=== PATIENT | female | born 1950 | race Caucasian/White ===

== ENCOUNTER 2021-02-14 13:29 | Outpatient (CLI) | payer MEDICARE, SELFPAY | END 2021-02-14 13:30 | disposition home or self-care (01) | LOC: ANHCOVIDVC 13:29 | PROVIDERS: PCP Family Medicine | DX: Z23 Encounter for immunization (principal) | CPT/HCPCS: 0001A; 91300 ==

== ENCOUNTER 2021-03-07 13:19 | Outpatient (CLI) | payer MEDICARE, SELFPAY | END 2021-03-07 13:20 | disposition home or self-care (01) | LOC: ANHCOVIDVC 13:19 | PROVIDERS: PCP Family Medicine | DX: Z23 Encounter for immunization (principal) | CPT/HCPCS: 0002A; 91300 ==

== ENCOUNTER 2021-11-25 21:25 | Inpatient (IN) | payer MEDICARE, SELFPAY ==
[2021-11-25] VITALS (12 sets, daily range): BP systolic 85–136; BP diastolic 46–106; PULSE 95–109; RESP 20–36; TEMP 36.6; O2SAT 89–99
--- NOTE | ~2021-11-25 | XR_ITS ---
EXAMINATION: XR chest 1V portable DATE: 12/12/2021 05:39 INDICATION: Respiratory failure TECHNIQUE: frontal view of the chest was obtained. COMPARISON: Chest radiograph dated 12/11/2021 FINDINGS: Endotracheal tube tip 4.2 cm above the shemar. Nasogastric tube extends below the left hemidiaphragm with distal tip collimated off the study. Left internal jugular central venous catheter with distal tip at the superior vena cava. Bilateral diffuse increased interstitial pattern superimposed over a gradient of lower lung predomina nt hazy airspace opacities, the latter consistent with small left and moderate right posteriorly laye ring pleural effusions. No pneumothorax. Cardiomegaly. Atherosclerotic aorta. Mitral annular calcific ation. IMPRESSION: 1. Diffuse bilateral lung disease consistent with pulmonary edema superimposed over moderate right an d small left pleural effusions. Superimposed pneumonia not excludable. Reviewed, dictated and finalized at location A. TYPE OPERATOR IMPRESSION: 1. Diffuse bilateral lung disease consistent with pulmonary edema superimposed over moderate right and small left pleural effusions. Superimposed pneumonia no t excludable.
--- NOTE | ~2021-11-25 | US_ITS ---
EXAMINATION: US renal BI DATE: 12/12/2021 18:03 INDICATION: Acute kidney injury TECHNIQUE: Multiple grayscale and Doppler ultrasound images of the kidneys were obtained. COMPARISON: CT, 12/02/2021 FINDINGS: The right kidney measures 11.2 x 6.2 x 4.2 cm. The left kidney measures 9.7 x 6 x 5.1 cm. T he kidneys demonstrate normal parenchymal echogenicity. There is no hydronephrosis. The bladder is de compressed by Alvarez catheter. IMPRESSION: 1. Normal kidneys without hydronephrosis. Reviewed, dictated and finalized at location F. RINTENDENT DRIVERS
--- NOTE | ~2021-11-25 | XR_ITS ---
EXAMINATION: [id number] EXAM DATE: 12/06/2021 18:26 INDICATION: Postthoracentesis. TECHNIQUE: Portable AP frontal chest x-ray was obtained. Comparison is made to prior examination from earlier same day. FINDINGS: Improvement in the diffuse hazy opacification over the right lung following thoracentesis. No postprocedure pneumothorax. Small to moderate left, small right pleural effusions. Cardiomegaly. D iffuse bilateral pneumonia and/or edema. Endotracheal tube, feeding tube and left IJ line in position . IMPRESSION: No postprocedure pneumothorax. Reviewed, dictated and finalized at location A. GRADER
--- NOTE | ~2021-11-25 | US_ITS ---
EXAMINATION: US thoracentesis DATE: 12/14/2021 16:47 INDICATION: Right pleural effusion TECHNIQUE: The procedure and its risks and benefits were discussed with the patient. Potential risks discussed included bleeding, infection, and pneumothorax. The patient understood the risks and agreed to proceed. The skin was prepped and draped in sterile fashion. 1% lidocaine was used for local anes thesia. Under ultrasound guidance, a 5 Fr catheter with trochar was advanced into the right pleural e ffusion. Fluid was aspirated. The catheter was removed, and a dressing was applied. There were no imm ediate complications. FINDINGS: Ultrasound images demonstrate a moderate-sized right pleural effusion and the catheter within the flu id. IMPRESSION: 1. Successful ultrasound-guided thoracentesis yielding 1000 mL of clear petey-colored fluid. Reviewed, dictated and finalized at location A. RAFT ENGINE ASSEMBLER IMPRESSION: 1. Successful ultrasound-guided thoracentesis yielding 1000 mL of clear petey- colored fluid.
--- NOTE | ~2021-11-25 | XR_ITS ---
XR chest 1V portable DATE: 12/05/2021 06:12 INDICATION: Acute hypoxic respiratory failure TECHNIQUE: Portable AP chest on 12/05/2021 at 0514 hours COMPARISON: 12/2021 portable AP chest at 0517 hours FINDINGS: ET tube tip 4.4 cm above shemar. NG tube in stomach. Left internal jugular central venous catheter tip overlies the superior vena cava. There are persistent pulmonary vascular congestion and diffuse bilateral pulmonary interstitial infil trates with atelectasis/consolidation in the right mid and both lower lung zones. Bilateral pleural e ffusions, right greater than left. Aortic calcification. Diffuse osteopenia. IMPRESSION: Congestive changes, bilateral pulmonary infiltrates and pleural effusions, relatively sta ble since 12/04/2021 Reviewed, dictated and finalized at location A. NT SERVICES ADMINISTRATOR IMPRESSION: Congestive changes, bilateral pulmonary infiltrates and pleural eff usions, relatively stable since 12/04/2021
--- NOTE | ~2021-11-25 | XR_ITS ---
XR chest 1V portable DATE: 12/06/2021 06:00 INDICATION: Acute hypoxic respiratory failure TECHNIQUE: Portable AP chest on 12/06/2021 at 0544 hours COMPARISON: 12/05/2021 portable AP chest at 1330 hours FINDINGS: ET tube in satisfactory position 4.5 cm above shemar. NG tube in stomach. Left internal jug ular central venous catheter tip overlies the proximal superior vena cava. No pneumothorax. There is persistent pulmonary vascular congestion and redistribution, pulmonary interstitial prominen ce including Tamanna B-lines, consistent bilateral infiltrates, right greater than left, prominence of the minor fissure suggesting subpleural edema, bilateral pleural effusions, right greater than left IMPRESSION: No significant change of congestive changes and bilateral infiltrates, right greater than left, and bilateral pleural effusions, right greater than left, since 12/05/2021 Reviewed, dictated and finalized at location A. S TIE CUTTER IMPRESSION: No significant change of congestive changes and bilateral infiltrat es, right greater than left, and bilateral pleural effusions, right greater jez n left, since 12/05/2021
--- NOTE | ~2021-11-25 | XR_ITS ---
EXAMINATION: XR chest port-a-cath/central DATE: 12/13/2021 12:35 INDICATION: Central line placement. TECHNIQUE: A single frontal view of the chest was obtained. COMPARISON: Chest single view 12/12/2021 FINDINGS: There are interstitial airspace opacities throughout the lungs bilaterally. There are moder ate-sized pleural effusions. No pneumothorax. Cardiomegaly is noted. The endotracheal tube tip is 5.7 cm above the shemar. The nasogastric tube tip is beyond the inferior margin of the radiograph, but a t least to the stomach. A left internal jugular central venous catheter is seen with tip in the super ior vena cava. A right internal jugular central venous catheter is seen with tip at the superior cavo atrial junction. IMPRESSION: 1. New central line tip at superior cavoatrial junction. 2. Stable diffuse lung disease, consistent with pulmonary edema versus pneumonia. 3. Stable moderate-sized pleural effusions. 4. Cardiomegaly. Reviewed, dictated and finalized at location B. H OPERATOR IMPRESSION: 1. New central line tip at superior cavoatrial junction. 2. Stable diffuse lung disease, consistent with pulmonary edema versus pneumoni a. 3. Stable moderate-sized pleural effusions. 4. Cardiomegaly.
--- NOTE | ~2021-11-25 | XR_ITS ---
XR chest 1V portable DATE: 12/03/2021 06:21 INDICATION: Acute hypoxic respiratory failure TECHNIQUE: Portable AP chest on 12/03/2021 0510 hours COMPARISON: 12/02/2020 CTA chest abdomen pelvis 12/02/2021 portable AP chest FINDINGS: ET tube in satisfactory position 4.6 cm above shemar. NG tube in stomach. Left internal jug ular central venous catheter tip overlies the superior vena cava. Cardiomegaly. Aortic calcification. There are bilateral mid and lower lung infiltrate/atelectasis and bilateral pleural effusions, right greater than left. No pneumothorax is noted. Diffuse osteopenia. IMPRESSION: Persistent congestive changes, bilateral central and lower lung zone infiltrates and bila teral pleural effusions, right greater than left. Congestive heart failure and pulmonary edema is robert pected. Pneumonia is not excluded Reviewed, dictated and finalized at location A. AD TRIMMER IMPRESSION: Persistent congestive changes, bilateral central and lower lung zon e infiltrates and bilateral pleural effusions, right greater than left. Congest khadar heart failure and pulmonary edema is suspected. Pneumonia is not excluded
--- NOTE | ~2021-11-25 | XR_ITS ---
EXAMINATION: XR chest 1V portable EXAM DATE: 11/30/2021 20:55 INDICATION: Worsening hypoxia . TECHNIQUE: Portable AP frontal chest x-ray was obtained. Comparison is made to prior examination from 11/25/2021. FINDINGS: Worsening severe right-sided, moderate left-sided airspace disease, probably pneumonia and/ or edema. Mild cardiomegaly. No pneumothorax. Probable small pleural effusions. There are no osseous abnormalities identified. There is aortic arteriosclerosis. IMPRESSION: 1. Worsening pneumonia and/or edema. 2. Small pleural effusions. 3. Cardiomegaly. Reviewed, dictated and finalized at location A. GUARD
--- NOTE | ~2021-11-25 | XR_ITS ---
EXAMINATION: XR chest 1V portable DATE: 12/11/2021 05:41 INDICATION: Respiratory failure TECHNIQUE: frontal view of the chest was obtained. COMPARISON: Chest radiograph dated 12/10/2021 FINDINGS: Endotracheal tube tip 4.3 cm above the shemar. Nasogastric tube extends below the left hemidiaphragm with distal tip collimated off the study. Left internal jugular central venous catheter with distal tip at the cephalad superior vena cava. Increasing opacities in the bilateral mid and lower lung zones consistent with increasing bilateral s mall to moderate right and small left pleural effusions with associated atelectasis and/or pneumonia. There is also increased perihilar interstitial pattern with peribronchial cuffing suggesting mild pu lmonary edema. Cardiomegaly. IMPRESSION: 1. Increasing small left and [id number] right pleural effusions with associated atelectasis, p neumonia, pulmonary edema or some combination thereof in the mid and lower lung zones. Reviewed, dictated and finalized at location A. HOUSE HELPER IMPRESSION: 1. Increasing small left and [id number] right pleural effusions with ass ociated atelectasis, pneumonia, pulmonary edema or some combination thereof in the mid and lower lung zones.
--- NOTE | ~2021-11-25 | XR_ITS ---
EXAMINATION: XR chest 1V portable DATE: 12/08/2021 05:40 INDICATION: Respiratory failure. TECHNIQUE: A single frontal view of the chest was obtained. COMPARISON: Chest single view 12/07/2021 FINDINGS: There are moderate-sized pleural effusions. There are airspace opacities in all lung zones bilaterally with least involvement in left upper lobe. No pneumothorax. Cardiomegaly is noted. The en dotracheal tube tip is 4.9 cm above the shemar. The nasogastric tube tip is beyond the inferior ciera n of the radiograph, but at least to the stomach. A left internal jugular central venous catheter is seen with tip in the superior vena cava. IMPRESSION: 1. Diffuse lung disease with worsening on the left, consistent with pulmonary edema versus pneumonia. 2. Worsened moderate-sized pleural effusions. 3. Cardiomegaly. Reviewed, dictated and finalized at location A. OR SHIPPING CLERK IMPRESSION: 1. Diffuse lung disease with worsening on the left, consistent with pulmonary e latasha versus pneumonia. 2. Worsened moderate-sized pleural effusions. 3. Cardiomegaly.
--- NOTE | ~2021-11-25 | XR_ITS ---
EXAMINATION: XR fl guide central line place DATE: 12/13/2021 10:31 INDICATION: Central line placement. TECHNIQUE: 2 intraoperative fluoroscopic views of the chest were obtained. I was not present. Fluoros copy exposure time was 3 seconds. COMPARISON: Chest single view 12/12/2021 FINDINGS: A right internal jugular central venous catheter is seen with tip at the superior cavoatria l junction. A left internal jugular central venous catheter is seen with tip in the superior vena cav a. The endotracheal tube tip is in expected position. IMPRESSION: 1. New central line tip at the superior cavoatrial junction. Reviewed, dictated and finalized at location B. IGERATING ENGINEER
--- NOTE | ~2021-11-25 | XR_ITS ---
XR chest 1V portable DATE: 12/21/2021 06:08 INDICATION: Respiratory failure TECHNIQUE: Portable AP chest on 12/21/2021 at 0512 hours hours COMPARISON: 12/20/2021 portable AP chest FINDINGS: ET tube tip 5.8 cm above shemar. NG tube in stomach. Dual lumen right internal jugular cent ral venous catheter tip overlies the lower aspect of superior vena cava. Left internal jugular centra l venous catheter overlies the proximal superior vena cava. No pneumothorax. There is persistent relatively stable pulmonary vascular congestion and redistribution and bilateral primarily central and lower lung zone infiltrates and pleural effusions, suggesting congestive change s and pulmonary edema. Pneumonia is not excluded. No pneumothorax. IMPRESSION: Persistent congestive changes and bilateral pulmonary infiltrates, pleural effusions, not significantly changed since 12/20/2021 Reviewed, dictated and finalized at location A. O STATION MANAGER
--- NOTE | ~2021-11-25 | US_ITS ---
EXAMINATION: US arterial duplex LE EXAM DATE: 12/17/2021 10:36 INDICATION: Left leg cyanosis. Cyanosis of all toes. TECHNIQUE: Multiple grayscale and Doppler, arterial duplex images of the left lower extremity were ob tained (by a technologist who performed the scan) and subsequently reviewed. There is no prior study for comparison. FINDINGS: Velocities of left lower extremity arteries reported in cm/second. Common femoral 213, superficial femoral 143, mid femoral 117, distal femoral 108, popliteal 138. Posterior tibial proximally 37, mid aspect 37, distally 58. Peroneal proximally 79, mid 118, distally 83. There are diffuse monophasic arterial waveforms with spectral broadening indicating turbulent flow. T hese are high resistance proximally, having lower resistance at the calf. Diffuse scattered arterial sclerotic disease noted without any focal region of doubled velocity to suggest focal specific high-g rade region of narrowing. IMPRESSION: Scattered left lower extremity arterial sclerosis, but with patent arteries through the c meagan. No single focal region of velocity doubling identified. Reviewed, dictated and finalized at location G. UNITY SERVICE ORGANIZATION DIRECTOR IMPRESSION: Scattered left lower extremity arterial sclerosis, but with patent arteries through the calf. No single focal region of velocity doubling identifi ed.
--- NOTE | ~2021-11-25 | XR_ITS ---
XR chest 1V portable 12/16/2021 06:16 Indication: Respiratory failure Procedure: AP portable chest Comparison: Comparison to multiple prior studies sequentially, with oldest reviewed study dated 12/13. Findings: Endotracheal tube tip 4.6 cm above the shemar. NG tube in the stomach. Cardiomegaly. Persis tent diffuse bilateral airspace disease which may represent pneumonia or edema. Small layering pleura l effusions. No pneumothorax. Central venous catheter tips in the SVC. Impression: 1: Persistent diffuse bilateral airspace disease which may represent pneumonia or edema. Reviewed, dictated and finalized at location A. TH CLUB ATTENDANT Impression: 1: Persistent diffuse bilateral airspace disease which may represent pneumonia or edema.
--- NOTE | ~2021-11-25 | XR_ITS ---
XR chest 1V portable 12/15/2021 05:48 Indication: Respiratory failure Procedure: AP portable chest Comparison: Comparison to multiple prior studies sequentially, with oldest reviewed study dated 12/13. Findings: Endotracheal tube tip 5 cm above the shemar. NG tube in the stomach. There is persistent ex tensive bilateral airspace disease which has progressed. Small pleural effusions. No pneumothorax. Ce ntral venous catheter tips in the SVC. Impression: 1: Progression of bilateral airspace disease, which may represent edema or pneumonia. 2: Small pleural effusions. Reviewed, dictated and finalized at location A. STANT PROFESSOR OF MARINE BIOLOGY Impression: 1: Progression of bilateral airspace disease, which may represent edema or pneu monia. 2: Small pleural effusions.
--- NOTE | ~2021-11-25 | XR_ITS ---
EXAMINATION: XR chest 1V portable EXAM DATE: 12/01/2021 14:45 INDICATION: decreased O2 Sats . TECHNIQUE: Portable AP frontal chest x-ray was obtained. Comparison is made to prior examination from 11/30/2021. FINDINGS: Severe right-sided, moderate left-sided airspace disease, probably pneumonia and/or edema. Mild cardiomegaly. No pneumothorax. Probable small to moderate right, small left pleural effusions. T here are no osseous abnormalities identified. There is aortic arteriosclerosis. Accounting for differences in technique, there is no significant interval change. IMPRESSION: 1. Right greater than left pneumonia and/or edema. 2. Small to moderate right, small left pleural effusions. 3. Cardiomegaly. Reviewed, dictated and finalized at location A. . UNIX SYSTEM ADMINISTRATOR
--- NOTE | ~2021-11-25 | XR_ITS ---
EXAMINATION: [id number] DATE: 12/14/2021 16:43 INDICATION: Status post right thoracentesis TECHNIQUE: frontal view of the chest was obtained. COMPARISON: Chest radiograph dated 12/14/2021 FINDINGS: Endotracheal tube tip 4.9 cm above the shemar. Nasogastric tube extends below the left hemidiaphragm with distal tip collimated off the study. Large-bore dual-lumen right internal jugular central venou s catheter with distal tip near at the caudal superior vena cava. Left internal jugular central venou s catheter with distal tip at the cephalad superior vena cava. Gradient of basilar predominant hazy airspace opacities in both lungs with blunting at the bilateral costophrenic angles consistent with small bilateral posteriorly layering pleural effusions. This is s ignificantly decreased on the right post thoracentesis. Bibasilar opacities consistent with associate d atelectasis and/or pneumonia. Superimposed increased interstitial pattern consistent with mild pulm onary edema. No pneumothorax. Mild cardiomegaly. IMPRESSION: 1. Small bilateral pleural effusions with associated basilar atelectasis and/or pneumonia with interv al decrease on the right postthoracentesis. 2. Mild cardiomegaly and mild pulmonary edema. Reviewed, dictated and finalized at location A. NCT ART HISTORY INSTRUCTOR IMPRESSION: 1. Small bilateral pleural effusions with associated basilar atelectasis and/or pneumonia with interval decrease on the right postthoracentesis. 2. Mild cardiomegaly and mild pulmonary edema.
--- NOTE | ~2021-11-25 | XR_ITS ---
XR chest 1V portable DATE: 12/18/2021 06:32 INDICATION: Respiratory failure TECHNIQUE: Portable AP chest 12/18/2021 at 0520 hours COMPARISON: 12/17/2021 portable AP chest at 0523 hours FINDINGS: ET tube tip 5.5 cm above shemar. NG tube in stomach. Dual lumen right internal jugular central venous catheter tip overlies the caudal aspect of the super ior vena cava. Left internal jugular central venous catheter tip overlies the proximal superior vena cava. No pneumothorax. There is pulmonary vascular congestion and redistribution. There are extensive bilateral pulmonary in filtrates which are more prominent centrally and minimal lower lung zones. Costophrenic angles are bl unted suggesting bilateral pleural effusions. Heart size is borderline enlarged. There is aortic calc ification. Diffuse osteopenia. IMPRESSION: Persistent congestive changes, extensive bilateral pulmonary infiltrates, suggesting pulm onary edema. Pneumonia is not excluded. Reviewed, dictated and finalized at location A. L PREP COOK IMPRESSION: Persistent congestive changes, extensive bilateral pulmonary infilt rates, suggesting pulmonary edema. Pneumonia is not excluded.
--- NOTE | ~2021-11-25 | XR_ITS ---
EXAMINATION: XR chest 1V portable EXAM DATE: 12/07/2021 06:21 INDICATION: Pneumonia. TECHNIQUE: Portable AP frontal chest x-ray was obtained. Comparison is made to prior examination from 12/06/2021. FINDINGS: Endotracheal tube tip is 4-5 centimeters above the shemar. There is a nasogastric tube see n with tip collimated off the study, but below the left hemidiaphragm. There is a left IJ venous li ne in position. Moderate amount of bibasilar edema or pneumonia. Small to moderate left, small right pleural effusion s. There is no pneumothorax suspected. The cardiomediastinal silhouette is prominent but magnified on this AP technique. The bones and soft tissues are unremarkable. IMPRESSION: 1. Line and tube(s) in position. 2. Basilar pneumonia or edema and pleural effusions with mild improvement. Reviewed, dictated and finalized at location G. WRITER
--- NOTE | ~2021-11-25 | US_ITS ---
EXAMINATION: US thoracentesis DATE: 12/06/2021 14:37 INDICATION: pleural effusion TECHNIQUE: The procedure and its risks, benefits, and alternatives were discussed with Mercedes Sauer. Grant otential risks discussed included bleeding, infection, and pneumothorax. She understood the risks and agreed to proceed. The skin was prepped and draped in sterile fashion. 1% lidocaine was used for loc al anesthesia. Under ultrasound guidance, a 5 Fr catheter with trochar was advanced into the right pl eural effusion. Fluid was aspirated. The catheter was removed, and a dressing was applied. There were no immediate complications. FINDINGS: Ultrasound images demonstrate a right pleural effusion and the catheter within the fluid. IMPRESSION: 1. Successful ultrasound-guided thoracentesis yielding 1000 mL of clear, yellow fluid. Reviewed, dictated and finalized at location A. OR QUALITY TECHNICIAN IMPRESSION: 1. Successful ultrasound-guided thoracentesis yielding 1000 mL of clear, yello w fluid.
--- NOTE | ~2021-11-25 | XR_ITS ---
XR chest 1V portable DATE: 12/22/2021 05:57 INDICATION: Respiratory failure TECHNIQUE: Portable AP chest on 12/22/2021 at 0525 hours COMPARISON: 12/21/2021 portable AP chest at 0512 hours FINDINGS: ET tube tip is 5.7 cm above shemar. NG tube in stomach. Left internal jugular central venous line overlies proximal superior vena cava. Right internal jugula r dual-lumen catheter tip is situated in the lower inferior vena cava. There is no pneumothorax. Cardiac megaly. Aortic calcification. Diffuse bilateral pulmonary infiltrates, more prominent centrally and to a greater extent in the lowe r lung zones and suggestion bilateral pleural effusions. Findings suggest congestive changes, pulmona ry edema. Pneumonia is not excluded. IMPRESSION: No significant change since 12/21/2021 Reviewed, dictated and finalized at location A. KILN OPERATOR
--- NOTE | ~2021-11-25 | CT_ITS ---
EXAMINATION: CT diagnostic chest wo con DATE: 12/08/2021 17:39 INDICATION: Respiratory failure TECHNIQUE: Computed tomography (CT) of the chest was performed without intravenous contrast. The dose -length product (DLP) was 262.62 mGy-cm. Automated exposure control and iterative reconstruction tech [employer] were employed. COMPARISON: 12/02/2021 FINDINGS: The endotracheal tube ends approximately 6 cm above the shemar. The nasogastric tube is fol lowed at least to the stomach. There are moderate-sized pleural effusions. Cardiomegaly is noted. The re is mild bilateral hilar and mediastinal lymphadenopathy, likely reactive. There are dependent airs pace opacities of the lungs. No pneumothorax is identified. There is calcified coronary artery athero sclerosis. There is severe lower cervical spondylosis. IMPRESSION: 1. Bilateral dependent airspace opacities, consistent with atelectasis versus pneumonia. 2. Moderate-sized pleural effusions. 3. Cardiomegaly. Reviewed, dictated and finalized at location F. AULIC PRESS SERVICER IMPRESSION: 1. Bilateral dependent airspace opacities, consistent with atelectasis versus p neumonia. 2. Moderate-sized pleural effusions. 3. Cardiomegaly.
--- NOTE | ~2021-11-25 | XR_ITS ---
EXAMINATION: XR chest ET placement EXAM DATE: 12/01/2021 15:42 INDICATION: intubation . Respiratory failure. TECHNIQUE: Portable AP frontal chest x-ray was obtained. Comparison is made to prior examination from earlier same date. FINDINGS: Endotracheal tube tip is 5-6 centimeters above the shemar. There is a left-sided IJ centra l venous line. Severe right-sided, moderate left-sided airspace disease, probably pneumonia and/or edema. Mild cardi omegaly. No pneumothorax. Probable small to moderate right, small left pleural effusions. There are n o osseous abnormalities identified. There is aortic arteriosclerosis. Accounting for differences in technique, there is no significant interval change. IMPRESSION: 1. No evidence postprocedure pneumothorax. 2. Right greater than left pneumonia and/or edema. 3. Small to moderate right, small left pleural effusions. 4. Cardiomegaly. Reviewed, dictated and finalized at location A. ANALYST
--- NOTE | ~2021-11-25 | XR_ITS ---
EXAMINATION: XR chest 1V portable DATE: 12/14/2021 06:31 INDICATION: Respiratory failure TECHNIQUE: frontal view of the chest was obtained. COMPARISON: Chest radiograph dated 12/13/2021 FINDINGS: Endotracheal tube tip 2.7 cm above the shemar. Nasogastric tube extends below the left hemidiaphragm with distal tip collimated off the study. Large-bore dual-lumen likely 12 right internal jugular kerrie tral venous catheter with distal tip near the superior cavoatrial junction. Left internal jugular kerrie tral venous catheter with distal tip at the cephalad superior vena cava. Persistent airspace opacities throughout both lungs most prominent at the right lung and left lower l denny zone likely due to small left and moderate-sized right posterior layering pleural effusions with associated basilar atelectasis and/or pneumonia. Superimposed mild pulmonary edema . Cardiomegaly. Mi tral annular calcification. IMPRESSION: 1. Likely congestive heart failure with cardiomegaly, mild pulmonary edema, small left and moderate-s ized right pleural effusions with associated atelectasis. Pneumonia not excludable. Reviewed, dictated and finalized at location A. GER ROUTE IMPRESSION: 1. Likely congestive heart failure with cardiomegaly, mild pulmonary edema, sma ll left and moderate-sized right pleural effusions with associated atelectasis. Pneumonia not excludable.
--- NOTE | ~2021-11-25 | XR_ITS ---
EXAMINATION: XR chest 1V portable EXAM DATE: 11/25/2021 21:50 INDICATION: Shortness of breath one to 2 days. Smoker, hypertension. TECHNIQUE: Portable AP frontal chest x-ray was obtained. Comparison is made to prior examination from 01/07/2017. FINDINGS: Moderate amount of bilateral mid and lower lung zone ill-defined airspace disease, edema an d/or pneumonia. Mild cardiomegaly unchanged. Small left pleural effusion, trace right pleural effusio n. No pneumothorax. There is aortic arteriosclerosis. There are bony degenerative changes. IMPRESSION: Moderate amount of bilateral edema and/or pneumonia. Reviewed, dictated and finalized at location A. S CLOSER
--- NOTE | ~2021-11-25 | XR_ITS ---
EXAMINATION: XR chest 1V portable EXAM DATE: 12/02/2021 06:10 INDICATION: Acute hypoxic respiratory failure, mechanical ventilation. TECHNIQUE: Portable AP frontal chest x-ray was obtained. Comparison is made to prior examination from 12/01/2021. FINDINGS: Endotracheal tube tip is 5 centimeters above the shemar. There is a left IJ venous line. T here is a nasogastric tube seen with tip collimated off the study, but below the left hemidiaphragm. Extensive right-sided, moderate left basilar pneumonia or edema unchanged. Probable small to moderat e right, small left pleural effusions.Skin fold and tubing overlying the left hemithorax. There is no pneumothorax suspected. The cardiomediastinal silhouette is prominent but magnified on this AP micha hnique. The bones and soft tissues are unremarkable. There is aortic arteriosclerosis. IMPRESSION: 1. Line and tube(s) in position. 2. Pleural effusions and pneumonia or edema right greater than left unchanged. Reviewed, dictated and finalized at location A. CH MUSICIAN
--- NOTE | ~2021-11-25 | XR_ITS ---
XR chest 1V portable 12/09/2021 05:41 Indication: Respiratory failure Procedure: AP portable chest Comparison: 12/06/2021 Findings: Endotracheal tube tip 6.4 cm above the shemar. NG tube in the stomach. Borderline heart siz e. Diffuse bilateral airspace disease. Small pleural effusions. No pneumothorax. Central line tip in the SVC. No pneumothorax identified. Impression: 1: Diffuse bilateral airspace disease unchanged which may represent edema or pneumonia. 2: Small pleural effusions. Reviewed, dictated and finalized at location A. UNITY OUTREACH WORKER Impression: 1: Diffuse bilateral airspace disease unchanged which may represent edema or pn eumonia. 2: Small pleural effusions.
--- NOTE | ~2021-11-25 | XR_ITS ---
XR chest 1V portable DATE: 12/13/2021 21:17 INDICATION: Oxygen desaturation while on ventilator TECHNIQUE: COMPARISON: None FINDINGS: The endotracheal 2 views 4.2 cm above shemar in satisfactory position. NG tube in stomach. Left internal jugular central venous catheter tip overlies the superior cavoatrial area. Probable bilateral pleural effusions, right greater than left. Findings suggest congestive heart lisa lure and pulmonary edema; pneumonia additionally is not excluded. No pneumothorax. IMPRESSION: Persistent extensive bilateral pulmonary infiltrates throughout the lungs, right greater than left, not significantLY change since 1229 hours earlier today Reviewed, dictated and finalized at location J. ER/WAITRESS CAFETERIA IMPRESSION: Persistent extensive bilateral pulmonary infiltrates throughout the lungs, right greater than left, not significantLY change since 1229 hours hilario ier today
--- NOTE | ~2021-11-25 | XR_ITS ---
EXAMINATION: XR chest 1V portable DATE: 12/10/2021 06:15 INDICATION: Respiratory failure TECHNIQUE: frontal view of the chest was obtained. COMPARISON: Chest radiograph dated 12/09/2021 FINDINGS: Endotracheal tube tip 4.5 cm above the shemar. Nasogastric tube extends below the left hemidiaphragm with distal tip collimated off the study. Left internal jugular central venous catheter with distal tip at the superior vena cava. Emphysema better appreciated on prior CT. Gradient of basilar predominant hazy opacities throughout t he right lung and in the left lower lung zone consistent with small left and ppyer-[id number] right pleural effusions. Patchy airspace opacities in the right mid to lower lung zone more streaky opaciti es at the bilateral lung bases. No pneumothorax. Cardiomegaly. IMPRESSION: 1. Small left and [id number]-[id number] right pleural effusions with associated atelectasis and/or pneumo carolee in the right mid to lower and left lower lung zones. 2. Emphysema better appreciated on prior CT. 3. Cardiomegaly. Reviewed, dictated and finalized at location A. STOP/CONTAINMENT WORKER IMPRESSION: 1. Small left and zyynn-di-[id number] right pleural effusions with associated ate lectasis and/or pneumonia in the right mid to lower and left lower lung zones. 2. Emphysema better appreciated on prior CT. 3. Cardiomegaly.
--- NOTE | ~2021-11-25 | CT_ITS ---
EXAMINATION: CTA chest PE abdomen pel DATE: 12/02/2021 14:40 INDICATION: Acute hypoxic respiratory failure. TECHNIQUE: Computed tomography angiography (CTA) of the chest was performed with 100 mL Omnipaque-350 intravenous contrast timed to evaluate the pulmonary arteries. Coronal maximum intensity projection 3D-reconstructions were created by the technologist. Computed tomography (CT) of the abdomen and pelv is was performed with intravenous contrast. Automated exposure control and iterative reconstruction t echnique were employed. The dose-length product was 748.72 mGy-cm. COMPARISON: CT abdomen and pelvis 07/23/2014 FINDINGS: CTA chest: There is moderate emphysema. There are moderate-sized bilateral pleural effusions. There i s bilateral atelectasis with a dependent predominance. There are scattered groundglass opacities in t he nondependent lungs bilaterally. A calcified right lung nodule and calcified right hilar lymph node s are consistent with old granulomatous disease. There is mild scarring at the lung apices. The endot srini tube tip is in expected position. Cardiomegaly is noted. There are coronary artery calcificat ions. No pericardial effusion. There is no pulmonary embolus. There are chronic compression fractures of T3 and T5. CT abdomen and pelvis: There is periportal edema in the liver. The gallbladder is distended. Gallblad negrito wall thickening is noted. There is a 13 mm cystic lesion in the tail the pancreas. The spleen and adrenal glands are normal. There is cortical thinning of the kidneys. There is an end colostomy in l eft abdomen. There is diverticulosis of the colon without evidence of diverticulitis. The appendix is not visualized. There is a small volume of ascites. There is mild aortocaval lymphadenopathy. The bl adder is decompressed by Alvarez catheter. There is a chronic burst fracture of L4. There is mild lumba r spondylosis. IMPRESSION: 1. No pulmonary embolus. 2. Moderate-sized bilateral pleural effusions. 3. Mild scattered groundglass opacities in the lungs, consistent with mild pulmonary edema versus pne umonia. 4. Moderate emphysema. 5. Gallbladder distention and gallbladder wall thickening. These findings may be secondary to a combi nation of fasting and interstitial edema or acute cholecystitis. 6. Small volume of ascites. 7. Mild aortocaval lymphadenopathy, likely reactive. Reviewed, dictated and finalized at location A. TICAL ADVISOR IMPRESSION: 1. No pulmonary embolus. 2. Moderate-sized bilateral pleural effusions. 3. Mild scattered groundglass opacities in the lungs, consistent with mild pulm onary edema versus pneumonia. 4. Moderate emphysema. 5. Gallbladder distention and gallbladder wall thickening. These findings may b e secondary to a combination of fasting and interstitial edema or acute cholecy stitis. 6. Small volume of ascites. 7. Mild aortocaval lymphadenopathy, likely reactive.
--- NOTE | ~2021-11-25 | XR_ITS ---
XR chest 1V portable DATE: 12/19/2021 06:03 INDICATION: Respiratory failure TECHNIQUE: Portable AP chest on 12/19/2021 0507 hours COMPARISON: 12/18/2019 portable AP chest at 0520 hours FINDINGS: Persistent diffuse bilateral pulmonary infiltrates are again noted without improvement sinc e 12/18/2021. Left internal jugular central venous catheter tip overlies superior vena cava proximally. Right inter nal jugular dual-lumen catheter tip is situated at the lower aspect of the superior vena cava. No pne umothorax. NG tube in stomach. IMPRESSION: Persistent prominent diffuse bilateral pulmonary infiltrates without improvement since Reviewed, dictated and finalized at location A. RVISOR SLITTING AND SHIPPING IMPRESSION: Persistent prominent diffuse bilateral pulmonary infiltrates withou t improvement since 12/18/2021
--- NOTE | ~2021-11-25 | XR_ITS ---
XR chest 1V portable DATE: 12/20/2021 06:26 INDICATION: Respiratory failure TECHNIQUE: Portable AP chest on 12/20/2021 at 0553 hours COMPARISON: 12/19/2021 portable AP chest at 0507 hours FINDINGS: ET tube tip 5.4 cm above shemar. NG tube in stomach. Left internal jugular central venous c atheter tip overlies proximal superior vena cava. Right internal jugular dual-lumen catheter tip is s ituated at the superior cavoatrial junction. There is pulmonary vascular congestion and diffuse bilateral pulmonary infiltrate involving particula rly the mid and to a greater extent lower lung zones, mild prominence of minor fissure suggesting sub pleural edema and probable bilateral mild pleural effusions. IMPRESSION: Persistent congestive changes and bilateral pulmonary infiltrates suggesting pulmonary ed morenita, mildly improved since 12/19/2021 Reviewed, dictated and finalized at location A. RITY EXPERT IMPRESSION: Persistent congestive changes and bilateral pulmonary infiltrates s uggesting pulmonary edema, mildly improved since 12/19/2021
--- NOTE | ~2021-11-25 | XR_ITS ---
XR chest 1V portable DATE: 12/17/2021 05:49 INDICATION: Respiratory failure TECHNIQUE: Portable AP chest on 12/17/2021 at 0523 hours COMPARISON: 12/16/2021 portable AP chest at 0528 hours FINDINGS: Bilateral hyperinflation. Cardiomegaly. There is pulmonary vascular congestion and redistribution. There are bilateral pulmonar y infiltrates which are more prominent centrally and in the lower lung zones, suggesting pulmonary ed morenita. Tamanna B-lines are noted, consistent with pulmonary interstitial edema. Aortic arch calcification. ET tube in satisfactory position 4.5 cm above shemar. NG tube in stomach. Dual lumen right internal j ugular central venous catheter tip overlies the caudal aspect of the superior vena cava. IMPRESSION: Persistent bilateral pulmonary infiltrates, stable or minimally improved since 12/16/2021, most suggestive of pulmonary edema. Pneumonia or aspiration are not excluded Reviewed, dictated and finalized at location A. DOWN COORDINATOR IMPRESSION: Persistent bilateral pulmonary infiltrates, stable or minimally imp roved since 12/16/2021, most suggestive of pulmonary edema. Pneumonia or aspirat ion are not excluded
--- NOTE | ~2021-11-25 | XR_ITS ---
EXAMINATION: XR chest 1V portable INDICATION: Left-sided hemothorax TECHNIQUE: Portable AP chest at 1654 hours COMPARISON: 0520 hours FINDINGS: There is been interval decrease in size of a left pleural effusion, now small to moderate i n size. There is a small right pleural effusion. The endotracheal tube ends approximately 5.0 cm abov e the shemar. The nasogastric tube is followed as far as the stomach. Its tip is beyond the inferior margin of the radiograph. A left internal jugular central venous catheter ends with its tip in the pr oximal superior vena cava. A large bore right-sided internal jugular catheter ends with its tip in th e distal superior vena cava. There are diffuse interstitial and airspace opacities throughout all christine g zones. More focal airspace opacities are seen in the lung bases. The cardiac silhouette is obscured . No pneumothorax is identified. IMPRESSION: 1. Interval decrease in size of a now small to moderate left pleural effusion. 2. Diffuse lung disease, consistent with atelectasis versus pneumonia versus pulmonary edema. 3. More focal bibasilar airspace opacities likely reflect atelectasis. Reviewed, dictated and finalized at location F. ANICAL SYSTEMS CONTROL ENGINEER IMPRESSION: 1. Interval decrease in size of a now small to moderate left pleural effusion. 2. Diffuse lung disease, consistent with atelectasis versus pneumonia versus pu lmonary edema. 3. More focal bibasilar airspace opacities likely reflect atelectasis.
--- NOTE | ~2021-11-25 | CT_ITS ---
EXAMINATION: CT sinus wo/w con DATE: 12/02/2021 14:58 INDICATION: Sinusitis. TECHNIQUE: Computed tomography (CT) of the paranasal sinuses was performed without and with 100 mL Om nipaque 350 intravenous contrast. The mA was adjusted according to patient size. Iterative reconstruc tion technique was employed. The dose-length product was 1362.00 mGy-cm. COMPARISON: Head CT 12/02/2021 FINDINGS: The frontal sinuses are clear. There is mild mucosal thickening in the right ethmoid sinuse s. The sphenoid and maxillary sinuses are clear. There is minimal mucosal thickening in left maxillar y sinus. There is rightward deviation of the nasal septum. There is a Chelsey cell on the left. The os tiomeatal units are patent. There is multifocal dental disease. IMPRESSION: 1. Mild mucosal thickening in the right ethmoid sinuses and minimal mucosal thickening in left maxill soila sinus. 2. Rightward deviation of the nasal septum. 3. Multifocal dental disease. Reviewed, dictated and finalized at location A. UCTION QUALITY ANALYST IMPRESSION: 1. Mild mucosal thickening in the right ethmoid sinuses and minimal mucosal thi ckening in left maxillary sinus. 2. Rightward deviation of the nasal septum. 3. Multifocal dental disease.
--- NOTE | ~2021-11-25 | CT_ITS ---
EXAMINATION: CT brain wo/w con DATE: 12/02/2021 14:39 INDICATION: Sinusitis. TECHNIQUE: Computed tomography (CT) of the head was performed without and with 100 mL Omnipaque 350 i ntravenous contrast. The mA was adjusted according to patient size. Iterative reconstruction techniqu e was employed. The dose-length product was 681.00 mGy-cm. COMPARISON: Head CT 01/03/2017 FINDINGS: There is an infarct in posterior right frontal lobe. There are scattered areas of low atten uation in the cerebral white matter. There is no intracranial hemorrhage or abnormal mass lesion. The ventricles are normal in size. The orbits are normal. There are small bilateral mastoid effusions. T here is mild mucosal thickening in the ethmoid sinuses. The orbits are normal. There is multifocal de ntal disease. IMPRESSION: 1. 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 2. Stable mild nonspecific cerebral white matter disease, which likely represents chronic small vesse l ischemic disease. 3. Mild mucosal thickening in the ethmoid sinuses. 4. Multifocal dental disease. Reviewed, dictated and finalized at location A. ON MOLDING MACHINE OPERATOR IMPRESSION: 1. 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 2. Stable mild nonspecific cerebral white matter disease, which likely represen ts chronic small vessel ischemic disease. 3. Mild mucosal thickening in the ethmoid sinuses. 4. Multifocal dental disease.
--- NOTE | ~2021-11-25 | XR_ITS ---
XR chest 1V portable DATE: 12/04/2021 06:12 INDICATION: Acute hypoxic respiratory failure TECHNIQUE: Portable AP chest on 12/2021 at 0517 hours COMPARISON: 12/03 portable AP chest at 0510 hours FINDINGS: ET tube in satisfactory position 5 cm above shemar. NG tube in stomach. Left internal jugular central venous catheter tip overlies the superior vena cava. Bilateral hyperinflation. Heart size appears within normal limits. Is aortic calcification. There is evidence of pulmonary vascular congestion. This pulmonary interstitial prominence suggesting pulmonary interstitial edema or pneumonitis. There infiltrates in the mid and particularly lower christine g zones, especially the lower lobes; diffusion diagnosis includes pneumonia, pulmonary edema, aspirat ion. Bilateral right greater than left pleural effusions are suggested. Diffuse osteopenia. IMPRESSION: No significant change since 12/03/2021 Reviewed, dictated and finalized at location A. NETWORK TECHNICIAN
--- NOTE | ~2021-11-25 | US_ITS ---
EXAMINATION: US thoracentesis DATE: 12/07/2021 13:07 INDICATION: pleural effusion TECHNIQUE: The procedure and its risks, benefits, and alternatives were discussed with Mercedes Sauer. Grant otential risks discussed included bleeding, infection, and pneumothorax. She understood the risks and agreed to proceed. The skin was prepped and draped in sterile fashion. 1% lidocaine was used for loc al anesthesia. Under ultrasound guidance, a 5 Fr catheter with trochar was advanced into the left ple ural effusion. Fluid was aspirated. The catheter was removed, and a dressing was applied. There were no immediate complications. FINDINGS: Ultrasound images demonstrate a left pleural effusion and the catheter within the fluid. IMPRESSION: 1. Successful ultrasound-guided thoracentesis yielding 1000 mL of clear, yellow fluid. Reviewed, dictated and finalized at location A. CONDITIONING SHEET METAL INSTALLER IMPRESSION: 1. Successful ultrasound-guided thoracentesis yielding 1000 mL of clear, yello w fluid.
--- NOTE | ~2021-11-25 | XR_ITS ---
EXAMINATION: [id number]_[id number]_CR DATE: 12/07/2021 13:01 INDICATION: Left pleural effusion status post thoracentesis. TECHNIQUE: A single frontal view of the chest was obtained. COMPARISON: Chest single view at 5:17 AM FINDINGS: There are moderate-sized right and small left pleural effusions. There is a diffuse interst itial pattern in the lungs. There are airspace opacities in all right lung zones and in left lower jael ng zone. No pneumothorax. Cardiomegaly is noted. The endotracheal tube tip is 3.7 cm above the shemar . A left internal jugular central venous catheter is seen with tip in the superior vena cava. The lennox ogastric tube tip is beyond the inferior margin of the radiograph, but at least to the stomach. IMPRESSION: 1. Diffuse lung disease with worsening on the right and improvement on the left, consistent with pulm onary edema versus pneumonia. 2. Moderate-sized right and small left pleural effusions with improvement on the left. 3. Cardiomegaly. Reviewed, dictated and finalized at location A. E CONTRACTOR IMPRESSION: 1. Diffuse lung disease with worsening on the right and improvement on the left , consistent with pulmonary edema versus pneumonia. 2. Moderate-sized right and small left pleural effusions with improvement on th e left. 3. Cardiomegaly.
--- NOTE | ~2021-11-25 | XR_ITS ---
XR chest 1V portable DATE: 12/23/2021 06:29 INDICATION: Respiratory failure TECHNIQUE: Portable AP chest on 12/23/2021 at 0520 hours COMPARISON: 12/22/2021 portable AP chest at 0525 hours FINDINGS: There is complete opacification of the left thorax with mild leftward shift of heart and me diastinum, consistent with left lung atelectasis/consolidation. Persistent diffuse right lung infiltrates, greater in the right mid and particularly lower lung zones . ET tube tip approximately 5.2 cm above shemar. NG tube in stomach. Left internal jugular central venous catheter tip overlies proximal superior vena cava. Right interna l jugular dual-lumen catheter tip is situated near the superior cavoatrial junction. IMPRESSION: Complete opacification of left hemithorax due to left lung atelectasis/consolidation Persistent diffuse right lung infiltrate Reviewed, dictated and finalized at location A. [employer]SMITH [employer]ARM IMPRESSION: Complete opacification of left hemithorax due to left lung atelecta sis/consolidation Persistent diffuse right lung infiltrate
--- NOTE | ~2021-11-25 | XR_ITS ---
XR chest ET placement DATE: 12/05/2021 13:41 INDICATION: ET tube repositioning TECHNIQUE: Portable AP chest on 12/05/2021 at 1332 hours COMPARISON: 12/05/2021 portable AP chest at 0514 hours FINDINGS: ET tube tip is approximately 4.5 cm above the shemar, in satisfactory position. NG tube is noted passing into the stomach. Left internal jugular central venous catheter tip overlies the proximal superior vena cava. Persistent pulmonary vascular congestion, bilateral lung infiltrates and pleural effusions, relativel y stable since earlier today. IMPRESSION: Repositioned ET tube in satisfactory position Reviewed, dictated and finalized at Location A. Reviewed, dictated and finalized at location A. D TIRE TUBER MACHINE OPERATOR
--- NOTE | 2021-11-25 21:48 | ED.SOB ---
HPI - SOB/Dyspnea General Chief Complaint: Shortness of Breath/Dyspnea Stated Complaint: difficulty breathing x 2 days - cpap Time Seen by Provider: 11/25/21 21:39 Source: patient and EMS Mode of arrival: EMS Limitations: no limitations History of Present Illness HPI Narrative: Patient is a 71-year-old female brought in by EMS due to respiratory distress. According to EMS patient's oxygen saturation at home was in the 60s, was in distress, was placed on CPAP. Patient states that her shortness of breath started today. Patient denies any history of COPD but admits to being a heavy smoker, smokes every day. Denies any history of CHF. Denies chest pain, abdominal pain, nausea, vomiting, fever or chills. Related Data Allergies Allergy/AdvReac Type Severity Reaction Status Date / Time BREATH RIGHT NASAL STRIPS AdvReac Unknown REDNESS AT Uncoded 11/25/21 21:53 SITE Review of Systems Review of Systems: All systems reviewed & are unremarkable except as noted in HPI and below Constitutional: Constitutional: Denies body ache(s), Denies chills, Denies excessive sweating, Denies fatigue, Denies fever(s), Denies headache(s), Denies lethargy, Denies malaise, Denies weakness and Denies weight loss Eyes: Eyes: Denies blurry vision, Denies change in vision and Denies loss of vision ENT: Denies dizziness, Denies ear discharge, Denies headache(s), Denies lip swelling, Denies epistaxis, Denies nasal congestion, Denies neck pain, Denies throat swelling and Denies tongue swelling Cardiovascular: Cardiovascular: Denies chest pain, Denies chest pain at rest, Denies chest pain with activity, Denies diaphoresis, Denies rapid heart rate, Denies edema, Denies irregular heart rhythm, Denies lightheadedness and Denies palpitations Respiratory: Respiratory: Denies chest congestion and Denies hemoptysis Gastrointestinal: Gastrointestinal: Denies abdominal pain, Denies melena, Denies hematochezia, Denies diarrhea, Denies nausea, Denies vomiting and Denies hematemesis Musculoskeletal: Musculoskeletal: Denies abnormal gait, Denies deformity, Denies joint swelling, Denies limited range of motion, Denies neck pain and Denies numbness Neurologic: Denies Abnormal speech present, Denies abnormal gait, Denies confusion, Denies dizziness, Denies headache(s), Denies focal weakness, Denies loss of vision, Denies numbness, Denies Other visual disturbances, Denies Sensory deficit (Neuro) and Denies weakness Psychiatric: Psychiatric: Denies confusion, Denies depression, Denies auditory hallucinations, Denies homicidal ideation and Denies suicidal ideation Endocrine: Endocrine: Denies cold intolerance, Denies excessive sweating, Denies fatigue, Denies heat intolerance and Denies palpitations Hematologic/Lymphatic: Hematologic/Lymphatic: Denies easy bleeding and Denies easy bruising Allergic/Immunologic: Allergic/Immunologic: Denies lip swelling, Denies throat swelling and Denies tongue swelling PMFSH Past Medical History Medical History Afib Anxiety Bronchitis Chronic UTI Colonoscopy refused Depression Diabetes type 2, controlled GERD (gastroesophageal reflux disease) History of Clostridium difficile colitis History of colon cancer History of colorectal cancer History of ETOH abuse History of kidney stones Hypercholesteremia Hypertension Seizures Surgical History Surgical History History of appendectomy History of colostomy Family History Family History Mother Family history of cardiovascular disease Other Family history of tuberculosis Social History Social History Smoking packs per day: 2 Smoking cigarettes per day: 40.0 Smoking status: Current every day smoker Alcohol intake: never Gender identity (if verbalized by the pat
--- NOTE | 2021-11-25 21:53 | PC.NURSE ---
Patient states she is anxious and requesting medications. ERP notified. Patient tolerating high flow NC, O2 at 88-89%, ERP notified.
[2021-11-25 21:56] LABS: Basophils Percent Auto 0.2 % (0.2-1.2); Eosinophils Absolute Auto 0.1 K/mm3 (0-0.3); Eosinophils Percent Auto 0.3 % (0-4.4); Hematocrit 43.7 % (37.0-47.0); Immature Granulocyte Percent A 0.6 % (0-0.5); Lymphocytes Absolute Auto 1.32 K/mm3 (0.9-3.2); Lymphocytes Percent Auto 7.8 % (18.3-44.2); Mean Corpuscular HGB Conc 34.3 g/dl (32-36); Mean Corpuscular Hemoglobin 32.1 pg (26-34); Mean Corpuscular Volume 93.6 fl (80-100); Mean Platelet Volume 11.2 fl (7.4-10.4); Monocytes Percent Auto 5.8 % (2.6-8.5); Neutrophils Absolute Auto 14.4 K/mm3 (1.3-6.7); Neutrophils Percent Auto 85.3 % (45.5-73.1); Platelet Count Result 181 k/mm3 (150-375); Red Blood Count 4.67 M/mm3 (4.2-5.4); Red Cell Distribution Width 13.9 % (11.5-14.5); White Blood Count 16.9 K/mm3 (4.5-10.0)
--- NOTE | 2021-11-25 22:02 | PC.NURSE ---
ED respiratory in room with patient at this time.
[2021-11-25] MEDS: IPRATROPIUM BR 0.02% INH SOLN 0.5 MG/2.5 ML VIAL INHALATION (22:08)
[2021-11-25] MEDS: ALBUTEROL SULFATE NEB 2.5 MG/0.5 ML INH 5 MG INHALATION (22:08)
[2021-11-25 22:09] LABS: INR 2.6
[2021-11-25 22:10] LABS: Partial Thromboplastin Time 41.7 SECONDS (22.3-36.8)
[2021-11-25 22:16] LABS: Base Excess ABG -5.2 mEq/l (+/-2.0); HCO3 ABG 20.3 mEq/l (22.0-26.0); PCO2 ABG 39.7 mmHg (35.0-45.0); PO2 ABG 51.5 mmHg (80.0-100.0); pH ABG 7.327 (7.350-7.450)
[2021-11-25 22:17] LABS: Alveolar/Arterial O2 Gradient 43.5 mmHg; Oxygen Saturation ABG 84.1 % (95.0-100.0); Total Hemoglobin 15.1 g/dL (12.0-18.0)
[2021-11-25 22:18] LABS: Oxygen Content ABG 17.1 %vol (16.0-22.0); Oxyhemoglobin 80.9 % THb (90.0-100.0)
[2021-11-25 22:19] LABS: Device HIGH FLOW NASAL CANN; Fractional Inspired Oxygen 80 %; Modified Allen's Test Pass; Site Drawn RIGHT RADIAL
[2021-11-25 22:20] LABS: PO2 FiO2 Ratio Arterial Blood 2.58 %
[2021-11-25] MEDS: LORazepam INJ (*CRX) 2 MG/ML VIAL 1 MG IV PUSH (22:28)
--- NOTE | 2021-11-25 22:35 | PC.NURSE ---
Patients bp 85/46, ERP notified. VORB per give 1L bolus of LR.
[2021-11-25] MEDS: LACTATED RINGERS 1,000 ML 999 ML IV CONT (22:39)
[2021-11-25 22:59] LABS: Alanine Aminotransferase 17 U/L (4-35); Albumin Level 4.4 g/dL (3.5-5.1); Alkaline Phosphatase 63 U/L (38-126); Anion Gap 9 mmol/L (8-16); Aspartate Amino Transferase 30 U/L (14-36); Bilirubin,Total 0.7 mg/dL (0.2-1.3); Blood Urea Nitrogen 18 mg/dL (7-17); Calcium 9.1 mg/dL (8.4-10.2); Carbon Dioxide 19 mmol/L (22-30); Chloride 92 mmol/L (98-107); Estimated CRCL calculation 58 ml/min; Estimated Glomerular Filt Rate > 60; Glucose 243 mg/dL (65-110); NT Pro B Type Natriuretic Pept 11300 pg/mL (5-100); Potassium 4.1 mmol/L (3.4-5.0); Sodium 120 mmol/L (137-145); Troponin I 0.205 ng/mL (0.000-0.034)
--- NOTE | 2021-11-25 23:07 | ECG_ITS ---
Measurements Intervals [place] Rate: 100 P: [place]: 0 QRS: 39 QRSD: 97 T: 42 QT: 350 QTc: 452 Interpretive Statements ATRIAL FIBRILLATION WITH RAPID VENTRICULAR RESPONSE DELAYED PRECORDIAL R/S TRANSITION VOLTAGE CRITERIA FOR LVH BASELINE ARTIFACT- III, V4 ABNORMAL ECG Electronically Signed On 11-26-2021 6:36:04 FOREST FIRE PREVENTION SPECIALIST by Chapo Arambula D.O.
[2021-11-25 23:26] LABS: Lactic Acid Reflex 1.8 mmol/L (0.7-2.1)
--- NOTE | 2021-11-25 23:27 | PM.IMHP ---
H&P: HPI History of Present Illness Date/Time: 11/25/21 23:27 Chief Complaint: SHORTNESS OF BREATH Narrative: This is a 71-year-old female with past medical history significant for tobacco dependence, atrial fibrillation rate controlled and anticoagulated, generalized anxiety disorder, bronchitis, chronic UTI, type 2 diabetes mellitus, gastroesophageal reflux disease, history of alcohol abuse, history of colon cancer. Patient was brought to the emergency room via EMS today after she was in severe respiratory distress upon EMS arrival according to report her oxygen saturation was 60% on room air patient was placed on CPAP and was brought to the emergency room for further evaluation. In emergency room patient was placed on BiPAP preliminary workup was significant for WBC 16.9, sodium 120, brain atretic peptide upwards 11,000, troponin 0.205. Patient was unable to give any history due to being on BiPAP. Chest x-ray was significant for infiltrates of the right middle lobe. Patient has been admitted for further evaluation management and treatment. Review of Systems Review of Systems: Severe respiratory distress low pulse ox on room air history taking limited by the use of BiPAP at the time of my visit ROS unobtainable: Yes unobtainable due to medical condition (Respiratory distress on BiPAP) PMFSH Past Medical History Medical History (Updated 11/26/21 @ 03:27 by Medhat Zapata MD) Afib Anxiety Bronchitis Chronic UTI Colonoscopy refused Depression Diabetes type 2, controlled GERD (gastroesophageal reflux disease) History of Clostridium difficile colitis History of colon cancer History of colorectal cancer History of ETOH abuse History of kidney stones Hypercholesteremia Hypertension Seizures Surgical History Surgical History History of appendectomy History of colostomy Family History Family History Mother Family history of cardiovascular disease Father Suicide Cerebrovascular accident Sibling MVA (motor vehicle accident) Other Family history of tuberculosis Social History Social History Smoking packs per day: 1 Smoking cigarettes per day: 20.0 Years smoked: 50 Smoking pack-years: 50.00 Smoking status: Current every day smoker Tobacco type: cigarettes Alcohol intake: former Substance use: never Substance use type: does not use Gender identity (if verbalized by the patient): Female Spiritual care concerns: No Meds Home Medications and Allergies Home Medications Medication Instructions Recorded Confirmed Type diltiazem HCl 300 mg capsule,24 300 mg PO DAILY #90 cap 06/15/21 11/26/21 Rx hr,extended release metoprolol succinate 50 mg 50 mg PO DAILY #90 tablet 07/23/21 11/26/21 Rx tablet,extended release 24 hr pravastatin 40 mg tablet 40 mg PO DAILY #90 tablet 07/23/21 11/26/21 Rx rivaroxaban 20 mg tablet 20 mg PO QPM #90 tablet 07/23/21 11/26/21 Rx mirtazapine 30 mg tablet 30 mg PO QHS PRN #90 tablet 09/25/21 11/26/21 Rx famotidine 20 mg PO BID 11/26/21 11/26/21 History metformin 1,000 mg PO BID 11/26/21 11/26/21 History Allergies Allergy/AdvReac Type Severity Reaction Status Date / Time BREATH RIGHT NASAL STRIPS AdvReac Unknown REDNESS AT Uncoded 11/26/21 02:33 SITE Vital Signs Vital Signs - 24 hr 11/25/21 21:20 11/25/21 22:03 11/25/21 22:11 Temperature 97.9 F Pulse Rate 107 H 95 Respiratory Rate 34 H 32 H Blood Pressure 136/106 H Pulse Oximetry 92 89 L Exam Narrative: Patient is laying in gurney BiPAP on Const: General: cooperative, comfortable, no acute distress, well developed, alert, awake, Physically active, in distress moderate and ill appearing acutely Nutritional Appearance: thin Orientation/consciousness: patient oriented x3 HENMT: Head: normal to inspection, n
[2021-11-26] VITALS (35 sets, daily range): BP systolic 90–173; BP diastolic 57–82; PULSE 78–127; RESP 15–30; TEMP 36.3–37; O2SAT 87–100; BMI 20.3
[2021-11-26] MEDS: ASPIRIN 325 MG ENTERIC TABLET PO
[2021-11-26] MEDS: SODIUM CHLORIDE 0.9% IV 1,000 ML 125 ML IV CONT
--- NOTE | 2021-11-26 01:19 | PC.NURSE ---
Awaiting Respiratory therapy to transport patient to the floor.
--- NOTE | 2021-11-26 02:32 | ADMGEN ---
This patient, Lauren Lucero, was admitted to IMU Room 203-01 on 11/26/21 at 0145. Patient/family oriented to hospital policies and general routines including ID bracelet, bed and alarms, visiting hours, pain management, procedures, bathroom and other care routines, personal items, smoking policy, room service/diet, and visiting hours. Information on how to activate the Rapid Response Team has been discussed. Patient/Family are encouraged to report perceived risks to care and to ask questions if they do not understand what they are told or what they should do.
[2021-11-26] MEDS: ALBUTEROL SULFATE NEB 2.5 MG/0.5 ML INH 5 MG INHALATION ×4 (03:06→22:17)
[2021-11-26] MEDS: IPRATROPIUM BR 0.02% INH SOLN 0.5 MG/2.5 ML VIAL INHALATION ×4 (03:07→22:17)
[2021-11-26 03:44] LABS: Troponin I 0.177 ng/mL (0.000-0.034)
[2021-11-26 07:19] LABS: Troponin I 0.146 ng/mL (0.000-0.034)
[2021-11-26 08:12] LABS: Hematocrit 37.3 % (37.0-47.0); Hemoglobin 13.2 g/dL (12.0-15.0); Immature Platelet Fraction Pct 6.2 % (0.9-11.2); Mean Corpuscular HGB Conc 35.4 g/dl (32-36); Mean Corpuscular Hemoglobin 32.4 pg (26-34); Mean Corpuscular Volume 91.6 fl (80-100); Mean Platelet Volume 11.2 fl (7.4-10.4); Platelet Count Result 128 k/mm3 (150-375); Red Blood Count 4.07 M/mm3 (4.2-5.4); Red Cell Distribution Width 13.4 % (11.5-14.5); White Blood Count 8.3 K/mm3 (4.5-10.0)
[2021-11-26 08:27] LABS: Anion Gap 7 mmol/L (8-16); Blood Urea Nitrogen 17 mg/dL (7-17); Calcium 8.7 mg/dL (8.4-10.2); Carbon Dioxide 19 mmol/L (22-30); Chloride 94 mmol/L (98-107); Estimated CRCL calculation 67 ml/min; Estimated Glomerular Filt Rate > 60; Glucose 280 mg/dL (65-110); Magnesium 1.5 mg/dL (1.6-2.3); Potassium 4.4 mmol/L (3.4-5.0); Sodium 120 mmol/L (137-145)
[2021-11-26] MEDS: METOPROLOL SUCCINATE EXT REL 50 MG TABCR PO (08:33)
[2021-11-26] MEDS: FAMOTIDINE 20 MG TABLET PO ×2 (08:44→17:43)
[2021-11-26] MEDS: PRAVASTATIN SODIUM 20 MG TABLET 40 MG PO (08:44)
[2021-11-26] MEDS: NICOTINE (*PBKC) 14 MG PATCH 1 PATCH TRANSDERM (10:23)
[2021-11-26] MEDS: ALPRAZolam (*CRX) 0.5 MG TABLET PO ×2 (10:23→20:25)
[2021-11-26] MEDS: MAGNESIUM OXIDE 400 MG TABLET PO (10:24)
[2021-11-26] MEDS: MAGNESIUM SULF 2 GM/WATER 50ML 2 GM/50 ML BAG IVPB (10:24)
--- NOTE | 2021-11-26 14:18 | PM.CNCAR ---
Assessment and Plan Additional Plan 71-year-old white female with a history of chronic atrial fibrillation although she tends to want to dispute that diagnosis. I am seeing her today because her troponin levels are all normal range. She was significantly hypoxic when she came into the hospital from home yesterday. In this setting the patient had functional myocardial ischemia because of arterial hypoxemia. She does not have any chest pain event or any ECG findings to suggest an acute coronary event. At this point she does not need or would not benefit from an ischemia evaluation. The principal concern of course is that she may have coronavirus and the swab for that is pending. The patient has chronic atrial fibrillation and undoubtedly has significant chronic lung disease as she has been a heavy smoker for many years. Obviously with these comorbidities her prognosis if she does have Coronavirus is significantly worse. I will review her echocardiogram after it has been completed and provide any further recommendations that might be necessary at that time. Martin Gamble MD LOCATED WITHIN [facility] History of Present Illness History of Present Illness Consult date/time: 11/26/21 14:18 Reason For Visit: Acute Respiratory Failure,Pneumonia,Elevated Tropo Narrative: This is a 71-year-old woman that I am seeing at the request of the hospitalist because of elevated troponin levels. The patient has a history of atrial fibrillation and is an established patient of Dr. Arambula who is off for the holidays and we are seeing her in coverage for him today. The patient apparently hospitalized yesterday when she was suddenly became significantly short of breath and called EMS. Apparently on arrival she was found to be hypoxemic was placed on nasal cannula oxygen and was brought to the hospital for evaluation and management. To not reporting any symptoms of chest pain pressure or heaviness. The patient states she is not known to have coronary artery disease but can not really remember if she has had any exam is to conduct an ischemia evaluation. She has a cyst congested looking chest x-ray on admission. She of course has been swabbed for coronavirus and that is pending. She is wearing BiPAP device upon seeing her in the room and with that device in place appears to be comfortable and does not offer any other complaints. In this setting troponin levels were done and they are slightly elevated but essentially flat and declining somewhat. There is no acute ischemic or injury changes on her electrocardiogram. An echocardiogram has been ordered by the hospitalist which has yet to be performed. She does not have any history of congestive heart failure she is not reporting any orthopnea PND or accumulating lower extremity edema. She does not have any sense of a fevers chills cough productive of any sputum. She lives alone and has not been exposed to any sick contacts with COVID as far she knows. Review of Systems Constitutional: Constitutional: Reports fatigue Eyes: Eyes: Reports no additional eye complaints ENT: Reports system reviewed and no additional complaints, except as documented Cardiovascular: Cardiovascular: Reports no additional cardiovascular complaints Respiratory: Respiratory: Reports as per HPI and Reports dyspnea Gastrointestinal: Gastrointestinal: Reports no additional gastrointestinal complaints Musculoskeletal: Musculoskeletal: Reports no additional musculoskeletal complaints Integumentary/Breasts: Skin/Breast: Reports system reviewed and no additional complaints, except as docu Neurologic: Reports system reviewed and no additional complaints, except as documented Endocrine: Endocrine: Reports no additional endocrine complaints Hematologic/Lymphatic: Hematologic/Lymphatic: Reports no additional hematologic/lymphatic complaints Allergic/Immunologic: Allergic/Immunologic: Reports no additional allergic/immunologic complaints PMFSH Past Medical Histo
--- NOTE | 2021-11-26 17:00 | PM.IMPN ---
Progress Note: A&P Assessment and Plan (1) Congestive heart failure: Code(s): I50.9 - Heart failure, unspecified Status: Acute Assessment and Plan: Patient with elevated brain natriuretic peptide No prior echocardiogram available Will obtain echocardiogram in a.m. Will give Lasix however patient's blood pressure is rather on the lower side Will continue to monitor. 11/26/2021 interval history: patient presented with shortness of breath chest x-ray showing concerning for pneumonia patient being treated doxycycline and Rocephin may order the blood culture, also is a concern patient may have pulmonary edema start the patient on Lasix IV 40 mg q.day, patient is being tested for COVID-19 an isolated will continue to monitor, patient tropes are elevated seen by cardiology suspect type 2 myocardial infarction secondary to hypoxia unlikely acute coronary syndrome and not recommend any ischemic workup, will follow-up on cardiac echo, will follow-up on COVID-19 test and further recommendation to follow, will continue to monitor (2) Acute hypoxemic respiratory failure: Code(s): J96.01 - Acute respiratory failure with hypoxia Status: Acute Assessment and Plan: Could be multifactorial as patient with elevated BNP likely congestive heart failure and infiltrates present in chest x-ray on lung [place] for been treated for pneumonia Continue BiPAP Try and keep oxygen saturation admitting 90-94% Breathing treatments (3) Pneumonia: Qualifiers: Laterality: unspecified laterality Lung location: unspecified part of lung Pneumonia type: due to unspecified organism Qualified Code(s): J18.9 - Pneumonia, unspecified organism Code(s): J18.9 - Pneumonia, unspecified organism Status: Acute Assessment and Plan: On Rocephin and Zithromax Cultures in progress (4) Atrial fibrillation: Qualifiers: Atrial fibrillation type: unspecified Qualified Code(s): I48.91 - Unspecified atrial fibrillation Code(s): I48.91 - Unspecified atrial fibrillation Status: Acute Assessment and Plan: Rate controlled and anticoagulated (5) Hypertension: Qualifiers: Hypertension type: primary hypertension Qualified Code(s): I10 - Essential (primary) hypertension Code(s): I10 - Essential (primary) hypertension Status: Acute Assessment and Plan: Currently low normal Continue to monitor (6) Elevated troponin I level: Code(s): R77.8 - Other specified abnormalities of plasma proteins Status: Acute Assessment and Plan: Likely secondary to nonischemic myocardial injury Will continue to trend (7) Smoking: Code(s): F17.200 - Nicotine dependence, unspecified, uncomplicated Status: Acute Assessment and Plan: Nicotine patch as needed if clinically able to use it as patient with low normal blood pressure (8) Diabetes type 2, controlled: Qualifiers: Diabetes mellitus snf insulin use: without ferry terminal supervisor use Diabetes mellitus complication status: without complication Qualified Code(s): E11.9 - Type 2 diabetes mellitus without complications Code(s): E11.9 - Type 2 diabetes mellitus without complications Status: Chronic Assessment and Plan: Holding metformin Insulin sliding scale as needed Combination diet heart healthy carb consistent (9) GERD (gastroesophageal reflux disease): Code(s): K21.9 - Gastro-esophageal reflux disease without esophagitis Status: Acute Assessment and Plan: Continue Pepcid (10) History of colon cancer: Code(s): Z85.038 - Personal history of other malignant neoplasm of large intestine Status: Acute Assessment and Plan: Colostomy bag in place (11) History of ETOH abuse: Code(s): F10.11 - Alcohol abuse, in remission Status: Acute Assessment and Plan: Patient has been sober Continue to monitor Follow-u
[2021-11-26] MEDS: RIVAROXABAN 20 MG TABLET PO (17:43)
[2021-11-26] MEDS: DOXYCYCLINE IV 100 MG in SODIUM CHLORIDE 0.9% IV 100 ML IVPB (17:44)
[2021-11-26] MEDS: cefTRIAXone 2 GM in SODIUM CHLORIDE 0.9% IV 100 ML 200 ML IVPB (17:44)
[2021-11-26 19:03] LABS: SARS-CoV-2 RNA PCR Negative
[2021-11-26] MEDS: MIRTAZAPINE 30 MG TABLET PO (20:25)
[2021-11-27] VITALS (27 sets, daily range): BP systolic 112–189; BP diastolic 61–89; PULSE 74–135; RESP 18–24; TEMP 36.2–36.6; O2SAT 88–94
--- NOTE | 2021-11-27 | ECHO_ITS ---
Patient Info Name: Lauren Lucero Age: 71 years : 1950 Gender: Female Ht: 67 in Wt: 130 lbs BSA: 1.67 m2 HR: 102 bpm BP: 189 / 89 mmHg Heart Rhythm: Atrial Fibrillation Technical Quality: Fair Exam Date: 11/27/2021 8:49 AM Exam Location: [facility] Pulmonary Patient Status: Inpatient Admit Date: 11/25/2021 Staff Ordering Physician: Medhat Zapata MD Label Cutter: Ashley Fields RDCS Attending Provider: Medhat Zapata MD Referring Physician: Benny MITTAL; Exam Type: CA echo doppler color flow Study Info Indications - CHF Complete two-dimensional, color flow and Doppler transthoracic echocardiogram is performed. Summary 1. Complete two-dimensional, color flow and Doppler transthoracic echocardiogram is performed. 2. Left ventricular chamber dimension is normal. 3. Left ventricular systolic function is normal, estimated at 65-70%. 4. There is moderately increased left ventricular wall thickness. 5. The left ventricular diastolic function is indeterminate. 6. Left atrial chamber dimension is severely enlarged. 7. There is mild aortic valve stenosis with a peak velocity of 302 cm/s, mean gradient of 14 mmHg, and aortic valve area of 2.1 cm2. 8. There is moderate aortic valve calcification. 9. The mitral valve has thickened leaflets and calcified leaflets. 10. There is mild mitral valve regurgitation. 11. The mitral valve annulus is severely calcified. 12. Likely at least moderate mitral stenosis is noted. 13. There is mild tricuspid valve regurgitation. 14. There is small pericardial effusion. Left Ventricle Left ventricular chamber dimension is normal. Left ventricular systolic function is normal, estimated at 65-70%. There is moderately increased left ventricular wall thickness. The left ventricular diastolic function is indeterminate. Right Ventricle Right ventricular chamber dimension is normal. Right ventricular systolic function is normal. Left Atria Left atrial chamber dimension is severely enlarged. Right Atria Right atrial chamber dimension is normal. Atrial Septum Intact interatrial septum visualized by color flow imaging. Aortic Valve The aortic valve is trileaflet. There is mild aortic valve stenosis with a peak velocity of 302 cm/s, mean gradient of 14 mmHg, and aortic valve area of 2.1 cm2. There is trace aortic valve regurgitation. There is moderate aortic valve calcification. Pulmonic Valve The pulmonic valve is not well visualized. Mitral Valve The mitral valve has thickened leaflets and calcified leaflets. There is mild mitral valve regurgitation. The mitral valve annulus is severely calcified. Likely at least moderate mitral stenosis is noted. Tricuspid Valve The tricuspid valve leaflets are normal. There is no significant tricuspid valve stenosis. There is mild tricuspid valve regurgitation. Pericardium/Pleural The pericardium appears normal. There is small pericardial effusion. Inferior Vena Cava Normal inferior vena cava with >50% collapse upon inspiration consistent with normal right atrial pressure, 5 mmHg. Aorta The aortic root size at the sinus of Valsalva is normal. Left Ventricular Outflow Tract Name Value Normal LVOT 2D
[2021-11-27] MEDS: LORazepam INJ (*CRX) 2 MG/ML VIAL 1 MG IV PUSH (01:45)
[2021-11-27] MEDS: IPRATROPIUM BR 0.02% INH SOLN 0.5 MG/2.5 ML VIAL INHALATION ×4 (02:15→20:50)
[2021-11-27] MEDS: ALBUTEROL SULFATE NEB 2.5 MG/0.5 ML INH 5 MG INHALATION ×4 (02:15→20:49)
[2021-11-27] MEDS: DOXYCYCLINE IV 100 MG in SODIUM CHLORIDE 0.9% IV 100 ML IVPB ×2 (05:37→16:50)
[2021-11-27 08:14] LABS: Hematocrit 37.6 % (37.0-47.0); Hemoglobin 13.4 g/dL (12.0-15.0); Mean Corpuscular HGB Conc 35.6 g/dl (32-36); Mean Corpuscular Hemoglobin 32.8 pg (26-34); Mean Corpuscular Volume 91.9 fl (80-100); Mean Platelet Volume 10.6 fl (7.4-10.4); Platelet Count Result 160 k/mm3 (150-375); Red Blood Count 4.09 M/mm3 (4.2-5.4); Red Cell Distribution Width 13.5 % (11.5-14.5); White Blood Count 14.6 K/mm3 (4.5-10.0)
[2021-11-27 08:28] LABS: Anion Gap 5 mmol/L (8-16); Blood Urea Nitrogen 16 mg/dL (7-17); Calcium 9.3 mg/dL (8.4-10.2); Carbon Dioxide 27 mmol/L (22-30); Chloride 98 mmol/L (98-107); Estimated CRCL calculation 70 ml/min; Estimated Glomerular Filt Rate > 60; Glucose 285 mg/dL (65-110); Potassium 3.6 mmol/L (3.4-5.0); Sodium 130 mmol/L (137-145)
[2021-11-27] MEDS: METOPROLOL SUCCINATE EXT REL 50 MG TABCR PO (09:48)
[2021-11-27] MEDS: FAMOTIDINE 20 MG TABLET PO ×2 (09:48→16:49)
[2021-11-27] MEDS: PRAVASTATIN SODIUM 20 MG TABLET 40 MG PO (09:50)
[2021-11-27] MEDS: NICOTINE (*PBKC) 14 MG PATCH 1 PATCH TRANSDERM (09:50)
[2021-11-27] MEDS: FUROSEMIDE INJ 40 MG/4 ML VIAL IV PUSH (09:57)
--- NOTE | 2021-11-27 10:29 | PM.PNCARD ---
Progress Note: A&P Assessment and Plan (1) Atrial fibrillation: Qualifiers: Atrial fibrillation type: unspecified Qualified Code(s): I48.91 - Unspecified atrial fibrillation Code(s): I48.91 - Unspecified atrial fibrillation Status: Acute Assessment and Plan: History of atrial fibrillation that is typically rate controlled with metoprolol. On Xarelto for anticoagulation. She has been tachycardic with her rate frequently in the 130's-140's/. She is asymptomatic with this. Change metoprolol to metoprolol tartrate 50mg q 12 Give IV lopressor 5mg once now Continue a/c with Xarelto continue to monitor on telemetry (2) Elevated troponin: Code(s): R77.8 - Other specified abnormalities of plasma proteins Status: Acute Assessment and Plan: Troponins drawn on admission and were found to be elevated at .205. They trended down. This probably related to hypoxemia as she did not report any chest pain or have any EKG changes that would be suggestive of ischemia or an acute coronary event. Continues to deny any chest pain today. No ischemic workup is indicated at this time. Additional Plan Subjective Date/time seen: 11/27/21 10:29 Interval history: Cardiology follow-up for atrial fibrillation, elevated troponin Date of service 09/27/2021: Feeling a little better today, of BiPAP now on 15L high flow NC. Denies chest pain, palpitations. Review of Systems Constitutional: Constitutional: Reports fatigue Eyes: Eyes: Reports no additional eye complaints ENT: Reports system reviewed and no additional complaints, except as documented Cardiovascular: Cardiovascular: Reports no additional cardiovascular complaints and Reports dyspnea Respiratory: Respiratory: Reports as per HPI and Reports dyspnea Gastrointestinal: Gastrointestinal: Reports no additional gastrointestinal complaints Musculoskeletal: Musculoskeletal: Reports no additional musculoskeletal complaints Integumentary/Breasts: Skin/Breast: Reports system reviewed and no additional complaints, except as docu Neurologic: Reports system reviewed and no additional complaints, except as documented Endocrine: Endocrine: Reports no additional endocrine complaints and Reports fatigue Hematologic/Lymphatic: Hematologic/Lymphatic: Reports no additional hematologic/lymphatic complaints Allergic/Immunologic: Allergic/Immunologic: Reports no additional allergic/immunologic complaints Exam Const: General: no acute distress Other: Elderly white female lying comfortably in bed wearing oxygen. Alert and oriented. HENMT: Mouth: Yes moist mucous membranes Eyes: Sclera: sclerae normal Pupils: Equal, round and reactive pupils present Neck: Neck: supple and no JVD Resp: Effort & Inspection: normal respiratory effort Auscultation: diminished lung sounds Cardio: Rate: tachycardic Rhythm: abnormal rhythm irregularly irregular GI: Auscultation: normal bowel sounds Urinary Catheter: Urinary Catheter: patent and draining Skin: General skin exam: normal color Neuro: Cranial nerves: Yes Equal, round and reactive pupils present Cognition (Neuro): normal cognition Extrem: General: normal to inspection Objective Data Vital Signs Vital Signs: Vital Signs - 24 hr 11/26/21 11:43 11/26/21 12:00 11/26/21 13:53 Temperature 36.6 C Pulse Rate 89 84 Respiratory Rate 15 Blood Pressure 90/57 L Pulse Oximetry 92 97 11/26/21 14:15 11/26/21 14:24 11/26/21 15:46 Temperature Pulse Rate 82 88 Respiratory Rate 20 20 Blood Pressure Pulse Oximetry 90 11/26/21 16:00 11/26/21 17:26 11/26/21 20:00 Temperature 37.0 C 36.4 C Pulse Rate 98 97 96 Respiratory Rate 24 H 18 Blood Pressure 173/67 H 168/82 H Pulse Oximetry 90 88 L 11/26/21 22:00 11/26/21 22:17 11/26/21 22:20 Temperature Pulse Rate 112 H 108 H 108 H Respiratory Rate 20 20 Blood Pressure Pulse Oximetry 87 L 11/26/21
[2021-11-27] MEDS: METOPROLOL TARTRATE INJ 5 MG/5 ML VIAL IV PUSH (11:26)
[2021-11-27] MEDS: ALPRAZolam (*CRX) 0.5 MG TABLET PO ×2 (11:26→21:36)
[2021-11-27 12:28] LABS: Glucose Point of Care 210 mg/dl (65-105)
--- NOTE | 2021-11-27 13:19 | PM.IMPN ---
Progress Note: A&P Assessment and Plan (1) Congestive heart failure: Code(s): I50.9 - Heart failure, unspecified Status: Acute Assessment and Plan: Patient with elevated brain natriuretic peptide No prior echocardiogram available Echocardiogram pending Continue IV Lasix COVID -19 neg Monitor (2) Acute hypoxemic respiratory failure: Code(s): J96.01 - Acute respiratory failure with hypoxia Status: Acute Assessment and Plan: Suspect multifactorial, patient with elevated BNP likely congestive heart failure and infiltrates present in chest x-ray on lung [place] for been treated for pneumonia Continue BiPAP Try and keep oxygen saturation admitting 90-94% Breathing treatments (3) Pneumonia: Qualifiers: Laterality: unspecified laterality Lung location: unspecified part of lung Pneumonia type: due to unspecified organism Qualified Code(s): J18.9 - Pneumonia, unspecified organism Code(s): J18.9 - Pneumonia, unspecified organism Status: Acute Assessment and Plan: Continue Rocephin and Zithromax BC-->Gram negative bacilli, Group B Streptococcus, follow sensitivity (4) Atrial fibrillation: Qualifiers: Atrial fibrillation type: unspecified Qualified Code(s): I48.91 - Unspecified atrial fibrillation Code(s): I48.91 - Unspecified atrial fibrillation Status: Acute Assessment and Plan: Rate controlled and anticoagulated Continue BB and Xarelto Tele monitoring (5) Hypertension: Qualifiers: Hypertension type: primary hypertension Qualified Code(s): I10 - Essential (primary) hypertension Code(s): I10 - Essential (primary) hypertension Status: Acute Assessment and Plan: Currently low normal Continue to monitor (6) Elevated troponin I level: Code(s): R77.8 - Other specified abnormalities of plasma proteins Status: Acute Assessment and Plan: Likely secondary to nonischemic myocardial injury Will continue to trend (7) Smoking: Code(s): F17.200 - Nicotine dependence, unspecified, uncomplicated Status: Acute Assessment and Plan: Nicotine patch as needed if clinically able to use it as patient with low normal blood pressure (8) Diabetes type 2, controlled: Qualifiers: Diabetes mellitus longterm insulin use: 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 Diabetes mellitus complication status: without complication Qualified Code(s): E11.9 - Type 2 diabetes mellitus without complications Code(s): E11.9 - Type 2 diabetes mellitus without complications Status: Chronic Assessment and Plan: Holding metformin Insulin sliding scale as needed Combination diet heart healthy carb consistent (9) GERD (gastroesophageal reflux disease): Code(s): K21.9 - Gastro-esophageal reflux disease without esophagitis Status: Acute Assessment and Plan: Continue Pepcid (10) History of colon cancer: Code(s): Z85.038 - Personal history of other malignant neoplasm of large intestine Status: Acute Assessment and Plan: Colostomy bag in place (11) History of ETOH abuse: Code(s): F10.11 - Alcohol abuse, in remission Status: Acute Assessment and Plan: Patient has been sober Continue to monitor Follow-up in outpatient setting Subjective Date/time seen: 11/27/21 13:19 Interval history: Cardiology follow-up for atrial fibrillation, elevated troponin Date of service 09/27/2021: Feeling a little better today, of BiPAP now on 15L high flow NC. Denies chest pain, palpitations. 11/27 Pt seen this a.m.; labs, vs, diagnostic results and consult notes reviewed; no acute events overnight Review of Systems Review of Systems: All systems reviewed & are unremarkable except as noted in HPI and below Exam Const: General: no acute distress, alert and awake HENMT: Head: normocephalic and atraumatic Face and sinus: face symmet
[2021-11-27] MEDS: MAGNESIUM OXIDE 400 MG TABLET PO (16:49)
[2021-11-27] MEDS: RIVAROXABAN 20 MG TABLET PO (16:49)
[2021-11-27] MEDS: cefTRIAXone 2 GM in SODIUM CHLORIDE 0.9% IV 100 ML 200 ML IVPB (16:50)
[2021-11-27 16:56] LABS: Glucose Point of Care 178 mg/dl (65-105)
[2021-11-27 20:29] LABS: Glucose Point of Care 203 mg/dl (65-105)
[2021-11-27] MEDS: METOPROLOL TARTRATE 50 MG TAB PO (20:40)
--- NOTE | 2021-11-27 23:06 | PC.NURSE ---
2229 Pt kept taking O2 NC, O2 sensor, and telemonitor off. Within an hour, she threw her telemonitor across the room three times. I was in the room 6 times and tech was in the room 4 times within the 1 hour because pt would set off her bed alarm trying to climb out of bed, she would take her telemonitor off, she would desat quickly to the 70's, or she would call out for help. Pt is confused, A & O X1, and thinks she needs to go to the kitchen to cook or to turn on the light or her bedroom to change her clothes. Another time, she stressed that I need to contact the plant maintenance worker to get a ladder to rescue her. She did not want the telemonitor leads on because they were not stylish. I tried redirecting her each time, placed leads and monitor where they weren't as visible each time, gave a prn xanax, repostioned, and tried to make her more comfortable with offering water and placing chapstick on lips. notified and will continue to monitor.
[2021-11-28] VITALS (22 sets, daily range): BP systolic 104–134; BP diastolic 53–72; PULSE 67–137; RESP 18–28; TEMP 36.2–36.9; O2SAT 87–100
[2021-11-28] MEDS: ALBUTEROL SULFATE NEB 2.5 MG/0.5 ML INH 5 MG INHALATION ×3 (03:49→20:39)
[2021-11-28] MEDS: IPRATROPIUM BR 0.02% INH SOLN 0.5 MG/2.5 ML VIAL INHALATION ×3 (03:49→20:39)
[2021-11-28 05:18] LABS: Hematocrit 38.6 % (37.0-47.0); Hemoglobin 13.6 g/dL (12.0-15.0); Mean Corpuscular HGB Conc 35.2 g/dl (32-36); Mean Corpuscular Hemoglobin 32.4 pg (26-34); Mean Corpuscular Volume 91.9 fl (80-100); Platelet Count Result 218 k/mm3 (150-375); Red Cell Distribution Width 13.6 % (11.5-14.5); White Blood Count 14.8 K/mm3 (4.5-10.0)
[2021-11-28 05:30] LABS: Anion Gap 14 mmol/L (8-16); Blood Urea Nitrogen 21 mg/dL (7-17); Calcium 9.3 mg/dL (8.4-10.2); Carbon Dioxide 22 mmol/L (22-30); Chloride 97 mmol/L (98-107); Estimated CRCL calculation 52 ml/min; Estimated Glomerular Filt Rate > 60; Glucose 200 mg/dL (65-110); Potassium 3.6 mmol/L (3.4-5.0); Sodium 133 mmol/L (137-145)
[2021-11-28] MEDS: DOXYCYCLINE IV 100 MG in SODIUM CHLORIDE 0.9% IV 100 ML IVPB ×2 (06:44→18:00)
[2021-11-28] MEDS: METOPROLOL TARTRATE INJ 5 MG/5 ML VIAL IV PUSH (06:53)
--- NOTE | 2021-11-28 08:12 | P.CDI_ITS ---
CDI Query Clarification Request -On arrival pO2 per ABG's 51.5 on 12L O2 and BP 85/46 and 89/60. If both are attributed to infection, this would be a SOFA score of 3. Pneumonia has been documented. -Two blood cultures positive gram neg bacilli Please clarify if there is a possible corresponding diagnosis for above findings: * Sepsis * Bacteremia * Other * Unable to determine <Rochelle Garcia RN - Last Filed: 11/28/21 08:18> Unable to determine <ARASH Cates - Last Filed: 11/28/21 13:26>
[2021-11-28] MEDS: ALPRAZolam (*CRX) 0.5 MG TABLET PO (08:28)
[2021-11-28] MEDS: PRAVASTATIN SODIUM 20 MG TABLET 40 MG PO (08:28)
[2021-11-28] MEDS: FAMOTIDINE 20 MG TABLET PO ×2 (08:28→18:00)
[2021-11-28] MEDS: MAGNESIUM OXIDE 400 MG TABLET PO (08:28)
[2021-11-28] MEDS: FUROSEMIDE INJ 40 MG/4 ML VIAL IV PUSH (08:29)
[2021-11-28] MEDS: METOPROLOL TARTRATE 50 MG TAB PO ×2 (08:29→20:43)
[2021-11-28] MEDS: NICOTINE (*PBKC) 14 MG PATCH 1 PATCH TRANSDERM (08:29)
[2021-11-28 09:12] LABS: Glucose Point of Care 196 mg/dl (65-105)
--- NOTE | 2021-11-28 10:35 | PM.PNCARD ---
Progress Note: A&P Assessment and Plan (1) Atrial fibrillation: Qualifiers: Atrial fibrillation type: unspecified Qualified Code(s): I48.91 - Unspecified atrial fibrillation Code(s): I48.91 - Unspecified atrial fibrillation Status: Acute Assessment and Plan: History of atrial fibrillation that is typically rate controlled with metoprolol. On Xarelto for anticoagulation. She has been tachycardic with her rate frequently in the 130's-140's/. She is asymptomatic with this. Continue metoprolol and diltiazem. Continue continue to monitor on telemetry Heart rate is reasonable this point following medications (2) Elevated troponin: Code(s): R77.8 - Other specified abnormalities of plasma proteins Status: Acute Assessment and Plan: Troponins drawn on admission and were found to be elevated at .205. They trended down. This probably related to hypoxemia as she did not report any chest pain or have any EKG changes that would be suggestive of ischemia or an acute coronary event. No ischemic workup is indicated at this time. Subjective Date/time seen: 11/28/21 10:35 Interval history: Cardiology follow-up for atrial fibrillation, elevated troponin Date of service 09/27/2021: Feeling a little better today, of BiPAP now on 15L high flow NC. Denies chest pain, palpitations. Review of Systems Constitutional: Constitutional: Reports fatigue Eyes: Eyes: Reports no additional eye complaints ENT: Reports system reviewed and no additional complaints, except as documented Cardiovascular: Cardiovascular: Reports no additional cardiovascular complaints and Reports dyspnea Respiratory: Respiratory: Reports as per HPI and Reports dyspnea Gastrointestinal: Gastrointestinal: Reports no additional gastrointestinal complaints Musculoskeletal: Musculoskeletal: Reports no additional musculoskeletal complaints Integumentary/Breasts: Skin/Breast: Reports system reviewed and no additional complaints, except as docu Neurologic: Reports system reviewed and no additional complaints, except as documented Endocrine: Endocrine: Reports no additional endocrine complaints and Reports fatigue Hematologic/Lymphatic: Hematologic/Lymphatic: Reports no additional hematologic/lymphatic complaints Allergic/Immunologic: Allergic/Immunologic: Reports no additional allergic/immunologic complaints Exam Const: General: no acute distress Other: Elderly white female lying comfortably in bed wearing oxygen. HENMT: Mouth: Yes moist mucous membranes Eyes: Sclera: sclerae normal Pupils: Equal, round and reactive pupils present Neck: Neck: supple and no JVD Other: Carotid arteries are intact bilaterally there are no audible bruits Resp: Effort & Inspection: normal respiratory effort Auscultation: diminished lung sounds Other: Tubular breath sounds bilaterally fine expiratory wheezing noted Cardio: Rate: regular rate Rhythm: abnormal rhythm irregularly irregular GI: Auscultation: normal bowel sounds Urinary Catheter: Urinary Catheter: patent and draining Skin: General skin exam: normal color Neuro: Cognition (Neuro): normal cognition Extrem: General: normal to inspection Objective Data Vital Signs Vital Signs: Vital Signs - 24 hr 11/27/21 11:26 11/27/21 11:41 11/27/21 12:00 Temperature 36.6 C Pulse Rate 131 H 102 H 120 H Respiratory Rate 20 20 Blood Pressure 135/61 Pulse Oximetry 94 90 11/27/21 13:55 11/27/21 14:00 11/27/21 14:03 Temperature Pulse Rate 85 114 H 88 Respiratory Rate 20 20 Blood Pressure Pulse Oximetry 11/27/21 14:07 11/27/21 16:00 11/27/21 16:06 Temperature 36.3 C L Pulse Rate 86 111 H 106 H Respiratory Rate 20 20 24 H Blood Pressure 112/68 Pulse Oximetry 88 L 89 L 11/27/21 18:00 11/27/21 20:00 11/27/21 20:51 Temperature 36.4 C Pulse Rate 114 H 119 H 108 H Respiratory Rate 20 20 Blood Pressure 116/70 Pulse
[2021-11-28 12:26] LABS: Glucose Point of Care 208 mg/dl (65-105)
[2021-11-28] MEDS: INSULIN ASPART (*BKC) 100 UNITS/ML SUB-Q ×2 (12:29→17:59)
--- NOTE | 2021-11-28 13:26 | PM.IMPN ---
Progress Note: A&P Assessment and Plan (1) Congestive heart failure: Code(s): I50.9 - Heart failure, unspecified Status: Acute Assessment and Plan: Patient with elevated brain natriuretic peptide No prior echocardiogram available Echocardiogram pending Continue IV Lasix COVID -19 neg Monitor (2) Acute hypoxemic respiratory failure: Code(s): J96.01 - Acute respiratory failure with hypoxia Status: Acute Assessment and Plan: Suspect multifactorial, patient with elevated BNP likely congestive heart failure and infiltrates present in chest x-ray on lung [place] Continue HF 45 L/M FiO2 80% Try and keep oxygen saturation admitting 90-94% Breathing treatments (3) Pneumonia: Qualifiers: Laterality: unspecified laterality Lung location: unspecified part of lung Pneumonia type: due to unspecified organism Qualified Code(s): J18.9 - Pneumonia, unspecified organism Code(s): J18.9 - Pneumonia, unspecified organism Status: Acute Assessment and Plan: Continue Rocephin and Zithromax BC-->Gram negative bacilli, Group B Streptococcus Sensitive to above (4) Atrial fibrillation: Qualifiers: Atrial fibrillation type: unspecified Qualified Code(s): I48.91 - Unspecified atrial fibrillation Code(s): I48.91 - Unspecified atrial fibrillation Status: Acute Assessment and Plan: Rate controlled and anticoagulated Continue BB and Xarelto Tele monitoring (5) Hypertension: Qualifiers: Hypertension type: primary hypertension Qualified Code(s): I10 - Essential (primary) hypertension Code(s): I10 - Essential (primary) hypertension Status: Acute Assessment and Plan: Currently low normal Continue to monitor (6) Elevated troponin I level: Code(s): R77.8 - Other specified abnormalities of plasma proteins Status: Acute Assessment and Plan: Likely secondary to nonischemic myocardial injury Will continue to trend (7) Smoking: Code(s): F17.200 - Nicotine dependence, unspecified, uncomplicated Status: Acute Assessment and Plan: Nicotine patch as needed if clinically able to use it as patient with low normal blood pressure (8) Diabetes type 2, controlled: Qualifiers: Diabetes mellitus long-term insulin use: without long-term use Diabetes mellitus complication status: without complication Qualified Code(s): E11.9 - Type 2 diabetes mellitus without complications Code(s): E11.9 - Type 2 diabetes mellitus without complications Status: Chronic Assessment and Plan: Holding metformin Insulin sliding scale as needed Combination diet heart healthy carb consistent (9) GERD (gastroesophageal reflux disease): Code(s): K21.9 - Gastro-esophageal reflux disease without esophagitis Status: Acute Assessment and Plan: Continue Pepcid (10) History of colon cancer: Code(s): Z85.038 - Personal history of other malignant neoplasm of large intestine Status: Acute Assessment and Plan: Colostomy bag in place (11) History of ETOH abuse: Code(s): F10.11 - Alcohol abuse, in remission Status: Acute Assessment and Plan: Patient has been sober Continue to monitor Follow-up in outpatient setting Additional Plan Code status: FULL DVT Ppx: Xarelto Disposition: pending recovery Subjective Date/time seen: 11/28/21 13:26 Interval history: 11/27 Pt seen this a.m.; labs, vs, diagnostic results and consult notes reviewed; no acute events overnight 11/28 Pt seen this a.m.; no acute events overnight; pt is resting in bed Review of Systems Review of Systems: ROS unobtainable: Yes unobtainable due to mental status Exam Const: General: no acute distress HENMT: Head: normocephalic and atraumatic Face and sinus: face symmetric Mouth: Yes Normal oral and palatal mucosa present Eyes: EOM: EOMs intact bilatera
[2021-11-28 17:12] LABS: Glucose Point of Care 213 mg/dl (65-105)
[2021-11-28] MEDS: cefTRIAXone 2 GM in SODIUM CHLORIDE 0.9% IV 100 ML 200 ML IVPB (17:59)
[2021-11-28] MEDS: RIVAROXABAN 20 MG TABLET PO (18:00)
[2021-11-28 20:54] LABS: Glucose Point of Care 130 mg/dl (65-105)
[2021-11-29] VITALS (26 sets, daily range): BP systolic 109–114; BP diastolic 54–68; PULSE 80–116; RESP 18–21; TEMP 36.6–37.7; O2SAT 90–100
[2021-11-29] MEDS: IPRATROPIUM BR 0.02% INH SOLN 0.5 MG/2.5 ML VIAL INHALATION ×4 (03:44→20:30)
[2021-11-29] MEDS: ALBUTEROL SULFATE NEB 2.5 MG/0.5 ML INH 5 MG INHALATION ×4 (03:44→20:30)
[2021-11-29 05:21] LABS: Hematocrit 38.4 % (37.0-47.0); Hemoglobin 12.8 g/dL (12.0-15.0); Mean Corpuscular HGB Conc 33.3 g/dl (32-36); Mean Corpuscular Hemoglobin 31.4 pg (26-34); Mean Corpuscular Volume 94.1 fl (80-100); Mean Platelet Volume 10.6 fl (7.4-10.4); Platelet Count Result 216 k/mm3 (150-375); Red Blood Count 4.08 M/mm3 (4.2-5.4); Red Cell Distribution Width 13.9 % (11.5-14.5); White Blood Count 14.6 K/mm3 (4.5-10.0)
[2021-11-29] MEDS: DOXYCYCLINE IV 100 MG in SODIUM CHLORIDE 0.9% IV 100 ML IVPB ×2 (05:24→19:03)
[2021-11-29 05:57] LABS: Anion Gap 14 mmol/L (8-16); Blood Urea Nitrogen 32 mg/dL (7-17); Calcium 9.1 mg/dL (8.4-10.2); Carbon Dioxide 26 mmol/L (22-30); Chloride 96 mmol/L (98-107); Estimated CRCL calculation 39 ml/min; Estimated Glomerular Filt Rate 49; Glucose 165 mg/dL (65-110); Potassium 3.5 mmol/L (3.4-5.0); Sodium 136 mmol/L (137-145)
[2021-11-29 08:03] LABS: Glucose Point of Care 211 mg/dl (65-105)
--- NOTE | 2021-11-29 08:23 | PM.PNCARD ---
Progress Note: A&P Assessment and Plan (1) Atrial fibrillation: Qualifiers: Atrial fibrillation type: unspecified Qualified Code(s): I48.91 - Unspecified atrial fibrillation <ARASH Unger - Last Filed: 11/29/21 09:00> Code(s): I48.91 - Unspecified atrial fibrillation <ARASH Unger - Last Filed: 11/29/21 09:00> Status: Acute <ARASH Unger - Last Filed: 11/29/21 09:00> Assessment and Plan: History of atrial fibrillation that is typically rate controlled with metoprolol. On Xarelto for anticoagulation. She is asymptomatic with this. Rate reasonably controlled usually mid 80's-90's. Continue current doses of metoprolol and diltiazem. Echocardiogram showed normal LV systolic function, EF 65-70%. continue to monitor on telemetry <ARASH Unger - Last Filed: 11/29/21 09:00> (2) Elevated troponin: Code(s): R77.8 - Other specified abnormalities of plasma proteins <ARASH Unger - Last Filed: 11/29/21 09:00> Status: Acute <ARASH Unger - Last Filed: 11/29/21 09:00> Assessment and Plan: Troponins drawn on admission and were found to be elevated at .205. They trended down. This probably related to hypoxemia as she did not report any chest pain or have any EKG changes that would be suggestive of ischemia or an acute coronary event. No ischemic workup is indicated at this time. <ARASH Unger - Last Filed: 11/29/21 09:00> (3) Aortic stenosis: Code(s): I35.0 - Nonrheumatic aortic (valve) stenosis <ARASH Unger - Last Filed: 11/29/21 09:00> Status: Acute <ARASH Unger - Last Filed: 11/29/21 09:00> Assessment and Plan: Mild aortic valve stenosis by recent echo with valve area of 2.1 cm2. No further work up needed at this point, follow as outpatient. Echo surveillance. <ARASH Unger - Last Filed: 11/29/21 09:00> Additional Plan <ARASH Unger - Last Filed: 11/29/21 09:00> I have seen and examined the patient and agree with the assessment and plan of the nurse practitioner. On physical examination she remains in AFib but with controlled heart rate. We will continue metoprolol and diltiazem and Xarelto In regards to the troponin elevation it is trending down and 12 hourly we later to demand ischemia from hypoxia. Will follow-up as an outpatient <Danielle Mclain MD - Last Filed: 11/29/21 15:37> Subjective Date/time seen: 11/29/21 08:23 <ARASH Unger - Last Filed: 11/29/21 09:00> Interval history: Cardiology follow-up for atrial fibrillation, elevated troponin Date of service 11/27/2021: Feeling a little better today, of BiPAP now on 15L high flow NC. Denies chest pain, palpitations. Date of service 11/29/2021: No complaints this morning. She says she is feeling better. She is currently on high-flow oxygen at 80%. She is denying any chest pain or palpitations this morning. Rate has been better controlled over the past 24 hours. <ARASH Unger - Last Filed: 11/29/21 09:00> Review of Systems Constitutional: Constitutional: Reports fatigue <ARASH Unger - Last Filed: 11/29/21 09:00> Eyes: Eyes: Reports no additional eye complaints <ARASH Unger - Last Filed: 11/29/21 09:00> ENT: Reports system reviewed and no additional complaints, except as documented <ARASH Unger - Last Filed: 11/29/21 09:00> Cardiovascular: Cardiovascular: Reports no additional cardiovascular complaints and Reports dyspnea <ARASH Unger - Last Filed: 11/29/21 09:00> Respiratory: Respiratory: Reports as per HPI and Reports dyspnea <ARASH Unger - Last Filed: 11/29/21 09:00> Gastrointestinal: Gastrointestinal: Reports no additional gastrointestinal complaints <ARASH Unger - Last Filed: 11/29/21 09:00> Musculoskeletal: Musculoske
[2021-11-29] MEDS: METOPROLOL TARTRATE 50 MG TAB PO ×2 (09:30→21:14)
[2021-11-29] MEDS: FAMOTIDINE 20 MG TABLET PO ×2 (10:11→17:57)
[2021-11-29] MEDS: INSULIN ASPART (*BKC) 100 UNITS/ML SUB-Q ×2 (10:11→17:56)
[2021-11-29] MEDS: FUROSEMIDE INJ 40 MG/4 ML VIAL IV PUSH (10:12)
[2021-11-29] MEDS: PRAVASTATIN SODIUM 20 MG TABLET 40 MG PO (10:12)
[2021-11-29] MEDS: NICOTINE (*PBKC) 14 MG PATCH 1 PATCH TRANSDERM (10:13)
[2021-11-29] MEDS: MAGNESIUM OXIDE 400 MG TABLET PO (10:13)
[2021-11-29] MEDS: ALPRAZolam (*CRX) 0.5 MG TABLET PO ×2 (10:54→17:58)
[2021-11-29] MEDS: ACETAMINOPHEN 325 MG TABLET 650 MG PO (14:48)
--- NOTE | 2021-11-29 15:34 | PM.IMPN ---
Progress Note: A&P Assessment and Plan (1) Pneumonia: Qualifiers: Laterality: unspecified laterality Lung location: unspecified part of lung Pneumonia type: due to unspecified organism Qualified Code(s): J18.9 - Pneumonia, unspecified organism Code(s): J18.9 - Pneumonia, unspecified organism Status: Acute Assessment and Plan: Antibiotic: On doxycycline q.12 hours and Rocephin 2 g dosing Patient is clinically improving, weaned off Airvo today (2) Aortic stenosis: Code(s): I35.0 - Nonrheumatic aortic (valve) stenosis Status: Acute Assessment and Plan: echocardiogram 14mmHg, aortic valve 2.1 cm2, moderate calcification (3) Congestive heart failure: Code(s): I50.9 - Heart failure, unspecified Status: Acute Assessment and Plan: -preserved ejection fraction -Echocardiogram 11/27/2021: Ejection fraction 65-70%, increased left wall thickness, indeterminate diastolic dysfunction, moderate aortic valve calcifications. -continue Lasix IV 40 mg daily (4) Acute hypoxemic respiratory failure: Code(s): J96.01 - Acute respiratory failure with hypoxia Status: Acute (5) Atrial fibrillation: Qualifiers: Atrial fibrillation type: unspecified Qualified Code(s): I48.91 - Unspecified atrial fibrillation Code(s): I48.91 - Unspecified atrial fibrillation Status: Acute Assessment and Plan: -likely secondary to pneumonia -rate control with metoprolol tartrate 50 mg b.i.d. and diltiazem 300 mg daily -will keep potassium greater than 4 and magnesium greater than 2 -anticoagulation: Xarelto -monitoring on telemetry (6) Elevated troponin: Code(s): R77.8 - Other specified abnormalities of plasma proteins Status: Acute Assessment and Plan: -secondary RVR from atrial fibrillation, ischemic evaluation deferred by Cardiology Additional Plan # chronic conditions -hyperlipidemia: Pravastatin -nicotine dependence: Daily nicotine patch Diet: Regular DVT prophylaxis: On Xarelto GI prophylaxis: Pepcid Code status: Full code Disposition: Pending clinical course AFib with RVR pneumonia treatment, wean oxygen Time Spent With Patient Time with patient: 25 - 35 minutes Subjective Date/time seen: 11/29/21 15:34 Patient seen and examined. She was doing well this morning on high-flow oxygen 40 L 80% satting 189-100%. Discussed with nurse to wean as tolerated. She is complaining of back pain which she takes Tylenol or, will start Tylenol for pain control. Patient stable to be downgraded to [facility]. Patient is being treated with antibiotics for Gram-negative rods and GBS. Echocardiogram shows normal ejection fraction. Patient denies fever, chills, nausea, vomiting, diarrhea, chest pain, shortness of breath. Review of Systems Review of Systems: All systems reviewed & are unremarkable except as noted in HPI and below Exam Narrative: - GENERAL: Pleasant elderly woman on high-flow oxygen breathing comfortably - EYES: EOMI. Anicteric. - HENT: Moist mucous membranes. - LUNGS: Coarse lung sounds bilaterally. - CARDIOVASCULAR: Regular rate and rhythm. No murmur. No JVD. - ABDOMEN: Soft, non-tender and non-distended. No palpable masses. - EXTREMITIES: No edema. Peripheral pulses 2+. Non-tender. - NEUROLOGIC: No focal neurological deficits. CN II-XII grossly intact. - PSYCHIATRIC: Awake, Alert and oriented. Appropriate mood and affect. - SKIN: No rashes or lesions. Warm. - LYMPH: No cervical lymphadenopathy. Objective Data Vital Signs Vital Signs: Vital Signs - 24 hr 11/28/21 16:00 11/28/21 18:00 11/28/21 20:00 Temperature 36.7 C 36.2 C L Pulse Rate 88 95 97 Respiratory Rate 24 H 20 Blood Pressure 104/53 L 117/61 Pulse Oximetry 97 100 11/28/21 20:40 11/28/21 20:47 11/28/21 22:00 Temperature Pulse Rate 96 101 H 85 Respiratory Rate 20 20 Blood Pressure Pulse Oximetry 96 11/28/21 23:46 12
[2021-11-29 17:02] LABS: Glucose Point of Care 203 mg/dl (65-105)
[2021-11-29] MEDS: RIVAROXABAN 20 MG TABLET PO (17:57)
[2021-11-29] MEDS: traMADol HCL (*CRX) 50 MG TABLET PO (17:58)
[2021-11-29] MEDS: cefTRIAXone 2 GM in SODIUM CHLORIDE 0.9% IV 100 ML 200 ML IVPB (17:59)
--- NOTE | 2021-11-29 20:12 | PC.NURSE ---
Patient was complaining of severe lower back pain. I was assessing patient and abdomen was distended. Bladder scan showed great than 1,000. mls. received order from doctor to place a Alvarez catheter in patient. Patient urine output was 2,750 mls. patient said her back pain was greatly relieved after draining bladder.
[2021-11-29 20:48] LABS: Glucose Point of Care 188 mg/dl (65-105)
[2021-11-29 20:50] LABS: Add Urine Microscopic? YES; Appearance Urine Cloudy (Clear); Bacteria Urine Trace /hpf; Bilirubin Urine Negative (Negative); Blood Urine 3+ (Negative); Color Urine Yellow (Yellow); Glucose Urine UA 2+ mg/dL (Negative); Ketones Urine Negative (Negative); Leukocyte Esterase Ur 3+ LEU/UL (Negative); Mucus Urine Rare /lpf; Nitrate Urine Negative (Negative); Protein Urine 1+ mg/dL (Negative); RBC Urine >75 /hpf (0-2); Specific Grav Ur 1.011 (1.001-1.035); Urobilinogen Urine Negative mg/dL (<2.0); WBC Clumps Urine Present /HPF; WBC Urine >75 /hpf
[2021-11-29] MEDS: SENNA/DOCUSATE SODIUM TABLET 1 TAB PO (21:14)
[2021-11-30] VITALS (29 sets, daily range): BP systolic 76–141; BP diastolic 42–93; PULSE 65–95; RESP 14–22; TEMP 35.7–37.2; O2SAT 86–100
[2021-11-30] MEDS: ALBUTEROL SULFATE NEB 2.5 MG/0.5 ML INH 5 MG INHALATION ×4 (02:11→21:12)
[2021-11-30] MEDS: IPRATROPIUM BR 0.02% INH SOLN 0.5 MG/2.5 ML VIAL INHALATION ×4 (02:11→21:13)
[2021-11-30 05:39] LABS: Hemoglobin 12.4 g/dL (12.0-15.0); Mean Corpuscular HGB Conc 32.6 g/dl (32-36); Mean Corpuscular Hemoglobin 32.2 pg (26-34); Mean Corpuscular Volume 98.7 fl (80-100); Mean Platelet Volume 10.3 fl (7.4-10.4); Platelet Count Result 233 k/mm3 (150-375); Red Blood Count 3.85 M/mm3 (4.2-5.4); White Blood Count 11.9 K/mm3 (4.5-10.0)
[2021-11-30 06:01] LABS: Anion Gap 10 mmol/L (8-16); Blood Urea Nitrogen 42 mg/dL (7-17); Calcium 8.5 mg/dL (8.4-10.2); Carbon Dioxide 27 mmol/L (22-30); Chloride 98 mmol/L (98-107); Estimated CRCL calculation 39 ml/min; Estimated Glomerular Filt Rate 49; Glucose 168 mg/dL (65-110); Potassium 3.7 mmol/L (3.4-5.0); Sodium 135 mmol/L (137-145)
[2021-11-30] MEDS: DOXYCYCLINE IV 100 MG in SODIUM CHLORIDE 0.9% IV 100 ML IVPB ×2 (06:03→17:29)
[2021-11-30 08:01] LABS: Glucose Point of Care 159 mg/dl (65-105)
[2021-11-30] MEDS: ALPRAZolam (*CRX) 0.5 MG TABLET PO ×2 (09:30→23:03)
[2021-11-30] MEDS: FUROSEMIDE INJ 40 MG/4 ML VIAL IV PUSH (09:32)
[2021-11-30] MEDS: NICOTINE (*PBKC) 14 MG PATCH 1 PATCH TRANSDERM (09:32)
[2021-11-30] MEDS: METOPROLOL TARTRATE 50 MG TAB PO (09:32)
[2021-11-30] MEDS: FAMOTIDINE 20 MG TABLET PO ×2 (09:32→17:19)
[2021-11-30] MEDS: MAGNESIUM OXIDE 400 MG TABLET PO (09:32)
[2021-11-30] MEDS: PRAVASTATIN SODIUM 20 MG TABLET 40 MG PO (09:33)
[2021-11-30 11:43] LABS: Glucose Point of Care 197 mg/dl (65-105)
[2021-11-30 12:50] LABS: Glucose Point of Care 146 mg/dl (65-105)
--- NOTE | 2021-11-30 14:54 | PC.NURSE ---
This patient, Lauren Lucero, was transferred to [[id number] ] on 11/30/21 at 1454. Personal belongings sent with patient. Report given to [[place]ena ]. Appropriate documentation sent with patient.
--- NOTE | 2021-11-30 14:55 | PC.NURSE ---
This patient, Lauren Lucero, was received from IMU on 11/30/21 at 1455. Patient/family oriented to unit policies and routines
[2021-11-30] MEDS: ACETAMINOPHEN 325 MG TABLET 650 MG PO (15:39)
--- NOTE | 2021-11-30 15:52 | PM.IMPN ---
Progress Note: A&P Assessment and Plan (1) Aortic stenosis: Code(s): I35.0 - Nonrheumatic aortic (valve) stenosis Status: Acute (2) Elevated troponin I level: Code(s): R77.8 - Other specified abnormalities of plasma proteins Status: Acute (3) GERD (gastroesophageal reflux disease): Code(s): K21.9 - Gastro-esophageal reflux disease without esophagitis Status: Acute (4) Acute hypoxemic respiratory failure: Code(s): J96.01 - Acute respiratory failure with hypoxia Status: Acute (5) Pneumonia: Qualifiers: Laterality: unspecified laterality Lung location: unspecified part of lung Pneumonia type: due to unspecified organism Qualified Code(s): J18.9 - Pneumonia, unspecified organism Code(s): J18.9 - Pneumonia, unspecified organism Status: Acute (6) Atrial fibrillation: Qualifiers: Atrial fibrillation type: unspecified Qualified Code(s): I48.91 - Unspecified atrial fibrillation Code(s): I48.91 - Unspecified atrial fibrillation Status: Acute Additional Plan # community-acquired pneumonia with GNR and group B strep # nonrheumatic aortic valve stenosis -antibiotics: doxycycline q.12 hours, Rocephin 2 g q.day -COVID-19 negative # acute hypoxic respiratory failure -history of smoking, likely underlying COPD -continue nebs albuterol q.6 hours -hypoxia likely secondary to infection, wean as tolerated to keep oxygen saturation greater than 90%, currently on 5 L oxygen by nasal cannula. Unknown why patient was on BiPAP overnight, discontinue BiPAP # anxiety -patient has significant anxiety requiring sitter to prevent her from taking oxygen off -patient has p.r.n. Xanax 0.5 mg q.8 hours # atrial fibrillation with RVR -RVR resolved, on diltiazem 300 mg daily and metoprolol 50 mg q.12 hours -echocardiogram shows LVEF 65-70% -anticoagulation with Xarelto -elevated troponin secondary to RVR, now RVR resolved -continue monitoring on telemetry # heart failure with preserved EF -patient is on 40 mg IV Lasix daily, clinically appearing dehydrated, creatinine elevated 1.10 -Will stop diuretic, re-evaluate tomorrow # nonrheumatic aortic valve stenosis -mild stenosis echo shows valve area 2.1 cm2, no further workup indicated # chronic conditions -hyperlipidemia: Pravastatin -nicotine dependence: Daily nicotine patch -history of alcohol abuse -history of colon cancer status post colostomy bag -GERD: Pepcid -type 2 diabetes: Holding metformin, sliding scale insulin -insomnia: Remeron Diet: Heart healthy diet carb consistent DVT prophylaxis: On Xarelto Code status: Full code Disposition: Weaning oxygen, PT and OT to evaluate treat to help with disposition Subjective Date/time seen: 11/30/21 15:52 Patient seen examined this morning. For some reason she was put on BiPAP overnight with no explanation. She has been weaned down to 5 L oxygen again. Patient has a sitter as she gets very anxious and confused overnight. Yesterday patient had significant abdominal distension secondary to urinary retention, patient charted to have 6 L output total, balance of negative 5100 cc. It seems she has had 6 L urine output from catheter since placement yesterday. she clinically appears to be continued improved, creatinine elevated likely post renal. WBCs down to 12. She has been downgraded to medical floor with telemetry. Heart rate down to 79 as well. RVR and secondary to this urinary retention as well. Review of Systems Review of Systems: All systems reviewed & are unremarkable except as noted in HPI and below Exam Narrative: - GENERAL: Pleasant elderly woman breathing comfortably with BiPAP, even when BiPAP was removed she is breathing comfortably was placed on 5 L oxygen by nasal cannula - EYES: EOMI. Anicteric. - HENT: Dry oral mucosa, poor dentition - LUNGS: Coarse lung sounds bilaterally. About the same as yesterday. - CARDIOVASC
[2021-11-30] MEDS: SODIUM CHLORIDE 0.9% IV 1,000 ML 999 ML IV CONT ×2 (16:21→21:06)
[2021-11-30 16:29] LABS: Glucose Point of Care 233 mg/dl (65-105)
[2021-11-30] MEDS: INSULIN ASPART (*BKC) 100 UNITS/ML SUB-Q (17:19)
[2021-11-30] MEDS: RIVAROXABAN 20 MG TABLET PO (17:22)
[2021-11-30] MEDS: cefTRIAXone 2 GM in SODIUM CHLORIDE 0.9% IV 100 ML 200 ML IVPB (17:29)
[2021-11-30] MEDS: SENNA/DOCUSATE SODIUM TABLET 1 TAB PO (21:08)
[2021-11-30] MEDS: INSULIN ASPART (*BKC) 100 UNITS/ML 8 UNITS SUB-Q (21:08)
[2021-11-30 21:34] LABS: Glucose Point of Care 335 mg/dl (65-105)
[2021-11-30 21:34] LABS: Glucose Point of Care 354 mg/dl (65-105)
[2021-11-30 22:07] LABS: Lactic Acid Reflex 2.2 mmol/L (0.7-2.1)
[2021-11-30] MEDS: MIRTAZAPINE 30 MG TABLET PO (23:02)
[2021-12-01] VITALS (24 sets, daily range): BP systolic 79–133; BP diastolic 41–84; PULSE 83–140; RESP 17–32; TEMP 36–36.9; O2SAT 79–100
--- NOTE | 2021-12-01 00:27 | PM.CCN ---
Critical Care Event Note Summary Code activated: No Narrative: 12/01/2021 at 12:20 a.m. The patient had been transferred from [facility] to [address] [place] [address] in the evening. Shortly after transfer the patient became hypotensive presumably due to over diuresis. The patient received 1 L normal saline. Patient's blood pressures improved to the low 100s. The patient's evening metoprolol dose was held. However, around 8:30 p.m. the patient had increasing oxygen requirements up to 9 L high-flow nasal cannula to maintain oxygen saturations of 90%. She also again became hypotensive. Subsequently another 500 mL bolus of normal saline was provided. Approximately 4 hours later the patient developed sudden worsening of hypoxia with oxygen saturation. She was on high-flow nasal cannula 15 L with oxygen saturations in the low to mid 80s. A non-rebreather was added. The patient was subsequent transferred to IMU. I did call and notify the patient's daughter the patient transfer. The patient was not tolerating BiPAP 11/05 and was at agitated and anxious. One time dose of Ativan was given with little to no effect. As patient's clinical course continued she began fighting and biting at the staff. Subsequently 1 time dose of 2.5 mg of Zyprexa was provided. The patient's daughter confirmed that she would like the patient to remain a full code. The daughters quite upset that the patient's clinical condition had improved significantly yesterday and has now declined again. Acute worsening hypoxic respiratory failure---stat chest x-ray confirmed worsening chest x-ray findings. I am uncertain if this is worsening pneumonia verses the patient developing ARDS. Patient did have negative COVID test earlier in the hospital stay however given worsening x-ray and want to repeat COVID testing. Chest x-ray findings could be due to CHF however patient's heart rate actually is stable. She had an echocardiogram demonstrated normal left ventricular systolic function and moderately increased left ventricular wall thickness. Diastolic function was indeterminate. She did have some mild AR stenosis on echo. Again I much more suspicious of infectious process versus ARDS for this patient. Gram-negative bacteremia--- the patient does have Gram-negative bacilli blood cultures and a UTI. Repeat blood cultures have been ordered earlier this evening. He did not feel that the patient's bacteremia is causing her pneumonia. Diabetes myelitis with hyperglycemia----will increase the patient's sliding scale insulin moderate dose correction. A total of 75 minutes was spent in critical care activities between multiple patient encounters. This case had a high probability of a clinically significant, sudden, or life threatening deterioration of this patient's condition which required my full and direct attention, intervention and personal management. Critical care time: 75 - 104 mins
[2021-12-01 00:47] LABS: Reflex Lactic Acid Yes or No Add Lactic
[2021-12-01 02:03] LABS: Alveolar/Arterial O2 Gradient 600.9 mmHg; Base Excess ABG 3.3 mEq/l (+/-2.0); Fractional Inspired Oxygen 100 %; HCO3 ABG 30.7 mEq/l (22.0-26.0); Oxygen Content ABG 16.8 %vol (16.0-22.0); PCO2 ABG 58.7 mmHg (35.0-45.0); PO2 ABG 53.4 mmHg (80.0-100.0); PO2 FiO2 Ratio Arterial Blood 0.53 %; Total Hemoglobin 14.1 g/dL (12.0-18.0); pH ABG 7.336 (7.350-7.450)
[2021-12-01 02:11] LABS: Modified Allen's Test Pass; Oxygen Saturation ABG 84.9 % (95.0-100.0); Oxyhemoglobin 84.9 % THb (90.0-100.0); Site Drawn LEFT RADIAL
[2021-12-01 02:12] LABS: Device NON-REBREATHER MASK
--- NOTE | 2021-12-01 03:19 | PC.NURSE ---
At 0115 transferred patient to IMU room 205-2. Report given to Yanni OVERTON.
[2021-12-01] MEDS: LORazepam INJ (*CRX) 2 MG/ML VIAL 0.5 MG IV PUSH (03:25)
[2021-12-01] MEDS: OLANZapine 10 MG INJ VIAL 2.5 MG IM ×2 (05:27→12:08)
[2021-12-01] MEDS: DOXYCYCLINE IV 100 MG in SODIUM CHLORIDE 0.9% IV 100 ML IVPB (06:26)
[2021-12-01 07:05] LABS: Hematocrit 38.3 % (37.0-47.0); Hemoglobin 12.7 g/dL (12.0-15.0); Mean Corpuscular HGB Conc 33.2 g/dl (32-36); Mean Corpuscular Hemoglobin 31.7 pg (26-34); Mean Corpuscular Volume 95.5 fl (80-100); Mean Platelet Volume 10.6 fl (7.4-10.4); Platelet Count Result 262 k/mm3 (150-375); Red Blood Count 4.01 M/mm3 (4.2-5.4); Red Cell Distribution Width 13.6 % (11.5-14.5); White Blood Count 16.1 K/mm3 (4.5-10.0)
[2021-12-01 07:35] LABS: Anion Gap 10 mmol/L (8-16); Blood Urea Nitrogen 26 mg/dL (7-17); Calcium 8.7 mg/dL (8.4-10.2); Carbon Dioxide 27 mmol/L (22-30); Chloride 100 mmol/L (98-107); Estimated CRCL calculation 52 ml/min; Estimated Glomerular Filt Rate > 60; Glucose 165 mg/dL (65-110); Potassium 3.2 mmol/L (3.4-5.0); Sodium 137 mmol/L (137-145)
--- NOTE | 2021-12-01 07:51 | PCPTNOTE ---
Spoke with RN about working with this patient and we agreed that she is not currently appropriate to participate in therapy secondary to her current condition. I am going to discharge therapy orders at this time. Please re-order when she is stable.
[2021-12-01 08:14] LABS: Glucose Point of Care 215 mg/dl (65-105)
[2021-12-01 10:14] LABS: Alanine Aminotransferase 23 U/L (4-35); Albumin Level 3.6 g/dL (3.5-5.1); Alkaline Phosphatase 79 U/L (38-126); Anion Gap 12 mmol/L (8-16); Aspartate Amino Transferase 26 U/L (14-36); Bilirubin,Total 0.5 mg/dL (0.2-1.3); Blood Urea Nitrogen 28 mg/dL (7-17); Calcium 8.7 mg/dL (8.4-10.2); Carbon Dioxide 25 mmol/L (22-30); Chloride 100 mmol/L (98-107); Estimated CRCL calculation 52 ml/min; Estimated Glomerular Filt Rate > 60; Glucose 213 mg/dL (65-110); Potassium 3.7 mmol/L (3.4-5.0); Sodium 137 mmol/L (137-145)
[2021-12-01] MEDS: POTASSIUM CHLORIDE INJ 40 MEQ in SODIUM CHLORIDE 0.9% IV 500 ML 130 MEQ IVPB (10:29)
--- NOTE | 2021-12-01 11:05 | PM.PNCARD ---
Progress Note: A&P Additional Plan 71-year-old lady with: Chronic atrial fibrillation and mild aortic valve stenosis. These things are stable and not the principal reason this lady is in the hospital. No need to adjust her rate control regimen or anticoagulation. Patient will be followed peripherally. Dr. Arambula will resume follow-up of this established patient of his on 12/03/2020 Martin Gamble MD [facility] (for Ralf) Subjective Date/time seen: Date of service: 12/01/21 11:05 Interval history: Follow-up visit in this 71-year-old lady with: Chronic atrial fibrillation and mild aortic valve stenosis being managed with rate control and systemic anticoagulation. Patient remains hospitalized because of respiratory problem she has severe chronic lung disease because of longstanding cigarette smoking and poor oxygenation necessitating BiPAP at this time. Telemetry demonstrates good heart rate control with atrial fib particularly considering her respiratory difficulties. Patient is in IMU this morning wearing BiPAP she is arousable no cardiovascular complaints. Exam Const: General: comfortable and no acute distress Other: Chronically ill debilitated lady on BiPAP HENMT: Mouth: Yes dry mucous membranes Eyes: Sclera: sclerae normal Neck: Neck: supple and no JVD Resp: Other: Coarse breath sounds Cardio: Rhythm: abnormal rhythm irregularly irregular GI: GI Palp: Yes Soft to palpation Auscultation: normal bowel sounds Skin: General skin exam: normal color Neuro: Cognition (Neuro): normal cognition Extrem: General: normal to inspection Objective Data Vital Signs Vital Signs: Vital Signs - 24 hr 11/30/21 12:00 11/30/21 14:00 11/30/21 16:00 Temperature 36.3 C L 36.7 C Pulse Rate 91 79 82 Respiratory Rate 18 18 Blood Pressure 123/48 L 78/50 L Pulse Oximetry 94 93 11/30/21 16:29 11/30/21 16:40 11/30/21 17:33 Temperature Pulse Rate 80 82 Respiratory Rate 18 18 Blood Pressure 100/60 Pulse Oximetry 11/30/21 20:00 11/30/21 20:20 11/30/21 20:35 Temperature 35.7 C L Pulse Rate 85 Respiratory Rate 18 Blood Pressure 76/42 L Pulse Oximetry 86 L 87 L 90 11/30/21 21:12 11/30/21 21:15 11/30/21 21:27 Temperature Pulse Rate 84 86 83 Respiratory Rate 18 20 Blood Pressure Pulse Oximetry 11/30/21 22:37 12/01/21 00:00 12/01/21 04:00 Temperature 36.0 C L Pulse Rate 91 88 Respiratory Rate 18 Blood Pressure 120/60 112/41 L Pulse Oximetry 90 79 L 90 12/01/21 04:55 12/01/21 06:00 12/01/21 08:00 Temperature 36.6 C 36.6 C Pulse Rate 87 116 H 120 H Respiratory Rate 17 32 H Blood Pressure 133/58 L 118/84 Pulse Oximetry 87 L 92 12/01/21 09:11 12/01/21 10:48 Temperature Pulse Rate 89 110 H Respiratory Rate 18 Blood Pressure Pulse Oximetry 90 Intake/Output Intake/Output: Intake & Output 11/28/21 11/29/21 11/30/21 12/01/21 23:59 23:59 23:59 23:59 Intake Total 639 361 5139 200 Output Total 5150 915 225 Balance 350 -4535 2675 -25 Meds/Results Medications: Active Medications Generic Name Dose Route Start Last Admin Trade Name Freq PRN Reason Stop Dose Admin Acetaminophen 650 mg 11/29/21 13:45 11/30/21 15:39 Acetaminophen 325 Mg Tablet PO 650 mg Q6H PRN Administration Mild Pain (1-3) or Fever Albuterol 5 mg 11/26/21 02:00 12/01/21 07:39 Albuterol Sulfate Neb 2.5 Mg/0.5 Ml Inh INHALATION Not Given Q6HRT SUSAN Alprazolam 0.5 mg 11/26/21 09:54 11/30/21 23:03 Alprazolam (*Crx) 0.5 Mg Tablet PO 0.5 mg Q8HR PRN Administration Anxiety Dextrose 12.5 gm 11/27/21 12:40 Dextrose 50% 25 Gm/50 Ml Syringe IV PUSH PRN PRN Hypoglycemia Protocol Diltiazem HCl 300 mg 11/26/21 09:00 12/01/21 10:48 Diltiazem Hcl Cd 300 Mg Cap PO Not Given DAILY SUSAN Famotidine 20 mg 11/26/21 09:00 12/01/21 10:48 Famotidine 20 Mg Tablet PO Not Given BID SUSAN Glucagon 1 m
[2021-12-01 13:04] LABS: Glucose Point of Care 174 mg/dl (65-105)
[2021-12-01] MEDS: ALBUTEROL SULFATE NEB 2.5 MG/0.5 ML INH 5 MG INHALATION ×2 (13:23→21:57)
[2021-12-01] MEDS: IPRATROPIUM BR 0.02% INH SOLN 0.5 MG/2.5 ML VIAL INHALATION ×2 (13:23→21:57)
[2021-12-01] MEDS: NICOTINE (*PBKC) 14 MG PATCH 1 PATCH TRANSDERM (14:11)
[2021-12-01] MEDS: WATER, STERILE FOR INJECTION 10 ML VIAL XX (14:11)
[2021-12-01] MEDS: dilTIAZem 100 MG/100 ML 100 MG/100 ML BAG 10 MG IV CONT (14:11)
[2021-12-01] MEDS: dilTIAZem HCl INJ 25 MG/5 ML VIAL 20 MG IV PUSH (14:48)
[2021-12-01 14:52] LABS: Base Excess ABG -1.6 mEq/l (+/-2.0); Fractional Inspired Oxygen 100 %; HCO3 ABG 27.4 mEq/l (22.0-26.0); Oxygen Content ABG 16.1 %vol (16.0-22.0); PO2 ABG 53.7 mmHg (80.0-100.0); PO2 FiO2 Ratio Arterial Blood 0.54 %; Total Hemoglobin 13.8 g/dL (12.0-18.0)
[2021-12-01 15:40] LABS: PCO2 ABG 66.3 mmHg (35.0-45.0); pH ABG 7.234 (7.350-7.450)
[2021-12-01 15:41] LABS: Oxygen Saturation ABG 80.9 % (95.0-100.0)
[2021-12-01 15:42] LABS: Device NON-INVASIVE VENT; Modified Allen's Test Pass; Non-Invasive Inspiratory Pressure 16 CMH2O; Non-Invasive Vent Rate 12 /MIN; Oxyhemoglobin 83.3 % THb (90.0-100.0); Site Drawn RIGHT RADIAL
[2021-12-01 15:43] LABS: Non-Invasive Expiratory Pressure 6 CMH2O
--- NOTE | 2021-12-01 15:49 | WPDPROCEDUR ---
Procedures Intubation Intubation Date: 12/01/21 Intubation Time: 15:49 A pre-procedural Time-Out was completed immediately before starting the procedure and confirmed: Patient Identification, Site, Procedure, Patient Position and the Availability of Requisite Equipment: Yes Sedative: etomidate Paralytic: rocuronium Laryngoscope: fiber optic video scope Assist device used: fiber optic device ET tube size: 7.5 Tube secured depth (cm): 13 Tube secured location: lips Tube placement confirmation: visualized tube passing through cords, equal breath sounds bilaterally, no breath sounds over epigastrium and confirmation by capnometry Patient tolerated procedure: well Intubation complications: none
--- NOTE | 2021-12-01 15:50 | P.PCNBED_ITS ---
Procedures Central Line Placement Left IJ: Central Line Date: 12/01/21 Central Line Time: 15:50 Discussed w/ the patient/family/POA,the placement of a central venous catheter, including its clinical necessity/indication & associated potential risks, benifits and alternatives.: Yes The patient/family/POA understand(s) and acknowledge(s) the need to proceed with central venous catheter insertion as an important element of the patient's clinical management.: Yes Time Out Performed: Yes Patient Position: supine Patient placed on monitor/pulse ox: Yes Provider Prep: mask, sterile gown, sterile gloves, Max. sterile barrier precautions, cap and hand hygiene with conventional soap/water or alcohol based hand rub Central line prep: 2% Chlorhexidine scrub Local anesthesia used: lidocaine 1% Amount of anesthesia used (ml): 3 Sterile US Technique with sterile gel/sterile probe covers: Yes Central line lumen inserted: triple Slovak: 12 Length (cm): 16 Depth of Insertion (cm): 16 Post Procedure: sutured in place, good blood return, all ports aspirated, flushed, capped, transparent dressing, hemostatic product, antimicrobial product, securement product and aseptic technique maintained throughout procedure Post procedure x-ray: tip of catheter in good position and no pneumothorax seen Patient tolerated procedure: well Complications: none
[2021-12-01] MEDS: NOREPINEPHRINE 8 MG/D5W 250 ML 8 MG/250 ML BAG 28.13 MG IV CONT (16:45)
[2021-12-01] MEDS: MIDAZOLAM 100MG/NS 100ML(*CRX) 100 MG/100 ML BAG IV CONT (16:45)
[2021-12-01] MEDS: FENTANYL 2,500MCG/NS250ML(*CRX 2,500 MCG/250 ML BAG 15 MCG IV CONT (16:45)
--- NOTE | 2021-12-01 16:49 | WPDCNINT ---
Assessment and Plan Assessment and plan (1) Acute hypoxemic respiratory failure: Code(s): J96.01 - Acute respiratory failure with hypoxia Status: Acute Assessment and Plan: Hypoxic respiratory failure likely related to community-acquired pneumonia, CHF, possible COVID pneumonia Patient presented the ED on 11/25/2021 with shortness of breath, was on BiPAP and has been declining and requiring significant oxygen support. Currently she was on BiPAP at 16/6, 100% FiO2 and a rate of 12 and saturating any where between 77-84%. -she was obtunded so I decided to intubated. Intubated patient on 12/01/2021, in the intermediate Unit -chest x-ray shows bilateral diffuse infiltrates right greater than left likely pneumonia versus pulmonary edema -continue low tidal volume strategy, peep of 10 and 100 % FiO2 for now, obtained post intubation ABG -continue bronchodilators -will sedated with fentanyl and Versed infusion (2) Shock: Code(s): R57.9 - Shock, unspecified Status: Acute Assessment and Plan: Patient in shock post intubation which could be related to positive pressure ventilation and or infection -check lactic acid -total of 2 L IV fluid has been given since this morning. -started on Levophed, maintain MAP > 65 mmHg -11/25 blood cultures growing Gram-negative bacilli and group B Streptococcus. -repeat blood cultures on 11/30/2021 and negative, preliminary results -11/29/2021 urine cultures are negative -switch antibiotics to vancomycin and cefepime (12/01/2021) (3) Pneumonia: Qualifiers: Laterality: unspecified laterality Lung location: unspecified part of lung Pneumonia type: due to unspecified organism Qualified Code(s): J18.9 - Pneumonia, unspecified organism Code(s): J18.9 - Pneumonia, unspecified organism Status: Acute Assessment and Plan: Possible community-acquired pneumonia -will switch antibiotics to cefepime and vancomycin (12/01/2021)\ -will continue to monitor chest x-ray and ABGs (4) Atrial fibrillation: Qualifiers: Atrial fibrillation type: unspecified Qualified Code(s): I48.91 - Unspecified atrial fibrillation Code(s): I48.91 - Unspecified atrial fibrillation Status: Acute Assessment and Plan: Patient with history of atrial fibrillation, -cardiology evaluated the patient, patient was on Xarelto -will discontinue diltiazem and metoprolol given patient's blood pressures are lower than in shock - hold diltiazem, metoprolol as she is hypotensive -patient AFib RVR, will start amiodarone infusion bolus (5) Smoking: Code(s): F17.200 - Nicotine dependence, unspecified, uncomplicated Status: Acute Assessment and Plan: Patient is a current smoker, currently intubated so cannot residential treatment counselor her on cessation of smoking. (6) Diabetes type 2, controlled: Qualifiers: Diabetes mellitus terminal clerk insulin use: without snf use Diabetes mellitus complication status: without complication Qualified Code(s): E11.9 - Type 2 diabetes mellitus without complications Code(s): E11.9 - Type 2 diabetes mellitus without complications Status: Chronic Assessment and Plan: Continue Accu-Cheks and sliding scale insulin (7) Suspected 2019 novel coronavirus infection: Code(s): Z20.822 - Contact with and (suspected) exposure to COVID-19 Status: Acute Assessment and Plan: SARS-CoV-2 PCR was negative on 11/25/2021 -SARS-CoV-2 PCR. On 12/01/2021 and is pending Additional Plan Code status: Full code Critical care time spent: 51 minutes This dictation may have been done utilizing a voice recognition system. Attempts have been made to correct errors. However, there may be uncorrected grammatical, spelling, and recognition errors present. Due to a high probability of clinically significant, life threatening deterioration, the patient required my highest level of preparedness to intervene corey
--- NOTE | 2021-12-01 16:50 | PM.IMPN ---
Progress Note: A&P Assessment and Plan (1) Suspected 2019 novel coronavirus infection: Code(s): Z20.822 - Contact with and (suspected) exposure to COVID-19 Status: Acute (2) Shock: Code(s): R57.9 - Shock, unspecified Status: Acute (3) Aortic stenosis: Code(s): I35.0 - Nonrheumatic aortic (valve) stenosis Status: Acute (4) Congestive heart failure: Code(s): I50.9 - Heart failure, unspecified Status: Acute (5) Elevated troponin I level: Code(s): R77.8 - Other specified abnormalities of plasma proteins Status: Acute (6) History of ETOH abuse: Code(s): F10.11 - Alcohol abuse, in remission Status: Acute (7) History of colon cancer: Code(s): Z85.038 - Personal history of other malignant neoplasm of large intestine Status: Acute (8) GERD (gastroesophageal reflux disease): Code(s): K21.9 - Gastro-esophageal reflux disease without esophagitis Status: Acute (9) Pneumonia: Qualifiers: Laterality: unspecified laterality Lung location: unspecified part of lung Pneumonia type: due to unspecified organism Qualified Code(s): J18.9 - Pneumonia, unspecified organism Code(s): J18.9 - Pneumonia, unspecified organism Status: Acute (10) Acute hypoxemic respiratory failure: Code(s): J96.01 - Acute respiratory failure with hypoxia Status: Acute Additional Plan # community-acquired pneumonia with GNR and group B strep # nonrheumatic aortic valve stenosis # septic shock secondary to community-acquired pneumonia -with septic shock clinical decompensation changing antibiotics to vanc and cefepime. Previous antibiotics a cyclin Rocephin were based off of the current cultures of Gram-negative rods and group B strep -COVID-19 negative, repeating COVID test -COVID-19 PUI -ventilator management as per track coach # acute hypoxic respiratory failure -history of smoking, likely underlying COPD -continue nebs albuterol q.6 hours -was hypoxic on 5 L oxygen yesterday, overnight had rapid response episode requiring BiPAP, this morning on BiPAP continuously unable to wean and she continued desaturated to 80s despite being on max BiPAP support, patient intubated and moved to ICU # anxiety -now intubated and sedated # atrial fibrillation with RVR -RVR resolved, on diltiazem 300 mg daily and metoprolol 50 mg q.12 hours, switched to diltiazem drip, now switching to amiodarone drip for hypotension -echocardiogram shows LVEF 65-70% -anticoagulation with Xarelto -continue monitoring on telemetry -RVR secondary to hypoxia # heart failure with preserved EF -patient was on 40 mg IV Lasix daily, clinically appearing dehydrated, creatinine elevated 1.10 -echocardiogram shows normal EF -patient was given IV fluids as she was over diuresed, intravascularly depleted # nonrheumatic aortic valve stenosis -mild stenosis echo shows valve area 2.1 cm2, no further workup indicated # chronic conditions -hyperlipidemia: Pravastatin -nicotine dependence: Daily nicotine patch -history of alcohol abuse -history of colon cancer status post colostomy bag -GERD: Pepcid -type 2 diabetes: Holding metformin, sliding scale insulin -insomnia: Remeron Diet: npo, will start tube feeds tomorrow DVT prophylaxis: On Xarelto GI prophylaxis: Pepcid Code status: Full code, I spent 30 minutes talking to the daughter about goals of care and disease outcome, patient daughter is adamant about keeping full code, family is unable to visit patient as per our policies Disposition: intubated now in ICU, poor prognosis 40 minutes spent critical care time taking care patient she is clinically decompensating, involving track coach, moving patient to ICU, discussing with family goals of care Time Spent With Patient Time with patient: 25 - 35 minutes Subjective Date/time seen: 12/01/21 16:50 Overnight she became further hypoxic moved in IMU for continuous BiPAP. Thi
[2021-12-01] MEDS: SODIUM CHLORIDE 0.9% IV 500 ML 999 ML (17:00)
[2021-12-01 17:25] LABS: Alveolar/Arterial O2 Gradient 578.3 mmHg; Base Excess ABG -3.8 mEq/l (+/-2.0); Fractional Inspired Oxygen 100 %; HCO3 ABG 21.1 mEq/l (22.0-26.0); Oxygen Saturation ABG 97.2 % (95.0-100.0); Oxyhemoglobin 96.3 % THb (90.0-100.0); PCO2 ABG 37.8 mmHg (35.0-45.0); PO2 ABG 96.9 mmHg (80.0-100.0); PO2 FiO2 Ratio Arterial Blood 0.97 %; Total Hemoglobin 12.5 g/dL (12.0-18.0); pH ABG 7.364 (7.350-7.450)
[2021-12-01 17:26] LABS: Arterial Blood Gas Vent Mode CMV; Arterial Blood Gas Ventilator rate 26 /MIN; Device VENTILATOR; Modified Allen's Test Pass; Site Drawn RIGHT RADIAL
[2021-12-01 17:27] LABS: Arterial Blood Gas PEEP 10 cmH2O; Arterial Blood Gas Tidal Volume 350 ml
[2021-12-01 18:39] LABS: Glucose Point of Care 164 mg/dl (65-105)
--- NOTE | 2021-12-01 18:43 | PC.NURSE ---
Patient arrived to ICU department ICU bed 10 at 1645. Bedside report received by BROOKLYNN Baxter.
[2021-12-01] MEDS: SODIUM CHLORIDE 0.9% IV 500 ML 999 ML IV CONT (18:50)
[2021-12-01] MEDS: RIVAROXABAN 20 MG TABLET FEED TUBE (18:50)
[2021-12-01] MEDS: FAMOTIDINE 20 MG TABLET PO (18:50)
[2021-12-01 18:54] LABS: Lactic Acid Reflex 1.1 mmol/L (0.7-2.1)
--- NOTE | 2021-12-01 19:05 | PC.NURSE ---
Patient transferred to ICU dept. at 1645. Patient found on fentanyl gtt at 150 mcg/hr, versed at 4 mg/hr, and Levophed at 15 mcg/min. This nurse to resume gtt titrations per protocol.
[2021-12-01 19:10] LABS: CRP 14.9 mg/dL (<1.0)
[2021-12-01 20:28] LABS: Creatinine Urine 142.9 mg/dL
[2021-12-01 22:08] LABS: Vancomycin Trough < 5.0 ug/mL (10.0-20.0)
[2021-12-01] MEDS: MINERAL OIL/WHITE PETROLATUM OINTMENT 1 APPLIC EACH EYE (23:34)
[2021-12-01] MEDS: SENNA/DOCUSATE SODIUM TABLET 1 TAB FEED TUBE (23:36)
[2021-12-01] MEDS: NOREPINEPHRINE 8 MG/D5W 250 ML 8 MG/250 ML BAG 24.38 MG IV CONT (23:41)
[2021-12-02] VITALS (42 sets, daily range): BP systolic 67–141; BP diastolic 47–85; PULSE 88–136; RESP 22–26; TEMP 36.7–37.3; O2SAT 90–100
[2021-12-02] MEDS: ALBUTEROL SULFATE NEB 2.5 MG/0.5 ML INH 5 MG INHALATION ×4 (04:07→20:58)
[2021-12-02] MEDS: IPRATROPIUM BR 0.02% INH SOLN 0.5 MG/2.5 ML VIAL INHALATION ×4 (04:07→20:58)
[2021-12-02 05:39] LABS: Basophils Absolute Auto 0.1 K/mm3 (0.0-0.1); Basophils Percent Auto 0.4 % (0.2-1.2); Eosinophils Absolute Auto 0.2 K/mm3 (0-0.3); Eosinophils Percent Auto 1.2 % (0-4.4); Hematocrit 38.9 % (37.0-47.0); Hemoglobin 12.7 g/dL (12.0-15.0); Immature Granulocyte Absolute 0.21 K/mm3 (0.00-0.031); Immature Granulocyte Percent A 1.1 % (0-0.5); Lymphocytes Absolute Auto 1.63 K/mm3 (0.9-3.2); Lymphocytes Percent Auto 8.7 % (18.3-44.2); Mean Corpuscular HGB Conc 32.6 g/dl (32-36); Mean Corpuscular Hemoglobin 31.9 pg (26-34); Mean Corpuscular Volume 97.7 fl (80-100); Mean Platelet Volume 9.9 fl (7.4-10.4); Monocytes Absolute Auto 1.2 K/mm3 (0.1-0.6); Monocytes Percent Auto 6.6 % (2.6-8.5); Neutrophils Absolute Auto 15.3 K/mm3 (1.3-6.7); Platelet Count Result 326 k/mm3 (150-375); Red Blood Count 3.98 M/mm3 (4.2-5.4); Red Cell Distribution Width 13.9 % (11.5-14.5); White Blood Count 18.7 K/mm3 (4.5-10.0)
[2021-12-02] MEDS: FENTANYL 2,500MCG/NS250ML(*CRX 2,500 MCG/250 ML BAG 15 MCG IV CONT ×2 (05:42→20:56)
[2021-12-02 05:50] LABS: Lactic Acid Reflex 1.5 mmol/L (0.7-2.1)
[2021-12-02 05:53] LABS: INR 1.3; Prothrombin Time 15.9 Seconds (11.1-14.7)
[2021-12-02 05:54] LABS: Alanine Aminotransferase 17 U/L (4-35); Alkaline Phosphatase 81 U/L (38-126); Anion Gap 8 mmol/L (8-16); Aspartate Amino Transferase 21 U/L (14-36); Bilirubin,Total 0.6 mg/dL (0.2-1.3); Blood Urea Nitrogen 27 mg/dL (7-17); Calcium 8.3 mg/dL (8.4-10.2); Carbon Dioxide 23 mmol/L (22-30); Chloride 105 mmol/L (98-107); Estimated CRCL calculation 50 ml/min; Estimated Glomerular Filt Rate > 60; Glucose 216 mg/dL (65-110); Magnesium 1.9 mg/dL (1.6-2.3); Partial Thromboplastin Time 35.6 SECONDS (22.3-36.8); Phosphorus 2.5 mg/dL (2.5-4.5); Potassium 3.6 mmol/L (3.4-5.0); Sodium 136 mmol/L (137-145)
[2021-12-02 05:58] LABS: Creatine Kinase < 20 U/L (30-135)
[2021-12-02 06:09] LABS: CRP 14.4 mg/dL (<1.0)
[2021-12-02 06:09] LABS: Alveolar/Arterial O2 Gradient 312.4 mmHg; Base Excess ABG -4.4 mEq/l (+/-2.0); Carboxyhemoglobin 0.2 % THb (0-2.0); Fractional Inspired Oxygen 60 %; HCO3 ABG 20.8 mEq/l (22.0-26.0); Methemoglobin ABG 0.3 %THb (0-1.5); Oxygen Content ABG 17.7 %vol (16.0-22.0); Oxyhemoglobin 93.2 % THb (90.0-100.0); PCO2 ABG 38.6 mmHg (35.0-45.0); PO2 ABG 72.9 mmHg (80.0-100.0); PO2 FiO2 Ratio Arterial Blood 1.22 %; Reduced Hemoglobin 6.3 %THb (0-5.0); Total Hemoglobin 13.5 g/dL (12.0-18.0); pH ABG 7.349 (7.350-7.450)
[2021-12-02 06:11] LABS: Arterial Blood Gas Vent Mode CMV; Arterial Blood Gas Ventilator rate 26 /MIN; Device VENTILATOR; Modified Allen's Test Unable to perform; Site Drawn RIGHT RADIAL
[2021-12-02 06:12] LABS: Arterial Blood Gas PEEP 10 cmH2O; Arterial Blood Gas Tidal Volume 350 ml
[2021-12-02] MEDS: NOREPINEPHRINE 8 MG/D5W 250 ML 8 MG/250 ML BAG 56.25 MG IV CONT (08:02)
[2021-12-02] MEDS: AMIODARONE 150 MG/D5W 100 ML 150 MG/100 ML BAG 600 MG IV CONT ×2 (08:13→10:51)
[2021-12-02] MEDS: AMIODARONE 360 MG/D5W 200 ML 360 MG/200 ML BAG 16.67 MG IV CONT (08:14)
[2021-12-02] MEDS: SODIUM CHLORIDE 0.9% IV 1,000 ML 999 ML IV CONT (08:38)
[2021-12-02] MEDS: MINERAL OIL/WHITE PETROLATUM OINTMENT 1 APPLIC EACH EYE ×2 (10:52→20:45)
[2021-12-02] MEDS: polyethylene glycoL 3350 17 GM POWD.PACK FEED TUBE (10:52)
[2021-12-02] MEDS: FAMOTIDINE 20 MG TABLET FEED TUBE ×2 (10:53→17:32)
[2021-12-02] MEDS: VASOPRESSIN INJ 100 UNITS in DEXTROSE 5% 95 ML IV CONT (11:03)
--- NOTE | 2021-12-02 11:38 | WPDINTPN ---
Progress Note: A&P Assessment and Plan (1) Acute hypoxemic respiratory failure: Code(s): J96.01 - Acute respiratory failure with hypoxia Status: Acute Assessment and Plan: Hypoxic respiratory failure likely related to community-acquired pneumonia, CHF, possible COVID pneumonia Patient presented the ED on 11/25/2021 with shortness of breath, was on BiPAP and has been declining and requiring significant oxygen support. Failed BiPAP 16/6, 100% FiO2 and a rate of 12 and saturating any where between 77-84%. -she was obtunded so I decided to intubated. Intubated patient on 12/01/2021, in the intermediate Unit -chest x-ray shows bilateral diffuse infiltrates right greater than left likely pneumonia versus pulmonary edema -continue low tidal volume strategy, peep of 10 and 60 % FiO2 for now, ABGs reviewed, continue to wean FiO2 to maintain O2 sats greater than 90%. -continue bronchodilators -will sedated with fentanyl and Versed infusion (2) Shock: Code(s): R57.9 - Shock, unspecified Status: Acute Assessment and Plan: Patient in shock post intubation which could be related to positive pressure ventilation and or infection -lactic acid is normal, patient has received adequate amount of IV fluids on 12/01/2021 -continue Levophed,, maintain MAP > 65 mmHg -will add vasopressin -11/25 blood cultures growing Gram-negative bacilli and group B Streptococcus. -11/30/2021: Repeat blood cultures negative x2, preliminary results -11/29/2021 urine cultures are negative -continue vancomycin and cefepime (12/01/2021) (3) Pneumonia: Qualifiers: Laterality: unspecified laterality Lung location: unspecified part of lung Pneumonia type: due to unspecified organism Qualified Code(s): J18.9 - Pneumonia, unspecified organism Code(s): J18.9 - Pneumonia, unspecified organism Status: Acute Assessment and Plan: Possible community-acquired pneumonia -continue cefepime and vancomycin (12/01/2021) -will continue to monitor chest x-ray and ABGs -will consult pulmonology for possible bronchoscopy on Friday (4) Atrial fibrillation: Qualifiers: Atrial fibrillation type: unspecified Qualified Code(s): I48.91 - Unspecified atrial fibrillation Code(s): I48.91 - Unspecified atrial fibrillation Status: Acute Assessment and Plan: Patient with history of atrial fibrillation, -cardiology evaluated the patient, patient was on Xarelto -will discontinue diltiazem and metoprolol given patient's blood pressures are lower than in shock - hold diltiazem, metoprolol as she is hypotensive -patient AFib RVR, given amiodarone bolus and started on amiodarone infusion (5) Smoking: Code(s): F17.200 - Nicotine dependence, unspecified, uncomplicated Status: Acute Assessment and Plan: Patient is a current smoker, currently intubated so cannot memorial counselor her on cessation of smoking. (6) Diabetes type 2, controlled: Qualifiers: Diabetes mellitus buttermaker helper insulin use: without halfway use Diabetes mellitus complication status: without complication Qualified Code(s): E11.9 - Type 2 diabetes mellitus without complications Code(s): E11.9 - Type 2 diabetes mellitus without complications Status: Chronic Assessment and Plan: Continue Accu-Cheks and sliding scale insulin (7) Suspected 2019 novel coronavirus infection: Code(s): Z20.822 - Contact with and (suspected) exposure to COVID-19 Status: Acute Assessment and Plan: SARS-CoV-2 PCR was negative on 11/25/2021 -SARS-CoV-2 PCR. On 12/01/2021 and is pending - Has been vaccinated with [employer] x2 Additional Plan Discuss with Mercedes, patient's daughter, updated with patient's condition plan of care. I did discuss with her regarding patient being on 2 pressors, also that her heart rate is in AFib RVR so which she understands. Stated patient has pain in the ICU for 5 days ago with septic shock
[2021-12-02] MEDS: INSULIN ASPART (*BKC) 100 UNITS/ML SUB-Q ×3 (12:18→23:19)
[2021-12-02] MEDS: SODIUM CHLORIDE 0.9% IV 1,000 ML 75 ML IV CONT (12:19)
[2021-12-02 13:01] LABS: Glucose Point of Care 279 mg/dl (65-105)
[2021-12-02] MEDS: NOREPINEPHRINE BITARTRATE 16 MG in DEXTROSE 5% IN WATER 234 ML 28.13 ML IV CONT (13:05)
[2021-12-02] MEDS: AMIODARONE 360 MG/D5W 200 ML 360 MG/200 ML BAG 33.33 MG IV CONT ×2 (14:30→20:41)
[2021-12-02] MEDS: RIVAROXABAN 20 MG TABLET FEED TUBE (17:30)
[2021-12-02 18:52] LABS: Glucose Point of Care 271 mg/dl (65-105)
[2021-12-02] MEDS: MIDAZOLAM 100MG/NS 100ML(*CRX) 100 MG/100 ML BAG IV CONT (19:23)
[2021-12-02] MEDS: SENNA/DOCUSATE SODIUM TABLET 1 TAB FEED TUBE (20:45)
[2021-12-02] MEDS: NOREPINEPHRINE BITARTRATE 16 MG in DEXTROSE 5% IN WATER 234 ML 21.56 ML IV CONT (20:57)
[2021-12-03] VITALS (42 sets, daily range): BP systolic 104–169; BP diastolic 53–81; PULSE 80–113; RESP 22–26; TEMP 36.6–37.3; O2SAT 92–98; BMI 22.3
[2021-12-03 00:14] LABS: Glucose Point of Care 226 mg/dl (65-105)
[2021-12-03] MEDS: SODIUM CHLORIDE 0.9% IV 1,000 ML 75 ML IV CONT (01:24)
[2021-12-03] MEDS: AMIODARONE 360 MG/D5W 200 ML 360 MG/200 ML BAG 33.33 MG IV CONT ×4 (02:17→19:51)
[2021-12-03 05:41] LABS: Basophils Absolute Auto 0.1 K/mm3 (0.0-0.1); Basophils Percent Auto 0.6 % (0.2-1.2); Eosinophils Absolute Auto 0.2 K/mm3 (0-0.3); Hematocrit 36.4 % (37.0-47.0); Hemoglobin 11.9 g/dL (12.0-15.0); Immature Granulocyte Absolute 0.27 K/mm3 (0.00-0.031); Immature Granulocyte Percent A 1.4 % (0-0.5); Mean Corpuscular HGB Conc 32.7 g/dl (32-36); Mean Corpuscular Hemoglobin 32.3 pg (26-34); Mean Corpuscular Volume 98.9 fl (80-100); Mean Platelet Volume 9.8 fl (7.4-10.4); Monocytes Absolute Auto 1.2 K/mm3 (0.1-0.6); Monocytes Percent Auto 6.2 % (2.6-8.5); Neutrophils Absolute Auto 16.7 K/mm3 (1.3-6.7); Neutrophils Percent Auto 83.8 % (45.5-73.1); Nucleated Red Blood Cells Perc 0.1 % (0.0-0.2); Platelet Count Result 255 k/mm3 (150-375); Red Blood Count 3.68 M/mm3 (4.2-5.4); Red Cell Distribution Width 14.5 % (11.5-14.5); White Blood Count 19.9 K/mm3 (4.5-10.0)
[2021-12-03 05:58] LABS: Alanine Aminotransferase 14 U/L (4-35); Albumin Level 2.7 g/dL (3.5-5.1); Alkaline Phosphatase 71 U/L (38-126); Anion Gap 9 mmol/L (8-16); Aspartate Amino Transferase 16 U/L (14-36); Bilirubin,Total 0.3 mg/dL (0.2-1.3); Blood Urea Nitrogen 24 mg/dL (7-17); Carbon Dioxide 20 mmol/L (22-30); Chloride 104 mmol/L (98-107); Estimated CRCL calculation 48 ml/min; Estimated Glomerular Filt Rate > 60; Glucose 161 mg/dL (65-110); Magnesium 1.7 mg/dL (1.6-2.3); Phosphorus 3.4 mg/dL (2.5-4.5); Potassium 3.8 mmol/L (3.4-5.0); Sodium 133 mmol/L (137-145)
[2021-12-03 06:30] LABS: Alveolar/Arterial O2 Gradient 134.1 mmHg; Base Excess ABG -6.8 mEq/l (+/-2.0); Carboxyhemoglobin 0.4 % THb (0-2.0); Fractional Inspired Oxygen 40 %; HCO3 ABG 19.7 mEq/l (22.0-26.0); Methemoglobin ABG 0.3 %THb (0-1.5); Oxygen Content ABG 20.7 %vol (16.0-22.0); Oxygen Saturation ABG 96.9 % (95.0-100.0); Oxyhemoglobin 96.4 % THb (90.0-100.0); PCO2 ABG 43.1 mmHg (35.0-45.0); PO2 ABG 101.5 mmHg (80.0-100.0); PO2 FiO2 Ratio Arterial Blood 2.54 %; Reduced Hemoglobin 2.9 %THb (0-5.0); Total Hemoglobin 15.2 g/dL (12.0-18.0)
[2021-12-03 08:05] LABS: Device VENTILATOR; pH ABG 7.278 (7.350-7.450)
[2021-12-03 08:06] LABS: Arterial Blood Gas PEEP 10 cmH2O; Arterial Blood Gas Tidal Volume 350 ml; Arterial Blood Gas Vent Mode CMV; Arterial Blood Gas Ventilator rate 26 /MIN
[2021-12-03] MEDS: IPRATROPIUM BR 0.02% INH SOLN 0.5 MG/2.5 ML VIAL INHALATION ×3 (08:06→20:57)
[2021-12-03] MEDS: ALBUTEROL SULFATE NEB 2.5 MG/0.5 ML INH 5 MG INHALATION ×3 (08:07→20:57)
--- NOTE | 2021-12-03 08:24 | PM.PNCARD ---
Progress Note: A&P Assessment and Plan (1) Shock: Code(s): R57.9 - Shock, unspecified Status: Acute Assessment and Plan: Probably due to respiratory failure and sedation with intubation. On Levophed drip. Titrate down as tolerated. Followed by on site wastewater systems technician. Echo 11/27/21 shows normal EF 65-70%, diastolic function indeterminate, mild , consider mod MS. (2) Aortic stenosis: Code(s): I35.0 - Nonrheumatic aortic (valve) stenosis Status: Acute Assessment and Plan: Mild. (3) Atrial fibrillation: Qualifiers: Atrial fibrillation type: unspecified Qualified Code(s): I48.91 - Unspecified atrial fibrillation Code(s): I48.91 - Unspecified atrial fibrillation Status: Acute Assessment and Plan: Chronic and HR stable. Rate controlled. On Amiodarone drip to control HR due to hypotension and unable to use Diltiazem or Metoprolol. On Xarelto. (4) Smoking: Code(s): F17.200 - Nicotine dependence, unspecified, uncomplicated Status: Acute (5) Hyperlipemia: Qualifiers: Hyperlipidemia type: unspecified Qualified Code(s): E78.5 - Hyperlipidemia, unspecified Code(s): E78.5 - Hyperlipidemia, unspecified Status: Acute (6) Hypertension: Qualifiers: Hypertension type: primary hypertension Qualified Code(s): I10 - Essential (primary) hypertension Code(s): I10 - Essential (primary) hypertension Status: Acute (7) Diabetes type 2, controlled: Qualifiers: Diabetes mellitus ferry terminal agent insulin use: without ferry terminal agent use Diabetes mellitus complication status: without complication Qualified Code(s): E11.9 - Type 2 diabetes mellitus without complications Code(s): E11.9 - Type 2 diabetes mellitus without complications Status: Chronic (8) Respiratory failure: Code(s): J96.90 - Respiratory failure, unspecified, unspecified whether with hypoxia or hypercapnia Status: Acute Assessment and Plan: Probably due to COPD/Pneumonia and probably has underlying diastolic dysfunction. Subjective Date/time seen: 12/03/21 08:24 Resuming care from [facility] who were covering for me in my absence. Patient is intubated on vent and sedated. HR 80-90's bpm in atrial fib/flutter. BP 119/70 mmHg. Exam Const: Other: Sedated on vent. Resp: Auscultation: clear to auscultation bilaterally, no crackles, no rales, no rhonchi and no wheezes Cardio: Rate: regular rate Rhythm: abnormal rhythm Heart sounds: Murmur heart sound present (I/ systolic murmur in RICS) GI: GI Palp: No abdominal tenderness and Yes Soft to palpation Extrem: Right lower extremity: no edema Left lower extremity: no edema Objective Data Vital Signs Vital Signs: Vital Signs - 24 hr 12/02/21 08:44 12/02/21 08:46 12/02/21 08:52 Temperature Pulse Rate 122 H 122 H Respiratory Rate 26 H Blood Pressure 103/85 Pulse Oximetry 96 12/02/21 08:54 12/02/21 10:00 12/02/21 11:03 Temperature Pulse Rate 119 H 118 H Respiratory Rate 26 H 26 H Blood Pressure 79/65 L 75/62 L Pulse Oximetry 94 12/02/21 12:00 12/02/21 12:16 12/02/21 12:24 Temperature 98.4 F Pulse Rate 107 H 96 106 H Respiratory Rate 26 H Blood Pressure 127/64 127/64 Pulse Oximetry 94 90 12/02/21 13:05 12/02/21 13:49 12/02/21 14:00 Temperature Pulse Rate 93 96 Respiratory Rate 26 H 26 H Blood Pressure 67/47 L 141/62 H Pulse Oximetry 95 12/02/21 14:31 12/02/21 15:45 12/02/21 16:00 Temperature 98.0 F Pulse Rate 96 99 Respiratory Rate 26 H 26 H Blood Pressure 118/61 121/64 Pulse Oximetry 95 92 12/02/21 17:35 12/02/21 18:00 12/02/21 20:00 Temperature 99.2 F Pulse Rate 98 92 Respiratory Rate 26 H 26 H Blood Pressure 116/55 L 118/60 111/59 L Pulse Oximetry 92 93 12/02/21 20:31 12/02/21 20:41 12/02/21 20:43 Temperature Pulse Rate 101 H 101 H 96 Respiratory Rate 26 H Blood Pressure 120/66 120
[2021-12-03] MEDS: polyethylene glycoL 3350 17 GM POWD.PACK FEED TUBE (08:40)
[2021-12-03] MEDS: MINERAL OIL/WHITE PETROLATUM OINTMENT 1 APPLIC EACH EYE ×2 (08:41→20:09)
[2021-12-03] MEDS: FAMOTIDINE 20 MG TABLET FEED TUBE ×2 (08:41→17:20)
[2021-12-03 11:45] LABS: Glucose Point of Care 153 mg/dl (65-105)
[2021-12-03] MEDS: NOREPINEPHRINE BITARTRATE 16 MG in DEXTROSE 5% IN WATER 234 ML 10.31 ML IV CONT (12:43)
--- NOTE | 2021-12-03 13:12 | WPDINTPN ---
Progress Note: A&P Assessment and Plan (1) Acute hypoxemic respiratory failure: Code(s): J96.01 - Acute respiratory failure with hypoxia Status: Acute Assessment and Plan: Hypoxic respiratory failure likely related to community-acquired pneumonia, CHF, possible COVID pneumonia Patient presented the ED on 11/25/2021 with shortness of breath, was on BiPAP and has been declining and requiring significant oxygen support. Failed BiPAP 16/6, 100% FiO2 and a rate of 12 and saturating any where between 77-84%. -she was obtunded so I decided to intubated. Intubated patient on 12/01/2021, in the intermediate Unit -continue low tidal volume strategy, peep of 10 and 40 % FiO2 for now, ABGs reviewed, will decrease PEEP to 8. -continue bronchodilators -will sedated with fentanyl and Versed infusion -12/02/2021: chest abdomen and pelvis showed no pulmonary embolism, moderate-sized bilateral pleural effusion. Mild scattered ground-glass opacities in the lungs, consistent mild pulmonary edema versus pneumonia, moderate emphysema. Gallbladder distention and gallbladder wall thickening, small volume ascites, mild aorto caval lymphadenopathy, likely reactive (2) Shock: Code(s): R57.9 - Shock, unspecified Status: Acute Assessment and Plan: Patient in shock post intubation which could be related to positive pressure ventilation and or infection -lactic acid is normal, patient has received adequate amount of IV fluids on 12/01/2021 -continue Levophed,, maintain MAP > 65 mmHg -off vasopressin -11/25 blood cultures growing Gram-negative bacilli and group B Streptococcus. -11/30/2021: Repeat blood cultures negative x2, preliminary results -11/29/2021 urine cultures are negative -continue vancomycin and cefepime (12/01/2021) (3) Pneumonia: Qualifiers: Laterality: unspecified laterality Lung location: unspecified part of lung Pneumonia type: due to unspecified organism Qualified Code(s): J18.9 - Pneumonia, unspecified organism Code(s): J18.9 - Pneumonia, unspecified organism Status: Acute Assessment and Plan: Possible community-acquired pneumonia -continue cefepime and vancomycin (12/01/2021) -will continue to monitor chest x-ray and ABGs -will consult pulmonology for possible bronchoscopy if repeat SARS-CoV-2 PCR is negative (4) Atrial fibrillation: Qualifiers: Atrial fibrillation type: unspecified Qualified Code(s): I48.91 - Unspecified atrial fibrillation Code(s): I48.91 - Unspecified atrial fibrillation Status: Acute Assessment and Plan: Patient with history of atrial fibrillation, -cardiology evaluated the patient, patient was on Xarelto -will discontinue diltiazem and metoprolol given patient's blood pressures are lower than in shock - hold diltiazem, metoprolol as she is hypotensive -continue amiodarone as patient was in AFib RVR on 12/02/2021. -currently in AFib but rate controlled in the 80s and 90s, continue amiodarone infusion -continue Xarelto (5) Smoking: Code(s): F17.200 - Nicotine dependence, unspecified, uncomplicated Status: Acute Assessment and Plan: Patient is a current smoker, currently intubated so cannot drug abuse counselor her on cessation of smoking. (6) Diabetes type 2, controlled: Qualifiers: Diabetes mellitus long term acute care registered nurse insulin use: without long term acute care registered nurse use Diabetes mellitus complication status: without complication Qualified Code(s): E11.9 - Type 2 diabetes mellitus without complications Code(s): E11.9 - Type 2 diabetes mellitus without complications Status: Chronic Assessment and Plan: Continue Accu-Cheks and sliding scale insulin (7) Suspected 2019 novel coronavirus infection: Code(s): Z20.822 - Contact with and (suspected) exposure to COVID-19 Status: Acute Assessment and Plan: SARS-CoV-2 PCR was negative on 11/25/2021 -SARS-CoV-2 PCR. On 12/01/2021 and is pending -
[2021-12-03] MEDS: FENTANYL 2,500MCG/NS250ML(*CRX 2,500 MCG/250 ML BAG 12.5 MCG IV CONT (17:19)
[2021-12-03] MEDS: RIVAROXABAN 20 MG TABLET FEED TUBE (17:22)
[2021-12-03] MEDS: MIDAZOLAM 100MG/NS 100ML(*CRX) 100 MG/100 ML BAG IV CONT (18:48)
[2021-12-03 18:54] LABS: Glucose Point of Care 201 mg/dl (65-105)
[2021-12-03] MEDS: SENNA/DOCUSATE SODIUM TABLET 1 TAB FEED TUBE (20:08)
[2021-12-03 21:22] LABS: SARS-CoV-2 RNA PCR Negative
[2021-12-03 23:53] LABS: Glucose Point of Care 199 mg/dl (65-105)
[2021-12-04] VITALS (36 sets, daily range): BP systolic 93–157; BP diastolic 49–80; PULSE 68–111; RESP 26–35; TEMP 36.6–37.2; O2SAT 89–100
[2021-12-04] MEDS: AMIODARONE 360 MG/D5W 200 ML 360 MG/200 ML BAG 33.33 MG IV CONT ×3 (02:02→19:58)
[2021-12-04] MEDS: IPRATROPIUM BR 0.02% INH SOLN 0.5 MG/2.5 ML VIAL INHALATION ×4 (02:38→20:06)
[2021-12-04] MEDS: ALBUTEROL SULFATE NEB 2.5 MG/0.5 ML INH 5 MG INHALATION ×4 (02:38→20:07)
[2021-12-04 04:10] LABS: Anion Gap 7 mmol/L (8-16); Blood Urea Nitrogen 24 mg/dL (7-17); Calcium 8.1 mg/dL (8.4-10.2); Carbon Dioxide 21 mmol/L (22-30); Chloride 102 mmol/L (98-107); Estimated CRCL calculation 48 ml/min; Estimated Glomerular Filt Rate > 60; Glucose 243 mg/dL (65-110); Potassium 3.5 mmol/L (3.4-5.0); Sodium 130 mmol/L (137-145)
[2021-12-04 04:34] LABS: Basophils Absolute Auto 0.1 K/mm3 (0.0-0.1); Basophils Percent Auto 0.5 % (0.2-1.2); Eosinophils Absolute Auto 0.1 K/mm3 (0-0.3); Eosinophils Percent Auto 0.9 % (0-4.4); Hematocrit 32.7 % (37.0-47.0); Immature Granulocyte Absolute 0.13 K/mm3 (0.00-0.031); Immature Granulocyte Percent A 0.8 % (0-0.5); Lymphocytes Absolute Auto 1.16 K/mm3 (0.9-3.2); Lymphocytes Percent Auto 7.3 % (18.3-44.2); Mean Corpuscular HGB Conc 33.6 g/dl (32-36); Mean Corpuscular Hemoglobin 32.3 pg (26-34); Mean Corpuscular Volume 95.9 fl (80-100); Mean Platelet Volume 10.6 fl (7.4-10.4); Neutrophils Absolute Auto 13.4 K/mm3 (1.3-6.7); Neutrophils Percent Auto 84.5 % (45.5-73.1); Platelet Count Result 198 k/mm3 (150-375); Red Blood Count 3.41 M/mm3 (4.2-5.4); Red Cell Distribution Width 14.4 % (11.5-14.5); White Blood Count 15.8 K/mm3 (4.5-10.0)
[2021-12-04] MEDS: NOREPINEPHRINE BITARTRATE 16 MG in DEXTROSE 5% IN WATER 234 ML 5.63 ML IV CONT (06:00)
[2021-12-04] MEDS: INSULIN ASPART (*BKC) 100 UNITS/ML SUB-Q ×2 (06:09→13:05)
[2021-12-04 06:33] LABS: Alveolar/Arterial O2 Gradient 92.9 mmHg; Base Excess ABG -6.1 mEq/l (+/-2.0); Carboxyhemoglobin 0.3 % THb (0-2.0); Fractional Inspired Oxygen 30 %; HCO3 ABG 19.6 mEq/l (22.0-26.0); Methemoglobin ABG 0.3 %THb (0-1.5); Oxygen Content ABG 15.9 %vol (16.0-22.0); Oxygen Saturation ABG 94.1 % (95.0-100.0); Oxyhemoglobin 93.3 % THb (90.0-100.0); PO2 ABG 75.2 mmHg (80.0-100.0); PO2 FiO2 Ratio Arterial Blood 2.51 %; Reduced Hemoglobin 6.1 %THb (0-5.0); Total Hemoglobin 12.1 g/dL (12.0-18.0); pH ABG 7.318 (7.350-7.450)
[2021-12-04 06:47] LABS: Arterial Blood Gas Vent Mode CMV; Arterial Blood Gas Ventilator rate 26 /MIN; Device VENTILATOR; Modified Allen's Test Unable to perform; Site Drawn LEFT RADIAL
[2021-12-04 06:48] LABS: Arterial Blood Gas PEEP 10 cmH2O; Arterial Blood Gas Tidal Volume 350 ml
--- NOTE | 2021-12-04 07:49 | ECG_ITS ---
Measurements Intervals [place] Rate: 96 P: AK: 0 QRS: 59 QRSD: 97 T: -41 QT: 372 QTc: 470 Interpretive Statements ATRIAL FIBRILLATION NONSPECIFIC ST & T-WAVE ABNORMALITY- INF/LAT LEADS ABNORMAL ECG Electronically Signed On 12-04-2021 9:36:30 TESTER/LIFT TRUCKER by Chapo Arambula D.O.
--- NOTE | 2021-12-04 07:51 | PM.PNCARD ---
Progress Note: A&P Assessment and Plan (1) Shock: Code(s): R57.9 - Shock, unspecified Status: Acute Assessment and Plan: Probably due to respiratory failure and sedation with intubation. On Levophed drip. Titrate down as tolerated. Followed by sr. operations manager. Echo 11/27/21 shows normal EF 65-70%, diastolic function indeterminate, mild , consider mod MS. (2) Aortic stenosis: Code(s): I35.0 - Nonrheumatic aortic (valve) stenosis Status: Acute Assessment and Plan: Mild. (3) Atrial fibrillation: Qualifiers: Atrial fibrillation type: unspecified Qualified Code(s): I48.91 - Unspecified atrial fibrillation Code(s): I48.91 - Unspecified atrial fibrillation Status: Acute Assessment and Plan: Chronic and HR stable. Rate controlled. On Amiodarone drip to control HR due to hypotension and unable to use Diltiazem or Metoprolol. On Xarelto. Check EKG. (4) Smoking: Code(s): F17.200 - Nicotine dependence, unspecified, uncomplicated Status: Acute (5) Hyperlipemia: Qualifiers: Hyperlipidemia type: unspecified Qualified Code(s): E78.5 - Hyperlipidemia, unspecified Code(s): E78.5 - Hyperlipidemia, unspecified Status: Acute (6) Hypertension: Qualifiers: Hypertension type: primary hypertension Qualified Code(s): I10 - Essential (primary) hypertension Code(s): I10 - Essential (primary) hypertension Status: Acute (7) Diabetes type 2, controlled: Qualifiers: Diabetes mellitus half-way insulin use: without half-way use Diabetes mellitus complication status: without complication Qualified Code(s): E11.9 - Type 2 diabetes mellitus without complications Code(s): E11.9 - Type 2 diabetes mellitus without complications Status: Chronic (8) Respiratory failure: Code(s): J96.90 - Respiratory failure, unspecified, unspecified whether with hypoxia or hypercapnia Status: Acute Assessment and Plan: Probably due to COPD/Pneumonia and probably has underlying diastolic dysfunction. Subjective Date/time seen: 12/04/21 07:51 Patient is sedated on vent. Exam Const: Other: Sedated on vent. Resp: Auscultation: clear to auscultation bilaterally, no crackles, no rales, no rhonchi and no wheezes Cardio: Rate: tachycardic Rhythm: abnormal rhythm Heart sounds: Murmur heart sound present (I/ systolic murmur in RICS) GI: GI Palp: No abdominal tenderness and Yes Soft to palpation Extrem: Right lower extremity: no edema Left lower extremity: no edema Objective Data Vital Signs Vital Signs: Vital Signs - 24 hr 12/03/21 08:00 12/03/21 08:03 12/03/21 08:06 Temperature 98 F Pulse Rate 88 95 88 Respiratory Rate 26 H 26 H Blood Pressure 119/71 Pulse Oximetry 96 96 12/03/21 08:18 12/03/21 08:39 12/03/21 10:00 Temperature Pulse Rate 88 88 89 Respiratory Rate 26 H Blood Pressure 120/59 L 120/59 L 137/64 Pulse Oximetry 92 12/03/21 11:15 12/03/21 11:33 12/03/21 11:47 Temperature Pulse Rate 86 86 86 Respiratory Rate 26 H 26 H Blood Pressure Pulse Oximetry 96 12/03/21 12:00 12/03/21 12:43 12/03/21 14:00 Temperature 97.8 F Pulse Rate 86 86 87 Respiratory Rate 26 H 26 H Blood Pressure 133/81 137/64 111/59 L Pulse Oximetry 95 98 12/03/21 14:06 12/03/21 14:07 12/03/21 14:40 Temperature Pulse Rate 94 90 90 Respiratory Rate 26 H Blood Pressure 111/59 L Pulse Oximetry 97 12/03/21 15:08 12/03/21 16:00 12/03/21 16:32 Temperature 98 F Pulse Rate 90 96 96 Respiratory Rate 26 H 26 H Blood Pressure 111/59 L 104/63 Pulse Oximetry 96 12/03/21 17:19 12/03/21 18:00 12/03/21 18:48 Temperature Pulse Rate 96 83 83 Respiratory Rate 26 H 26 H 26 H Blood Pressure 107/58 L Pulse Oximetry 96 12/03/21 19:51 12/03/21 19:52 12/03/21 19:53 Temperature Pulse Rate 80 87 80 Respiratory Rate 26 H Blood
[2021-12-04] MEDS: FAMOTIDINE 20 MG TABLET FEED TUBE ×2 (08:55→17:06)
[2021-12-04] MEDS: MINERAL OIL/WHITE PETROLATUM OINTMENT 1 APPLIC EACH EYE ×2 (08:56→19:46)
[2021-12-04] MEDS: polyethylene glycoL 3350 17 GM POWD.PACK FEED TUBE (08:56)
--- NOTE | 2021-12-04 11:45 | PM.CNPUL ---
Assessment and Plan Assessment and plan (1) Pneumonia: Qualifiers: Laterality: unspecified laterality Lung location: unspecified part of lung Pneumonia type: due to unspecified organism Qualified Code(s): J18.9 - Pneumonia, unspecified organism Code(s): J18.9 - Pneumonia, unspecified organism Status: Acute Assessment and Plan: 71-year-old woman with a history of tobacco use and moderate apical predominant centrilobular emphysema on CT scan 12/02/20 now remains intubated with bilateral pleural effusions, compressive atelectasis and some ground-glass infiltrates that non dependent portions of the lung. Her oxygenation has improved on vancomycin and cefepime but she still remains on Levophed. Will proceed with bronchoscopy with BAL only on 12/05/20 at 13:00. I spoke with staking engineer and Cardiology and we will hold rivaroxiban since last dose on 12/03/21 at 17:22. will determine anticoagulation plan with the ultimate need for thoracentesis as well. Discussed with daughter, Mercedes Sauer, and described risks and benefits of procedure and she gave consent. Will follow with you. History of Present Illness History of Present Illness Consult date: 12/04/21 Reason for consult: COPD and pneumonia Chief complaint: Acute Respiratory Failure,Pneumonia,Elevated Tropo Narrative: This is a new Pulmonary consultation for bronchoscopy 71-year-old woman with a history of diabetes, hypertension, atrial fibrillation, hyperlipidemia, anxiety, tobacco use, COPD her CT scan and colostomy presents with shortness of breath on 11/25/2021. patient failed BiPAP and was intubated and has remained intubated since then. Patient remains hypotensive and in septic shock on Levophed today. Patient had blood cultures On 11/25 with group B Streptococcus and gram-negative bacilli from admission and repeat blood cultures on 11/30 have been negative. currently patient remains intubated, sedated with fentanyl and Versed, she is on tube feeds, she is on low doses of Levophed and her oxygenation has improved from 40% to 30% over the last 24 hours and she is on a peep of 8. Review of Systems Review of Systems: ROS unobtainable: Yes unobtainable due to endotracheal tube PMFSH Past Medical History Medical History (Updated 12/03/21 @ 08:31 by Chapo Arambula DO) Afib Anxiety Bronchitis Chronic UTI Colonoscopy refused Depression Diabetes type 2, controlled GERD (gastroesophageal reflux disease) History of Clostridium difficile colitis History of colon cancer History of colorectal cancer History of ETOH abuse History of kidney stones Hypercholesteremia Hypertension Seizures Surgical History Surgical History History of appendectomy History of colostomy Family History Family History Mother Family history of cardiovascular disease Father Suicide Cerebrovascular accident Sibling MVA (motor vehicle accident) Other Family history of tuberculosis Social History Social History Smoking packs per day: 1 Smoking cigarettes per day: 20.0 Years smoked: 50 Smoking pack-years: 50.00 Smoking status: Current every day smoker Tobacco type: cigarettes Alcohol intake: former Substance use: never Substance use type: does not use Gender identity (if verbalized by the patient): Female Spiritual care concerns: No Meds Home Medications and Allergies Home Medications Medication Instructions Recorded Confirmed Type diltiazem HCl 300 mg capsule,24 300 mg PO DAILY #90 cap 06/15/21 11/26/21 Rx hr,extended release metoprolol succinate 50 mg 50 mg PO DAILY #90 tablet 07/23/21 11/26/21 Rx tablet,extended release 24 hr pravastatin 40 mg tablet 40 mg PO DAILY #90 tablet 07/23/21 11/26/21 Rx rivaroxaban 20 mg tablet 20 mg PO QPM #90 tablet 07/02
[2021-12-04 11:55] LABS: Glucose Point of Care 232 mg/dl (65-105)
--- NOTE | 2021-12-04 12:09 | PCNFU ---
Nutrition Follow-Up Complete: Inadequate Oral Intake as related to mechanical ventilation as evidenced by NPO goal: Meet estimated nutritional needs Patient is progressing towards goal. We will continue current goal. Pt current nutrition is Vital AF 1.2 at 45 ml/hr over 22 hours. Nutrition recommendation: goal rate at 55 ml/hr Last recorded weight is 68.1 kg-stable Bowel Motility: +BM reported 12/04 Labs Reviewed:Glu 243, Na 130, Hct 32.7,Hgb 11.0, BUN 24 Meds Noted:Fentanyl, Versed, Levophed, Senokot, Vancomycin, Miralax, Remeron, Nimbex,NovoLog Skin: WNL Additional Notes: Patient is covid negative. Currently on mechanical vent and tube feedings of Vital AF 1.2 at 45 ml/hr. Goal rate of tube feedings at 55 ml/hr will provide 1452 kcals/91 gms protein/981 ml water. Free water flush 30 ml q 4 hours. Agree with diet orders. Monitoring in ICU rounds, will reassess every Friday and Friday.
[2021-12-04] MEDS: FENTANYL 2,500MCG/NS250ML(*CRX 2,500 MCG/250 ML BAG 12.5 MCG IV CONT (14:42)
--- NOTE | 2021-12-04 15:21 | WPDINTPN ---
Progress Note: A&P Assessment and Plan (1) Acute hypoxemic respiratory failure: Code(s): J96.01 - Acute respiratory failure with hypoxia Status: Acute Assessment and Plan: Hypoxic respiratory failure likely related to community-acquired pneumonia, CHF, possible COVID pneumonia Patient presented the ED on 11/25/2021 with shortness of breath, was on BiPAP and has been declining and requiring significant oxygen support. Failed BiPAP 16/6, 100% FiO2 and a rate of 12 and saturating any where between 77-84%. -she was obtunded so I decided to intubated. Intubated patient on 12/01/2021, in the intermediate Unit -continue low tidal volume strategy, peep of 10 and 30 % FiO2 for now, ABGs reviewed, will decrease PEEP to 8. -continue bronchodilators -will sedated with fentanyl and Versed infusion -consulted pulmonology for possible BAL given that she is COVID-19 negative x2 -12/02/2021: chest abdomen and pelvis showed no pulmonary embolism, moderate-sized bilateral pleural effusion. Mild scattered ground-glass opacities in the lungs, consistent mild pulmonary edema versus pneumonia, moderate emphysema. Gallbladder distention and gallbladder wall thickening, small volume ascites, mild aorto caval lymphadenopathy, likely reactive (2) Shock: Code(s): R57.9 - Shock, unspecified Status: Acute Assessment and Plan: Patient in shock post intubation which could be related to positive pressure ventilation and or infection -lactic acid is normal, patient has received adequate amount of IV fluids on 12/01/2021 -continue Levophed,, maintain MAP > 65 mmHg -off vasopressin -11/25 blood cultures growing Gram-negative bacilli and group B Streptococcus. -11/30/2021: Repeat blood cultures negative x2, preliminary results -11/29/2021 urine cultures are negative -continue vancomycin and cefepime (12/01/2021) (3) Pneumonia: Qualifiers: Laterality: unspecified laterality Lung location: unspecified part of lung Pneumonia type: due to unspecified organism Qualified Code(s): J18.9 - Pneumonia, unspecified organism Code(s): J18.9 - Pneumonia, unspecified organism Status: Acute Assessment and Plan: Possible community-acquired pneumonia -continue cefepime and vancomycin (12/01/2021) -will continue to monitor chest x-ray and ABGs -SARS-CoV-2 PCR PCR negative x2 -12/03/2021: CTA chest showed no pulmonary embolism, moderate-sized bilateral pleural effusion, mild scattered ground-glass opacities in the lungs, consistent with mild pulmonary edema versus pneumonia. Moderate emphysema (4) Atrial fibrillation: Qualifiers: Atrial fibrillation type: unspecified Qualified Code(s): I48.91 - Unspecified atrial fibrillation Code(s): I48.91 - Unspecified atrial fibrillation Status: Acute Assessment and Plan: Patient with history of atrial fibrillation, -cardiology evaluated the patient, patient was on Xarelto -will discontinue diltiazem and metoprolol given patient's blood pressures are lower than in shock - hold diltiazem, metoprolol as she is hypotensive -continue amiodarone as patient was in AFib RVR on 12/02/2021. -currently in AFib but rate controlled in the 80s and 90s, continue amiodarone infusion -will hold Xarelto after discussing with pulmonology for the bronchoscopy tomorrow. Will restart patient on therapeutic Lovenox as she may require thoracentesis for bilateral moderate pleural effusions (5) Smoking: Code(s): F17.200 - Nicotine dependence, unspecified, uncomplicated Status: Acute Assessment and Plan: Patient is a current smoker, currently intubated so cannot drapery counselor her on cessation of smoking. (6) Diabetes type 2, controlled: Qualifiers: Diabetes mellitus cargo handler insulin use: without nursing home use Diabetes mellitus complication status: without complication Qualified Code(s): E11.9 - Type 2 diabetes mellitus without complications Co
--- NOTE | 2021-12-04 17:00 | PM.IMPN ---
Progress Note: A&P Assessment and Plan (1) Respiratory failure: Code(s): J96.90 - Respiratory failure, unspecified, unspecified whether with hypoxia or hypercapnia Status: Acute (2) Suspected 2019 novel coronavirus infection: Code(s): Z20.822 - Contact with and (suspected) exposure to COVID-19 Status: Acute (3) Shock: Code(s): R57.9 - Shock, unspecified Status: Acute (4) Aortic stenosis: Code(s): I35.0 - Nonrheumatic aortic (valve) stenosis Status: Acute (5) Congestive heart failure: Code(s): I50.9 - Heart failure, unspecified Status: Acute Additional Plan # community-acquired pneumonia with GNR and group B strep # nonrheumatic aortic valve stenosis # COPD # septic shock secondary to community-acquired pneumonia # acute hypoxic respiratory failure now on mechanical ventilation -with septic shock clinical decompensation changing antibiotics to vanc and cefepime. Previous antibiotics a cyclin Rocephin were based off of the current cultures of Gram-negative rods and group B strep -COVID-19 negative x 2 -ventilator management as per evp: CMV rate 26 tidal volume 350 FiO2 30% peep 8 -sedation fentanyl and Versed -pressors: Levophed -Dr. Deluca consulted, possible need for thoracentesis, bronchoscopy with BAL on 12/05/2020 plan for 1:00 p.m. # anxiety -now intubated and sedated # atrial fibrillation with RVR -RVR resolved, on diltiazem 300 mg daily and metoprolol 50 mg q.12 hours, switched to diltiazem drip, now switching to amiodarone drip for hypotension -echocardiogram shows LVEF 65-70% -anticoagulation with Xarelto -continue monitoring on telemetry -RVR secondary to hypoxia -on amiodarone drip # heart failure with preserved EF -patient was on 40 mg IV Lasix daily, clinically appearing dehydrated, creatinine elevated 1.10 -echocardiogram shows normal EF -patient was given IV fluids as she was over diuresed, intravascularly depleted # nonrheumatic aortic valve stenosis -mild stenosis echo shows valve area 2.1 cm2, no further workup indicated # chronic conditions -hyperlipidemia: Holding Pravastatin -nicotine dependence: Daily nicotine patch -history of alcohol abuse -history of colon cancer status post colostomy bag -GERD: Pepcid -type 2 diabetes: Holding metformin, sliding scale insulin, q.6 hours Accu-Chek -insomnia: Holding Remeron Diet: Tube feeds OG tube in place DVT prophylaxis: Xarelto held on 12/03/2022 GI prophylaxis: Pepcid Code status: Full code Disposition: intubated now in ICU, bronch tomorrow Time Spent With Patient Time with patient: 15 - 25 minutes Subjective Date/time seen: 12/04/21 17:00 Patient seen examined. Continue on mechanical ventilation. Patient is on fentanyl Versed for sedation, amiodarone at 1, Levophed at 2. Plan for bronchoscopy tomorrow at 1:00 p.m.. Review of Systems Review of Systems: ROS unobtainable: Yes unobtainable due to endotracheal tube Exam Narrative: - GENERAL: Chronically ill-appearing woman intubated sedated - EYES: Pinpoint pupils - HENT: Dry oral mucosa, ET tube in place OG tube in place - LUNGS: Coarse lung sounds no wheezing audible - CARDIOVASCULAR: Regular rate and rhythm. - ABDOMEN: Soft, non-tender and non-distended. No palpable masses. - EXTREMITIES: No edema. Peripheral pulses 2+. Non-tender. - NEUROLOGIC: Sedated - SKIN: No rashes or lesions. Warm. - LYMPH: No cervical lymphadenopathy. Objective Data Vital Signs Vital Signs: Vital Signs - 24 hr 12/03/21 17:19 12/03/21 18:00 12/03/21 18:48 Temperature Pulse Rate 96 83 83 Respiratory Rate 26 H 26 H 26 H Blood Pressure 107/58 L Pulse Oximetry 96 12/03/21 19:51 12/03/21 19:52 12/03/21 19:53 Temperature Pulse Rate 80 87 80 Respiratory Rate 26 H Blood Pressure 131/53 L 131/53 L Pulse Oximetry 12/03/21 20:00 12/03/21 22:00 12/03/21 22:20 Temperature 36.9 C Pulse Rate 88 103 H 95 Respir
[2021-12-04 17:23] LABS: Glucose Point of Care 178 mg/dl (65-105)
[2021-12-04 19:23] LABS: Vancomycin Trough 12.7 ug/mL (10.0-20.0)
[2021-12-04] MEDS: MIDAZOLAM 100MG/NS 100ML(*CRX) 100 MG/100 ML BAG IV CONT (19:42)
[2021-12-04] MEDS: SENNA/DOCUSATE SODIUM TABLET 1 TAB FEED TUBE (19:46)
[2021-12-05] VITALS (36 sets, daily range): BP systolic 94–135; BP diastolic 43–60; PULSE 70–95; RESP 21–31; TEMP 36.5–37.3; O2SAT 92–98
[2021-12-05] LABS: Glucose Point of Care 212 mg/dl (65-105)
[2021-12-05] MEDS: INSULIN ASPART (*BKC) 100 UNITS/ML SUB-Q ×2 (00:11→06:17)
[2021-12-05] MEDS: ALBUTEROL SULFATE NEB 2.5 MG/0.5 ML INH 5 MG INHALATION ×4 (02:18→20:47)
[2021-12-05] MEDS: IPRATROPIUM BR 0.02% INH SOLN 0.5 MG/2.5 ML VIAL INHALATION ×4 (02:19→20:47)
[2021-12-05 05:05] LABS: Alanine Aminotransferase 11 U/L (4-35); Albumin Level 2.5 g/dL (3.5-5.1); Alkaline Phosphatase 71 U/L (38-126); Anion Gap 12 mmol/L (8-16); Aspartate Amino Transferase 18 U/L (14-36); Bilirubin,Total 0.4 mg/dL (0.2-1.3); Blood Urea Nitrogen 26 mg/dL (7-17); Carbon Dioxide 16 mmol/L (22-30); Chloride 100 mmol/L (98-107); Estimated CRCL calculation 40 ml/min; Estimated Glomerular Filt Rate 49; Glucose 209 mg/dL (65-110); Magnesium 1.9 mg/dL (1.6-2.3); Phosphorus 3.5 mg/dL (2.5-4.5); Potassium 3.5 mmol/L (3.4-5.0); Sodium 128 mmol/L (137-145)
[2021-12-05] MEDS: AMIODARONE 360 MG/D5W 200 ML 360 MG/200 ML BAG 16.67 MG IV CONT ×2 (05:24→17:38)
[2021-12-05 06:38] LABS: Alveolar/Arterial O2 Gradient 123.6 mmHg; Base Excess ABG -6.9 mEq/l (+/-2.0); Carboxyhemoglobin 0.3 % THb (0-2.0); Fractional Inspired Oxygen 35 %; HCO3 ABG 18.5 mEq/l (22.0-26.0); Methemoglobin ABG 0.2 %THb (0-1.5); Oxygen Content ABG 14.6 %vol (16.0-22.0); Oxygen Saturation ABG 95.6 % (95.0-100.0); Oxyhemoglobin 94.6 % THb (90.0-100.0); PCO2 ABG 36.3 mmHg (35.0-45.0); PO2 ABG 83.8 mmHg (80.0-100.0); PO2 FiO2 Ratio Arterial Blood 2.39 %; Reduced Hemoglobin 4.9 %THb (0-5.0); Site Drawn RIGHT RADIAL; Total Hemoglobin 10.9 g/dL (12.0-18.0); pH ABG 7.324 (7.350-7.450)
[2021-12-05 06:39] LABS: Arterial Blood Gas PEEP 8 cmH2O; Arterial Blood Gas Tidal Volume 350 ml; Arterial Blood Gas Vent Mode CMV; Arterial Blood Gas Ventilator rate 26 /MIN; Device VENTILATOR; Modified Allen's Test Unable to perform
--- NOTE | 2021-12-05 07:47 | PM.PNCARD ---
Progress Note: A&P Assessment and Plan (1) Shock: Code(s): R57.9 - Shock, unspecified Status: Acute Assessment and Plan: Probably due to respiratory failure and sedation with intubation. On Levophed drip. Titrate down as tolerated. Followed by consulting marine engineer. Echo 11/27/21 shows normal EF 65-70%, diastolic function indeterminate, mild , consider mod MS. (2) Aortic stenosis: Code(s): I35.0 - Nonrheumatic aortic (valve) stenosis Status: Acute Assessment and Plan: Mild. (3) Atrial fibrillation: Qualifiers: Atrial fibrillation type: unspecified Qualified Code(s): I48.91 - Unspecified atrial fibrillation Code(s): I48.91 - Unspecified atrial fibrillation Status: Acute Assessment and Plan: Persistent atrial fib. Rate controlled. On Amiodarone drip to control HR due to hypotension and unable to use Diltiazem or Metoprolol. Normally on Xarelto which is on hold last evening for planned bronchoscopy today and plans for thoracentesis the following day. For the few days off Xarelto, no need for Lovenox anticoagulation, but would use Lovenox DVT prophylaxis. Then resume Xarelto after thoracentesis. She did cardiovert with Amiodarone drip and currently in sinus rhythm. March d/c Amiodarone drip and start Amiodarone 200 mg PO BID to maintain sinus rhythm. (4) Smoking: Code(s): F17.200 - Nicotine dependence, unspecified, uncomplicated Status: Acute (5) Hyperlipemia: Qualifiers: Hyperlipidemia type: unspecified Qualified Code(s): E78.5 - Hyperlipidemia, unspecified Code(s): E78.5 - Hyperlipidemia, unspecified Status: Acute (6) Hypertension: Qualifiers: Hypertension type: primary hypertension Qualified Code(s): I10 - Essential (primary) hypertension Code(s): I10 - Essential (primary) hypertension Status: Acute (7) Diabetes type 2, controlled: Qualifiers: Diabetes mellitus club manager insulin use: without shelter use Diabetes mellitus complication status: without complication Qualified Code(s): E11.9 - Type 2 diabetes mellitus without complications Code(s): E11.9 - Type 2 diabetes mellitus without complications Status: Chronic (8) Respiratory failure: Code(s): J96.90 - Respiratory failure, unspecified, unspecified whether with hypoxia or hypercapnia Status: Acute Assessment and Plan: Probably due to COPD/Pneumonia and probably has underlying diastolic dysfunction. Subjective Date/time seen: 12/05/21 07:47 Patient is sedated and on ventilator. Exam Const: Other: Sedated on vent. Resp: Auscultation: clear to auscultation bilaterally, no crackles, no rales, no rhonchi and no wheezes Cardio: Rate: regular rate Rhythm: regular rhythm Heart sounds: Murmur heart sound present (I/ systolic murmur in RICS) GI: GI Palp: No abdominal tenderness and Yes Soft to palpation Extrem: Right lower extremity: no edema Left lower extremity: no edema Objective Data Vital Signs Vital Signs: Vital Signs - 24 hr 12/04/21 08:00 12/04/21 08:03 12/04/21 08:07 Temperature 98.9 F Pulse Rate 102 H 102 H 102 H Respiratory Rate 26 H Blood Pressure 113/60 93/58 L 93/58 L Pulse Oximetry 93 12/04/21 08:40 12/04/21 09:33 12/04/21 09:41 Temperature Pulse Rate 98 97 104 H Respiratory Rate 26 H 26 H Blood Pressure Pulse Oximetry 92 12/04/21 10:00 12/04/21 11:58 12/04/21 12:00 Temperature 98.5 F Pulse Rate 95 93 101 H Respiratory Rate 26 H 26 H Blood Pressure 97/57 L 94/55 L Pulse Oximetry 93 93 93 12/04/21 13:19 12/04/21 14:00 12/04/21 14:08 Temperature 98.5 F Pulse Rate 103 H 103 H 79 Respiratory Rate 30 H 30 H Blood Pressure 157/80 H 103/49 L Pulse Oximetry 89 L 12/04/21 14:42 12/04/21 14:50 12/04/21 16:00 Temperature 98.7 F Pulse Rate 103 H 81 81 Respiratory Rate 30 H 26 H 26 H Blood Pressure 103/50 L Pulse Oximet
[2021-12-05] MEDS: MINERAL OIL/WHITE PETROLATUM OINTMENT 1 APPLIC EACH EYE ×2 (08:30→22:08)
[2021-12-05] MEDS: FAMOTIDINE 20 MG TABLET FEED TUBE ×2 (08:30→17:40)
[2021-12-05] MEDS: polyethylene glycoL 3350 17 GM POWD.PACK FEED TUBE (08:30)
[2021-12-05 08:43] LABS: Basophils Percent Auto 0.3 % (0.2-1.2); Eosinophils Absolute Auto 0.1 K/mm3 (0-0.3); Eosinophils Percent Auto 0.6 % (0-4.4); Hematocrit 29.9 % (37.0-47.0); Hemoglobin 10.2 g/dL (12.0-15.0); Immature Granulocyte Absolute 0.18 K/mm3 (0.00-0.031); Immature Granulocyte Percent A 1.3 % (0-0.5); Lymphocytes Absolute Auto 0.85 K/mm3 (0.9-3.2); Lymphocytes Percent Auto 6.1 % (18.3-44.2); Mean Corpuscular HGB Conc 34.1 g/dl (32-36); Mean Corpuscular Hemoglobin 32.1 pg (26-34); Mean Platelet Volume 10.4 fl (7.4-10.4); Monocytes Absolute Auto 0.9 K/mm3 (0.1-0.6); Monocytes Percent Auto 6.3 % (2.6-8.5); Neutrophils Percent Auto 85.4 % (45.5-73.1); Platelet Count Result 177 k/mm3 (150-375); Red Blood Count 3.18 M/mm3 (4.2-5.4); Red Cell Distribution Width 14.5 % (11.5-14.5)
--- NOTE | 2021-12-05 10:07 | PM.PNPUL ---
Progress Note: A&P Assessment and Plan (1) Pneumonia: Qualifiers: Laterality: unspecified laterality Lung location: unspecified part of lung Pneumonia type: due to unspecified organism Qualified Code(s): J18.9 - Pneumonia, unspecified organism Code(s): J18.9 - Pneumonia, unspecified organism Status: Acute Assessment and Plan: 12/04: 71-year-old woman with a history of tobacco use and moderate apical predominant centrilobular emphysema on CT scan 12/02/20 now remains intubated with bilateral pleural effusions, compressive atelectasis and some ground-glass infiltrates that non dependent portions of the lung. she was treated with ceftriaxone from 11/25 through 11/30. Azithromycin on 11/25. Doxycycline from 11/26 through 12/01/21 and vancomycin and cefepime started on 12/01/21. Her oxygenation has improved on vancomycin and cefepime but she still remains on Levophed. Will proceed with bronchoscopy with BAL only on 12/05/20 at 13:00. I spoke with policy change clerk and Cardiology and we will hold rivaroxiban since last dose on 12/03/21 at 17:22. will determine anticoagulation plan with the ultimate need for thoracentesis as well. Discussed with daughter, Mercedes Sauer, and described risks and benefits of procedure and she gave consent. 12/05 patient is on slightly lower doses of Levophed. Her white blood cell count is 14.0. She is afebrile. Her chest x-ray is unchanged. Vent management per policy change clerk team. She is NPO and her anticoagulation has been held. Plan on bronchoscopy with BAL looking for infectious pathogens. Discussed with Cardiology and the policy change clerk. Will follow with you. Subjective Date/time seen: 12/05/21 10:07 Interval history: 12/04/21 This is a new Pulmonary consultation for bronchoscopy 71-year-old woman with a history of diabetes, hypertension, atrial fibrillation, hyperlipidemia, anxiety, tobacco use, COPD her CT scan and colostomy presents with shortness of breath on 11/25/2021. patient failed BiPAP and was intubated and has remained intubated since then. Patient remains hypotensive and in septic shock on Levophed today. Patient had blood cultures On 11/25 with group B Streptococcus and gram-negative bacilli from admission and repeat blood cultures on 11/30 have been negative. currently patient remains intubated, sedated with fentanyl and Versed, she is on tube feeds, she is on low doses of Levophed at 2.8 and her oxygenation has improved from 40% to 30% over the last 24 hours and she is on a peep of 8. 12/05 Patient remains intubated, sedated with fentanyl 50 mics an hour and Versed 4 mg an hour on Levophed at 1.9 mics. She is on assist control rate of 26, tidal volume 350, 35% FiO2 peep of 8 with an ABG of 7.32/36/84. Chest x-ray shows ET tube NG left IJ in place right greater than left effusion. White blood cell count 14.0. patient is NPO for bronchoscopy with BAL later today. Review of Systems Review of Systems: ROS unobtainable: Yes unobtainable due to endotracheal tube Exam Const: General: No in distress Other: Intubated and sedated HENMT: Mouth: No Abnormal oral and palatal mucosa present Neck: Neck: no JVD Resp: Auscultation: no crackles, no rales, no rhonchi, no wheezes and diminished lung sounds Cardio: Rhythm: abnormal rhythm GI: Inspection: non-distended Other: colostomy Objective Data Vital Signs Vital Signs: Vital Signs - 24 hr 12/04/21 11:58 12/04/21 12:00 12/04/21 13:19 Temperature 36.9 C Pulse Rate 93 101 H 103 H Respiratory Rate 26 H 30 H Blood Pressure 94/55 L Pulse Oximetry 93 93 12/04/21 14:00 12/04/21 14:08 12/04/21 14:42 Temperature 36.9 C Pulse Rate 103 H 79 103 H Respiratory Rate 30 H 30 H Blood Pressure 157/80 H 103/49 L Pulse Oximetry 89 L 12/04/21 14:50 12/04/21 16:00 12/04/21 17:14 Temperature 37.1 C Pulse Rate 81 81 81 Respiratory Rate 26 H 26 H Blood Pressure 103/50 L Pulse Oximetry 92 92 0
[2021-12-05] MEDS: LACTATED RINGERS 1,000 ML 75 ML IV CONT (11:33)
[2021-12-05 11:57] LABS: Glucose Point of Care 145 mg/dl (65-105)
--- NOTE | 2021-12-05 12:01 | PCFNICU ---
ICU Rounding Note: Pt current nutrition is NPO. Nutrition recommendation: Vital AF 1.2 at 55 ml/hr. Last recorded weight is 68.6 kg-stable Bowel Motility:colostomy Labs Reviewed:Glu 209, Cr 1.10,BUN 26, Na 128, Alb 2.5 Meds Noted:Fentanyl, Versed, Levophed, Senokot, Vancomycin, Miralax, Remeron, Atrovent. Skin: WNL Additional Notes: Patient is currently NPO for bronchoscopy today. Plans for thoracentesis at some point. When diet order advances recommending Vital AF 1.2 at 55 ml/hr over 22 hours. Free water flush 30 ml q 4hours. Agree with diet orders. Following daily in ICU rounds. Will monitor every Friday and Friday.
--- NOTE | 2021-12-05 12:40 | SUR.OPER ---
IV sedation is being monitored and administer by ventilator specialist and ICU nurse Lidia.
[2021-12-05 12:42] LABS: Influenza Control Positive
--- NOTE | 2021-12-05 12:46 | WPDINTPN ---
Progress Note: A&P Assessment and Plan (1) Acute hypoxemic respiratory failure: Code(s): J96.01 - Acute respiratory failure with hypoxia Status: Acute Assessment and Plan: Hypoxic respiratory failure likely related to community-acquired pneumonia, CHF, possible COVID pneumonia Patient presented the ED on 11/25/2021 with shortness of breath, was on BiPAP and has been declining and requiring significant oxygen support. Failed BiPAP 16/6, 100% FiO2 and a rate of 12 and saturating any where between 77-84%. -she was obtunded so I decided to intubated. Intubated patient on 12/01/2021, in the intermediate Unit -continue low tidal volume strategy, peep of 10 and 35 % FiO2 for now, ABGs reviewed, will decrease PEEP to 8. -continue bronchodilators - sedated with fentanyl and Versed infusion -appreciate pulmonology evaluating the patient, since she is COVID-19 negative x2, BAL has been planned for today 12/05/2021 -12/02/2021: chest abdomen and pelvis showed no pulmonary embolism, moderate-sized bilateral pleural effusion. Mild scattered ground-glass opacities in the lungs, consistent mild pulmonary edema versus pneumonia, moderate emphysema. Gallbladder distention and gallbladder wall thickening, small volume ascites, mild aorto caval lymphadenopathy, likely reactive (2) Shock: Code(s): R57.9 - Shock, unspecified Status: Acute Assessment and Plan: RESOLVED, CURRENTLY OFF LEVOPHED AND VASOPRESSIN Patient in shock post intubation which could be related to positive pressure ventilation and or infection -lactic acid is normal, patient has received adequate amount of IV fluids on 12/01/2021 -11/25 blood cultures growing Gram-negative bacilli and group B Streptococcus. -11/30/2021: Repeat blood cultures negative x2, preliminary results -11/29/2021 urine cultures are negative -continue vancomycin and cefepime (12/01/2021) (3) Pneumonia: Qualifiers: Laterality: unspecified laterality Lung location: unspecified part of lung Pneumonia type: due to unspecified organism Qualified Code(s): J18.9 - Pneumonia, unspecified organism Code(s): J18.9 - Pneumonia, unspecified organism Status: Acute Assessment and Plan: Possible community-acquired pneumonia -continue cefepime and vancomycin (12/01/2021) -will continue to monitor chest x-ray and ABGs -SARS-CoV-2 PCR PCR negative x2 -12/03/2021: CTA chest showed no pulmonary embolism, moderate-sized bilateral pleural effusion, mild scattered ground-glass opacities in the lungs, consistent with mild pulmonary edema versus pneumonia. Moderate emphysema (4) Atrial fibrillation: Qualifiers: Atrial fibrillation type: unspecified Qualified Code(s): I48.91 - Unspecified atrial fibrillation Code(s): I48.91 - Unspecified atrial fibrillation Status: Acute Assessment and Plan: Patient with history of atrial fibrillation, -cardiology evaluated the patient, patient was on Xarelto -will discontinue diltiazem and metoprolol given patient's blood pressures are lower than in shock - hold diltiazem, metoprolol as she is hypotensive -continue amiodarone as patient was in AFib RVR on 12/02/2021. -currently in AFib but rate controlled in the 80s and 90s, continue amiodarone infusion -discussed with cardiology, will hold Xarelto for bronchoscopy and BAL, also will hold Xarelto for thoracentesis. Cardiology stated patient is low risk for thromboembolic disease, patient he did not want her to be bridged with therapeutic Lovenox. We can start her on prophylactic dose of Lovenox. Once all the procedures and done will restart Xarelto (5) Smoking: Code(s): F17.200 - Nicotine dependence, unspecified, uncomplicated Status: Acute Assessment and Plan: Patient is a current smoker, currently intubated so cannot treatment counselor her on cessation of smoking. (6) Diabetes type 2, controlled: Qualifiers: Diabetes mellitus bee
[2021-12-05] MEDS: LIDOCAINE HCL 2% PF INJ 5 ML VIAL 6 ML INFILTRATE (13:37)
--- NOTE | 2021-12-05 13:43 | P.OPB_ITS ---
Procedure Note - Brief Procedure Note - Brief Date of procedure: 12/05/21 Pre-op diagnosis: Acute Respiratory Failure,Pneumonia,Elevated Tropo Surgeon: Bronchoscopy with BAL. The patient was already intubated and sedated with fentanyl and Versed in the ICU. After informed consent and a time-out the Bronchoscope was inserted through the ET tube. She had thick secretions adhered to the wall of the ET tube. After suctioning and 2 mL of lidocaine the ET tube was cleared. The main trachea had thick secretions with erythema of the mucosa and occasional white exudativepatches on the wall of the trachea. Secretions were cleared. Bronchoalveolar lavage was performed and the medial segment of the right middle lobe with 150 mL instilled and 60 mL returned. Inspection of the right and left lungs were performed. All segments on the right and left lung were open and patent. There were no endobronchial lesions. The mucosa appeared Erythematous. Approximately 35 mL of bronchial washing was obtained the ET tube was 5 cm from the shemar and was advanced 2 cm. At the end of the procedure there is no pneumothorax identified by CXR. there is no bleeding during the procedure. Bronchoalveolar lavage was sent for cell count, bacterial stain and culture, fungal stain and culture, AFB stain and culture, HSV PCRl and says cytology. Bronchial washings were sent for bacterial stain and culture, and fungal stain and culture. I discussed with geothermal operations manager and updated her daughter, Mercedes, by phone.
--- NOTE | 2021-12-05 13:59 | SUR.OPER ---
A total of 155ml of saline used in flexible bronchoscopy washings and BALs.
[2021-12-05] MEDS: SODIUM BICARBONATE 8.4% 150 MEQ in WATER, STERILE FOR INJECTION 950 ML 75 MEQ IV CONT (15:12)
--- NOTE | 2021-12-05 15:58 | PM.IMPN ---
Progress Note: A&P Assessment and Plan (1) Respiratory failure: Code(s): J96.90 - Respiratory failure, unspecified, unspecified whether with hypoxia or hypercapnia Status: Acute (2) Suspected 2019 novel coronavirus infection: Code(s): Z20.822 - Contact with and (suspected) exposure to COVID-19 Status: Acute (3) Shock: Code(s): R57.9 - Shock, unspecified Status: Acute (4) Aortic stenosis: Code(s): I35.0 - Nonrheumatic aortic (valve) stenosis Status: Acute (5) Congestive heart failure: Code(s): I50.9 - Heart failure, unspecified Status: Acute Additional Plan # community-acquired pneumonia with GNR and group B strep # nonrheumatic aortic valve stenosis # COPD # septic shock secondary to community-acquired pneumonia # acute hypoxic respiratory failure now on mechanical ventilation -with septic shock clinical decompensation changing antibiotics to vanc and cefepime. Previous antibiotics a cyclin Rocephin were based off of the current cultures of Gram-negative rods and group B strep -COVID-19 negative x 2 -ventilator management as per acquisition editor: CMV rate 26 tidal volume 350 FiO2 30% peep 8 -sedation fentanyl and Versed -pressors: Levophed, weaning off pressors -Dr. Deluca consulted: Status post bronchoscopy today, secretions throughout, cultures sent # anxiety -now intubated and sedated # atrial fibrillation with RVR -RVR resolved, on diltiazem 300 mg daily and metoprolol 50 mg q.12 hours, switched to diltiazem drip, now switching to amiodarone drip for hypotension, decreased to 0.5, holding off on metoprolol while on pressors -echocardiogram shows LVEF 65-70% -anticoagulation with Xarelto -continue monitoring on telemetry -RVR secondary to hypoxia -on amiodarone drip # heart failure with preserved EF -patient was on 40 mg IV Lasix daily, clinically appearing dehydrated, creatinine elevated 1.10 -echocardiogram shows normal EF -patient was given IV fluids as she was over diuresed, intravascularly depleted # nonrheumatic aortic valve stenosis -mild stenosis echo shows valve area 2.1 cm2, no further workup indicated # chronic conditions -hyperlipidemia: Holding Pravastatin -nicotine dependence: Daily nicotine patch -history of alcohol abuse -history of colon cancer status post colostomy bag -GERD: Pepcid -type 2 diabetes: Holding metformin, sliding scale insulin, q.6 hours Accu-Chek -insomnia: Holding Remeron Diet: Tube feeds OG tube in place DVT prophylaxis: Xarelto held on 12/03/2022 GI prophylaxis: Pepcid Code status: Full code Disposition: intubated now in ICU Subjective Date/time seen: 12/05/21 15:58 Patient seen examined. Patient had bronchoscopy today with Dr. Deluca. Significant secretions, cultures sent. Patient being weaned off of Levophed today. Amiodarone at 0.5, holding off on beta-nallely as she has been on Levophed recently. Review of Systems Review of Systems: ROS unobtainable: Yes unobtainable due to endotracheal tube Exam Narrative: - GENERAL: Chronically ill-appearing woman intubated sedated - EYES: anicteric - HENT: Dry oral mucosa, ET tube in place OG tube in place - LUNGS: Coarse lung sounds no wheezing audible - CARDIOVASCULAR: Regular rate and rhythm. - ABDOMEN: Soft, non-tender and non-distended. No palpable masses. - EXTREMITIES: No edema. Peripheral pulses 2+. Non-tender. - NEUROLOGIC: Sedated - SKIN: No rashes or lesions. Warm. - LYMPH: No cervical lymphadenopathy. Objective Data Vital Signs Vital Signs: Vital Signs - 24 hr 12/04/21 16:00 12/04/21 17:14 12/04/21 18:00 Temperature 37.1 C Pulse Rate 81 81 79 Respiratory Rate 26 H 26 H Blood Pressure 103/50 L 98/49 L Pulse Oximetry 92 92 92 12/04/21 19:42 12/04/21 19:44 12/04/21 19:58 Temperature Pulse Rate 75 74 79 Respiratory Rate 26 H 30 H Blood Pressure 103/49 L Pulse Oximetry 12/04/21 20:00 12/04/21 20:08 12/04/21 20:18 Te
[2021-12-05 17:28] LABS: Source Bronchial Fluid Bronchial Lavage
[2021-12-05 17:29] LABS: Appearance Bronchial Fluid Cloudy; Color Bronchial Fluid Brown; Monocytes Bronchial Fluid 1 %; Neutrophils Bronchial Fluid 5 %
[2021-12-05 17:30] LABS: Macrophages Bronchial Fluid 94
[2021-12-05 18:00] LABS: Glucose Point of Care 138 mg/dl (65-105)
[2021-12-05] MEDS: FENTANYL 2,500MCG/NS250ML(*CRX 2,500 MCG/250 ML BAG IV CONT (21:57)
[2021-12-05] MEDS: MIDAZOLAM 100MG/NS 100ML(*CRX) 100 MG/100 ML BAG IV CONT (21:57)
[2021-12-05] MEDS: SENNA/DOCUSATE SODIUM TABLET 1 TAB FEED TUBE (22:09)
[2021-12-06] VITALS (33 sets, daily range): BP systolic 77–121; BP diastolic 48–66; PULSE 81–122; RESP 26–30; TEMP 36.7–37.2; O2SAT 93–99
[2021-12-06 00:07] LABS: Glucose Point of Care 204 mg/dl (65-105)
[2021-12-06] MEDS: INSULIN ASPART (*BKC) 100 UNITS/ML SUB-Q ×3 (00:08→11:58)
[2021-12-06] MEDS: IPRATROPIUM BR 0.02% INH SOLN 0.5 MG/2.5 ML VIAL INHALATION ×4 (02:14→22:08)
[2021-12-06] MEDS: ALBUTEROL SULFATE NEB 2.5 MG/0.5 ML INH 5 MG INHALATION (02:14)
[2021-12-06 04:18] LABS: Basophils Percent Auto 0.3 % (0.2-1.2); Eosinophils Absolute Auto 0.1 K/mm3 (0-0.3); Eosinophils Percent Auto 0.7 % (0-4.4); Hematocrit 28.6 % (37.0-47.0); Hemoglobin 9.5 g/dL (12.0-15.0); Immature Granulocyte Percent A 0.8 % (0-0.5); Lymphocytes Absolute Auto 0.61 K/mm3 (0.9-3.2); Mean Corpuscular HGB Conc 33.2 g/dl (32-36); Mean Corpuscular Hemoglobin 31.7 pg (26-34); Mean Corpuscular Volume 95.3 fl (80-100); Monocytes Absolute Auto 0.7 K/mm3 (0.1-0.6); Neutrophils Absolute Auto 10.7 K/mm3 (1.3-6.7); Neutrophils Percent Auto 87.2 % (45.5-73.1); Platelet Count Result 161 k/mm3 (150-375); Red Cell Distribution Width 14.5 % (11.5-14.5); White Blood Count 12.3 K/mm3 (4.5-10.0)
[2021-12-06 04:31] LABS: Alanine Aminotransferase 12 U/L (4-35); Albumin Level 2.4 g/dL (3.5-5.1); Alkaline Phosphatase 74 U/L (38-126); Anion Gap 9 mmol/L (8-16); Aspartate Amino Transferase 21 U/L (14-36); Bilirubin,Total 0.3 mg/dL (0.2-1.3); Blood Urea Nitrogen 27 mg/dL (7-17); Calcium 8.2 mg/dL (8.4-10.2); Carbon Dioxide 23 mmol/L (22-30); Chloride 96 mmol/L (98-107); Estimated CRCL calculation 34 ml/min; Estimated Glomerular Filt Rate 40; Glucose 215 mg/dL (65-110); Magnesium 1.6 mg/dL (1.6-2.3); Phosphorus 3.6 mg/dL (2.5-4.5); Potassium 3.1 mmol/L (3.4-5.0); Sodium 128 mmol/L (137-145)
[2021-12-06] MEDS: AMIODARONE 360 MG/D5W 200 ML 360 MG/200 ML BAG 16.67 MG IV CONT (05:41)
[2021-12-06] MEDS: SODIUM BICARBONATE 8.4% 150 MEQ in WATER, STERILE FOR INJECTION 950 ML 75 MEQ IV CONT (05:41)
[2021-12-06 06:05] LABS: Alveolar/Arterial O2 Gradient 218.2 mmHg; Base Excess ABG -3.5 mEq/l (+/-2.0); Carboxyhemoglobin 0.2 % THb (0-2.0); Fractional Inspired Oxygen 50 %; HCO3 ABG 21.9 mEq/l (22.0-26.0); Methemoglobin ABG 0.2 %THb (0-1.5); Oxygen Content ABG 15.5 %vol (16.0-22.0); Oxygen Saturation ABG 96.7 % (95.0-100.0); Oxyhemoglobin 95.9 % THb (90.0-100.0); PCO2 ABG 40.7 mmHg (35.0-45.0); PO2 ABG 92.5 mmHg (80.0-100.0); PO2 FiO2 Ratio Arterial Blood 1.85 %; Reduced Hemoglobin 3.7 %THb (0-5.0); Total Hemoglobin 11.4 g/dL (12.0-18.0); pH ABG 7.348 (7.350-7.450)
[2021-12-06 06:20] LABS: Arterial Blood Gas PEEP 8 cmH2O; Arterial Blood Gas Tidal Volume 350 ml; Arterial Blood Gas Vent Mode CMV; Arterial Blood Gas Ventilator rate 26 /MIN; Device VENTILATOR; Modified Allen's Test Unable to perform; Site Drawn RIGHT RADIAL
--- NOTE | 2021-12-06 08:24 | PM.PNCARD ---
Progress Note: A&P Assessment and Plan (1) Shock: Code(s): R57.9 - Shock, unspecified Status: Acute Assessment and Plan: Probably due to respiratory failure and sedation with intubation. Off Levophed drip. Echo 11/27/21 shows normal EF 65-70%, diastolic function indeterminate, mild , consider mod MS. (2) Aortic stenosis: Code(s): I35.0 - Nonrheumatic aortic (valve) stenosis Status: Acute Assessment and Plan: Mild. (3) Atrial fibrillation: Qualifiers: Atrial fibrillation type: unspecified Qualified Code(s): I48.91 - Unspecified atrial fibrillation Code(s): I48.91 - Unspecified atrial fibrillation Status: Acute Assessment and Plan: Persistent atrial fib. Rate controlled. On Amiodarone drip to control HR due to hypotension and unable to use Diltiazem or Metoprolol. Normally on Xarelto which is on hold for bronchoscopy yesterday and plans for thoracentesis later today. For the few days off Xarelto, no need for Lovenox anticoagulation, but would use Lovenox DVT prophylaxis. Then resume Xarelto after thoracentesis. She did cardiovert with Amiodarone drip and currently in sinus rhythm. D/C Amiodarone drip and start Amiodarone 200 mg PO BID to maintain sinus rhythm. (4) Smoking: Code(s): F17.200 - Nicotine dependence, unspecified, uncomplicated Status: Acute (5) Hyperlipemia: Qualifiers: Hyperlipidemia type: unspecified Qualified Code(s): E78.5 - Hyperlipidemia, unspecified Code(s): E78.5 - Hyperlipidemia, unspecified Status: Acute (6) Hypertension: Qualifiers: Hypertension type: primary hypertension Qualified Code(s): I10 - Essential (primary) hypertension Code(s): I10 - Essential (primary) hypertension Status: Acute (7) Diabetes type 2, controlled: Qualifiers: Diabetes mellitus termite exterminator helper insulin use: without termite exterminator helper use Diabetes mellitus complication status: without complication Qualified Code(s): E11.9 - Type 2 diabetes mellitus without complications Code(s): E11.9 - Type 2 diabetes mellitus without complications Status: Chronic (8) Respiratory failure: Code(s): J96.90 - Respiratory failure, unspecified, unspecified whether with hypoxia or hypercapnia Status: Acute Assessment and Plan: Probably due to COPD/Pneumonia and probably has underlying diastolic dysfunction. Subjective Date/time seen: 12/06/21 08:24 Patient is sedated on ventilator. Exam Const: Other: Sedated on vent. Resp: Auscultation: clear to auscultation bilaterally, no crackles, no rales, no rhonchi and no wheezes Cardio: Rate: regular rate Rhythm: regular rhythm Heart sounds: Murmur heart sound present (I/ systolic murmur in RICS) GI: GI Palp: No abdominal tenderness and Yes Soft to palpation Extrem: Right lower extremity: no edema Left lower extremity: no edema Objective Data Vital Signs Vital Signs: Vital Signs - 24 hr 12/05/21 10:00 12/05/21 12:00 12/05/21 12:38 Temperature 98.2 F Pulse Rate 92 89 88 Respiratory Rate 24 H 27 H 23 H Blood Pressure 108/58 L 116/52 L 116/52 L Pulse Oximetry 93 93 94 12/05/21 13:29 12/05/21 13:33 12/05/21 13:43 Temperature Pulse Rate 87 95 89 Respiratory Rate 26 H 26 H Blood Pressure Pulse Oximetry 94 12/05/21 14:00 12/05/21 16:00 12/05/21 17:38 Temperature 97.7 F Pulse Rate 92 89 81 Respiratory Rate 26 H 31 H Blood Pressure 126/55 L 101/53 L 98/51 L Pulse Oximetry 92 96 12/05/21 18:00 12/05/21 18:12 12/05/21 18:50 Temperature Pulse Rate 82 82 81 Respiratory Rate 21 H 27 H Blood Pressure 130/51 L Pulse Oximetry 96 96 12/05/21 20:00 12/05/21 20:50 12/05/21 21:00 Temperature Pulse Rate 79 80 80 Respiratory Rate 29 H 26 H 26 H Blood Pressure 116/54 L Pulse Oximetry 93 96 12/05/21 21:20 12/05/21 21:57 12/05/21 22:00 Temperature Pulse Rate 86 86 90 Res
[2021-12-06] MEDS: ALBUTEROL SULFATE NEB 2.5 MG/0.5 ML INH INHALATION ×3 (09:46→22:07)
[2021-12-06] MEDS: POTASSIUM CHLORIDE 20 MEQ PACKET (FOR LIQUID) 40 MEQ FEED TUBE ×2 (09:52→16:23)
[2021-12-06] MEDS: MINERAL OIL/WHITE PETROLATUM OINTMENT 1 APPLIC EACH EYE ×2 (09:53→21:38)
[2021-12-06] MEDS: SODIUM CHLORIDE 0.9% IV 1,000 ML 75 ML IV CONT ×2 (09:53→23:20)
[2021-12-06] MEDS: FAMOTIDINE 20 MG TABLET FEED TUBE ×2 (09:54→16:24)
[2021-12-06] MEDS: polyethylene glycoL 3350 17 GM POWD.PACK FEED TUBE (09:55)
[2021-12-06] MEDS: INSULIN GLARGINE (*BKC) 100 UNITS/ML 15 UNITS SUB-Q (10:01)
--- NOTE | 2021-12-06 10:45 | WPDINTPN ---
Progress Note: A&P Assessment and Plan (1) Acute hypoxemic respiratory failure: Code(s): J96.01 - Acute respiratory failure with hypoxia Status: Acute Assessment and Plan: Hypoxic respiratory failure likely related to community-acquired pneumonia, CHF, baseline emphysema, pleural effusions Patient presented the ED on 11/25/2021 with shortness of breath, was on BiPAP and has been declining and requiring significant oxygen support. Failed BiPAP 16/6, 100% FiO2 and a rate of 12 and saturating any where between 77-84%. Intubated patient on 12/01/2021 -continue low tidal volume strategy, peep of 8 and 50 % FiO2 for now, wean FiO2 -continue bronchodilators - sedated with fentanyl and Versed infusion - COVID-19 negative x2 - 12/05 bronchoscopy was done and BAL collected. Cultures or pending -will request IR for ultrasound-guided thoracentesis on right -will perform sedation holiday and evaluate for breathing trial post thoracentesis -12/02/2021: chest abdomen and pelvis showed no pulmonary embolism, moderate-sized bilateral pleural effusion. Mild scattered ground-glass opacities in the lungs, consistent mild pulmonary edema versus pneumonia, moderate emphysema. Gallbladder distention and gallbladder wall thickening, small volume ascites, mild aorto caval lymphadenopathy, likely reactive (2) Shock: Code(s): R57.9 - Shock, unspecified Status: Acute Assessment and Plan: RESOLVED, CURRENTLY OFF LEVOPHED AND VASOPRESSIN Patient was in shock post intubation which could be related to positive pressure ventilation and or infection -lactic acid is normal, patient has received adequate amount of IV fluids on 12/01/2021 -11/25 blood cultures growing Gram-negative bacilli and group B Streptococcus. -11/30/2021: Repeat blood cultures negative x2, preliminary results -11/29/2021 urine cultures are negative -continue vancomycin and cefepime (12/01/2021) (3) Pneumonia: Qualifiers: Laterality: unspecified laterality Lung location: unspecified part of lung Pneumonia type: due to unspecified organism Qualified Code(s): J18.9 - Pneumonia, unspecified organism Code(s): J18.9 - Pneumonia, unspecified organism Status: Acute Assessment and Plan: Possible community-acquired pneumonia -continue cefepime and vancomycin (12/01/2021) -will continue to monitor chest x-ray and ABGs -SARS-CoV-2 PCR PCR negative x2 -12/03/2021: CTA chest showed no pulmonary embolism, moderate-sized bilateral pleural effusion, mild scattered ground-glass opacities in the lungs, consistent with mild pulmonary edema versus pneumonia. Moderate emphysema (4) Atrial fibrillation: Qualifiers: Atrial fibrillation type: unspecified Qualified Code(s): I48.91 - Unspecified atrial fibrillation Code(s): I48.91 - Unspecified atrial fibrillation Status: Acute Assessment and Plan: Patient with history of atrial fibrillation, -cardiology evaluated the patient, patient was on Xarelto - diltiazem and metoprolol were discontinued due to patient's blood pressures are lower than in shock She was started on amiodarone infusion is being continued this time and is being managed by Cardiology -discussed with cardiology, will hold Xarelto for bronchoscopy and BAL, also will hold Xarelto for thoracentesis. Cardiology stated patient is low risk for thromboembolic disease, patient he did not want her to be bridged with therapeutic Lovenox. We can start her on prophylactic dose of Lovenox. Once all the procedures and done will restart Xarelto (5) Smoking: Code(s): F17.200 - Nicotine dependence, unspecified, uncomplicated Status: Acute Assessment and Plan: Patient is a current smoker, currently intubated so not a candidate for counseling for cessation of smoking. (6) Diabetes type 2, controlled: Qualifiers: Diabetes mellitus usp insulin use: without superintendent container terminal use Diabetes mellitus
--- NOTE | 2021-12-06 11:08 | PM.PNPUL ---
Progress Note: A&P Assessment and Plan (1) Pneumonia: Qualifiers: Laterality: unspecified laterality Lung location: unspecified part of lung Pneumonia type: due to unspecified organism Qualified Code(s): J18.9 - Pneumonia, unspecified organism Code(s): J18.9 - Pneumonia, unspecified organism Status: Acute Assessment and Plan: 12/04: 71-year-old woman with a history of tobacco use and moderate apical predominant centrilobular emphysema on CT scan 12/02/20 now remains intubated with bilateral pleural effusions, compressive atelectasis and some ground-glass infiltrates that non dependent portions of the lung. she was treated with ceftriaxone from 11/25 through 11/30. Azithromycin on 11/25. Doxycycline from 11/26 through 12/01/21 and vancomycin and cefepime started on 12/01/21. Her oxygenation has improved on vancomycin and cefepime but she still remains on Levophed. Will proceed with bronchoscopy with BAL only on 12/05/20 at 13:00. I spoke with client professional and Cardiology and we will hold rivaroxiban since last dose on 12/03/21 at 17:22. will determine anticoagulation plan with the ultimate need for thoracentesis as well. Discussed with daughter, Mercedes Sauer, and described risks and benefits of procedure and she gave consent. 12/05 patient is on slightly lower doses of Levophed. Her white blood cell count is 14.0. She is afebrile. Her chest x-ray is unchanged. Vent management per client professional team. She is NPO and her anticoagulation has been held. Plan on bronchoscopy with BAL looking for infectious pathogens. Discussed with Cardiology and the client professional. 12/06 Underwent bronchoscopy yesterday patient had numerous thick secretions in the ET tube and throughout the main trachea. BAL was performed and results pending. I called the lab and the washings have been sent for fungus and bacterial stain and culture. The BAL has been sent for bacterial, AFB stain and culture. They did not receive the order for BAL fungal stain and culture and HSV which I have added today. Patient remains intubated on Versed and fentanyl with FiO2 at 45% this morning. Blood gas on 50% was 7.35/41/93. Patient is scheduled for thoracentesis today. Vent management per ICU team. Patient remains on Vanco and cefepime since 12/01. Antibiotics will be adjusted per BAL and wash results. Discussed with Dr. Graham, will sign off, please call with additional questions. Subjective Date/time seen: 12/06/21 11:08 Interval history: 12/04/21 This is a new Pulmonary consultation for bronchoscopy 71-year-old woman with a history of diabetes, hypertension, atrial fibrillation, hyperlipidemia, anxiety, tobacco use, COPD her CT scan and colostomy presents with shortness of breath on 11/25/2021. patient failed BiPAP and was intubated and has remained intubated since then. Patient remains hypotensive and in septic shock on Levophed today. Patient had blood cultures On 11/25 with group B Streptococcus and gram-negative bacilli from admission and repeat blood cultures on 11/30 have been negative. currently patient remains intubated, sedated with fentanyl and Versed, she is on tube feeds, she is on low doses of Levophed at 2.8 and her oxygenation has improved from 40% to 30% over the last 24 hours and she is on a peep of 8. 12/05 Patient remains intubated, sedated with fentanyl 50 mics an hour and Versed 4 mg an hour on Levophed at 1.9 mics. She is on assist control rate of 26, tidal volume 350, 35% FiO2 peep of 8 with an ABG of 7.32/36/84. Chest x-ray shows ET tube NG left IJ in place right greater than left effusion. White blood cell count 14.0. patient is NPO for bronchoscopy with BAL later today. 12/06 Underwent bronchoscopy yesterday patient had numerous thick secretions in the ET tube and throughout the main trachea. BAL was performed and results pending. Patient remains intubated on Versed and fentanyl with FiO2 at 45% this morning. Blood gas
--- NOTE | 2021-12-06 11:55 | PCFNICU ---
Addendum entered by Lidia Blanco, RD, LDN 12/06/21 12:27: Amending free water flush. Recommending leaving at 30 ml q 4 hours. Original Note: ICU Rounding Note: Pt current nutrition is Vital AF 1.2 at 55 ml/hr over 22 hours. Last recorded weight is 71.3 kg, up from 64.6 kg on admit. Bowel Motility: colostomy-nursing reports little output. Labs Reviewed:BUN 27, Cr 1.3,Glu 215, Na 128, K 3.1, Alb 2.4,Hgb 9.5,Hct 28.6 Meds Noted:Miralax, Fentanyl, Versed, Senokot, Levophed, NovoLog,Potassium Chloride, Pepcid, NS at 75 ml/hr, Vancomycin. Skin: WNL Additional Notes: Patient remains on tube feedings of Vital AF 1.2 at 55 ml/hr over 22 hours. tolerating feedings at goal rate. Bronchoscopy yesterday. Thoracentesis has been ordered. Recommend increasing free water flush to 100 ml q 4 hours-Na 128 today. Agree with diet orders. Following daily in ICU rounds, reassessing every Friday and Friday.
[2021-12-06 11:57] LABS: Glucose Point of Care 221 mg/dl (65-105)
[2021-12-06] MEDS: AMIODARONE HCL 200 MG TABLET PO ×2 (12:06→21:39)
[2021-12-06 14:34] LABS: pH Pleural Fluid 7.411 (7.210-7.500)
[2021-12-06 17:20] LABS: Pleural fluid source Pleural fluid
[2021-12-06 17:21] LABS: Appearance Pleural Fluid Hazy (Clear); Color Pleural Fluid Yellow (Colorless)
[2021-12-06 17:22] LABS: Lymphocytes Pleural Fluid 21 %; Monocytes Pleural Fluid 8 %; Neutrophils Pleural Fluid 71 % (0-25)
[2021-12-06 18:15] LABS: Glucose Point of Care 190 mg/dl (65-105)
[2021-12-06 19:49] LABS: Vancomycin Trough 19.8 ug/mL (10.0-20.0)
[2021-12-06] MEDS: SENNA/DOCUSATE SODIUM TABLET 1 TAB FEED TUBE (21:39)
[2021-12-06] MEDS: ALTEPLASE 2 MG VIAL (CATHFLO) IV PUSH (23:26)
[2021-12-06 23:49] LABS: Glucose Point of Care 194 mg/dl (65-105)
[2021-12-07] VITALS (32 sets, daily range): BP systolic 81–138; BP diastolic 47–77; PULSE 77–132; RESP 22–38; TEMP 36–37.3; O2SAT 79–98
[2021-12-07 01:51] LABS: Glucose 212 mg/dL (65-110); Lactate Dehydrogenase 449 U/L (313-618)
[2021-12-07 03:30] LABS: Glucose Point of Care 185 mg/dl (65-105)
[2021-12-07 05:24] LABS: Hematocrit 29.3 % (37.0-47.0); Hemoglobin 9.8 g/dL (12.0-15.0); Mean Corpuscular HGB Conc 33.4 g/dl (32-36); Mean Corpuscular Hemoglobin 31.7 pg (26-34); Mean Corpuscular Volume 94.8 fl (80-100); Mean Platelet Volume 10.7 fl (7.4-10.4); Platelet Count Result 199 k/mm3 (150-375); Red Blood Count 3.09 M/mm3 (4.2-5.4); Red Cell Distribution Width 14.7 % (11.5-14.5); White Blood Count 14.2 K/mm3 (4.5-10.0)
[2021-12-07 05:33] LABS: INR 1.3; Prothrombin Time 15.6 Seconds (11.1-14.7)
[2021-12-07 05:46] LABS: Alanine Aminotransferase 15 U/L (4-35); Albumin Level 2.6 g/dL (3.5-5.1); Alkaline Phosphatase 77 U/L (38-126); Anion Gap 8 mmol/L (8-16); Aspartate Amino Transferase 22 U/L (14-36); Bilirubin,Total 0.3 mg/dL (0.2-1.3); Blood Urea Nitrogen 29 mg/dL (7-17); Calcium 8.4 mg/dL (8.4-10.2); Carbon Dioxide 22 mmol/L (22-30); Chloride 99 mmol/L (98-107); Estimated CRCL calculation 30 ml/min; Estimated Glomerular Filt Rate 34; Glucose 196 mg/dL (65-110); Magnesium 1.7 mg/dL (1.6-2.3); Phosphorus 4.3 mg/dL (2.5-4.5); Potassium 4.6 mmol/L (3.4-5.0); Sodium 129 mmol/L (137-145)
--- NOTE | 2021-12-07 06:18 | ECG_ITS ---
Measurements Intervals Decker Rate: 88 P: KS: 0 QRS: 50 QRSD: 97 T: 30 QT: 355 QTc: 430 Interpretive Statements ATRIAL FIBRILLATION NONSPECIFIC T-WAVE ABNORMALITY- INF/HIGH LAT LEADS ABNORMAL ECG Electronically Signed On 12-07-2021 9:24:20 CONSTRUCTION IRONWORKER by Chapo Arambula D.O.
[2021-12-07] MEDS: MIDAZOLAM 100MG/NS 100ML(*CRX) 100 MG/100 ML BAG IV CONT (06:33)
[2021-12-07 06:38] LABS: Alveolar/Arterial O2 Gradient 450.5 mmHg; Base Excess ABG -5.4 mEq/l (+/-2.0); Carboxyhemoglobin 0.2 % THb (0-2.0); Fractional Inspired Oxygen 80 %; HCO3 ABG 21.4 mEq/l (22.0-26.0); Methemoglobin ABG 0.3 %THb (0-1.5); Oxygen Content ABG 13.8 %vol (16.0-22.0); Oxygen Saturation ABG 91.9 % (95.0-100.0); Oxyhemoglobin 91.4 % THb (90.0-100.0); PCO2 ABG 47.2 mmHg (35.0-45.0); PO2 ABG 70.3 mmHg (80.0-100.0); PO2 FiO2 Ratio Arterial Blood 0.88 %; Reduced Hemoglobin 8.1 %THb (0-5.0); Total Hemoglobin 10.7 g/dL (12.0-18.0)
[2021-12-07 06:39] LABS: Site Drawn RIGHT RADIAL; pH ABG 7.274 (7.350-7.450)
[2021-12-07 06:40] LABS: Arterial Blood Gas Vent Mode CMV; Arterial Blood Gas Ventilator rate 26 /MIN; Device VENTILATOR; Modified Allen's Test Pass
[2021-12-07 06:41] LABS: Arterial Blood Gas PEEP 8 cmH2O; Arterial Blood Gas Tidal Volume 350 ml
--- NOTE | 2021-12-07 07:31 | PM.PNCARD ---
Progress Note: A&P Assessment and Plan (1) Shock: Code(s): R57.9 - Shock, unspecified Status: Acute Assessment and Plan: Probably due to respiratory failure and sedation with intubation. Off Levophed drip. Echo 11/27/21 shows normal EF 65-70%, diastolic function indeterminate, mild , consider mod MS. (2) Aortic stenosis: Code(s): I35.0 - Nonrheumatic aortic (valve) stenosis Status: Acute Assessment and Plan: Mild. (3) Atrial fibrillation: Qualifiers: Atrial fibrillation type: unspecified Qualified Code(s): I48.91 - Unspecified atrial fibrillation Code(s): I48.91 - Unspecified atrial fibrillation Status: Acute Assessment and Plan: Persistent atrial fib. Rate controlled. On Amiodarone drip to control HR due to hypotension and unable to use Diltiazem or Metoprolol. Normally on Xarelto which is on hold for bronchoscopy yesterday and plans for thoracentesis later today. For the few days off Xarelto, no need for Lovenox anticoagulation, but would use Lovenox DVT prophylaxis. Then resume Xarelto after thoracentesis. Resume Xarelto this evening. She did cardiovert with Amiodarone drip but back in atrial fibrillation. On Amiodarone 200 mg PO BID to attempt to maintain sinus rhythm and if not, then to control HR. (4) Smoking: Code(s): F17.200 - Nicotine dependence, unspecified, uncomplicated Status: Acute (5) Hyperlipemia: Qualifiers: Hyperlipidemia type: unspecified Qualified Code(s): E78.5 - Hyperlipidemia, unspecified Code(s): E78.5 - Hyperlipidemia, unspecified Status: Acute (6) Hypertension: Qualifiers: Hypertension type: primary hypertension Qualified Code(s): I10 - Essential (primary) hypertension Code(s): I10 - Essential (primary) hypertension Status: Acute (7) Diabetes type 2, controlled: Qualifiers: Diabetes mellitus mcc insulin use: without mcc use Diabetes mellitus complication status: without complication Qualified Code(s): E11.9 - Type 2 diabetes mellitus without complications Code(s): E11.9 - Type 2 diabetes mellitus without complications Status: Chronic (8) Respiratory failure: Code(s): J96.90 - Respiratory failure, unspecified, unspecified whether with hypoxia or hypercapnia Status: Acute Assessment and Plan: Probably due to COPD/Pneumonia and probably has underlying diastolic dysfunction. Await BAL cultures. Subjective Date/time seen: 12/07/21 07:31 Patient is sedated on ventilator. Had 1 liter right lung thoracentesis yesterday. Exam Const: Other: Sedated on vent. Resp: Auscultation: clear to auscultation bilaterally, no crackles, no rales, no rhonchi and no wheezes Cardio: Rate: regular rate Rhythm: regular rhythm Heart sounds: Murmur heart sound present (I/ systolic murmur in RICS) GI: GI Palp: No abdominal tenderness and Yes Soft to palpation Extrem: Right lower extremity: no edema Left lower extremity: no edema Objective Data Vital Signs Vital Signs: Vital Signs - 24 hr 12/06/21 08:00 12/06/21 09:46 12/06/21 09:51 Temperature 98.1 F Pulse Rate 94 119 H 120 H Respiratory Rate 26 H 28 H Blood Pressure 121/55 L Pulse Oximetry 94 93 12/06/21 10:00 12/06/21 12:00 12/06/21 12:06 Temperature 98.5 F Pulse Rate 122 H 109 H 105 H Respiratory Rate 30 H 26 H Blood Pressure 97/64 L 79/64 L Pulse Oximetry 94 98 12/06/21 12:29 12/06/21 14:00 12/06/21 14:35 Temperature Pulse Rate 116 H 96 96 Respiratory Rate 26 H 26 H Blood Pressure 81/56 L 79/64 L Pulse Oximetry 97 94 98 12/06/21 14:36 12/06/21 15:27 12/06/21 15:29 Temperature Pulse Rate 100 95 90 Respiratory Rate 26 H 26 H Blood Pressure 81/61 L Pulse Oximetry 95 99 12/06/21 16:00 12/06/21 17:00 12/06/21 17:10 Temperature 98.5 F Pulse Rate 86 110 H 101 H Respiratory Rate 26 H 30 H Blood Press
[2021-12-07] MEDS: MINERAL OIL/WHITE PETROLATUM OINTMENT 1 APPLIC EACH EYE ×2 (08:28→22:22)
[2021-12-07] MEDS: FUROSEMIDE INJ 40 MG/4 ML VIAL IV PUSH (08:28)
[2021-12-07] MEDS: AMIODARONE HCL 200 MG TABLET PO ×2 (08:28→22:22)
[2021-12-07] MEDS: polyethylene glycoL 3350 17 GM POWD.PACK FEED TUBE (08:30)
[2021-12-07] MEDS: ALBUMIN HUMAN 25% 25 GM/100 ML 100 ML IVPB (08:39)
[2021-12-07] MEDS: INSULIN GLARGINE (*BKC) 100 UNITS/ML 15 UNITS SUB-Q (09:03)
[2021-12-07] MEDS: IPRATROPIUM BR 0.02% INH SOLN 0.5 MG/2.5 ML VIAL INHALATION ×2 (09:24→14:31)
[2021-12-07] MEDS: ALBUTEROL SULFATE NEB 2.5 MG/0.5 ML INH INHALATION ×2 (09:25→14:31)
[2021-12-07 11:39] LABS: Glucose Point of Care 242 mg/dl (65-105)
[2021-12-07] MEDS: INSULIN ASPART (*BKC) 100 UNITS/ML SUB-Q ×2 (12:18→18:17)
[2021-12-07] MEDS: FAMOTIDINE 20 MG TABLET FEED TUBE ×2 (12:20→16:10)
--- NOTE | 2021-12-07 12:21 | WPDINTPN ---
Progress Note: A&P Assessment and Plan (1) Acute hypoxemic respiratory failure: Code(s): J96.01 - Acute respiratory failure with hypoxia Status: Acute Assessment and Plan: Hypoxic respiratory failure likely related to community-acquired pneumonia, CHF, baseline emphysema, pleural effusions Patient presented the ED on 11/25/2021 with shortness of breath, was on BiPAP and has been declining and requiring significant oxygen support. Failed BiPAP /, 100% FiO2 Intubated patient on 12/01/2021 -continue low tidal volume strategy, peep of 8 and 50 % FiO2 for now, wean FiO2 -continue bronchodilators - sedated with fentanyl and Versed infusion - COVID-19 negative x2 - 12/05 bronchoscopy was done and BAL collected. Cultures are pending - 12/06 patient underwent right-sided thoracentesis and 1 L fluid was removed - overnight increase in oxygen requirement after patient became asynchronous with the vent with sedation holiday -will request thoracentesis on the left -Lasix IV -ABG reviewed and will increase the PEEP to 10 and respiratory rate to 28 -12/02/2021: chest abdomen and pelvis showed no pulmonary embolism, moderate-sized bilateral pleural effusion. Mild scattered ground-glass opacities in the lungs, consistent mild pulmonary edema versus pneumonia, moderate emphysema. Gallbladder distention and gallbladder wall thickening, small volume ascites, mild aorto caval lymphadenopathy, likely reactive (2) Shock: Code(s): R57.9 - Shock, unspecified Status: Acute Assessment and Plan: RESOLVED, CURRENTLY OFF LEVOPHED AND VASOPRESSIN Patient was in shock post intubation which could be related to positive pressure ventilation and or infection -lactic acid is normal, patient has received adequate amount of IV fluids on 12/01/2021 -11/25 blood cultures growing Gram-negative bacilli and group B Streptococcus. -11/30/2021: Repeat blood cultures negative x2, preliminary results -11/29/2021 urine cultures are negative -continue vancomycin and cefepime (12/01/2021) (3) Pneumonia: Qualifiers: Laterality: unspecified laterality Lung location: unspecified part of lung Pneumonia type: due to unspecified organism Qualified Code(s): J18.9 - Pneumonia, unspecified organism Code(s): J18.9 - Pneumonia, unspecified organism Status: Acute Assessment and Plan: Possible community-acquired pneumonia -continue cefepime and vancomycin (12/01/2021) -will continue to monitor chest x-ray and ABGs -SARS-CoV-2 PCR PCR negative x2 -12/03/2021: CTA chest showed no pulmonary embolism, moderate-sized bilateral pleural effusion, mild scattered ground-glass opacities in the lungs, consistent with mild pulmonary edema versus pneumonia. Moderate emphysema (4) Atrial fibrillation: Qualifiers: Atrial fibrillation type: unspecified Qualified Code(s): I48.91 - Unspecified atrial fibrillation Code(s): I48.91 - Unspecified atrial fibrillation Status: Acute Assessment and Plan: Patient with history of atrial fibrillation, -cardiology evaluated the patient, patient was on Xarelto - diltiazem and metoprolol were discontinued due to patient's blood pressures are lower than in shock She was started on amiodarone infusion is being continued this time and is being managed by Cardiology -Xarelto will be resumed later today after the thoracentesis (5) Smoking: Code(s): F17.200 - Nicotine dependence, unspecified, uncomplicated Status: Acute Assessment and Plan: Patient is a current smoker, currently intubated so not a candidate for counseling for cessation of smoking. (6) Diabetes type 2, controlled: Qualifiers: Diabetes mellitus complication status: without complication Diabetes mellitus intermediate accountant insulin use: without nursing home use Qualified Code(s): E11.9 - Type 2 diabetes mellitus without complications Code(s): E11.9 - Type 2 diabetes mellitus without compli
--- NOTE | 2021-12-07 13:21 | PCNFU ---
Nutrition Follow-Up Complete: Inadequate Oral Intake as related to mechanical ventilation as evidenced by NPO Goal: Meet estimated nutritional needs Patient will continue on current goal. Pt current nutrition is Vital AF 1.2 at 55 ml/hr over 22 hours. Last recorded weight is 73.8 kg, up from 64.6 kg on admit. Bowel Motility:colostomy-little output. Labs Reviewed:Glu 196, BUN 29, Cr 1.5,GFR 34, Na 129, Alb 2.6,Hgb 9.8,Hct 29.3 Meds Noted:Fentanyl, Versed, Miralax, Remeron, Vancomycin, Pepcid, Levophed, NovoLog. Skin:WNL Additional Notes: Patient remains on mechanical vent and tube feedings to be restarted today of Vital AF 1.2 at 55 ml/hr over 22 hours. Tube feeding providing 1452 kcals/91 gm protein/981 ml water. Free water flush of 30 ml q 4 hours. Patient had Thoracentesis on 12/06-1000 ml removed. Agree with diet orders. Will monitor in ICU rounds as reassessing every Friday and Friday.
[2021-12-07] MEDS: RIVAROXABAN 20 MG TABLET PO (16:11)
[2021-12-07] MEDS: INSULIN GLARGINE (*BKC) 100 UNITS/ML 10 UNITS SUB-Q (16:13)
[2021-12-07 16:56] LABS: Glucose Point of Care 217 mg/dl (65-105)
[2021-12-07] MEDS: FENTANYL 2,500MCG/NS250ML(*CRX 2,500 MCG/250 ML BAG 7.5 MCG IV CONT (18:16)
[2021-12-07] MEDS: SENNA/DOCUSATE SODIUM TABLET 1 TAB FEED TUBE (22:23)
[2021-12-07 23:49] LABS: Glucose Point of Care 191 mg/dl (65-105)
[2021-12-08] VITALS (28 sets, daily range): BP systolic 86–159; BP diastolic 56–84; PULSE 88–125; RESP 19–96; TEMP 36.2–37.3; O2SAT 89–98
--- NOTE | 2021-12-08 | ECHO_ITS ---
Patient Info Name: Lauren Lucero Age: 71 years : 1950 Gender: Female Ht: 67 in Wt: 161 lbs BSA: 1.87 m2 HR: 107 bpm BP: 107 / 71 mmHg Heart Rhythm: Atrial Fibrillation Technical Quality: Fair Exam Date: 12/08/2021 8:20 AM Exam Location: [facility] Card Pulmonary Patient Status: Inpatient Admit Date: 11/25/2021 Staff Ordering Physician: Chapo Arambula DO Guillotine Trimmer: Rochelle Meade RDCS Attending Provider: Medhat Zapata MD Referring Physician: Ralf GREY; Exam Type: CA echo doppler color flow Study Info Indications J81.0 - Acute pulmonary edema Complete two-dimensional, color flow and Doppler transthoracic echocardiogram is performed. Summary 1. Complete two-dimensional, color flow and Doppler transthoracic echocardiogram is performed. 2. Left ventricular chamber dimension is normal. 3. Left ventricular systolic function is normal, estimated at 65-70%. 4. There is severe concentric increased left ventricular wall thickness. Resting LVOT gradient of peak 20 mmHg and mean 9 mmHg suggests mild obstruction. 5. The left ventricular diastolic function is abnormal. 6. E/e' 40 is significantly elevated. 7. Atrial fibrillation. 8. Right ventricular systolic function is mildly reduced based on an abnormal TAPSE 1.6 cm. 9. Left atrial chamber dimension is severely enlarged. 10. There is moderate aortic valve sclerosis. 11. There is moderate aortic valve stenosis with a peak velocity of 463 cm/s, mean gradient of 48 mmHg, and aortic valve area of 1.4 cm2. 12. The mitral valve has severely calcified leaflets and severely calcified annulus. 13. There is severe mitral valve stenosis by visual estimation and by MV peak gradient 27 mmHg and mean gradient of 15 mmHg. Tech was unable to calculate the MV area by continuity equation. 14. There is mild mitral valve regurgitation. 15. No pulmonary hypertension, estimated pulmonary arterial systolic pressure is 26 mmHg. 16. There is trace pulmonic regurgitation. 17. There is small circumferential pericardial effusion. No cardiac tamponade. Left Ventricle E/e' 40 is significantly elevated. Atrial fibrillation. There is severe concentric increased left ventricular wall thickness. Resting LVOT gradient of peak 20 mmHg and mean 9 mmHg suggests mild obstruction. Left ventricular chamber dimension is normal. Left ventricular systolic function is normal, estimated at 65-70%. The left ventricular diastolic function is abnormal. Right Ventricle Right ventricular systolic function is mildly reduced based on an abnormal TAPSE 1.6 cm. Right ventricular chamber dimension is not well visualized. Left Atria Left atrial chamber dimension is severely enlarged. Right Atria Right atrial chamber dimension is normal. Aortic Valve There is moderate aortic valve stenosis with a peak velocity of 463 cm/s, mean gradient of 48 mmHg, and aortic valve area of 1.4 cm2. The aortic valve is probable trileaflet. There is moderate aortic valve sclerosis. There is no aortic valve regurgitation. Pulmonic Valve There is trace pulmonic regurgitation. Mitral Valve The mitral valve has severely calcified leaflets and severely calcified annulus. The mitral valve leaflets are not well seen. There is severe mitral valve stenosis by visual estimation and by MV peak gradient 27 mmHg and mean gradient of 15 mmHg. Tech was unable to calculate the MV area by continuity equation. There is mild mitral valve regurgitation. Tricuspid Valve There is no tricusp
[2021-12-08] MEDS: IPRATROPIUM BR 0.02% INH SOLN 0.5 MG/2.5 ML VIAL INHALATION ×2 (02:25→20:30)
[2021-12-08] MEDS: ALBUTEROL SULFATE NEB 2.5 MG/0.5 ML INH INHALATION ×2 (02:25→20:30)
[2021-12-08 04:30] LABS: Procalcitonin 0.2 ng/mL
[2021-12-08 05:52] LABS: Basophils Percent Auto 0.3 % (0.2-1.2); Eosinophils Absolute Auto 0.1 K/mm3 (0-0.3); Eosinophils Percent Auto 0.7 % (0-4.4); Hematocrit 25.9 % (37.0-47.0); Hemoglobin 8.6 g/dL (12.0-15.0); Immature Granulocyte Percent A 1.1 % (0-0.5); Lymphocytes Percent Auto 5.5 % (18.3-44.2); Mean Corpuscular HGB Conc 33.2 g/dl (32-36); Mean Corpuscular Volume 96.3 fl (80-100); Mean Platelet Volume 10.8 fl (7.4-10.4); Monocytes Absolute Auto 0.7 K/mm3 (0.1-0.6); Monocytes Percent Auto 7.3 % (2.6-8.5); Neutrophils Absolute Auto 7.7 K/mm3 (1.3-6.7); Neutrophils Percent Auto 85.1 % (45.5-73.1); Platelet Count Result 168 k/mm3 (150-375); Red Blood Count 2.69 M/mm3 (4.2-5.4)
[2021-12-08 05:54] LABS: Base Excess ABG -4.8 mEq/l (+/-2.0); HCO3 ABG 18.7 mEq/l (22.0-26.0); Total Hemoglobin 9.7 g/dL (12.0-18.0)
[2021-12-08 05:55] LABS: Carboxyhemoglobin 0.3 % THb (0-2.0); Fractional Inspired Oxygen 75 %; Methemoglobin ABG 0.3 %THb (0-1.5); Modified Allen's Test Pass; Oxygen Content ABG 13.7 %vol (16.0-22.0); PO2 FiO2 Ratio Arterial Blood 2.35 %; Reduced Hemoglobin 1.6 %THb (0-5.0); Site Drawn LEFT RADIAL
[2021-12-08 05:56] LABS: Device VENTILATOR
[2021-12-08 05:57] LABS: Arterial Blood Gas PEEP 10 cmH2O; Arterial Blood Gas Tidal Volume 350 ml; Arterial Blood Gas Vent Mode CMV; Arterial Blood Gas Ventilator rate 28 /MIN
[2021-12-08 06:10] LABS: Alanine Aminotransferase 15 U/L (4-35); Albumin Level 2.7 g/dL (3.5-5.1); Alkaline Phosphatase 71 U/L (38-126); Anion Gap 10 mmol/L (8-16); Aspartate Amino Transferase 18 U/L (14-36); Bilirubin,Total 0.3 mg/dL (0.2-1.3); Blood Urea Nitrogen 40 mg/dL (7-17); Calcium 8.3 mg/dL (8.4-10.2); Carbon Dioxide 20 mmol/L (22-30); Chloride 98 mmol/L (98-107); Estimated CRCL calculation 21 ml/min; Estimated Glomerular Filt Rate 23; Glucose 230 mg/dL (65-110); Magnesium 1.7 mg/dL (1.6-2.3); Potassium 4.4 mmol/L (3.4-5.0); Sodium 128 mmol/L (137-145)
[2021-12-08] MEDS: INSULIN ASPART (*BKC) 100 UNITS/ML SUB-Q ×2 (06:49→23:23)
[2021-12-08 06:50] LABS: Glucose Point of Care 209 mg/dl (65-105)
--- NOTE | 2021-12-08 08:22 | PM.PNCARD ---
Progress Note: A&P Assessment and Plan (1) Shock: Code(s): R57.9 - Shock, unspecified Status: Acute Assessment and Plan: Probably due to respiratory failure and sedation with intubation. Off Levophed drip. Echo 11/27/21 shows normal EF 65-70%, diastolic function indeterminate, mild , consider mod MS. Pleural effusions reaccumulating, kidney function worsening with Cr 2.1/GFR 21, sodium 128, Hb 8.6. Recheck echo. (2) Aortic stenosis: Code(s): I35.0 - Nonrheumatic aortic (valve) stenosis Status: Acute Assessment and Plan: Mild. (3) Atrial fibrillation: Qualifiers: Atrial fibrillation type: unspecified Qualified Code(s): I48.91 - Unspecified atrial fibrillation Code(s): I48.91 - Unspecified atrial fibrillation Status: Acute Assessment and Plan: Persistent atrial fib. Rate controlled. On Amiodarone drip to control HR due to hypotension and unable to use Diltiazem or Metoprolol. Had bronchoscopy and bilateral thoracentesis removing 1 liter from each. Resumed Xarelto last evening. Decrease Xarelto 15 mg daily given worsening kidney function. She did cardiovert with Amiodarone drip but back in atrial fibrillation. On Amiodarone 200 mg PO BID to attempt to maintain sinus rhythm and if not, then to control HR. (4) Smoking: Code(s): F17.200 - Nicotine dependence, unspecified, uncomplicated Status: Acute (5) Hyperlipemia: Qualifiers: Hyperlipidemia type: unspecified Qualified Code(s): E78.5 - Hyperlipidemia, unspecified Code(s): E78.5 - Hyperlipidemia, unspecified Status: Acute (6) Hypertension: Qualifiers: Hypertension type: primary hypertension Qualified Code(s): I10 - Essential (primary) hypertension Code(s): I10 - Essential (primary) hypertension Status: Acute (7) Diabetes type 2, controlled: Qualifiers: Diabetes mellitus senior living insulin use: without termite renewal inspector use Diabetes mellitus complication status: without complication Qualified Code(s): E11.9 - Type 2 diabetes mellitus without complications Code(s): E11.9 - Type 2 diabetes mellitus without complications Status: Chronic (8) Respiratory failure: Code(s): J96.90 - Respiratory failure, unspecified, unspecified whether with hypoxia or hypercapnia Status: Acute Assessment and Plan: Probably due to COPD/Pneumonia and probably has underlying diastolic dysfunction. Await BAL cultures. Subjective Date/time seen: 12/08/21 08:22 Sedated and on ventilator. Exam Const: Other: Sedated on vent. Resp: Auscultation: clear to auscultation bilaterally, no crackles, no rales, no rhonchi and no wheezes Cardio: Rate: regular rate Rhythm: abnormal rhythm Heart sounds: Murmur heart sound present (I/ systolic murmur in RICS) GI: GI Palp: No abdominal tenderness and Yes Soft to palpation Extrem: Right lower extremity: no edema Left lower extremity: no edema Objective Data Vital Signs Vital Signs: Vital Signs - 24 hr 12/07/21 09:25 12/07/21 10:00 12/07/21 12:00 Temperature 96.8 F L 97 F L Pulse Rate 93 93 82 Respiratory Rate 28 H 30 H 28 H Blood Pressure 138/72 90/52 L Pulse Oximetry 94 95 96 12/07/21 13:05 12/07/21 13:06 12/07/21 14:00 Temperature Pulse Rate 77 77 82 Respiratory Rate 28 H 28 H 28 H Blood Pressure 113/55 L 113/55 L 90/52 L Pulse Oximetry 96 96 96 12/07/21 14:25 12/07/21 14:31 12/07/21 14:41 Temperature Pulse Rate 90 85 104 H Respiratory Rate 28 H 28 H Blood Pressure Pulse Oximetry 95 12/07/21 16:00 12/07/21 18:00 12/07/21 18:16 Temperature Pulse Rate 92 90 104 H Respiratory Rate 28 H 28 H 28 H Blood Pressure 89/58 L 89/47 L Pulse Oximetry 96 96 12/07/21 19:50 12/07/21 20:00 12/07/21 20:01 Temperature Pulse Rate 95 95 92 Respiratory Rate 28 H 24 H Blood Pressure 90/62 L Pulse Oximetry 96 98 12/07/21 22:00
[2021-12-08] MEDS: ALBUMIN HUMAN 25% 25 GM/100 ML 100 ML IVPB (08:34)
[2021-12-08] MEDS: FAMOTIDINE 20 MG TABLET FEED TUBE ×2 (08:35→17:58)
[2021-12-08] MEDS: polyethylene glycoL 3350 17 GM POWD.PACK FEED TUBE (08:35)
[2021-12-08] MEDS: AMIODARONE HCL 200 MG TABLET PO ×2 (08:35→22:38)
[2021-12-08] MEDS: MINERAL OIL/WHITE PETROLATUM OINTMENT 1 APPLIC EACH EYE ×2 (08:36→22:38)
[2021-12-08] MEDS: FUROSEMIDE INJ 40 MG/4 ML VIAL IV PUSH (08:38)
--- NOTE | 2021-12-08 10:56 | WPDINTPN ---
Progress Note: A&P Assessment and Plan (1) Acute hypoxemic respiratory failure: Code(s): J96.01 - Acute respiratory failure with hypoxia Status: Acute Assessment and Plan: Hypoxic respiratory failure likely related to community-acquired pneumonia, CHF, baseline emphysema, pleural effusions Patient presented the ED on 11/25/2021 with shortness of breath, was on BiPAP and has been declining and requiring significant oxygen support. Failed BiPAP /6, 100% FiO2 Intubated patient on 12/01/2021 -continue low tidal volume strategy, peep of10 and 80 % FiO2 for now, wean FiO2 -continue bronchodilators - sedated with fentanyl and Versed infusion - COVID-19 negative x2 - 12/05 bronchoscopy was done and BAL collected. Cultures are pending - 12/06 patient underwent right-sided thoracentesis and 1 L fluid was removed - 12/07 patient underwent left-sided thoracentesis and 1 L fluid was removed -chest x-ray done this morning shows worsening of effusions and infiltrates suggestive of pulmonary edema -continue Lasix IV although her renal function is worsening -Lasix IV -ABG reviewed -repeat CT chest -12/02/2021: chest abdomen and pelvis showed no pulmonary embolism, moderate-sized bilateral pleural effusion. Mild scattered ground-glass opacities in the lungs, consistent mild pulmonary edema versus pneumonia, moderate emphysema. Gallbladder distention and gallbladder wall thickening, small volume ascites, mild aorto caval lymphadenopathy, likely reactive (2) Shock: Code(s): R57.9 - Shock, unspecified Status: Acute Assessment and Plan: RESOLVED, CURRENTLY OFF LEVOPHED AND VASOPRESSIN Patient was in shock post intubation which could be related to positive pressure ventilation and or infection -lactic acid is normal, patient has received adequate amount of IV fluids on 12/01/2021 -11/25 blood cultures growing Gram-negative bacilli and group B Streptococcus. -11/30/2021: Repeat blood cultures negative x2, preliminary results -11/29/2021 urine cultures are negative -continue cefepime (12/01/2021). Vancomycin held as patient's renal function is worsening and cultures have been negative (3) Pneumonia: Qualifiers: Laterality: unspecified laterality Lung location: unspecified part of lung Pneumonia type: due to unspecified organism Qualified Code(s): J18.9 - Pneumonia, unspecified organism Code(s): J18.9 - Pneumonia, unspecified organism Status: Acute Assessment and Plan: Possible community-acquired pneumonia -continue cefepime and vancomycin (12/01/2021) -will continue to monitor chest x-ray and ABGs -SARS-CoV-2 PCR PCR negative x2 -12/03/2021: CTA chest showed no pulmonary embolism, moderate-sized bilateral pleural effusion, mild scattered ground-glass opacities in the lungs, consistent with mild pulmonary edema versus pneumonia. Moderate emphysema (4) Atrial fibrillation: Qualifiers: Atrial fibrillation type: unspecified Qualified Code(s): I48.91 - Unspecified atrial fibrillation Code(s): I48.91 - Unspecified atrial fibrillation Status: Acute Assessment and Plan: Patient with history of atrial fibrillation, -cardiology evaluated the patient, patient was on Xarelto - diltiazem and metoprolol were discontinued due to patient's blood pressures are lower than in shock - She was started on amiodarone infusion which has been changed to p.o. -Xarelto resume by Cardiology (5) Smoking: Code(s): F17.200 - Nicotine dependence, unspecified, uncomplicated Status: Acute Assessment and Plan: Patient is a current smoker, currently intubated so not a candidate for counseling for cessation of smoking. 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
--- NOTE | 2021-12-08 11:44 | P.CONNP_ITS ---
Assessment and Plan Assessment and plan (1) DIANA (acute kidney injury): Code(s): N17.9 - Acute kidney failure, unspecified Status: Acute Assessment and Plan: * suspect due to ATN from: * contrast exposure (CT scan head/chest/abdomen/pelvis on 12/02/21) * possible prerenal factors * hemodynamic instability/hypotension * infection (bacteremia) * creatinine continues to decline * no critical electrolytes at this time * however, volume status/fluid overload somewhat of an issue * check urine electrolytes, eosinophils, and CPK * follow repeat labs and UOP (2) Acute hypoxemic respiratory failure: Code(s): J96.01 - Acute respiratory failure with hypoxia Status: Acute Assessment and Plan: * related to pneumonia, CHF, COPD, and bilateral pleural effusions * intubated since 12/01/21 * COVID-19 negative x 2 * s/p bronchoscopy on 12/05/21 * s/p bilateral thoracentesis (right on 12/06/21, left on 12/07/21 - 1L removed from each side) * still with evidence of pulmonary edema/effusions despite this intervention * agree with ongoing attempts at diuresis/IV diuretics despite DIANA/ARF * follow CXR and imaging * may need to consider DUF/HD just for fluid removal if unresponsive to diuretic therapy (3) Congestive heart failure: Code(s): I50.9 - Heart failure, unspecified Status: Acute Assessment and Plan: * likely also playing a role with #2 * Cardiology following * due to diastolic dysfunction and possibly valvular disease * continue ongoing attempts at diuresis * repeat Echo ordered (4) Shock: Code(s): R57.9 - Shock, unspecified Status: Acute Assessment and Plan: * off vasopressors at this time * due to positive pressure ventilation following intubation versus sepsis versus sedation * s/p adequate amount of IV fluids * blood cultures (11/25/21) with Group B strep - repeat blood culture negative * urine culture negative * continue antibiotics (5) Pneumonia: Qualifiers: Laterality: unspecified laterality Lung location: unspecified part of lung Pneumonia type: due to unspecified organism Qualified Code(s): J18.9 - Pneumonia, unspecified organism Code(s): J18.9 - Pneumonia, unspecified organism Status: Acute Assessment and Plan: * as suggestive by imaging to date * on antibiotics * follow CXR and ABG results (6) Atrial fibrillation: Qualifiers: Atrial fibrillation type: unspecified Qualified Code(s): I48.91 - Unspecified atrial fibrillation Code(s): I48.91 - Unspecified atrial fibrillation Status: Chronic Assessment and Plan: * chronic issue * on po amiodarone and xarelto as per Cardiology (7) Diabetes: Code(s): E11.9 - Type 2 diabetes mellitus without complications Status: Chronic Assessment and Plan: * follow accu-Cheks * on SSI and Lantus Will continue to follow. History of Present Illness Reason for Consult Consult date: 12/08/21 Reason for consult: acute renal failure Chief Complaint Chief complaint: Acute Respiratory Failure,Pneumonia,Elevated Tropo History of Present Illness Narrative: All the history I have obtained is from review of the electronic medical record as the patient is unable to provide me with any history as she is currently intubated and sedated. The patient is a 71-year-old female with a past medical history as outlined below who presented to [facility] Emergency room for further evaluation of shortness of b
--- NOTE | 2021-12-08 11:44 | PM.CNNEP ---
Assessment and Plan Assessment and plan (1) DIANA (acute kidney injury): Code(s): N17.9 - Acute kidney failure, unspecified Status: Acute Assessment and Plan: suspect due to ATN from: contrast exposure (CT scan head/chest/abdomen/pelvis on 12/02/21) possible prerenal factors hemodynamic instability/hypotension infection (bacteremia) creatinine continues to decline no critical electrolytes at this time however, volume status/fluid overload somewhat of an issue check urine electrolytes, eosinophils, and CPK follow repeat labs and UOP (2) Acute hypoxemic respiratory failure: Code(s): J96.01 - Acute respiratory failure with hypoxia Status: Acute Assessment and Plan: related to pneumonia, CHF, COPD, and bilateral pleural effusions intubated since 12/01/21 COVID-19 negative x 2 s/p bronchoscopy on 12/05/21 s/p bilateral thoracentesis (right on 12/06/21, left on 12/07/21 - 1L removed from each side) still with evidence of pulmonary edema/effusions despite this intervention agree with ongoing attempts at diuresis/IV diuretics despite DIANA/ARF follow CXR and imaging may need to consider DUF/HD just for fluid removal if unresponsive to diuretic therapy (3) Congestive heart failure: Code(s): I50.9 - Heart failure, unspecified Status: Acute Assessment and Plan: likely also playing a role with #2 Cardiology following due to diastolic dysfunction and possibly valvular disease continue ongoing attempts at diuresis repeat Echo ordered (4) Shock: Code(s): R57.9 - Shock, unspecified Status: Acute Assessment and Plan: off vasopressors at this time due to positive pressure ventilation following intubation versus sepsis versus sedation s/p adequate amount of IV fluids blood cultures (11/25/21) with Group B strep - repeat blood culture negative urine culture negative continue antibiotics (5) Pneumonia: Qualifiers: Laterality: unspecified laterality Lung location: unspecified part of lung Pneumonia type: due to unspecified organism Qualified Code(s): J18.9 - Pneumonia, unspecified organism Code(s): J18.9 - Pneumonia, unspecified organism Status: Acute Assessment and Plan: as suggestive by imaging to date on antibiotics follow CXR and ABG results (6) Atrial fibrillation: Qualifiers: Atrial fibrillation type: unspecified Qualified Code(s): I48.91 - Unspecified atrial fibrillation Code(s): I48.91 - Unspecified atrial fibrillation Status: Chronic Assessment and Plan: chronic issue on po amiodarone and xarelto as per Cardiology (7) Diabetes: Code(s): E11.9 - Type 2 diabetes mellitus without complications Status: Chronic Assessment and Plan: follow accu-Cheks on SSI and Lantus Will continue to follow. History of Present Illness Reason for Consult Consult date: 12/08/21 Reason for consult: acute renal failure Chief Complaint Chief complaint: Acute Respiratory Failure,Pneumonia,Elevated Tropo History of Present Illness Narrative: All the history I have obtained is from review of the electronic medical record as the patient is unable to provide me with any history as she is currently intubated and sedated. The patient is a 71-year-old female with a past medical history as outlined below who presented to [facility] Emergency room for further evaluation of shortness of breath and difficulty breathing. Apparently, the patient has been having issues and problems with shortness of breath in association of difficulty breathing for the last 2-3 days prior to admission. As the symptoms continue progressively get worse EMS was called for further evaluation. Reportedly, the patient was noted to have oxygen saturations of 60% on room air and was placed on CPAP upon transfer to the emergency room. The patient was immediately placed on BiPA
[2021-12-08 12:26] LABS: Glucose Point of Care 184 mg/dl (65-105)
[2021-12-08] MEDS: INSULIN GLARGINE (*BKC) 100 UNITS/ML 10 UNITS SUB-Q (14:28)
[2021-12-08] MEDS: MIDAZOLAM 100MG/NS 100ML(*CRX) 100 MG/100 ML BAG IV CONT (15:47)
[2021-12-08] MEDS: RIVAROXABAN 15 MG TABLET PO (17:58)
[2021-12-08 18:44] LABS: Vancomycin Trough 24.9 ug/mL (10.0-20.0)
[2021-12-08 20:47] LABS: Glucose Point of Care 138 mg/dl (65-105)
[2021-12-08] MEDS: SENNA/DOCUSATE SODIUM TABLET 1 TAB FEED TUBE (22:38)
[2021-12-08 23:25] LABS: Glucose Point of Care 216 mg/dl (65-105)
[2021-12-09] VITALS (30 sets, daily range): BP systolic 65–130; BP diastolic 48–83; PULSE 58–120; RESP 27–30; TEMP 36.2–37.1; O2SAT 91–100
[2021-12-09] MEDS: IPRATROPIUM BR 0.02% INH SOLN 0.5 MG/2.5 ML VIAL INHALATION ×4 (02:27→20:20)
[2021-12-09] MEDS: ALBUTEROL SULFATE NEB 2.5 MG/0.5 ML INH INHALATION ×4 (02:27→20:20)
[2021-12-09] MEDS: FENTANYL 2,500MCG/NS250ML(*CRX 2,500 MCG/250 ML BAG 7.5 MCG IV CONT (02:33)
[2021-12-09] MEDS: INSULIN ASPART (*BKC) 100 UNITS/ML SUB-Q ×4 (05:34→20:09)
[2021-12-09 05:35] LABS: Basophils Percent Auto 0.3 % (0.2-1.2); Eosinophils Absolute Auto 0.1 K/mm3 (0-0.3); Eosinophils Percent Auto 0.7 % (0-4.4); Hematocrit 26.7 % (37.0-47.0); Hemoglobin 8.6 g/dL (12.0-15.0); Lymphocytes Absolute Auto 0.36 K/mm3 (0.9-3.2); Lymphocytes Percent Auto 3.6 % (18.3-44.2); Mean Corpuscular HGB Conc 32.2 g/dl (32-36); Mean Corpuscular Hemoglobin 31.5 pg (26-34); Mean Corpuscular Volume 97.8 fl (80-100); Monocytes Absolute Auto 0.6 K/mm3 (0.1-0.6); Monocytes Percent Auto 6.3 % (2.6-8.5); Neutrophils Absolute Auto 8.9 K/mm3 (1.3-6.7); Neutrophils Percent Auto 88.1 % (45.5-73.1); Nucleated Red Blood Cells Perc 0.2 % (0.0-0.2); Platelet Count Result 185 k/mm3 (150-375); Red Blood Count 2.73 M/mm3 (4.2-5.4); Red Cell Distribution Width 15.4 % (11.5-14.5); White Blood Count 10.1 K/mm3 (4.5-10.0)
[2021-12-09 05:51] LABS: Alanine Aminotransferase 19 U/L (4-35); Albumin Level 2.9 g/dL (3.5-5.1); Alkaline Phosphatase 77 U/L (38-126); Anion Gap 14 mmol/L (8-16); Aspartate Amino Transferase 26 U/L (14-36); Bilirubin,Total 0.4 mg/dL (0.2-1.3); Blood Urea Nitrogen 52 mg/dL (7-17); Calcium 8.5 mg/dL (8.4-10.2); Carbon Dioxide 16 mmol/L (22-30); Chloride 98 mmol/L (98-107); Estimated CRCL calculation 16 ml/min; Estimated Glomerular Filt Rate 17; Glucose 241 mg/dL (65-110); Magnesium 1.8 mg/dL (1.6-2.3); Potassium 4.6 mmol/L (3.4-5.0); Sodium 128 mmol/L (137-145)
[2021-12-09 05:58] LABS: Glucose Point of Care 215 mg/dl (65-105)
[2021-12-09 06:15] LABS: Vancomycin Random 21.5 ug/mL (10-20)
[2021-12-09 07:01] LABS: Oxygen Content ABG 12.6 %vol (16.0-22.0); Total Hemoglobin 9.7 g/dL (12.0-18.0)
[2021-12-09 07:02] LABS: Carboxyhemoglobin 0.3 % THb (0-2.0); Fractional Inspired Oxygen 40 %; Methemoglobin ABG 0.2 %THb (0-1.5); PO2 FiO2 Ratio Arterial Blood 1.12 %; Reduced Hemoglobin 7.7 %THb (0-5.0); Site Drawn RIGHT RADIAL
[2021-12-09 07:03] LABS: Arterial Blood Gas Vent Mode CMV; Device VENTILATOR; Modified Allen's Test Pass
[2021-12-09 08:07] LABS: Glucose Point of Care 219 mg/dl (65-105)
--- NOTE | 2021-12-09 08:08 | PM.PNCARD ---
Progress Note: A&P Assessment and Plan (1) Shock: Code(s): R57.9 - Shock, unspecified Status: Acute Assessment and Plan: Probably due to respiratory failure and sedation with intubation. Off Levophed drip. Echo 11/27/21 shows normal EF 65-70%, diastolic function indeterminate, mild , consider mod MS. Pleural effusions reaccumulating, kidney function worsening with Cr 2.1/GFR 21, sodium 128, Hb 8.6. Recheck echo on 12/08/20 shows EF 65-70%, severe LVH, mild LVOT obstruction with mean gradient of 9 mmHg, significant diastolic dysfunction with E/e' 40, mild RV hypokinesis, severe LAE, mod (AKIKO 1.4 cm2), severe MAC and severe MV calcification, severe MS based on visual estimation and mean gradient of 15 mmHg, aircraft systems technician unable to calculate MVA from continuity equation, mild MR, small pericardial effusion. (2) Aortic stenosis: Code(s): I35.0 - Nonrheumatic aortic (valve) stenosis Status: Acute Assessment and Plan: Moderate. (3) Atrial fibrillation: Qualifiers: Atrial fibrillation type: unspecified Qualified Code(s): I48.91 - Unspecified atrial fibrillation Code(s): I48.91 - Unspecified atrial fibrillation Status: Acute Assessment and Plan: Persistent atrial fib. Rate controlled. On Amiodarone drip to control HR due to hypotension and unable to use Diltiazem or Metoprolol. Had bronchoscopy and bilateral thoracentesis removing 1 liter from each. On Xarelto 15 mg daily given worsening kidney function. She did cardiovert with Amiodarone drip but back in atrial fibrillation. On Amiodarone 200 mg PO BID to attempt to maintain sinus rhythm and if not, then to control HR. Due to having significant mitral stenosis, this is now consider valvular atrial fibrillation, in which case NOAC are not indicated. She would need to be on Lovenox or Warfarin. While in ICU, would change it over to once daily Lovenox given renal function. (4) Smoking: Code(s): F17.200 - Nicotine dependence, unspecified, uncomplicated Status: Acute (5) Hyperlipemia: Qualifiers: Hyperlipidemia type: unspecified Qualified Code(s): E78.5 - Hyperlipidemia, unspecified Code(s): E78.5 - Hyperlipidemia, unspecified Status: Acute (6) Hypertension: Qualifiers: Hypertension type: primary hypertension Qualified Code(s): I10 - Essential (primary) hypertension Code(s): I10 - Essential (primary) hypertension Status: Acute (7) Diabetes type 2, controlled: Qualifiers: Diabetes mellitus termite renewal inspector insulin use: without penitentiary use Diabetes mellitus complication status: without complication Qualified Code(s): E11.9 - Type 2 diabetes mellitus without complications Code(s): E11.9 - Type 2 diabetes mellitus without complications Status: Chronic (8) Respiratory failure: Code(s): J96.90 - Respiratory failure, unspecified, unspecified whether with hypoxia or hypercapnia Status: Acute Assessment and Plan: Probably due to COPD/Pneumonia and probably has underlying diastolic dysfunction and mitral stenosis. Await BAL cultures. (9) Mitral stenosis: Code(s): I05.0 - Rheumatic mitral stenosis Status: Acute Assessment and Plan: Discuss with twill cutter, Dr. Graham, that given significant pleural effusion that is beginning to reaccumulate after bilateral thoracentesis, and she has significant mitral stenosis, patient should be transferred to a higher acuity hospital capable of treating mitral stenosis such as Mitral valve replacement or with balloon commissurotomy. Dr. Graham did attempt to transfer to several hospitals but there are no beds available at this time and there is a waitlist. (10) DIANA (acute kidney injury): Code(s): N17.9 - Acute kidney failure, unspecified Status: Acute Assessment and Plan: Nephrology consulted. Subjective Date/time seen: 12/09/21 08:08 Sedated and on
[2021-12-09] MEDS: INSULIN GLARGINE (*BKC) 100 UNITS/ML 45 UNITS SUB-Q (08:21)
[2021-12-09] MEDS: AMIODARONE HCL 200 MG TABLET PO ×2 (08:23→19:57)
[2021-12-09] MEDS: MINERAL OIL/WHITE PETROLATUM OINTMENT 1 APPLIC EACH EYE ×2 (08:23→19:58)
[2021-12-09] MEDS: polyethylene glycoL 3350 17 GM POWD.PACK FEED TUBE (08:23)
[2021-12-09] MEDS: FAMOTIDINE 20 MG TABLET FEED TUBE ×2 (08:23→18:42)
--- NOTE | 2021-12-09 10:18 | WPDINTPN ---
Progress Note: A&P Assessment and Plan (1) Acute hypoxemic respiratory failure: Code(s): J96.01 - Acute respiratory failure with hypoxia Status: Acute Assessment and Plan: Hypoxic respiratory failure likely related to community-acquired pneumonia, CHF, baseline emphysema, pleural effusions Patient presented the ED on 11/25/2021 with shortness of breath, was on BiPAP and has been declining and requiring significant oxygen support. Failed BiPAP 16/6, 100% FiO2 Intubated patient on 12/01/2021 -continue low tidal volume strategy, peep of14 and 80 % FiO2 for now, wean FiO2 if possible -due to significant atelectasis in posterior parts of the long andeffusions with compressive atelectasis, will plan to place patient in prone position today -continue bronchodilators - sedated with fentanyl and Versed infusion - COVID-19 negative x2 - 12/05 bronchoscopy was done and BAL collected. Cultures are pending - 12/06 patient underwent right-sided thoracentesis and 1 L fluid was removed - 12/07 patient underwent left-sided thoracentesis and 1 L fluid was removed -chest x-ray done this morning shows worsening of effusions and infiltrates suggestive of pulmonary edema -ABG reviewed -12/[address] IMPRESSION: 1. Bilateral dependent airspace opacities, consistent with atelectasis versus pneumonia. 2. Moderate-sized pleural effusions. 3. Cardiomegaly -12/02/2021: chest abdomen and pelvis showed no pulmonary embolism, moderate-sized bilateral pleural effusion. Mild scattered ground-glass opacities in the lungs, consistent mild pulmonary edema versus pneumonia, moderate emphysema. Gallbladder distention and gallbladder wall thickening, small volume ascites, mild aorto caval lymphadenopathy, likely reactive (2) Shock: Code(s): R57.9 - Shock, unspecified Status: Acute Assessment and Plan: RESOLVED, CURRENTLY OFF LEVOPHED AND VASOPRESSIN Patient was in shock post intubation which could be related to positive pressure ventilation and or infection -lactic acid is normal, patient has received adequate amount of IV fluids on 12/01/2021 -11/25 blood cultures growing Gram-negative bacilli and group B Streptococcus. -11/30/2021: Repeat blood cultures negative x2, preliminary results -11/29/2021 urine cultures are negative -continue cefepime (12/01/2021). Vancomycin held as patient's renal function is worsening and cultures have been negative (3) Pneumonia: Qualifiers: Laterality: unspecified laterality Lung location: unspecified part of lung Pneumonia type: due to unspecified organism Qualified Code(s): J18.9 - Pneumonia, unspecified organism Code(s): J18.9 - Pneumonia, unspecified organism Status: Acute Assessment and Plan: Possible community-acquired pneumonia -continue cefepime and vancomycin (12/01/2021) -will continue to monitor chest x-ray and ABGs -SARS-CoV-2 PCR PCR negative x2 -12/03/2021: CTA chest showed no pulmonary embolism, moderate-sized bilateral pleural effusion, mild scattered ground-glass opacities in the lungs, consistent with mild pulmonary edema versus pneumonia. Moderate emphysema (4) Atrial fibrillation: Qualifiers: Atrial fibrillation type: unspecified Qualified Code(s): I48.91 - Unspecified atrial fibrillation Code(s): I48.91 - Unspecified atrial fibrillation Status: Acute Assessment and Plan: Patient with history of atrial fibrillation, -cardiology evaluated the patient, patient was on Xarelto - diltiazem and metoprolol were discontinued due to patient's blood pressures are lower than in shock - She was started on amiodarone infusion which has been changed to p.o. -Xarelto has been changed to Lovenox subQ (5) Smoking: Code(s): F17.200 - Nicotine dependence, unspecified, uncomplicated Status: Acute Assessment and Plan: Patient is a current smoker, currently intubated so not a candidate for counseling for cessation o
--- NOTE | 2021-12-09 11:19 | P.PNNP_ITS ---
Progress Note: A&P Assessment and Plan (1) DIANA (acute kidney injury): Code(s): N17.9 - Acute kidney failure, unspecified Status: Acute Assessment and Plan: * suspect due to ATN from: * contrast exposure (CT scan head/chest/abdomen/pelvis on 12/02/21) * possible prerenal factors * hemodynamic instability/hypotension * infection (bacteremia) * creatinine continues to decline * no critical electrolytes at this time * bicarb added to compensate for acidosis * however, volume status/fluid overload somewhat of an issue - diuretics on hold currently * follow repeat labs and UOP (2) Acute hypoxemic respiratory failure: Code(s): J96.01 - Acute respiratory failure with hypoxia Status: Acute Assessment and Plan: * related to pneumonia, CHF, COPD, and bilateral pleural effusions * intubated since 12/01/21 * COVID-19 negative x 2 * s/p bronchoscopy on 12/05/21 * s/p bilateral thoracentesis (right on 12/06/21, left on 12/07/21 - 1L removed from each side) * still with evidence of pulmonary edema/effusions despite this intervention * agree with ongoing attempts at diuresis/IV diuretics despite DIANA/ARF * follow CXR and imaging * may need to consider DUF/HD just for fluid removal if unresponsive to diuretic therapy (3) Congestive heart failure: Code(s): I50.9 - Heart failure, unspecified Status: Acute Assessment and Plan: * likely also playing a role with #2 * repeat echo noted - severe concentric increased left ventricular wall thickness. Resting LVOT gradient of peak 20 mmHg and mean 9 mmHg suggests mild obstruction. Moderate aortic stenosis and severe mitral valve stenosis with significant calcification * this probably explains her propensity for pulmonary edema and recurrent pleural effusions and likely poor response to diuretics * unfortunately, transfer for Cardiothoracic Surgery evaluation not possible due to lack of ICU beds at multiple hospitals * Cardiology following (4) Shock: Code(s): R57.9 - Shock, unspecified Status: Acute Assessment and Plan: * off vasopressors at this time * due to positive pressure ventilation following intubation versus sepsis versus sedation * s/p adequate amount of IV fluids * blood cultures (11/25/21) with Group B strep - repeat blood culture negative * urine culture negative * continue antibiotics (5) Pneumonia: Qualifiers: Laterality: unspecified laterality Lung location: unspecified part of lung Pneumonia type: due to unspecified organism Qualified Code(s): J18.9 - Pneumonia, unspecified organism Code(s): J18.9 - Pneumonia, unspecified organism Status: Acute Assessment and Plan: * as suggestive by imaging to date * on antibiotics * follow CXR and ABG results (6) Atrial fibrillation: Qualifiers: Atrial fibrillation type: unspecified Qualified Code(s): I48.91 - Unspecified atrial fibrillation Code(s): I48.91 - Unspecified atrial fibrillation Status: Chronic Assessment and Plan: * chronic issue * on amiodarone along with anticoagulation * Cardiology following (7) Diabetes: Code(s): E11.9 - Type 2 diabetes mellitus without complications Status: Chronic Assessment and Plan: * follow accu-Cheks * on SSI and Lantus Will continue to follow. Subjective Date/time seen: 12/09/21 11:19 Remains on full ventilator support; currently intubated and sedated; despite only use of IV diuretics, minimal respo
--- NOTE | 2021-12-09 11:19 | PM.PNNEP ---
Progress Note: A&P Assessment and Plan (1) DIANA (acute kidney injury): Code(s): N17.9 - Acute kidney failure, unspecified Status: Acute Assessment and Plan: suspect due to ATN from: contrast exposure (CT scan head/chest/abdomen/pelvis on 12/02/21) possible prerenal factors hemodynamic instability/hypotension infection (bacteremia) creatinine continues to decline no critical electrolytes at this time bicarb added to compensate for acidosis however, volume status/fluid overload somewhat of an issue - diuretics on hold currently follow repeat labs and UOP (2) Acute hypoxemic respiratory failure: Code(s): J96.01 - Acute respiratory failure with hypoxia Status: Acute Assessment and Plan: related to pneumonia, CHF, COPD, and bilateral pleural effusions intubated since 12/01/21 COVID-19 negative x 2 s/p bronchoscopy on 12/05/21 s/p bilateral thoracentesis (right on 12/06/21, left on 12/07/21 - 1L removed from each side) still with evidence of pulmonary edema/effusions despite this intervention agree with ongoing attempts at diuresis/IV diuretics despite DIANA/ARF follow CXR and imaging may need to consider DUF/HD just for fluid removal if unresponsive to diuretic therapy (3) Congestive heart failure: Code(s): I50.9 - Heart failure, unspecified Status: Acute Assessment and Plan: likely also playing a role with #2 repeat echo noted - severe concentric increased left ventricular wall thickness. Resting LVOT gradient of peak 20 mmHg and mean 9 mmHg suggests mild obstruction. Moderate aortic stenosis and severe mitral valve stenosis with significant calcification this probably explains her propensity for pulmonary edema and recurrent pleural effusions and likely poor response to diuretics unfortunately, transfer for Cardiothoracic Surgery evaluation not possible due to lack of ICU beds at multiple hospitals Cardiology following (4) Shock: Code(s): R57.9 - Shock, unspecified Status: Acute Assessment and Plan: off vasopressors at this time due to positive pressure ventilation following intubation versus sepsis versus sedation s/p adequate amount of IV fluids blood cultures (11/25/21) with Group B strep - repeat blood culture negative urine culture negative continue antibiotics (5) Pneumonia: Qualifiers: Laterality: unspecified laterality Lung location: unspecified part of lung Pneumonia type: due to unspecified organism Qualified Code(s): J18.9 - Pneumonia, unspecified organism Code(s): J18.9 - Pneumonia, unspecified organism Status: Acute Assessment and Plan: as suggestive by imaging to date on antibiotics follow CXR and ABG results (6) Atrial fibrillation: Qualifiers: Atrial fibrillation type: unspecified Qualified Code(s): I48.91 - Unspecified atrial fibrillation Code(s): I48.91 - Unspecified atrial fibrillation Status: Chronic Assessment and Plan: chronic issue on amiodarone along with anticoagulation Cardiology following (7) Diabetes: Code(s): E11.9 - Type 2 diabetes mellitus without complications Status: Chronic Assessment and Plan: follow accu-Cheks on SSI and Lantus Will continue to follow. Subjective Date/time seen: 12/09/21 11:19 Remains on full ventilator support; currently intubated and sedated; despite only use of IV diuretics, minimal response noted and renal function steadily worsening; no other acute issues/problems at this time; no events overnight or earlier this AM. Exam Narrative: General: ill appearing female intubated/sedated but in NAD Heart: tachycardic, normal S1 and S2; no rub Lungs: coarse breath sounds throughout Abdomen: soft, nontender, nondistended, positive bowel sounds Extremities: no cyanosis or clubbing; trace - 1+ edema Skin: warm and dry Objective Data Vital Signs
[2021-12-09 12:31] LABS: Glucose Point of Care 230 mg/dl (65-105)
[2021-12-09] MEDS: ROCURONIUM BROMIDE 50 MG/5 ML VIAL IV PUSH (13:23)
[2021-12-09] MEDS: SODIUM BICARBONATE TAB 650 MG TABLET PO ×3 (13:23→19:56)
[2021-12-09] MEDS: MIDAZOLAM HCL (*CRX) 2 MG/2 ML VIAL 6 MG (13:24)
--- NOTE | 2021-12-09 14:38 | P.PNIM_ITS ---
Progress Note: A&P Assessment and Plan (1) Acute hypoxemic respiratory failure: Code(s): J96.01 - Acute respiratory failure with hypoxia Status: Acute Assessment and Plan: Hypoxic respiratory failure likely related to community-acquired pneumonia, CHF, baseline emphysema, pleural effusions Patient presented the ED on 11/25/2021 with shortness of breath, was on BiPAP and has been declining and requiring significant oxygen support. Failed BiPAP 16/6, 100% FiO2 Intubated patient on 12/01/2021 -continue low tidal volume strategy, peep of14 and 80 % FiO2 for now, wean FiO2 if possible -due to significant atelectasis in posterior parts of the long andeffusions with compressive atelectasis, will plan to place patient in prone position today -continue bronchodilators - sedated with fentanyl and Versed infusion - COVID-19 negative x2 - 12/05 bronchoscopy was done and BAL collected. Cultures are pending - 12/06 patient underwent right-sided thoracentesis and 1 L fluid was removed - 12/07 patient underwent left-sided thoracentesis and 1 L fluid was removed -chest x-ray done this morning shows worsening of effusions and infiltrates suggestive of pulmonary edema -ABG reviewed -12/[address] IMPRESSION: 1. Bilateral dependent airspace opacities, consistent with atelectasis versus pneumonia. 2. Moderate-sized pleural effusions. 3. Cardiomegaly -12/02/2021: chest abdomen and pelvis showed no pulmonary embolism, moderate- sized bilateral pleural effusion. Mild scattered ground-glass opacities in the lungs, consistent mild pulmonary edema versus pneumonia, moderate emphysema. Gallbladder distention and gallbladder wall thickening, small volume ascites, mild aorto caval lymphadenopathy, likely reactive (2) Shock: Code(s): R57.9 - Shock, unspecified Status: Acute Assessment and Plan: RESOLVED, CURRENTLY OFF LEVOPHED AND VASOPRESSIN Patient was in shock post intubation which could be related to positive pressure ventilation and or infection -lactic acid is normal, patient has received adequate amount of IV fluids on 12/01/2021 -11/25 blood cultures growing Gram-negative bacilli and group B Streptococcus. -11/30/2021: Repeat blood cultures negative x2, preliminary results -11/29/2021 urine cultures are negative -continue cefepime (12/01/2021). Vancomycin held as patient's renal function is worsening and cultures have been negative (3) Pneumonia: Qualifiers: Laterality: unspecified laterality Lung location: unspecified part of lung Pneumonia type: due to unspecified organism Qualified Code(s): J18.9 - Pneumonia, unspecified organism Code(s): J18.9 - Pneumonia, unspecified organism Status: Acute Assessment and Plan: Possible community-acquired pneumonia -continue cefepime and vancomycin (12/01/2021) -will continue to monitor chest x-ray and ABGs -SARS-CoV-2 PCR PCR negative x2 -12/03/2021: CTA chest showed no pulmonary embolism, moderate-sized bilateral pleural effusion, mild scattered ground-glass opacities in the lungs, consistent with mild pulmonary edema versus pneumonia. Moderate emphysema (4) Atrial fibrillation: Qualifiers: Atrial fibrillation type: unspecified Qualified Code(s): I48.91 - Unspecified atrial fibrillation Code(s): I48.91 - Unspecified atrial fibrillation Status: Acute Assessment and Plan: Patient with history of atrial fibrillation, -cardiology evaluated the patient, patient was on Xarelto - diltiazem and metoprolol were discontinued due to patient's blood pressures are lower than in shock - She was started on amiodaron
[2021-12-09 14:51] LABS: Arterial Blood Gas Tidal Volume 350 ml
[2021-12-09 14:52] LABS: Arterial Blood Gas PEEP 14 cmH2O; Arterial Blood Gas Ventilator rate 24 /MIN
[2021-12-09] MEDS: SODIUM BICARBONATE 8.4% 50 MEQ/50 ML SYRINGE 100 MEQ IV PUSH ×2 (15:40→18:10)
[2021-12-09] MEDS: NOREPINEPHRINE 8 MG/D5W 250 ML 8 MG/250 ML BAG 28.13 MG IV CONT (16:00)
[2021-12-09 16:16] LABS: Glucose Point of Care 174 mg/dl (65-105)
[2021-12-09 17:30] LABS: Alveolar/Arterial O2 Gradient 450.7 mmHg; Base Excess ABG -5.5 mEq/l (+/-2.0); Fractional Inspired Oxygen 80 %; Oxygen Content ABG 11.8 %vol (16.0-22.0); PO2 ABG 54.8 mmHg (80.0-100.0); PO2 FiO2 Ratio Arterial Blood 0.69 %
[2021-12-09] MEDS: MIDAZOLAM 100MG/NS 100ML(*CRX) 100 MG/100 ML BAG IV CONT (17:31)
[2021-12-09 17:35] LABS: pH ABG 7.189 (7.350-7.450)
[2021-12-09 17:36] LABS: PCO2 ABG 61.8 mmHg (35.0-45.0)
[2021-12-09 17:37] LABS: Oxygen Saturation ABG 80.1 % (95.0-100.0)
[2021-12-09 17:38] LABS: Oxyhemoglobin 83.9 % THb (90.0-100.0)
[2021-12-09 17:39] LABS: Modified Allen's Test Pass; Site Drawn RIGHT RADIAL
[2021-12-09 17:40] LABS: Device VENTILATOR
[2021-12-09 17:41] LABS: Arterial Blood Gas PEEP 14 cmH2O; Arterial Blood Gas Vent Mode CMV; Arterial Blood Gas Ventilator rate 30 /MIN
[2021-12-09 17:42] LABS: Arterial Blood Gas Pressure Support 0 cmH2O; Arterial Blood Gas Tidal Volume 350 ml
[2021-12-09] MEDS: SENNA/DOCUSATE SODIUM TABLET 1 TAB FEED TUBE (19:58)
[2021-12-09 20:25] LABS: Glucose Point of Care 207 mg/dl (65-105)
[2021-12-09] MEDS: FENTANYL 2,500MCG/NS250ML(*CRX 2,500 MCG/250 ML BAG 15 MCG IV CONT (23:16)
[2021-12-10] VITALS (55 sets, daily range): BP systolic 85–124; BP diastolic 52–81; PULSE 81–120; RESP 16–32; TEMP 36.8–37.8; O2SAT 90–98
[2021-12-10] MEDS: NOREPINEPHRINE 8 MG/D5W 250 ML 8 MG/250 ML BAG 24.38 MG IV CONT (00:10)
[2021-12-10 00:35] LABS: Glucose Point of Care 223 mg/dl (65-105)
[2021-12-10] MEDS: INSULIN ASPART (*BKC) 100 UNITS/ML SUB-Q (00:39)
[2021-12-10] MEDS: ALBUTEROL SULFATE NEB 2.5 MG/0.5 ML INH INHALATION ×4 (02:22→20:41)
[2021-12-10] MEDS: IPRATROPIUM BR 0.02% INH SOLN 0.5 MG/2.5 ML VIAL INHALATION ×4 (02:23→20:41)
[2021-12-10 04:02] LABS: Alveolar/Arterial O2 Gradient 275.6 mmHg; Carboxyhemoglobin 0.3 % THb (0-2.0); Fractional Inspired Oxygen 60 %; HCO3 ABG 22.1 mEq/l (22.0-26.0); Methemoglobin ABG 0.3 %THb (0-1.5); Oxygen Content ABG 14.9 %vol (16.0-22.0); Oxygen Saturation ABG 97.8 % (95.0-100.0); Oxyhemoglobin 96.8 % THb (90.0-100.0); PCO2 ABG 39.7 mmHg (35.0-45.0); PO2 ABG 108.5 mmHg (80.0-100.0); PO2 FiO2 Ratio Arterial Blood 1.81 %; Reduced Hemoglobin 2.6 %THb (0-5.0); Total Hemoglobin 10.8 g/dL (12.0-18.0); pH ABG 7.364 (7.350-7.450)
[2021-12-10 04:03] LABS: Arterial Blood Gas PEEP 14 cmH2O; Arterial Blood Gas Tidal Volume 350 ml; Arterial Blood Gas Vent Mode CMV; Arterial Blood Gas Ventilator rate 30 /MIN; Device VENTILATOR; Modified Allen's Test Unable to perform; Site Drawn RIGHT RADIAL
[2021-12-10 05:25] LABS: Glucose Point of Care 184 mg/dl (65-105)
[2021-12-10 05:37] LABS: Basophils Percent Auto 0.3 % (0.2-1.2); Eosinophils Absolute Auto 0.1 K/mm3 (0-0.3); Eosinophils Percent Auto 0.8 % (0-4.4); Hematocrit 24.5 % (37.0-47.0); Hemoglobin 8.5 g/dL (12.0-15.0); Immature Granulocyte Absolute 0.26 K/mm3 (0.00-0.031); Immature Granulocyte Percent A 2.6 % (0-0.5); Lymphocytes Absolute Auto 0.58 K/mm3 (0.9-3.2); Lymphocytes Percent Auto 5.7 % (18.3-44.2); Mean Corpuscular HGB Conc 34.7 g/dl (32-36); Mean Corpuscular Hemoglobin 31.8 pg (26-34); Mean Corpuscular Volume 91.8 fl (80-100); Mean Platelet Volume 11.2 fl (7.4-10.4); Monocytes Absolute Auto 0.8 K/mm3 (0.1-0.6); Monocytes Percent Auto 8.3 % (2.6-8.5); Neutrophils Absolute Auto 8.3 K/mm3 (1.3-6.7); Neutrophils Percent Auto 82.3 % (45.5-73.1); Nucleated Red Blood Cells Perc 0.3 % (0.0-0.2); Platelet Count Result 196 k/mm3 (150-375); Red Blood Count 2.67 M/mm3 (4.2-5.4); Red Cell Distribution Width 15.2 % (11.5-14.5); White Blood Count 10.1 K/mm3 (4.5-10.0)
[2021-12-10 05:56] LABS: Alanine Aminotransferase 18 U/L (4-35); Albumin Level 2.6 g/dL (3.5-5.1); Alkaline Phosphatase 61 U/L (38-126); Anion Gap 10 mmol/L (8-16); Aspartate Amino Transferase 28 U/L (14-36); Bilirubin,Total 0.5 mg/dL (0.2-1.3); Blood Urea Nitrogen 70 mg/dL (7-17); Calcium 8.6 mg/dL (8.4-10.2); Carbon Dioxide 20 mmol/L (22-30); Chloride 100 mmol/L (98-107); Estimated CRCL calculation 13 ml/min; Estimated Glomerular Filt Rate 13; Glucose 184 mg/dL (65-110); Magnesium 1.8 mg/dL (1.6-2.3); Potassium 5.1 mmol/L (3.4-5.0); Sodium 130 mmol/L (137-145)
[2021-12-10 05:57] LABS: Vancomycin Random 20.6 ug/mL (10-20)
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
[2021-12-10 08:22] LABS: Glucose Point of Care 169 mg/dl (65-105)
[2021-12-10] MEDS: SODIUM POLYSTYRENE SULFONONATE 15 GM/60 ML BTL 30 GM FEED TUBE (09:10)
[2021-12-10] MEDS: polyethylene glycoL 3350 17 GM POWD.PACK FEED TUBE (09:11)
[2021-12-10] MEDS: AMIODARONE HCL 200 MG TABLET PO ×2 (09:11→19:55)
[2021-12-10] MEDS: FAMOTIDINE 20 MG TABLET FEED TUBE ×2 (09:11→16:56)
[2021-12-10] MEDS: ENOXAPARIN 80 MG/0.8 ML SYRINGE 70 MG SUB-Q (09:11)
[2021-12-10] MEDS: SODIUM BICARBONATE TAB 650 MG TABLET PO ×3 (09:12→16:56)
[2021-12-10] MEDS: MINERAL OIL/WHITE PETROLATUM OINTMENT 1 APPLIC EACH EYE ×2 (09:12→19:55)
[2021-12-10] MEDS: INSULIN GLARGINE (*BKC) 100 UNITS/ML 45 UNITS SUB-Q (09:12)
--- NOTE | 2021-12-10 11:03 | WPDINTPN ---
Progress Note: A&P Assessment and Plan (1) Acute hypoxemic respiratory failure: Code(s): J96.01 - Acute respiratory failure with hypoxia Status: Acute Assessment and Plan: Hypoxic respiratory failure likely related to community-acquired pneumonia, CHF, baseline emphysema, pleural effusions Patient presented the ED on 11/25/2021 with shortness of breath, was on BiPAP and has been declining and requiring significant oxygen support. Failed BiPAP 16/6, 100% FiO2 Intubated patient on 12/01/2021 -continue low tidal volume strategy, peep of14 and 60 % FiO2 for now-decrease PEEP to 12 -12/09 due to significant atelectasis in posterior parts of the lung and effusions with compressive atelectasis, I tried placing patient in prone position but it did not work. Patient had high peak pressures limitinng her minute ventilation which led to hypercarbia and acidosis. She required significant amount of sedation to be compliant with ventilation which led to drop in blood pressure requiring vasopressor. No significant improvement in oxygenation seen over multiple hours hence patient was placed back in supine position overnight. -continue bronchodilators - sedated with fentanyl and Versed infusion - COVID-19 negative x2 - 12/05 bronchoscopy was done and BAL collected. Cultures are pending - 12/06 patient underwent right-sided thoracentesis and 1 L fluid was removed - 12/07 patient underwent left-sided thoracentesis and 1 L fluid was removed -chest x-ray done this morning shows persistent bilateral pleural effusions and infiltrates suggestive of pulmonary edema -ABG reviewed -12/[address] IMPRESSION: 1. Bilateral dependent airspace opacities, consistent with atelectasis versus pneumonia. 2. Moderate-sized pleural effusions. 3. Cardiomegaly -12/02/2021: chest abdomen and pelvis showed no pulmonary embolism, moderate-sized bilateral pleural effusion. Mild scattered ground-glass opacities in the lungs, consistent mild pulmonary edema versus pneumonia, moderate emphysema. Gallbladder distention and gallbladder wall thickening, small volume ascites, mild aorto caval lymphadenopathy, likely reactive (2) Shock: Code(s): R57.9 - Shock, unspecified Status: Acute Assessment and Plan: Currently on Levophed Patient has been on and off Levophed this is likely secondary to sedation Will try to decrease sedation on mechanical ventilation and try to wean off Levophed -11/25 blood cultures grew group B Streptococcus. -11/30/2021: Repeat blood cultures negative x2, preliminary results -11/29/2021 urine cultures are negative -continue cefepime (12/01/2021). Vancomycin held as patient's renal function is worsening and cultures have been negative (3) Pneumonia: Qualifiers: Laterality: unspecified laterality Lung location: unspecified part of lung Pneumonia type: due to unspecified organism Qualified Code(s): J18.9 - Pneumonia, unspecified organism Code(s): J18.9 - Pneumonia, unspecified organism Status: Acute Assessment and Plan: Possible community-acquired pneumonia -continue cefepime and vancomycin (12/01/2021) -will continue to monitor chest x-ray and ABGs -SARS-CoV-2 PCR PCR negative x2 -12/03/2021: CTA chest showed no pulmonary embolism, moderate-sized bilateral pleural effusion, mild scattered ground-glass opacities in the lungs, consistent with mild pulmonary edema versus pneumonia. Moderate emphysema -12/[address] IMPRESSION: 1. Bilateral dependent airspace opacities, consistent with atelectasis versus pneumonia. 2. Moderate-sized pleural effusions. 3. Cardiomegaly (4) Atrial fibrillation: Qualifiers: Atrial fibrillation type: unspecified Qualified Code(s): I48.91 - Unspecified atrial fibrillation Code(s): I48.91 - Unspecified atrial fibrillation Status: Acute Assessment and Plan: Patient with history of atrial fibrillation, -cardiology evaluated the
[2021-12-10 11:08] LABS: pH ABG 7.072 (7.350-7.450)
[2021-12-10 11:09] LABS: Alveolar/Arterial O2 Gradient 532.9 mmHg; Base Excess ABG -10.6 mEq/l (+/-2.0); Device VENTILATOR; Fractional Inspired Oxygen 100 %; HCO3 ABG 19.9 mEq/l (22.0-26.0); Oxygen Content ABG 14.4 %vol (16.0-22.0); Oxygen Saturation ABG 95.7 % (95.0-100.0); Oxyhemoglobin 95.5 % THb (90.0-100.0); PCO2 ABG 69.9 mmHg (35.0-45.0); PO2 ABG 110.2 mmHg (80.0-100.0); Total Hemoglobin 10.6 g/dL (12.0-18.0)
[2021-12-10 11:10] LABS: Arterial Blood Gas PEEP 14 cmH2O; Arterial Blood Gas Tidal Volume 350 ml; Arterial Blood Gas Vent Mode CMV; Arterial Blood Gas Ventilator rate 28 /MIN
--- NOTE | 2021-12-10 11:33 | PCFNICU ---
ICU Rounding Note: Pt current nutrition is Vital AF 1.2 at 35 ml/hr. Nutrition recommendation: Goal rate at 55 ml/hr over 22 hours. Last recorded weight is 76.7 kg, up from 64.6 kg on admit. Bowel Motility: colostomy output. Labs Reviewed:Glu 184, BUN 70, Cr 3.4, K 5.1,Na 130, Alb 2.6,Hct 24.5,Hgb 8.5 Meds Noted:Fentanyl, Versed, Levophed, Lantus, Pacerone, Pepcid,Miralax. Skin: WNL Additional Notes: Patient currently on mechanical vent and tube feedings of Vital AF 1.2 at 35 ml/hr. High residuals reported overnight, tube feedings held. Per nursing current tube feeding is at 35 ml/hr with plans to increase to goal rate of 55 ml/hr. Recommend: Reglan for GI motility. Agree with diet orders. Following daily in ICU rounds. Will monitor every Friday and Friday.
--- NOTE | 2021-12-10 12:09 | PM.PNNEP ---
Progress Note: A&P Assessment and Plan (1) DIANA (acute kidney injury): Code(s): N17.9 - Acute kidney failure, unspecified Status: Acute Assessment and Plan: suspect due to ATN from: contrast exposure (CT scan head/chest/abdomen/pelvis on 12/02/21) possible prerenal factors hemodynamic instability/hypotension infection (bacteremia) creatinine continues to decline no critical electrolytes at this time bicarb added to compensate for acidosis however, volume status/fluid overload somewhat of an issue - re-attempt diuretics? follow repeat labs and UOP (2) Acute hypoxemic respiratory failure: Code(s): J96.01 - Acute respiratory failure with hypoxia Status: Acute Assessment and Plan: related to pneumonia, CHF, COPD, and bilateral pleural effusions intubated since 12/01/21 COVID-19 negative x 2 s/p bronchoscopy on 12/05/21 s/p bilateral thoracentesis (right on 12/06/21, left on 12/07/21 - 1L removed from each side) still with evidence of pulmonary edema/effusions despite this intervention agree with ongoing attempts at diuresis/IV diuretics despite DIANA/ARF follow CXR and imaging may need to consider DUF/HD just for fluid removal if unresponsive to diuretic therapy (3) Congestive heart failure: Code(s): I50.9 - Heart failure, unspecified Status: Acute Assessment and Plan: likely also playing a role with #2 repeat echo noted - severe concentric increased left ventricular wall thickness. Resting LVOT gradient of peak 20 mmHg and mean 9 mmHg suggests mild obstruction. Moderate aortic stenosis and severe mitral valve stenosis with significant calcification this probably explains her propensity for pulmonary edema and recurrent pleural effusions and likely poor response to diuretics unfortunately, transfer for Cardiothoracic Surgery evaluation not possible due to lack of ICU beds at multiple hospitals Cardiology following (4) Shock: Code(s): R57.9 - Shock, unspecified Status: Acute Assessment and Plan: on and off Levophed more so due to sedation than infection/sepsis wean as tolerated due to positive pressure ventilation following intubation versus sepsis versus sedation s/p adequate amount of IV fluids blood cultures (11/25/21) with Group B strep - repeat blood culture negative urine culture negative continue antibiotics (5) Pneumonia: Qualifiers: Laterality: unspecified laterality Lung location: unspecified part of lung Pneumonia type: due to unspecified organism Qualified Code(s): J18.9 - Pneumonia, unspecified organism Code(s): J18.9 - Pneumonia, unspecified organism Status: Acute Assessment and Plan: as suggestive by imaging to date on antibiotics follow CXR and ABG results (6) Atrial fibrillation: Qualifiers: Atrial fibrillation type: unspecified Qualified Code(s): I48.91 - Unspecified atrial fibrillation Code(s): I48.91 - Unspecified atrial fibrillation Status: Chronic Assessment and Plan: chronic issue on amiodarone along with anticoagulation Cardiology following (7) Diabetes: Code(s): E11.9 - Type 2 diabetes mellitus without complications Status: Chronic Assessment and Plan: follow accu-Cheks on SSI and Lantus Will continue to follow. Subjective Date/time seen: 12/10/21 12:09 Back on levophed at the time of my visit with relative stability in hemodynamics; renal function continues to deteriorate and urine output decreasing (although diuretics were held over the last 24 hours); remains intubated/sedated with ongoing need for ventilator support; no other events overnight or earlier this AM. Exam Narrative: General: ill appearing female intubated/sedated but in NAD Heart: tachycardic, normal S1 and S2; no rub Lungs: coarse breath sounds throughout Abdomen: soft, nontender, nondistended, positive b
--- NOTE | 2021-12-10 12:09 | P.PNNP_ITS ---
Progress Note: A&P Assessment and Plan (1) DIANA (acute kidney injury): Code(s): N17.9 - Acute kidney failure, unspecified Status: Acute Assessment and Plan: * suspect due to ATN from: * contrast exposure (CT scan head/chest/abdomen/pelvis on 12/02/21) * possible prerenal factors * hemodynamic instability/hypotension * infection (bacteremia) * creatinine continues to decline * no critical electrolytes at this time * bicarb added to compensate for acidosis * however, volume status/fluid overload somewhat of an issue - re-attempt diuretics? * follow repeat labs and UOP (2) Acute hypoxemic respiratory failure: Code(s): J96.01 - Acute respiratory failure with hypoxia Status: Acute Assessment and Plan: * related to pneumonia, CHF, COPD, and bilateral pleural effusions * intubated since 12/01/21 * COVID-19 negative x 2 * s/p bronchoscopy on 12/05/21 * s/p bilateral thoracentesis (right on 12/06/21, left on 12/07/21 - 1L removed from each side) * still with evidence of pulmonary edema/effusions despite this intervention * agree with ongoing attempts at diuresis/IV diuretics despite DIANA/ARF * follow CXR and imaging * may need to consider DUF/HD just for fluid removal if unresponsive to diuretic therapy (3) Congestive heart failure: Code(s): I50.9 - Heart failure, unspecified Status: Acute Assessment and Plan: * likely also playing a role with #2 * repeat echo noted - severe concentric increased left ventricular wall thickness. Resting LVOT gradient of peak 20 mmHg and mean 9 mmHg suggests mild obstruction. Moderate aortic stenosis and severe mitral valve stenosis with significant calcification * this probably explains her propensity for pulmonary edema and recurrent pleural effusions and likely poor response to diuretics * unfortunately, transfer for Cardiothoracic Surgery evaluation not possible due to lack of ICU beds at multiple hospitals * Cardiology following (4) Shock: Code(s): R57.9 - Shock, unspecified Status: Acute Assessment and Plan: * on and off Levophed more so due to sedation than infection/sepsis * wean as tolerated * due to positive pressure ventilation following intubation versus sepsis versus sedation * s/p adequate amount of IV fluids * blood cultures (11/25/21) with Group B strep - repeat blood culture negative * urine culture negative * continue antibiotics (5) Pneumonia: Qualifiers: Laterality: unspecified laterality Lung location: unspecified part of lung Pneumonia type: due to unspecified organism Qualified Code(s): J18.9 - Pneumonia, unspecified organism Code(s): J18.9 - Pneumonia, unspecified organism Status: Acute Assessment and Plan: * as suggestive by imaging to date * on antibiotics * follow CXR and ABG results (6) Atrial fibrillation: Qualifiers: Atrial fibrillation type: unspecified Qualified Code(s): I48.91 - Unspecified atrial fibrillation Code(s): I48.91 - Unspecified atrial fibrillation Status: Chronic Assessment and Plan: * chronic issue * on amiodarone along with anticoagulation * Cardiology following (7) Diabetes: Code(s): E11.9 - Type 2 diabetes mellitus without complications Status: Chronic Assessment and Plan: * follow accu-Cheks * on SSI and Lantus Will continue to follow. Subjective Date/time seen: 12/10/21 12:09 Back on levophed at the time of my visit with relative stabil
[2021-12-10] MEDS: ALTEPLASE 2 MG VIAL (CATHFLO) IV PUSH ×4 (12:24→15:43)
[2021-12-10 12:46] LABS: Glucose Point of Care 156 mg/dl (65-105)
[2021-12-10] MEDS: NOREPINEPHRINE 8 MG/D5W 250 ML 8 MG/250 ML BAG 11.25 MG IV CONT (13:31)
[2021-12-10 16:11] LABS: Glucose Point of Care 157 mg/dl (65-105)
[2021-12-10] MEDS: FENTANYL 2,500MCG/NS250ML(*CRX 2,500 MCG/250 ML BAG 10 MCG IV CONT (18:30)
[2021-12-10] MEDS: MIDAZOLAM 100MG/NS 100ML(*CRX) 100 MG/100 ML BAG IV CONT (18:31)
[2021-12-10] MEDS: SENNA/DOCUSATE SODIUM TABLET 1 TAB FEED TUBE (19:55)
[2021-12-10 20:52] LABS: Glucose Point of Care 165 mg/dl (65-105)
[2021-12-11] VITALS (44 sets, daily range): BP systolic 91–131; BP diastolic 56–90; PULSE 90–124; RESP 29–40; TEMP 36.7–37; O2SAT 89–98
[2021-12-11 00:12] LABS: Glucose Point of Care 157 mg/dl (65-105)
[2021-12-11] MEDS: ALBUTEROL SULFATE NEB 2.5 MG/0.5 ML INH INHALATION ×4 (01:59→21:09)
[2021-12-11] MEDS: IPRATROPIUM BR 0.02% INH SOLN 0.5 MG/2.5 ML VIAL INHALATION ×4 (01:59→21:09)
[2021-12-11 04:24] LABS: Alveolar/Arterial O2 Gradient 274.5 mmHg; Base Excess ABG -2.6 mEq/l (+/-2.0); Carboxyhemoglobin 0.3 % THb (0-2.0); Fractional Inspired Oxygen 55 %; HCO3 ABG 22.6 mEq/l (22.0-26.0); Methemoglobin ABG 0.3 %THb (0-1.5); Oxygen Content ABG 12.4 %vol (16.0-22.0); Oxygen Saturation ABG 94.1 % (95.0-100.0); Oxyhemoglobin 92.4 % THb (90.0-100.0); PCO2 ABG 40.8 mmHg (35.0-45.0); PO2 ABG 72.3 mmHg (80.0-100.0); PO2 FiO2 Ratio Arterial Blood 1.31 %; Total Hemoglobin 9.5 g/dL (12.0-18.0); pH ABG 7.362 (7.350-7.450)
[2021-12-11 04:25] LABS: Modified Allen's Test Pass; Site Drawn RIGHT RADIAL
[2021-12-11 04:26] LABS: Arterial Blood Gas PEEP 12 cmH2O; Arterial Blood Gas Vent Mode CMV; Arterial Blood Gas Ventilator rate 30 /MIN; Device VENTILATOR
[2021-12-11 04:27] LABS: Arterial Blood Gas Tidal Volume 350 ml
[2021-12-11 05:01] LABS: Hemoglobin 7.6 g/dL (12.0-15.0); Mean Corpuscular Hemoglobin 30.9 pg (26-34); Mean Corpuscular Volume 93.5 fl (80-100); Mean Platelet Volume 10.9 fl (7.4-10.4); Platelet Count Result 197 k/mm3 (150-375); Red Blood Count 2.46 M/mm3 (4.2-5.4); Red Cell Distribution Width 15.4 % (11.5-14.5); White Blood Count 8.8 K/mm3 (4.5-10.0)
[2021-12-11 05:15] LABS: Alanine Aminotransferase 17 U/L (4-35); Albumin Level 2.6 g/dL (3.5-5.1); Alkaline Phosphatase 72 U/L (38-126); Anion Gap 12 mmol/L (8-16); Aspartate Amino Transferase 21 U/L (14-36); Bilirubin,Total 0.4 mg/dL (0.2-1.3); Blood Urea Nitrogen 73 mg/dL (7-17); Calcium 8.4 mg/dL (8.4-10.2); Carbon Dioxide 22 mmol/L (22-30); Chloride 94 mmol/L (98-107); Estimated CRCL calculation 11 ml/min; Estimated Glomerular Filt Rate 10; Glucose 152 mg/dL (65-110); Magnesium 1.8 mg/dL (1.6-2.3); Potassium 4.5 mmol/L (3.4-5.0); Sodium 128 mmol/L (137-145)
[2021-12-11 05:24] LABS: Atypical Lymphocytes Present; Band Neutrophils Percent 7 % (0-6); Lymphocytes Absolute Manual 0.52 K/mm3 (1.1-4.5); Monocytes Absolute Manual 0.08 K/mm3 (0.1-0.90); Monocytes Percent Manual 1 % (3-9); Neutrophils Absolute Manual 8.18 K/mm3 (1.7-7.2); Neutrophils Percent Manual 86 % (46-73); Nucleated Red Blood Cells 1 %; Platelet Estimate Adequate (Adequate); Total Cells Counted 100
[2021-12-11 07:36] LABS: Glucose Point of Care 142 mg/dl (65-105)
--- NOTE | 2021-12-11 08:07 | PM.PNCARD ---
Progress Note: A&P Assessment and Plan (1) Shock: Code(s): R57.9 - Shock, unspecified Status: Acute Assessment and Plan: Probably due to respiratory failure and sedation with intubation. On and off Levophed drip. Echo 11/27/21 shows normal EF 65-70%, diastolic function indeterminate, mild , consider mod MS. Pleural effusions reaccumulating, kidney function worsening with Cr 2.1/GFR 21, sodium 128, Hb 8.6. Recheck echo on 12/08/20 shows EF 65-70%, severe LVH, mild LVOT obstruction with mean gradient of 9 mmHg, significant diastolic dysfunction with E/e' 40, mild RV hypokinesis, severe LAE, mod (AKIKO 1.4 cm2), severe MAC and severe MV calcification, severe MS based on visual estimation and mean gradient of 15 mmHg, geospatial technician unable to calculate MVA from continuity equation, mild MR, small pericardial effusion. Offered to perform HEIDY to better visualize mitral valve and better characterize mitral stenosis. However, after lengthy discussion with her daughter she did not want her mother to have the procedure thinking that if she gets transferred to a facility to have MV replacement she would end up having another HEIDY. This may or may not be the case. (2) Aortic stenosis: Code(s): I35.0 - Nonrheumatic aortic (valve) stenosis Status: Acute Assessment and Plan: Moderate. (3) Atrial fibrillation: Qualifiers: Atrial fibrillation type: unspecified Qualified Code(s): I48.91 - Unspecified atrial fibrillation Code(s): I48.91 - Unspecified atrial fibrillation Status: Acute Assessment and Plan: Persistent atrial fib. Rate controlled. On Amiodarone drip to control HR due to hypotension and unable to use Diltiazem or Metoprolol. Had bronchoscopy and bilateral thoracentesis removing 1 liter from each. Was on Xarelto 15 mg daily given worsening kidney function. She did cardiovert with Amiodarone drip but back in atrial fibrillation. On Amiodarone 200 mg PO BID to attempt to maintain sinus rhythm and if not, then to control HR. Due to having significant mitral stenosis, this is now consider valvular atrial fibrillation, in which case NOAC are not indicated. She would need to be on Lovenox or Warfarin. While in ICU, would change it over to once daily Lovenox given renal function. (4) Smoking: Code(s): F17.200 - Nicotine dependence, unspecified, uncomplicated Status: Acute (5) Hyperlipemia: Qualifiers: Hyperlipidemia type: unspecified Qualified Code(s): E78.5 - Hyperlipidemia, unspecified Code(s): E78.5 - Hyperlipidemia, unspecified Status: Acute (6) Hypertension: Qualifiers: Hypertension type: primary hypertension Qualified Code(s): I10 - Essential (primary) hypertension Code(s): I10 - Essential (primary) hypertension Status: Acute (7) Diabetes type 2, controlled: Qualifiers: Diabetes mellitus prison insulin use: without rodent exterminator use Diabetes mellitus complication status: without complication Qualified Code(s): E11.9 - Type 2 diabetes mellitus without complications Code(s): E11.9 - Type 2 diabetes mellitus without complications Status: Chronic (8) Respiratory failure: Code(s): J96.90 - Respiratory failure, unspecified, unspecified whether with hypoxia or hypercapnia Status: Acute Assessment and Plan: Probably due to COPD/Pneumonia. She does have underlying diastolic dysfunction and mitral stenosis. Await BAL cultures. (9) Mitral stenosis: Code(s): I05.0 - Rheumatic mitral stenosis Status: Acute Assessment and Plan: Discuss with global chief experience officer, Dr. Graham, that given significant pleural effusion that is beginning to reaccumulate after bilateral thoracentesis, and she has significant mitral stenosis, patient should be transferred to a higher acuity hospital capable of treating mitral stenosis such as Mitral valve replacement or with balloon commissur
[2021-12-11] MEDS: ENOXAPARIN 80 MG/0.8 ML SYRINGE 70 MG SUB-Q (08:18)
[2021-12-11] MEDS: FAMOTIDINE 20 MG TABLET FEED TUBE ×2 (08:18→17:11)
[2021-12-11] MEDS: SODIUM BICARBONATE TAB 650 MG TABLET PO ×3 (08:19→17:11)
[2021-12-11] MEDS: MINERAL OIL/WHITE PETROLATUM OINTMENT 1 APPLIC EACH EYE ×2 (08:19→20:01)
[2021-12-11] MEDS: polyethylene glycoL 3350 17 GM POWD.PACK FEED TUBE (08:19)
[2021-12-11] MEDS: INSULIN GLARGINE (*BKC) 100 UNITS/ML 45 UNITS SUB-Q (08:22)
[2021-12-11] MEDS: AMIODARONE HCL 200 MG TABLET PO ×2 (08:36→20:02)
[2021-12-11] MEDS: ALBUMIN HUMAN 25% 25 GM/100 ML 100 ML IVPB ×4 (08:43→23:46)
--- NOTE | 2021-12-11 10:53 | PCNFU ---
Nutrition Follow-Up Complete: Inadequate Oral Intake as related to mechanical ventilation as evidenced by NPO goal: Meet estimated nutritional needs Progressing towards goal. We will continue current goal. Pt current nutrition is Vital AF 1.2 at 55 ml/hr over 22 hours. Last recorded weight is 77.4 kg, up from 64.6 kg on admit. Bowel Motility:colostomy Labs Reviewed:Glu 152, BUN 73, Cr 4.2,GFR 10, Alb 2.6,Hct 23.0,Hgb 7.6 Meds Noted:Fentanyl, Versed, Pacerone, Pepcid, Lantus, NovoLog, Atrovent, Levophed, Miralax Skin: WNL Additional Notes: Patient remains on mechanical vent and tube feedings of Vital AF 1.2 at 55 ml/hr and tolerating per nursing. Current tube feeding is providing 1452 kcals/91 gms protein/981 ml water. Free water flush 30 ml q 4 hours. Agree with diet order at this time. Will follow in ICU rounds and reassessing every Friday and Friday.
--- NOTE | 2021-12-11 11:14 | PM.PNNEP ---
Progress Note: A&P Assessment and Plan (1) DIANA (acute kidney injury): Code(s): N17.9 - Acute kidney failure, unspecified Status: Acute Assessment and Plan: suspect due to ATN from: contrast exposure (CT scan head/chest/abdomen/pelvis on 12/02/21) possible prerenal factors hemodynamic instability/hypotension infection (bacteremia) creatinine continues to decline no critical electrolytes at this time bicarb added to compensate for acidosis however, volume status/fluid overload somewhat of an issue - re-attempt diuretics? remains at high risk for requiring VISUAL EDUCATION DIRECTOR/dialysis at this time follow repeat labs and UOP (2) Acute hypoxemic respiratory failure: Code(s): J96.01 - Acute respiratory failure with hypoxia Status: Acute Assessment and Plan: related to pneumonia, CHF, COPD, and bilateral pleural effusions intubated since 12/01/21 COVID-19 negative x 2 s/p bronchoscopy on 12/05/21 s/p bilateral thoracentesis (right on 12/06/21, left on 12/07/21 - 1L removed from each side) still with evidence of pulmonary edema/effusions despite this intervention agree with ongoing attempts at diuresis/IV diuretics despite DIANA/ARF follow CXR and imaging may need to consider DUF/HD just for fluid removal if unresponsive to diuretic therapy (3) Congestive heart failure: Code(s): I50.9 - Heart failure, unspecified Status: Acute Assessment and Plan: likely also playing a role with #2 repeat echo noted - severe concentric increased left ventricular wall thickness. Resting LVOT gradient of peak 20 mmHg and mean 9 mmHg suggests mild obstruction. Moderate aortic stenosis and severe mitral valve stenosis with significant calcification this probably explains her propensity for pulmonary edema and recurrent pleural effusions and likely poor response to diuretics unfortunately, transfer for Cardiothoracic Surgery evaluation not possible due to lack of ICU beds at multiple hospitals Cardiology following (4) Shock: Code(s): R57.9 - Shock, unspecified Status: Acute Assessment and Plan: on and off Levophed more so due to sedation than infection/sepsis wean as tolerated due to positive pressure ventilation following intubation versus sepsis versus sedation s/p adequate amount of IV fluids blood cultures (11/25/21) with Group B strep - repeat blood culture negative urine culture negative continue antibiotics (5) Pneumonia: Qualifiers: Laterality: unspecified laterality Lung location: unspecified part of lung Pneumonia type: due to unspecified organism Qualified Code(s): J18.9 - Pneumonia, unspecified organism Code(s): J18.9 - Pneumonia, unspecified organism Status: Acute Assessment and Plan: as suggestive by imaging to date on antibiotics follow CXR and ABG results (6) Atrial fibrillation: Qualifiers: Atrial fibrillation type: unspecified Qualified Code(s): I48.91 - Unspecified atrial fibrillation Code(s): I48.91 - Unspecified atrial fibrillation Status: Chronic Assessment and Plan: chronic issue on amiodarone along with anticoagulation Cardiology following (7) Diabetes: Code(s): E11.9 - Type 2 diabetes mellitus without complications Status: Chronic Assessment and Plan: follow accu-Cheks on SSI and Lantus Will continue to follow. Subjective Date/time seen: 12/11/21 11:14 Remains on ventilator support as well as levophed to maintain MAP; remains intubated and sedated; renal function continues to deteriorate with minimal urine output; no real significant change in comparison to when I saw her yesterday; no issues/events overnight or earlier this AM. Exam Narrative: General: ill appearing female intubated/sedated but in NAD Heart: tachycardic, normal S1 and S2; no rub Lungs: coarse breath sounds throughout Abdomen: soft, nontender
--- NOTE | 2021-12-11 11:14 | P.PNNP_ITS ---
Progress Note: A&P Assessment and Plan (1) DIANA (acute kidney injury): Code(s): N17.9 - Acute kidney failure, unspecified Status: Acute Assessment and Plan: * suspect due to ATN from: * contrast exposure (CT scan head/chest/abdomen/pelvis on 12/02/21) * possible prerenal factors * hemodynamic instability/hypotension * infection (bacteremia) * creatinine continues to decline * no critical electrolytes at this time * bicarb added to compensate for acidosis * however, volume status/fluid overload somewhat of an issue - re-attempt diuretics? * remains at high risk for requiring MEDICAL TYPIST/dialysis at this time * follow repeat labs and UOP (2) Acute hypoxemic respiratory failure: Code(s): J96.01 - Acute respiratory failure with hypoxia Status: Acute Assessment and Plan: * related to pneumonia, CHF, COPD, and bilateral pleural effusions * intubated since 12/01/21 * COVID-19 negative x 2 * s/p bronchoscopy on 12/05/21 * s/p bilateral thoracentesis (right on 12/06/21, left on 12/07/21 - 1L removed from each side) * still with evidence of pulmonary edema/effusions despite this intervention * agree with ongoing attempts at diuresis/IV diuretics despite DIANA/ARF * follow CXR and imaging * may need to consider DUF/HD just for fluid removal if unresponsive to diuretic therapy (3) Congestive heart failure: Code(s): I50.9 - Heart failure, unspecified Status: Acute Assessment and Plan: * likely also playing a role with #2 * repeat echo noted - severe concentric increased left ventricular wall thickness. Resting LVOT gradient of peak 20 mmHg and mean 9 mmHg suggests mild obstruction. Moderate aortic stenosis and severe mitral valve stenosis with significant calcification * this probably explains her propensity for pulmonary edema and recurrent pleural effusions and likely poor response to diuretics * unfortunately, transfer for Cardiothoracic Surgery evaluation not possible due to lack of ICU beds at multiple hospitals * Cardiology following (4) Shock: Code(s): R57.9 - Shock, unspecified Status: Acute Assessment and Plan: * on and off Levophed more so due to sedation than infection/sepsis * wean as tolerated * due to positive pressure ventilation following intubation versus sepsis versus sedation * s/p adequate amount of IV fluids * blood cultures (11/25/21) with Group B strep - repeat blood culture negative * urine culture negative * continue antibiotics (5) Pneumonia: Qualifiers: Laterality: unspecified laterality Lung location: unspecified part of lung Pneumonia type: due to unspecified organism Qualified Code(s): J18.9 - Pneumonia, unspecified organism Code(s): J18.9 - Pneumonia, unspecified organism Status: Acute Assessment and Plan: * as suggestive by imaging to date * on antibiotics * follow CXR and ABG results (6) Atrial fibrillation: Qualifiers: Atrial fibrillation type: unspecified Qualified Code(s): I48.91 - Unspecified atrial fibrillation Code(s): I48.91 - Unspecified atrial fibrillation Status: Chronic Assessment and Plan: * chronic issue * on amiodarone along with anticoagulation * Cardiology following (7) Diabetes: Code(s): E11.9 - Type 2 diabetes mellitus without complications Status: Chronic Assessment and Plan: * follow accu-Cheks * on SSI and Lantus Will continue to follow. Subjective Date/time seen: 12/11/21 11:14
[2021-12-11 12:16] LABS: Glucose Point of Care 178 mg/dl (65-105)
--- NOTE | 2021-12-11 12:36 | WPDINTPN ---
Progress Note: A&P Assessment and Plan (1) Acute hypoxemic respiratory failure: Code(s): J96.01 - Acute respiratory failure with hypoxia Status: Acute Assessment and Plan: Hypoxic respiratory failure likely related to community-acquired pneumonia, CHF, baseline emphysema, pleural effusions Patient presented the ED on 11/25/2021 with shortness of breath, was on BiPAP and has been declining and requiring significant oxygen support. Failed BiPAP 16/6, 100% FiO2 Intubated patient on 12/01/2021 -continue low tidal volume strategy, peep of14 and 60 % FiO2 for now-decrease PEEP to 12 -12/09 due to significant atelectasis in posterior parts of the lung and effusions with compressive atelectasis, I tried placing patient in prone position but it did not work. Patient had high peak pressures limiting her minute ventilation which led to hypercarbia and acidosis. She required significant amount of sedation to be compliant with ventilation which led to drop in blood pressure requiring vasopressor. No significant improvement in oxygenation seen over multiple hours hence patient was placed back in supine position overnight. -continue bronchodilators - sedated with fentanyl and Versed infusion - COVID-19 negative x2 - 12/05 bronchoscopy was done and BAL collected. Cultures are pending - 12/06 patient underwent right-sided thoracentesis and 1 L fluid was removed - 12/07 patient underwent left-sided thoracentesis and 1 L fluid was removed -pleural fluid was transudate although some of the studies are pending -chest x-ray done this morning shows persistent bilateral pleural effusions and infiltrates suggestive of pulmonary edema -ABG reviewed -may need repeat thoracentesis as patient has not been responsive to diuretics. -12/[address] IMPRESSION: 1. Bilateral dependent airspace opacities, consistent with atelectasis versus pneumonia. 2. Moderate-sized pleural effusions. 3. Cardiomegaly -12/02/2021: chest abdomen and pelvis showed no pulmonary embolism, moderate-sized bilateral pleural effusion. Mild scattered ground-glass opacities in the lungs, consistent mild pulmonary edema versus pneumonia, moderate emphysema. Gallbladder distention and gallbladder wall thickening, small volume ascites, mild aorto caval lymphadenopathy, likely reactive (2) Shock: Code(s): R57.9 - Shock, unspecified Status: Acute Assessment and Plan: Currently on Levophed Patient has been on and off Levophed this is likely secondary to sedation Will try to decrease sedation on mechanical ventilation and try to wean off Levophed -11/25 blood cultures grew group B Streptococcus. -11/30/2021: Repeat blood cultures negative x2, preliminary results -11/29/2021 urine cultures are negative -continue cefepime (12/01/2021). Vancomycin held as patient's renal function is worsening and cultures have been negative (3) Pneumonia: Qualifiers: Laterality: unspecified laterality Lung location: unspecified part of lung Pneumonia type: due to unspecified organism Qualified Code(s): J18.9 - Pneumonia, unspecified organism Code(s): J18.9 - Pneumonia, unspecified organism Status: Acute Assessment and Plan: Possible community-acquired pneumonia -continue cefepime and vancomycin (12/01/2021) -will continue to monitor chest x-ray and ABGs -SARS-CoV-2 PCR PCR negative x2 -12/03/2021: CTA chest showed no pulmonary embolism, moderate-sized bilateral pleural effusion, mild scattered ground-glass opacities in the lungs, consistent with mild pulmonary edema versus pneumonia. Moderate emphysema -12/[address] IMPRESSION: 1. Bilateral dependent airspace opacities, consistent with atelectasis versus pneumonia. 2. Moderate-sized pleural effusions. 3. Cardiomegaly -afebrile and WBC has improved (4) Atrial fibrillation: Qualifiers: Atrial fibrillation type: unspecified Qualified Code(s): I48.91 - Unspecified atrial fibrill
[2021-12-11] MEDS: CENTRAL LINE FLUSH 10 ML IV PUSH ×2 (12:40→20:02)
--- NOTE | 2021-12-11 13:29 | PC.NURSE ---
1022- [facility] in [place] called to see about bed availability per patient's daughter request. Message left with Odette. Awaiting return call
[2021-12-11 16:48] LABS: Glucose Point of Care 192 mg/dl (65-105)
[2021-12-11] MEDS: SENNA/DOCUSATE SODIUM TABLET 1 TAB FEED TUBE (20:01)
[2021-12-11 20:29] LABS: Glucose Point of Care 160 mg/dl (65-105)
[2021-12-11 23:56] LABS: Glucose Point of Care 143 mg/dl (65-105)
[2021-12-12] VITALS (52 sets, daily range): BP systolic 75–119; BP diastolic 51–78; PULSE 87–121; RESP 18–35; TEMP 36–36.9; O2SAT 90–99
[2021-12-12] MEDS: IPRATROPIUM BR 0.02% INH SOLN 0.5 MG/2.5 ML VIAL INHALATION ×4 (03:01→21:01)
[2021-12-12] MEDS: ALBUTEROL SULFATE NEB 2.5 MG/0.5 ML INH INHALATION ×4 (03:01→21:01)
[2021-12-12 04:30] LABS: Basophils Percent Auto 0.1 % (0.2-1.2); Eosinophils Absolute Auto 0.1 K/mm3 (0-0.3); Eosinophils Percent Auto 0.7 % (0-4.4); Hematocrit 21.1 % (37.0-47.0); Immature Granulocyte Absolute 0.13 K/mm3 (0.00-0.031); Immature Granulocyte Percent A 1.7 % (0-0.5); Mean Corpuscular HGB Conc 32.7 g/dl (32-36); Mean Corpuscular Hemoglobin 31.5 pg (26-34); Mean Corpuscular Volume 96.3 fl (80-100); Mean Platelet Volume 11.2 fl (7.4-10.4); Monocytes Absolute Auto 0.4 K/mm3 (0.1-0.6); Monocytes Percent Auto 4.9 % (2.6-8.5); Neutrophils Absolute Auto 6.7 K/mm3 (1.3-6.7); Neutrophils Percent Auto 88.6 % (45.5-73.1); Nucleated Red Blood Cells Perc 0.5 % (0.0-0.2); Platelet Count Result 146 k/mm3 (150-375); Red Blood Count 2.19 M/mm3 (4.2-5.4); Red Cell Distribution Width 15.6 % (11.5-14.5); White Blood Count 7.6 K/mm3 (4.5-10.0)
[2021-12-12 04:52] LABS: Alanine Aminotransferase 15 U/L (4-35); Albumin Level 3.9 g/dL (3.5-5.1); Alkaline Phosphatase 58 U/L (38-126); Anion Gap 17 mmol/L (8-16); Aspartate Amino Transferase 18 U/L (14-36); Bilirubin,Total 0.6 mg/dL (0.2-1.3); Blood Urea Nitrogen 84 mg/dL (7-17); Calcium 8.8 mg/dL (8.4-10.2); Carbon Dioxide 22 mmol/L (22-30); Chloride 94 mmol/L (98-107); Estimated CRCL calculation 10 ml/min; Estimated Glomerular Filt Rate 9; Glucose 121 mg/dL (65-110); Magnesium 1.9 mg/dL (1.6-2.3); Potassium 4.8 mmol/L (3.4-5.0); Sodium 133 mmol/L (137-145)
[2021-12-12 04:56] LABS: Vancomycin Random 18.3 ug/mL (10-20)
[2021-12-12 05:34] LABS: Hemoglobin 6.9 g/dL (12.0-15.0)
[2021-12-12 05:35] LABS: Alveolar/Arterial O2 Gradient 379.1 mmHg; Base Excess ABG -5.5 mEq/l (+/-2.0); Carboxyhemoglobin 0.3 % THb (0-2.0); Fractional Inspired Oxygen 70 %; HCO3 ABG 21.5 mEq/l (22.0-26.0); Methemoglobin ABG 0.3 %THb (0-1.5); Oxygen Content ABG 10.1 %vol (16.0-22.0); Oxygen Saturation ABG 89.7 % (95.0-100.0); PCO2 ABG 50.1 mmHg (35.0-45.0); PO2 ABG 66.1 mmHg (80.0-100.0); PO2 FiO2 Ratio Arterial Blood 0.94 %; Reduced Hemoglobin 11.7 %THb (0-5.0); Total Hemoglobin 8.1 g/dL (12.0-18.0)
[2021-12-12 05:37] LABS: Device VENTILATOR; Modified Allen's Test Pass; Oxyhemoglobin 87.7 % THb (90.0-100.0); Site Drawn RIGHT RADIAL
[2021-12-12 05:38] LABS: Arterial Blood Gas PEEP 12 cmH2O; Arterial Blood Gas Tidal Volume 350 ml; Arterial Blood Gas Vent Mode CMV; Arterial Blood Gas Ventilator rate 30 /MIN
[2021-12-12] MEDS: CENTRAL LINE FLUSH 10 ML IV PUSH ×3 (05:59→20:15)
[2021-12-12 07:32] LABS: Glucose Point of Care 147 mg/dl (65-105)
[2021-12-12] MEDS: SODIUM BICARBONATE 8.4% 50 MEQ/50 ML SYRINGE 100 MEQ IV PUSH (07:55)
[2021-12-12] MEDS: FUROSEMIDE INJ 100 MG/10 ML VIAL 80 MG IV PUSH (07:57)
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
[2021-12-12] MEDS: INSULIN GLARGINE (*BKC) 100 UNITS/ML 45 UNITS SUB-Q (07:58)
[2021-12-12] MEDS: PANTOPRAZOLE SODIUM IV 40 MG VIAL IV PUSH ×2 (08:01→20:15)
[2021-12-12] MEDS: ENOXAPARIN 80 MG/0.8 ML SYRINGE 70 MG SUB-Q (08:05)
[2021-12-12] MEDS: SODIUM BICARBONATE TAB 650 MG TABLET PO ×3 (08:05→17:51)
[2021-12-12] MEDS: polyethylene glycoL 3350 17 GM POWD.PACK FEED TUBE (08:05)
[2021-12-12] MEDS: AMIODARONE HCL 200 MG TABLET PO ×2 (08:05→20:13)
[2021-12-12] MEDS: MINERAL OIL/WHITE PETROLATUM OINTMENT 1 APPLIC EACH EYE ×2 (08:05→20:14)
[2021-12-12] MEDS: FENTANYL 2,500MCG/NS250ML(*CRX 2,500 MCG/250 ML BAG 7.5 MCG IV CONT (09:05)
[2021-12-12 09:34] LABS: Herpes Simplex Type 1 DNA PCR Detected; Herpes Simplex Type 2 DNA PCR Not Detected
[2021-12-12] MEDS: SODIUM CHLORIDE 0.9% IV 250 ML 999 ML IV CONT (10:00)
--- NOTE | 2021-12-12 10:15 | WPDINTPN ---
Progress Note: A&P Assessment and Plan (1) Acute hypoxemic respiratory failure: Code(s): J96.01 - Acute respiratory failure with hypoxia Status: Acute Assessment and Plan: Hypoxic respiratory failure likely related to community-acquired pneumonia, CHF, baseline emphysema, pleural effusions Patient presented the ED on 11/25/2021 with shortness of breath, was on BiPAP and has been declining and requiring significant oxygen support. Failed BiPAP 16/6, 100% FiO2 Intubated patient on 12/01/2021 -continue low tidal volume strategy, peep of14 and 60 % FiO2 for now-decrease PEEP to 12 -12/09 due to significant atelectasis in posterior parts of the lung and effusions with compressive atelectasis, I tried placing patient in prone position but it did not work. Patient had high peak pressures limiting her minute ventilation which led to hypercarbia and acidosis. She required significant amount of sedation to be compliant with ventilation which led to drop in blood pressure requiring vasopressor. No significant improvement in oxygenation seen over multiple hours hence patient was placed back in supine position overnight. -continue bronchodilators - sedated with fentanyl and Versed infusion - COVID-19 negative x2 - 12/05 bronchoscopy was done and BAL collected. Cultures are pending - 12/06 patient underwent right-sided thoracentesis and 1 L fluid was removed - 12/07 patient underwent left-sided thoracentesis and 1 L fluid was removed -pleural fluid was transudate although some of the studies are pending -chest x-ray done this morning shows persistent bilateral pleural effusions and infiltrates suggestive of pulmonary edema -ABG reviewed Discussed with Nephrology regarding dialysis for fluid removal. Will try high-dose diuretics again today and if patient does not respond will proceed with hemodialysis since patient's renal function has been getting worse in urine output has been poor -12/[address] IMPRESSION: 1. Bilateral dependent airspace opacities, consistent with atelectasis versus pneumonia. 2. Moderate-sized pleural effusions. 3. Cardiomegaly -12/02/2021: chest abdomen and pelvis showed no pulmonary embolism, moderate-sized bilateral pleural effusion. Mild scattered ground-glass opacities in the lungs, consistent mild pulmonary edema versus pneumonia, moderate emphysema. Gallbladder distention and gallbladder wall thickening, small volume ascites, mild aorto caval lymphadenopathy, likely reactive (2) Shock: Code(s): R57.9 - Shock, unspecified Status: Acute Assessment and Plan: Currently on Levophed Patient has been on and off Levophed this is likely secondary to sedation Will try to decrease sedation on mechanical ventilation and try to wean off Levophed -11/25 blood cultures grew group B Streptococcus. -11/30/2021: Repeat blood cultures negative x2, preliminary results -11/29/2021 urine cultures are negative -continue cefepime (12/01/2021) for 14 days. Vancomycin held as patient's renal function is worsening and cultures have been negative (3) Pneumonia: Qualifiers: Laterality: unspecified laterality Lung location: unspecified part of lung Pneumonia type: due to unspecified organism Qualified Code(s): J18.9 - Pneumonia, unspecified organism Code(s): J18.9 - Pneumonia, unspecified organism Status: Acute Assessment and Plan: Possible community-acquired pneumonia -continue cefepime and vancomycin (12/01/2021) -will continue to monitor chest x-ray and ABGs -SARS-CoV-2 PCR PCR negative x2 -12/03/2021: CTA chest showed no pulmonary embolism, moderate-sized bilateral pleural effusion, mild scattered ground-glass opacities in the lungs, consistent with mild pulmonary edema versus pneumonia. Moderate emphysema -12/[address]
[2021-12-12 11:10] LABS: Hepatitis B Surface Antigen Negative (Negative)
[2021-12-12 11:27] LABS: Hepatitis B Surface Anti Res Negative
--- NOTE | 2021-12-12 11:38 | PM.CNGS ---
Assessment and Plan Assessment and plan (1) DIANA (acute kidney injury): Code(s): N17.9 - Acute kidney failure, unspecified Status: Acute Assessment and Plan: worsening function despite resus, meds, will need access for emergent HD (2) Respiratory failure: Code(s): J96.90 - Respiratory failure, unspecified, unspecified whether with hypoxia or hypercapnia Status: Acute Assessment and Plan: on vent, mgmt per sales support rep (3) Congestive heart failure: Code(s): I50.9 - Heart failure, unspecified Status: Acute Assessment and Plan: worsening cardiac fxn, mgmt per intesivist History of Present Illness Consult details Consult date: 12/12/21 Reason for consult: other (renal failure) Requesting physician: Onel Graham MD Narrative: The patient is a 71-year-old female with multiple medical issues, including acute respiratory failure, severe coronary disease, presenting to the hospital with acute respiratory failure requiring intubation, heart failure. The patient now has multi system organ failure and worsening renal failure. The patient is currently intubated and sedated and all history obtained via chart. With worsening renal function, decision has been made to proceed with emergent hemodialysis. Surgery consulted for placement of tunneled dialysis catheter. Review of Systems Review of Systems: ROS unobtainable: Yes unobtainable due to endotracheal tube PMFSH Past Medical History Medical History Afib Anxiety Bronchitis Chronic UTI Colonoscopy refused Depression Diabetes type 2, controlled GERD (gastroesophageal reflux disease) History of Clostridium difficile colitis History of colon cancer History of colorectal cancer History of ETOH abuse History of kidney stones Hypercholesteremia Hypertension Seizures Surgical History Surgical History History of appendectomy History of colostomy Family History Family History Mother Family history of cardiovascular disease Father Suicide Cerebrovascular accident Sibling MVA (motor vehicle accident) Other Family history of tuberculosis Social History Social History Smoking packs per day: 1 Smoking cigarettes per day: 20.0 Years smoked: 50 Smoking pack-years: 50.00 Smoking status: Current every day smoker Tobacco type: cigarettes Alcohol intake: former Substance use: never Substance use type: does not use Gender identity (if verbalized by the patient): Female Spiritual care concerns: No Meds Home Medications and Allergies Home Medications Medication Instructions Recorded Confirmed Type metoprolol succinate 50 mg 50 mg PO DAILY #90 tablet 07/23/21 11/26/21 Rx tablet,extended release 24 hr pravastatin 40 mg tablet 40 mg PO DAILY #90 tablet 07/23/21 11/26/21 Rx rivaroxaban 20 mg tablet 20 mg PO QPM #90 tablet 07/23/21 11/26/21 Rx mirtazapine 30 mg tablet 30 mg PO QHS PRN #90 tablet 09/25/21 11/26/21 Rx famotidine 20 mg PO BID 11/26/21 11/26/21 History metformin 1,000 mg PO BID 11/26/21 11/26/21 History diltiazem HCl 300 mg capsule,24 300 mg PO DAILY #90 cap 12/04/21 Rx hr,extended release Allergies Allergy/AdvReac Type Severity Reaction Status Date / Time BREATH RIGHT NASAL STRIPS AdvReac Unknown REDNESS AT Uncoded 11/26/21 02:33 SITE Vital Signs Vital Signs - 24 hr 12/11/21 11:40 12/11/21 12:00 12/11/21 12:08 Temperature 36.9 C Pulse Rate 114 H 124 H Respiratory Rate 33 H 30 H Blood Pressure 124/82 100/71 100/71 Pulse Oximetry 90 12/11/21 12:45 12/11/21 13:42 12/11/21 14:00 Temperature Pulse Rate 111 H 110 H 104 H Respiratory Rate 30 H 40 H 35 H Blood Pressure 97/62 L Pulse Oximetry 93 12/11/21 14:11 12/11/21 16:00
[2021-12-12 11:54] LABS: Glucose Point of Care 127 mg/dl (65-105)
--- NOTE | 2021-12-12 11:57 | PCFNICU ---
ICU Rounding Note: Pt current nutrition is Vital AF 1.2 at 55 ml/hr over 22 hours. Last recorded weight is 77.5 kg, up from 64.6 kg on admit. Bowel Motility: colostomy Labs Reviewed:Glu 121,Na 133, GFR 9, Cr 4.7,BUN 84, Hct 21.1, Hgb 6.9 Meds Noted:Fentanyl, Versed, Pacerone, Pepcid, Lantus, NovoLog, Atrovent, Levophed, Miralax. Skin: WNL Additional Notes: Surgery consult for tunneled dialysis catheter. Patient remains on mechanical vent and tube feedings of Vital AF 1.2 are on hold due to elevated residuals. Spoke with today about adding Reglan. Agree with diet orders. Following daily in ICU rounds. Will monitor every Friday and Friday.
[2021-12-12] MEDS: METOCLOPRAMIDE HCL 10 MG/10 ML SOLN UDC FEED TUBE ×3 (12:55→23:50)
[2021-12-12] MEDS: MIDAZOLAM 100MG/NS 100ML(*CRX) 100 MG/100 ML BAG IV CONT (12:58)
[2021-12-12 15:50] LABS: Glucose Point of Care 90 mg/dl (65-105)
--- NOTE | 2021-12-12 15:54 | PM.PNNEP ---
Progress Note: A&P Assessment and Plan (1) DIANA (acute kidney injury): Code(s): N17.9 - Acute kidney failure, unspecified Status: Acute Assessment and Plan: suspect due to ATN from: contrast exposure (CT scan head/chest/abdomen/pelvis on 12/02/21) possible prerenal factors hemodynamic instability/hypotension infection (bacteremia) creatinine continues to decline no critical electrolytes at this time bicarb added to compensate for acidosis however, volume status/fluid overload somewhat of an issue - re-attempt diuretics? remains at high risk for requiring PSYCHOLOGY FELLOW/dialysis at this time - if no response to high dose diuretics today, plan to initiate dialysis tomorrow follow repeat labs and UOP (2) Acute hypoxemic respiratory failure: Code(s): J96.01 - Acute respiratory failure with hypoxia Status: Acute Assessment and Plan: related to pneumonia, CHF, COPD, and bilateral pleural effusions intubated since 12/01/21 COVID-19 negative x 2 s/p bronchoscopy on 12/05/21 s/p bilateral thoracentesis (right on 12/06/21, left on 12/07/21 - 1L removed from each side) still with evidence of pulmonary edema/effusions despite this intervention agree with ongoing attempts at diuresis/IV diuretics despite DIANA/ARF follow CXR and imaging see #1 regarding possible need for dialysis for ultrafiltration (3) Congestive heart failure: Code(s): I50.9 - Heart failure, unspecified Status: Acute Assessment and Plan: likely also playing a role with #2 repeat echo noted - severe concentric increased left ventricular wall thickness. Resting LVOT gradient of peak 20 mmHg and mean 9 mmHg suggests mild obstruction. Moderate aortic stenosis and severe mitral valve stenosis with significant calcification this probably explains her propensity for pulmonary edema and recurrent pleural effusions and likely poor response to diuretics unfortunately, transfer for Cardiothoracic Surgery evaluation not possible due to lack of ICU beds at multiple hospitals Cardiology following (4) Shock: Code(s): R57.9 - Shock, unspecified Status: Acute Assessment and Plan: on and off Levophed more so due to sedation than infection/sepsis wean as tolerated due to positive pressure ventilation following intubation versus sepsis versus sedation s/p adequate amount of IV fluids blood cultures (11/25/21) with Group B strep - repeat blood culture negative urine culture negative continue antibiotics (5) Pneumonia: Qualifiers: Laterality: unspecified laterality Lung location: unspecified part of lung Pneumonia type: due to unspecified organism Qualified Code(s): J18.9 - Pneumonia, unspecified organism Code(s): J18.9 - Pneumonia, unspecified organism Status: Acute Assessment and Plan: as suggestive by imaging to date on antibiotics follow CXR and ABG results (6) Atrial fibrillation: Qualifiers: Atrial fibrillation type: unspecified Qualified Code(s): I48.91 - Unspecified atrial fibrillation Code(s): I48.91 - Unspecified atrial fibrillation Status: Chronic Assessment and Plan: chronic issue on amiodarone along with anticoagulation Cardiology following (7) Diabetes: Code(s): E11.9 - Type 2 diabetes mellitus without complications Status: Chronic Assessment and Plan: follow accu-Cheks on SSI and Lantus Discussed case with Dr. Graham today regarding trial of high dose diuretics and possible need for PSYCHOLOGY FELLOW/dialysis for ultrafiltration/fluid removal in the hopes to promote ventilator weaning. Will continue to follow. Subjective Date/time seen: 12/12/21 15:54 Able to be weaned off Levophed with relative stability in hemodynamics; remains on full ventilator support and currently intubated and sedated; renal function continues to decline with ongoing decline in urine output despite all conservative
--- NOTE | 2021-12-12 15:54 | P.PNNP_ITS ---
Progress Note: A&P Assessment and Plan (1) DIANA (acute kidney injury): Code(s): N17.9 - Acute kidney failure, unspecified Status: Acute Assessment and Plan: * suspect due to ATN from: * contrast exposure (CT scan head/chest/abdomen/pelvis on 12/02/21) * possible prerenal factors * hemodynamic instability/hypotension * infection (bacteremia) * creatinine continues to decline * no critical electrolytes at this time * bicarb added to compensate for acidosis * however, volume status/fluid overload somewhat of an issue - re-attempt diuretics? * remains at high risk for requiring TELEPRINTER INSTALLER/dialysis at this time - if no response to high dose diuretics today, plan to initiate dialysis tomorrow * follow repeat labs and UOP (2) Acute hypoxemic respiratory failure: Code(s): J96.01 - Acute respiratory failure with hypoxia Status: Acute Assessment and Plan: * related to pneumonia, CHF, COPD, and bilateral pleural effusions * intubated since 12/01/21 * COVID-19 negative x 2 * s/p bronchoscopy on 12/05/21 * s/p bilateral thoracentesis (right on 12/06/21, left on 12/07/21 - 1L removed from each side) * still with evidence of pulmonary edema/effusions despite this intervention * agree with ongoing attempts at diuresis/IV diuretics despite DIANA/ARF * follow CXR and imaging * see #1 regarding possible need for dialysis for ultrafiltration (3) Congestive heart failure: Code(s): I50.9 - Heart failure, unspecified Status: Acute Assessment and Plan: * likely also playing a role with #2 * repeat echo noted - severe concentric increased left ventricular wall thickness. Resting LVOT gradient of peak 20 mmHg and mean 9 mmHg suggests mild obstruction. Moderate aortic stenosis and severe mitral valve stenosis with significant calcification * this probably explains her propensity for pulmonary edema and recurrent pleural effusions and likely poor response to diuretics * unfortunately, transfer for Cardiothoracic Surgery evaluation not possible due to lack of ICU beds at multiple hospitals * Cardiology following (4) Shock: Code(s): R57.9 - Shock, unspecified Status: Acute Assessment and Plan: * on and off Levophed more so due to sedation than infection/sepsis * wean as tolerated * due to positive pressure ventilation following intubation versus sepsis versus sedation * s/p adequate amount of IV fluids * blood cultures (11/25/21) with Group B strep - repeat blood culture negative * urine culture negative * continue antibiotics (5) Pneumonia: Qualifiers: Laterality: unspecified laterality Lung location: unspecified part of lung Pneumonia type: due to unspecified organism Qualified Code(s): J18.9 - P neumonia, unspecified organism Code(s): J18.9 - Pneumonia, unspecified organism Status: Acute Assessment and Plan: * as suggestive by imaging to date * on antibiotics * follow CXR and ABG results (6) Atrial fibrillation: Qualifiers: Atrial fibrillation type: unspecified Qualified Code(s): I48.91 - Unspecified atrial fibrillation Code(s): I48.91 - Unspecified atrial fibrillation Status: Chronic Assessment and Plan: * chronic issue * on amiodarone along with anticoagulation * Cardiology following (7) Diabetes: Code(s): E11.9 - Type 2 diabetes mellitus without complications Status: Chronic Assessment and Plan: * follow accu-Cheks * on SSI and Lantus Discussed case with Dr. Gladys river
--- NOTE | 2021-12-12 16:20 | PM.IMPN ---
Progress Note: A&P Assessment and Plan (1) Acute hypoxemic respiratory failure: Code(s): J96.01 - Acute respiratory failure with hypoxia Status: Acute Assessment and Plan: Hypoxic respiratory failure likely related to community-acquired pneumonia, septicemia, CHF, baseline emphysema, pleural effusions and severe valvular disease. Patient presented the ED on 11/25/2021 with shortness of breath and required BiPAP. Did well initially but decompensated once moved to the medical floor requiring intubation on 12/01/21. Concern for possible overdiuresis given the severe valvular disease. She underwent bronchoscopy on 12/05, right-sided thoracentesis with 1 L fluid removed 12/06 and left-sided thoracentesis with 1 L fluid was removed 12/07. Pleural fluid was transudative. Chest CT 12/08 showing bilateral dependent airspace opacities, consistent with atelectasis versus pneumonia and moderate-sized pleural effusions. Wean MV as able. Appreciate cigarette making examiner input. (2) Septic shock: Code(s): A41.9 - Sepsis, unspecified organism; R65.21 - Severe sepsis with septic shock Status: Acute Assessment and Plan: Patient was admitted for possible PNA. BCx collected on admission (11/25) grew Group B Strept. Repeat BCx 11/30 negative. UCx 11/29 negative. BAL positive for fungal Brenda and HSV 1 PCR. Patient has been on and off Levophed felt related to over diuresis and possibly sedation and/or sepsis related. Attempt to decrease sedation on mechanical ventilation and try to wean off Levophed. Continue cefepime (12/01/21) for 14 days. Vancomycin held as patient's renal function is worsening. Discussed with cigarette making examiner and pulmonary. Pulmonary did recommend Acyclovir given the erythematous bronchial tree but gven the DIANA, will plan to hold acyclovir to see if the high dose Lasix is effecive. Fungal BAL felt to be a contaminant. (3) Pneumonia: Qualifiers: Laterality: unspecified laterality Lung location: unspecified part of lung Pneumonia type: due to unspecified organism Qualified Code(s): J18.9 - Pneumonia, unspecified organism Code(s): J18.9 - Pneumonia, unspecified organism Status: Acute Assessment and Plan: CXR on admission (11/25) showing moderate amount of bilateral edema and/or pneumonia. No fevers but WBC was 17K. She was started on Rocephin and Doxycycline. Possibly community-acquired pneumonia. She was developed resp distress and was intubated 12/01/21 and abx changed to cefepime and vancomycin. COVID negative x2. As above. (4) DIANA (acute kidney injury): Code(s): N17.9 - Acute kidney failure, unspecified Status: Acute Assessment and Plan: Creatinine normal at baseline. She has developed DIANA and Cr has increased to 4.[address] of abdomen 12/02 showing cortical thinning of the kidneys. Patient not responding well to Lasix and the creatinine has increased. Serum bicarb low but potassium okay; she is severely volume overloaded. Plan to try high-dose diuretics and if patient does not respond will proceed with hemodialysis for fluid removal and see if that helps with weaning from mechanical ventilation. Patient's daughter is agreeable for dialysis if needed. Nephrology following and appreciated their input. Continue per tube bicarb for acidosis. Check renal US. Continue oral bicarb. (5) Atrial fibrillation: Qualifiers: Atrial fibrillation type: unspecified Qualified Code(s): I48.91 - Unspecified atrial fibrillation Code(s): I48.91 - Unspecified atrial fibrillation Status: Chronic Assessment and Plan: Patient with history of atrial fibrillation on Xarelto. AFib appears to be chronic. Was on diltiazem and metoprolol but were discontinued due to HoTN. She was started on amiodarone infusion which has been changed to p.o. Xarelto was changed to Lovenox subQ but now held. Echo noted. Continue tele (6) Congestive heart failure: Code(s): I50.9 - Hea
[2021-12-12] MEDS: DEXTROSE 50% 25 GM/50 ML SYRINGE IV PUSH ×2 (20:11→22:30)
[2021-12-12] MEDS: SENNA/DOCUSATE SODIUM TABLET 1 TAB FEED TUBE (20:13)
[2021-12-12 20:16] LABS: Glucose Point of Care 33 mg/dl (65-105)
[2021-12-12 20:24] LABS: Glucose Pleural Fluid 225 mg/dL; LDH Pleural Fluid 31 U/L; Total Protein Pleural Fluid <3.0 g/dL
[2021-12-12 20:46] LABS: Glucose Point of Care 135 mg/dl (65-105)
[2021-12-12] MEDS: NOREPINEPHRINE 8 MG/D5W 250 ML 8 MG/250 ML BAG 9.38 MG IV CONT (21:16)
[2021-12-12 22:34] LABS: Glucose Point of Care 54 mg/dl (65-105)
[2021-12-12 22:53] LABS: Glucose Point of Care 91 mg/dl (65-105)
--- NOTE | 2021-12-12 23:00 | PC.NURSE ---
Dr. Graham notified of recurrent low blood sugar despite tube feeding and D50 pushes. Start D10 at 50ml/hr. Hold Lantus.
[2021-12-12 23:54] LABS: Glucose Point of Care 102 mg/dl (65-105)
[2021-12-13] VITALS (54 sets, daily range): BP systolic 70–144; BP diastolic 35–90; PULSE 96–140; RESP 14–37; TEMP 35.7–37.6; O2SAT 87–99
[2021-12-13] MEDS: DEXTROSE 10% 1,000 ML 50 ML IV CONT (00:05)
[2021-12-13 01:20] LABS: Glucose Point of Care 92 mg/dl (65-105)
[2021-12-13] MEDS: ALBUTEROL SULFATE NEB 2.5 MG/0.5 ML INH INHALATION ×3 (01:54→20:16)
[2021-12-13] MEDS: IPRATROPIUM BR 0.02% INH SOLN 0.5 MG/2.5 ML VIAL INHALATION ×3 (01:54→20:15)
[2021-12-13 02:27] LABS: Glucose Point of Care 99 mg/dl (65-105)
[2021-12-13 04:46] LABS: Glucose Point of Care 119 mg/dl (65-105)
[2021-12-13 04:47] LABS: Alveolar/Arterial O2 Gradient 342.8 mmHg; Base Excess ABG -3.4 mEq/l (+/-2.0); Carboxyhemoglobin 0.2 % THb (0-2.0); Device VENTILATOR; Fractional Inspired Oxygen 65 %; HCO3 ABG 22.7 mEq/l (22.0-26.0); Methemoglobin ABG 0.3 %THb (0-1.5); Modified Allen's Test Unable to perform; Oxygen Content ABG 13.7 %vol (16.0-22.0); Oxygen Saturation ABG 93.2 % (95.0-100.0); Oxyhemoglobin 91.4 % THb (90.0-100.0); PO2 ABG 71.7 mmHg (80.0-100.0); Reduced Hemoglobin 8.1 %THb (0-5.0); Site Drawn RIGHT RADIAL; Total Hemoglobin 10.6 g/dL (12.0-18.0)
[2021-12-13 04:48] LABS: Arterial Blood Gas PEEP 14 cmH2O; Arterial Blood Gas Tidal Volume 350 ml; Arterial Blood Gas Vent Mode CMV; Arterial Blood Gas Ventilator rate 30 /MIN
[2021-12-13 04:51] LABS: Basophils Percent Auto 0.2 % (0.2-1.2); Eosinophils Absolute Auto 0.1 K/mm3 (0-0.3); Eosinophils Percent Auto 0.5 % (0-4.4); Hematocrit 26.5 % (37.0-47.0); Hemoglobin 8.9 g/dL (12.0-15.0); Immature Granulocyte Absolute 0.11 K/mm3 (0.00-0.031); Immature Granulocyte Percent A 1.1 % (0-0.5); Lymphocytes Absolute Auto 0.32 K/mm3 (0.9-3.2); Lymphocytes Percent Auto 3.3 % (18.3-44.2); Mean Corpuscular HGB Conc 33.6 g/dl (32-36); Mean Corpuscular Hemoglobin 31.6 pg (26-34); Mean Platelet Volume 11.4 fl (7.4-10.4); Monocytes Absolute Auto 0.4 K/mm3 (0.1-0.6); Monocytes Percent Auto 4.3 % (2.6-8.5); Neutrophils Absolute Auto 8.8 K/mm3 (1.3-6.7); Neutrophils Percent Auto 90.6 % (45.5-73.1); Nucleated Red Blood Cells Absolute Auto 0.1 K/mm3 (0.0-0.012); Nucleated Red Blood Cells Perc 0.7 % (0.0-0.2); Platelet Count Result 166 k/mm3 (150-375); Red Blood Count 2.82 M/mm3 (4.2-5.4); Red Cell Distribution Width 15.6 % (11.5-14.5); White Blood Count 9.7 K/mm3 (4.5-10.0)
[2021-12-13 05:08] LABS: Alanine Aminotransferase 20 U/L (4-35); Albumin Level 3.6 g/dL (3.5-5.1); Alkaline Phosphatase 70 U/L (38-126); Anion Gap 18 mmol/L (8-16); Aspartate Amino Transferase 25 U/L (14-36); Bilirubin,Total 0.6 mg/dL (0.2-1.3); Blood Urea Nitrogen 94 mg/dL (7-17); Calcium 8.8 mg/dL (8.4-10.2); Carbon Dioxide 23 mmol/L (22-30); Chloride 92 mmol/L (98-107); Estimated CRCL calculation 9 ml/min; Estimated Glomerular Filt Rate 9; Glucose 108 mg/dL (65-110); Phosphorus 6.4 mg/dL (2.5-4.5); Potassium 4.4 mmol/L (3.4-5.0); Sodium 133 mmol/L (137-145)
[2021-12-13] MEDS: CENTRAL LINE FLUSH 10 ML IV PUSH ×3 (05:31→22:08)
[2021-12-13 07:36] LABS: Glucose Point of Care 122 mg/dl (65-105)
[2021-12-13] MEDS: MINERAL OIL/WHITE PETROLATUM OINTMENT 1 APPLIC EACH EYE ×2 (07:53→19:56)
[2021-12-13] MEDS: polyethylene glycoL 3350 17 GM POWD.PACK FEED TUBE (07:55)
[2021-12-13] MEDS: AMIODARONE HCL 200 MG TABLET PO ×2 (07:55→19:55)
[2021-12-13] MEDS: SODIUM BICARBONATE TAB 650 MG TABLET PO ×3 (07:55→17:32)
[2021-12-13] MEDS: PANTOPRAZOLE SODIUM IV 40 MG VIAL IV PUSH ×2 (07:55→19:56)
--- NOTE | 2021-12-13 08:06 | PM.PNCARD ---
Progress Note: A&P Assessment and Plan (1) Shock: Code(s): R57.9 - Shock, unspecified Status: Acute Assessment and Plan: Probably due to respiratory failure and sedation with intubation. On and off Levophed drip. Echo 11/27/21 shows normal EF 65-70%, diastolic function indeterminate, mild , consider mod MS. Pleural effusions reaccumulating, kidney function worsening with Cr 4.9/GFR 9, sodium 133, Hb 8.9 s/p transfusions. Recheck echo on 12/08/20 shows EF 65-70%, severe LVH, mild LVOT obstruction with mean gradient of 9 mmHg, significant diastolic dysfunction with E/e' 40, mild RV hypokinesis, severe LAE, mod (AKIKO 1.4 cm2), severe MAC and severe MV calcification, severe MS based on visual estimation and mean gradient of 15 mmHg, surgery technician unable to calculate MVA from continuity equation, mild MR, small pericardial effusion. Offered to perform HEIDY to better visualize mitral valve and better characterize mitral stenosis. However, after lengthy discussion with her daughter on 12/10/20 on her status, and she did not want her mother to have the procedure thinking that if she gets transferred to a facility to have MV replacement she would end up having another HEIDY. This may or may not be the case. Discussed with patient's daughter at length and updated her on her status on 12/11/20 that she is a poor prognosis given worsening kidney failure, anemia, shock requiring intermittent vasopressor support, Pneumonia/COPD, severe mitral stenosis. Her daughter remains hopeful that her mother will get better. (2) Aortic stenosis: Code(s): I35.0 - Nonrheumatic aortic (valve) stenosis Status: Acute Assessment and Plan: Moderate. (3) Atrial fibrillation: Qualifiers: Atrial fibrillation type: unspecified Qualified Code(s): I48.91 - Unspecified atrial fibrillation Code(s): I48.91 - Unspecified atrial fibrillation Status: Chronic Assessment and Plan: Persistent atrial fib. Rate controlled. On Amiodarone drip to control HR due to hypotension and unable to use Diltiazem or Metoprolol. Had bronchoscopy and bilateral thoracentesis removing 1 liter from each. Was on Xarelto 15 mg daily given worsening kidney function. She did cardiovert with Amiodarone drip but back in atrial fibrillation. On Amiodarone 200 mg PO BID to attempt to maintain sinus rhythm and if not, then to control HR. Due to having significant mitral stenosis, this is now consider valvular atrial fibrillation, in which case NOAC are not indicated. She would need to be on Lovenox or Warfarin. While in ICU, would change it over to once daily Lovenox given renal function. Discuss with Dr. Graham due to worsening anemia, that we can hold Lovenox in case there is a bleed. (4) Smoking: Code(s): F17.200 - Nicotine dependence, unspecified, uncomplicated Status: Acute (5) Hyperlipemia: Qualifiers: Hyperlipidemia type: unspecified Qualified Code(s): E78.5 - Hyperlipidemia, unspecified Code(s): E78.5 - Hyperlipidemia, unspecified Status: Acute (6) Hypertension: Qualifiers: Hypertension type: primary hypertension Qualified Code(s): I10 - Essential (primary) hypertension Code(s): I10 - Essential (primary) hypertension Status: Acute (7) Diabetes type 2, controlled: Qualifiers: Diabetes mellitus fci insulin use: without fci use Diabetes mellitus complication status: without complication Qualified Code(s): E11.9 - Type 2 diabetes mellitus without complications Code(s): E11.9 - Type 2 diabetes mellitus without complications Status: Chronic (8) Respiratory failure: Code(s): J96.90 - Respiratory failure, unspecified, unspecified whether with hypoxia or hypercapnia Status: Acute Assessment and Plan: Probably due to COPD/Pneumonia. She does have underlying diastolic dysfunction and mitral stenosis. (9) Mitral stenosis:
[2021-12-13] MEDS: MIDAZOLAM 100MG/NS 100ML(*CRX) 100 MG/100 ML BAG IV CONT (08:37)
[2021-12-13] MEDS: FENTANYL 2,500MCG/NS250ML(*CRX 2,500 MCG/250 ML BAG 10 MCG IV CONT (08:38)
--- NOTE | 2021-12-13 09:34 | PM.PNPUL ---
Progress Note: A&P Assessment and Plan (1) Pneumonia: Qualifiers: Laterality: unspecified laterality Lung location: unspecified part of lung Pneumonia type: due to unspecified organism Qualified Code(s): J18.9 - Pneumonia, unspecified organism Code(s): J18.9 - Pneumonia, unspecified organism Status: Acute Assessment and Plan: 12/04: 71-year-old woman with a history of tobacco use and moderate apical predominant centrilobular emphysema on CT scan 12/02/20 now remains intubated with bilateral pleural effusions, compressive atelectasis and some ground-glass infiltrates that non dependent portions of the lung. she was treated with ceftriaxone from 11/25 through 11/30. Azithromycin on 11/25. Doxycycline from 11/26 through 12/01/21 and vancomycin and cefepime started on 12/01/21. Her oxygenation has improved on vancomycin and cefepime but she still remains on Levophed. Will proceed with bronchoscopy with BAL only on 12/05/20 at 13:00. I spoke with arcade technician and Cardiology and we will hold rivaroxiban since last dose on 12/03/21 at 17:22. will determine anticoagulation plan with the ultimate need for thoracentesis as well. Discussed with daughter, Mercedes Sauer, and described risks and benefits of procedure and she gave consent. 12/05 patient is on slightly lower doses of Levophed. Her white blood cell count is 14.0. She is afebrile. Her chest x-ray is unchanged. Vent management per arcade technician team. She is NPO and her anticoagulation has been held. Plan on bronchoscopy with BAL looking for infectious pathogens. Discussed with Cardiology and the arcade technician. 12/06 Underwent bronchoscopy yesterday patient had numerous thick secretions in the ET tube and throughout the main trachea. BAL was performed and results pending. I called the lab and the washings have been sent for fungus and bacterial stain and culture. The BAL has been sent for bacterial, AFB stain and culture. They did not receive the order for BAL fungal stain and culture and HSV which I have added today. Patient remains intubated on Versed and fentanyl with FiO2 at 45% this morning. Blood gas on 50% was 7.35/41/93. Patient is scheduled for thoracentesis today. Vent management per ICU team. Patient remains on Vanco and cefepime since 12/01. Antibiotics will be adjusted per BAL and wash results. 12/13 On bronchoscopy the patient had white exudative lesions throughout the trachea and larger airways and that is the reason I sent the HSV study. 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 She may also have herpes pneumonia. At this time I do not feel a additional diagnostic tests are needed to diagnosis of herpes pneumonia. Given that she remains intubated, requiring 75% FiO2 with 14 of peep and with multi-system organ failure including pressor requirement and acute kidney injury now requiring dialysis I would favor treating her aggressively for herpes tracheobronchitis and the possibilities of herpes pneumonia. I spoke with the pharmacist and we will treat with acyclovir 500 mg q.day given her renal failure. This should be dosed after dialysis. Today we plan to give her 1 dose now and if she receives dialysis latter today will give 60% of that dose as dialysis reportedly removes 60%. Would treat for [address] Graham, will sign off, please call with additional questions. Subjective Date/time seen: 12/13/21 09:34 Interval history: 12/04/21 This is a new Pulmonary consultation for bronchoscopy 71-year-old woman with a history of diabetes, hypertension, atrial fibrillation, hyperlipidemia, anxiety, tobacco use, COPD her CT scan and colostomy presents with shortness of breath on 11/25/2021. patient failed BiPAP and was intubated and has remained intubated since then. Patient remains hypotensive and in septic shock on Levophed today. Patient had blood cultures On 11/25 with group B Strepto
--- NOTE | 2021-12-13 09:41 | WPDANESEPPF ---
Anes - Initial Pre Proc Eval Procedure: Operation Date: 12/05/21 13:30 Proposed Procedures p Flexible Bronchoscopy - Martin Deluca MD Operation Date: 12/13/21 10:00 Proposed Procedures p Insertion Tunneled Diaylsis Catheter - Kaylan Smith MD Date/Time: 12/13/21 09:41 Surgeon: Medhat Zapata MD Pre Op Diagnosis: Acute Respiratory Failure,Pneumonia,Elevated Tropo Patient Data Age: 71 Gender: F Height: 1.7 m Weight: 77.3 kg Last Vital Signs Temp 37.1 C 12/13/21 08:00 Pulse 116 H 12/13/21 08:41 Resp 35 H 12/13/21 08:41 BP 101/58 L 12/13/21 08:00 Pulse Ox 92 12/13/21 08:23 Allergies Allergy/AdvReac Type Severity Reaction Status Date / Time BREATH RIGHT NASAL STRIPS AdvReac Unknown REDNESS AT Uncoded 11/26/21 02:33 SITE Home Medications Medication Instructions Recorded Confirmed Type metoprolol succinate 50 mg 50 mg PO DAILY #90 tablet 07/23/21 11/26/21 Rx tablet,extended release 24 hr pravastatin 40 mg tablet 40 mg PO DAILY #90 tablet 07/23/21 11/26/21 Rx rivaroxaban 20 mg tablet 20 mg PO QPM #90 tablet 07/23/21 11/26/21 Rx mirtazapine 30 mg tablet 30 mg PO QHS PRN #90 tablet 09/25/21 11/26/21 Rx famotidine 20 mg PO BID 11/26/21 11/26/21 History metformin 1,000 mg PO BID 11/26/21 11/26/21 History diltiazem HCl 300 mg capsule,24 300 mg PO DAILY #90 cap 12/04/21 Rx hr,extended release Laboratory Tests 12/06/21 12/12/21 12/12/21 13:59 03:54 03:54 WBC RBC Hgb Hct MCV MCH MCHC RDW Plt Count MPV Immature Gran % (Auto) Neut % (Auto) Lymph % (Auto) Carroll % (Auto) Eos % (Auto) Baso % (Auto) Lymph # (Auto) Carroll # (Auto) Eos # (Auto) Baso # (Auto) Abs Immat Gran (auto) Absolute Neuts (auto) Absolute Nucleated RBC Nucleated RBC % Puncture Site ABG pH ABG pCO2 ABG pO2 ABG PO2/FiO2 Ratio ABG HCO3 ABG O2 Saturation ABG O2 Content ABG Base Excess A-a Gradient Oxyhemoglobin Carboxyhemoglobin Methemoglobin Reduced Hemoglobin Total Hemoglobin O2 Delivery Device O2 Liters/Min Minute Volume Vent Rate Vent Mode FiO2 Tidal Volume PEEP Peak Inspir Pressure Pressure Support Sodium Potassium Chloride Carbon Dioxide Anion Gap BUN Creatinine Estim Creat Clear Calc Estimated GFR Glucose POC Capillary Glucose Calcium Phosphorus Magnesium Total Bilirubin AST ALT Alkaline Phosphatase Total Protein Albumin Pleural Total Protein <3.0 g/dL g/dL Pleural LDH 31 U/L U/L Pleural Glucose 225 mg/dL mg/dL Hep Bs Antigen Negative (Negative) Hep Bs Antibody Negative Hep B Core Total Ab Pending Blood Type Antibody Screen Crossmatch 12/12/21 12/12/21 12/12/21 05:56 11:20 15:30 WBC RBC Hgb Hct MCV MCH MCHC RDW Plt Count MPV Immature Gran % (Auto) Neut % (Auto) Lymph % (Auto) Carroll % (Auto) Eos % (Auto) Baso % (Auto) Lymph # (Auto) Carroll # (A
--- NOTE | 2021-12-13 10:15 | WPDINTPN ---
Progress Note: A&P Assessment and Plan (1) Acute hypoxemic respiratory failure: Code(s): J96.01 - Acute respiratory failure with hypoxia Status: Acute Assessment and Plan: Hypoxic respiratory failure likely related to community-acquired pneumonia, CHF, baseline emphysema, pleural effusions Patient presented the ED on 11/25/2021 with shortness of breath, was on BiPAP and has been declining and requiring significant oxygen support. Failed BiPAP 16/6, 100% FiO2 Intubated patient on 12/01/2021 -continue low tidal volume strategy, peep of14 and 75% FiO2 -12/09 due to significant atelectasis in posterior parts of the lung and effusions with compressive atelectasis, I tried placing patient in prone position but it did not work. Patient had high peak pressures limiting her minute ventilation which led to hypercarbia and acidosis. She required significant amount of sedation to be compliant with ventilation which led to drop in blood pressure requiring vasopressor. No significant improvement in oxygenation seen over multiple hours hence patient was placed back in supine position overnight. -continue bronchodilators - sedated with fentanyl and Versed infusion - COVID-19 negative x2 - 12/05 bronchoscopy was done and BAL collected. Cultures are pending - 12/06 patient underwent right-sided thoracentesis and 1 L fluid was removed - 12/07 patient underwent left-sided thoracentesis and 1 L fluid was removed -pleural fluid was transudate although some of the studies are pending -chest x-ray shows persistent bilateral pleural effusions and infiltrates suggestive of pulmonary edema -ABG reviewed -plan to initiate dialysis for fluid removal -see below for treatment of infection -12/[address] IMPRESSION: 1. Bilateral dependent airspace opacities, consistent with atelectasis versus pneumonia. 2. Moderate-sized pleural effusions. 3. Cardiomegaly -12/02/2021: chest abdomen and pelvis showed no pulmonary embolism, moderate-sized bilateral pleural effusion. Mild scattered ground-glass opacities in the lungs, consistent mild pulmonary edema versus pneumonia, moderate emphysema. Gallbladder distention and gallbladder wall thickening, small volume ascites, mild aorto caval lymphadenopathy, likely reactive (2) Shock: Code(s): R57.9 - Shock, unspecified Status: Acute Assessment and Plan: Currently on Levophed Patient has been on and off Levophed this is likely secondary to sedation Will try to decrease sedation on mechanical ventilation and try to wean off Levophed -11/25 blood cultures grew group B Streptococcus. -11/30/2021: Repeat blood cultures negative x2, preliminary results -11/29/2021 urine cultures are negative -continue cefepime (12/01/2021) for 14 days. Vancomycin held as patient's renal function is worsening and cultures have been negative (3) Pneumonia: Qualifiers: Laterality: unspecified laterality Lung location: unspecified part of lung Pneumonia type: due to unspecified organism Qualified Code(s): J18.9 - Pneumonia, unspecified organism Code(s): J18.9 - Pneumonia, unspecified organism Status: Acute Assessment and Plan: Possible community-acquired pneumonia -continue cefepime and vancomycin (12/01/2021) -will continue to monitor chest x-ray and ABGs -SARS-CoV-2 PCR PCR negative x2 -12/03/2021: CTA chest showed no pulmonary embolism, moderate-sized bilateral pleural effusion, mild scattered ground-glass opacities in the lungs, consistent with mild pulmonary edema versus pneumonia. Moderate emphysema -12/[address] IMPRESSION: 1. Bilateral dependent airspace opacities, consistent with atelectasis versus pneumonia. 2. Moderate-sized pleural effusions. 3. Cardiomegaly Patient is afebrile and WBC is normal Her 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 BAL I discussed case with Dr. Deluca. Although possibility of herpes pneumonia is pretty low bu
--- NOTE | 2021-12-13 10:49 | SUR.OPER ---
EBL Intraoperatively- 50ml
[2021-12-13] MEDS: LIDO 1%/EPINEPHRINE 1:100,000 50 ML VIAL INFILTRATE (10:50)
[2021-12-13] MEDS: HEPARIN SODIUM, PORCINE 10,000 UNITS/10 ML VIAL 10000 UNITS IRRIGATION (10:51)
[2021-12-13] MEDS: HEPARIN SODIUM 5,000 UNITS/ML VIAL 5000 UNITS IRRIGATION (10:52)
--- NOTE | 2021-12-13 10:55 | W.PM.PROC2 ---
Procedure Note - Detailed Date of Procedure 12/13/21 Pre-op Diagnosis acute renal failure Post-op Diagnosis same Procedure Performed placement of 28 cm tunneled hemodialysis catheter in right internal jugular vein under both ultrasound and fluroscopic guidance Surgeon Kaylan Smith MD Anesthesia general and local Indications 71 y/o F currently in acute respiratory failure requiring mechanical ventilation now with worsening renal failure requiring emergent hemodialysis Findings 1st stick RIJ Description of Procedure Patient was taken to the operating room and placed in the supine position. After adequate induction of general anesthesia, the patient was prepped and draped in normal sterile fashion. A time-out was then done to verify the patient's identity as well as the procedure being performed. I began by using the SonoSite and locating the right internal jugular vein. Once this was done, I localized the overlying skin. I then made a small incision in the skin. I then gained access into the right internal jugular vein with an 18 gauge needle. At this point, I threaded the guidewire into the right internal jugular vein. Placement of the guidewire was confirmed by both ultrasound and fluoroscopic guidance. I then went ahead and measured the 28 cm tunneled dialysis catheter to our stick site in the right neck. I then localized the tract going from the right chest to the right neck. I then made a small incision in the right chest and tunneled the catheter to the right neck. I then serially dilated the right internal jugular vein under fluoroscopic guidance. Once adequately dilated, I placed the dilating sheath over the guidewire into the right internal jugular vein under fluoroscopic visualization. Once this was noted to be in good position, I removed both the guidewire and dilator, now just leaving the sheath in the vein. I then went ahead and fed the previously tunneled catheter into the sheath. Once the catheter was fed and positioned correctly, I went ahead and peeled the sheath away. Final fluoroscopic view showed the catheter in good position from its insertion point in the right chest to its termination in the atrial caval junction. It was noted there was no kinking of the catheter. I was able to easily draw and flush from both ports of the catheter. I placed 2.2 and 2.3 cc of final heparin flush into each port as marked. The catheter was then sutured into place and the incision in the neck was closed with 4 O Monocryl subcuticular suture. The patient tolerated the procedure well and will be transferred to the ICU in critical condition. Sterile dressing was placed on the catheter. Portable chest x-ray will be done in the ICU. Implants 28 cm tunneled hemodialysis catheter Estimated Blood Loss 50 Drains No Packing No Pathology none sent Complications No immediate complications Condition stable Disposition ICU
--- NOTE | 2021-12-13 11:45 | PCFNICU ---
ICU Rounding Note: Pt current nutrition is NPO. Last recorded weight is 77.3 kg. Up from 64.6 kg on admit. Bowel Motility: colostomy Labs Reviewed: Hgb 8.9, Hct 26.5, Na 133, GFR 9, BUN 94, Cr 4.9 Meds Noted: Albuterol, Pacerone, Retacrit, Glucagon, Novolog, Reglan. Versed, Miralax, Senna, Protonix, Sodium Bicarbonate Tab Skin: No skin breakdown at this time. WNL. Additional Notes: Prior to NPO pt. was on Vital AF 1.2 at 55 mls per hour over 22 hours per day providing 1452 calories, 91 grams of protein and 981 mls of water with a 30 ml water flush q4. Feedings were on hold due to elevated residuals. Pt. received a tunneled dialysis catheter today, 12.13.2021. Spoke with nurse who thinks feedings will start again today. Following daily in ICU rounds. Will monitor every Friday and Friday.
[2021-12-13 12:05] LABS: Glucose Point of Care 162 mg/dl (65-105)
[2021-12-13] MEDS: METOCLOPRAMIDE HCL 10 MG/10 ML SOLN UDC FEED TUBE ×2 (13:51→17:32)
[2021-12-13] MEDS: SODIUM CHLORIDE 0.9% IV 1,000 ML 100 ML IV CONT (14:00)
[2021-12-13] MEDS: NOREPINEPHRINE 8 MG/D5W 250 ML 8 MG/250 ML BAG 13.13 MG IV CONT (14:00)
[2021-12-13] MEDS: ALBUMIN HUMAN 25% 12.5 GM/50ML 50 ML IVPB (14:45)
[2021-12-13 16:06] LABS: Glucose Point of Care 166 mg/dl (65-105)
[2021-12-13] MEDS: EPOETIN ALFA-EPBX 10,000 UNITS/ML VIAL 10000 UNITS IV PUSH (16:18)
--- NOTE | 2021-12-13 17:15 | PM.PNNEP ---
Progress Note: A&P Assessment and Plan (1) DIANA (acute kidney injury): Code(s): N17.9 - Acute kidney failure, unspecified Status: Acute Assessment and Plan: suspect due to ATN from: contrast exposure (CT scan head/chest/abdomen/pelvis on 12/02/21) possible prerenal factors hemodynamic instability/hypotension infection (bacteremia) creatinine continues to decline no critical electrolytes at this time however, volume status/fluid overload continues to be an issue/problem s/p HD catheter placement today HD today and push fluid removal as tolerated follow repeat labs and UOP for potential renal recovery (2) Acute hypoxemic respiratory failure: Code(s): J96.01 - Acute respiratory failure with hypoxia Status: Acute Assessment and Plan: related to pneumonia, CHF, COPD, and bilateral pleural effusions intubated since 12/01/21 COVID-19 negative x 2 s/p bronchoscopy on 12/05/21 s/p bilateral thoracentesis (right on 12/06/21, left on 12/07/21 - 1L removed from each side) still with evidence of pulmonary edema/effusions despite this intervention agree with ongoing attempts at diuresis/IV diuretics despite DIANA/ARF follow CXR and imaging fluid removal with dialysis (3) Congestive heart failure: Code(s): I50.9 - Heart failure, unspecified Status: Acute Assessment and Plan: likely also playing a role with #2 repeat echo noted - severe concentric increased left ventricular wall thickness. Resting LVOT gradient of peak 20 mmHg and mean 9 mmHg suggests mild obstruction. Moderate aortic stenosis and severe mitral valve stenosis with significant calcification this probably explains her propensity for pulmonary edema and recurrent pleural effusions and likely poor response to diuretics unfortunately, transfer for Cardiothoracic Surgery evaluation not possible due to lack of ICU beds at multiple hospitals Cardiology following (4) Shock: Code(s): R57.9 - Shock, unspecified Status: Acute Assessment and Plan: on and off Levophed more so due to sedation than infection/sepsis wean as tolerated due to positive pressure ventilation following intubation versus sepsis versus sedation s/p adequate amount of IV fluids blood cultures (11/25/21) with Group B strep - repeat blood culture negative urine culture negative continue antibiotics (5) Pneumonia: Qualifiers: Laterality: unspecified laterality Lung location: unspecified part of lung Pneumonia type: due to unspecified organism Qualified Code(s): J18.9 - Pneumonia, unspecified organism Code(s): J18.9 - Pneumonia, unspecified organism Status: Acute Assessment and Plan: as suggestive by imaging to date on antibiotics 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 Subjective Date/time seen: 12/13/21 17:15 S/P tunneled HD catheter placement earlier today and currently tolerating dialysis at the time of my visit (seen on HD at 5:00pm); no improvement in urine output yesterday despite high dose diuretics leading to Surgery consultation for HD catheter placement; remains intubated/sedated and on/off low dose levophed overnight/earlier today. Exam Narrative: General: ill appearing female intubated/sedated but in NAD Heart: tachycardic, no
--- NOTE | 2021-12-13 17:15 | P.PNNP_ITS ---
Progress Note: A&P Assessment and Plan (1) DIANA (acute kidney injury): Code(s): N17.9 - Acute kidney failure, unspecified Status: Acute Assessment and Plan: * suspect due to ATN from: * contrast exposure (CT scan head/chest/abdomen/pelvis on 12/02/21) * possible prerenal factors * hemodynamic instability/hypotension * infection (bacteremia) * creatinine continues to decline * no critical electrolytes at this time * however, volume status/fluid overload continues to be an issue/problem * s/p HD catheter placement today * HD today and push fluid removal as tolerated * follow repeat labs and UOP for potential renal recovery (2) Acute hypoxemic respiratory failure: Code(s): J96.01 - Acute respiratory failure with hypoxia Status: Acute Assessment and Plan: * related to pneumonia, CHF, COPD, and bilateral pleural effusions * intubated since 12/01/21 * COVID-19 negative x 2 * s/p bronchoscopy on 12/05/21 * s/p bilateral thoracentesis (right on 12/06/21, left on 12/07/21 - 1L removed from each side) * still with evidence of pulmonary edema/effusions despite this intervention * agree with ongoing attempts at diuresis/IV diuretics despite DIANA/ARF * follow CXR and imaging * fluid removal with dialysis (3) Congestive heart failure: Code(s): I50.9 - Heart failure, unspecified Status: Acute Assessment and Plan: * likely also playing a role with #2 * repeat echo noted - severe concentric increased left ventricular wall thic kness. Resting LVOT gradient of peak 20 mmHg and mean 9 mmHg suggests mild obstruction. Moderate aortic stenosis and severe mitral valve stenosis with significant calcification * this probably explains her propensity for pulmonary edema and recurrent pleural effusions and likely poor response to diuretics * unfortunately, transfer for Cardiothoracic Surgery evaluation not possible due to lack of ICU beds at multiple hospitals * Cardiology following (4) Shock: Code(s): R57.9 - Shock, unspecified Status: Acute Assessment and Plan: * on and off Levophed more so due to sedation than infection/sepsis * wean as tolerated * due to positive pressure ventilation following intubation versus sepsis versus sedation * s/p adequate amount of IV fluids * blood cultures (11/25/21) with Group B strep - repeat blood culture negative * urine culture negative * continue antibiotics (5) Pneumonia: Qualifiers: Laterality: unspecified laterality Lung location: unspecified part of lung Pneumonia type: due to unspecified organism Qualified Code(s): J18.9 - Pneumonia, unspecified organism Code(s): J18.9 - Pneumonia, unspecified organism Status: Acute Assessment and Plan: * as suggestive by imaging to date * on antibiotics 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 Subjective [place]
[2021-12-13] MEDS: NOREPINEPHRINE 8 MG/D5W 250 ML 8 MG/250 ML BAG 46.88 MG IV CONT (19:48)
[2021-12-13] MEDS: SENNA/DOCUSATE SODIUM TABLET 1 TAB FEED TUBE (19:55)
[2021-12-13 20:47] LABS: Glucose Point of Care 190 mg/dl (65-105)
[2021-12-13 21:27] LABS: Alveolar/Arterial O2 Gradient 596.2 mmHg; Base Excess ABG -6.2 mEq/l (+/-2.0); Carboxyhemoglobin 0.3 % THb (0-2.0); Fractional Inspired Oxygen 100 %; HCO3 ABG 22.7 mEq/l (22.0-26.0); Methemoglobin ABG 0.4 %THb (0-1.5); Oxygen Content ABG 11.7 %vol (16.0-22.0); PO2 ABG 53.8 mmHg (80.0-100.0); PO2 FiO2 Ratio Arterial Blood 0.54 %; Reduced Hemoglobin 21.7 %THb (0-5.0); Total Hemoglobin 10.7 g/dL (12.0-18.0)
[2021-12-13 21:28] LABS: pH ABG 7.174 (7.350-7.450)
[2021-12-13 21:29] LABS: Oxygen Saturation ABG 78.5 % (95.0-100.0)
[2021-12-13 21:30] LABS: Device AMBU BAG; Modified Allen's Test Pass; Oxyhemoglobin 77.6 % THb (90.0-100.0); Site Drawn RIGHT RADIAL
[2021-12-13] MEDS: SODIUM BICARBONATE 8.4% 50 MEQ/50 ML SYRINGE 100 MEQ IV PUSH (22:00)
[2021-12-13] MEDS: ROCURONIUM BROMIDE 50 MG/5 ML VIAL IV PUSH (22:00)
[2021-12-14] VITALS (54 sets, daily range): BP systolic 51–220; BP diastolic 31–105; PULSE 67–136; RESP 22–34; TEMP 36.1–37; O2SAT 86–100
[2021-12-14] MEDS: AMIODARONE 150 MG/D5W 100 ML 150 MG/100 ML BAG 600 MG IV CONT (00:19)
[2021-12-14] MEDS: VASOPRESSIN INJ 100 UNITS in DEXTROSE 5% 95 ML IV CONT (00:29)
[2021-12-14] MEDS: METOCLOPRAMIDE HCL 10 MG/10 ML SOLN UDC FEED TUBE ×4 (00:32→18:36)
[2021-12-14 01:04] LABS: Glucose Point of Care 200 mg/dl (65-105)
[2021-12-14] MEDS: MIDAZOLAM 100MG/NS 100ML(*CRX) 100 MG/100 ML BAG IV CONT ×2 (01:07→20:48)
[2021-12-14] MEDS: NOREPINEPHRINE 8 MG/D5W 250 ML 8 MG/250 ML BAG 41.25 MG IV CONT (01:08)
[2021-12-14] MEDS: ALBUTEROL SULFATE NEB 2.5 MG/0.5 ML INH INHALATION ×4 (02:22→19:32)
[2021-12-14] MEDS: IPRATROPIUM BR 0.02% INH SOLN 0.5 MG/2.5 ML VIAL INHALATION ×4 (02:22→19:32)
[2021-12-14 04:29] LABS: Hematocrit 25.7 % (37.0-47.0); Hemoglobin 8.4 g/dL (12.0-15.0); Mean Corpuscular HGB Conc 32.7 g/dl (32-36); Mean Corpuscular Hemoglobin 30.9 pg (26-34); Mean Corpuscular Volume 94.5 fl (80-100); Platelet Count Result 164 k/mm3 (150-375); Red Blood Count 2.72 M/mm3 (4.2-5.4); Red Cell Distribution Width 15.9 % (11.5-14.5); White Blood Count 10.3 K/mm3 (4.5-10.0)
[2021-12-14 04:50] LABS: Alanine Aminotransferase 22 U/L (4-35); Albumin Level 3.3 g/dL (3.5-5.1); Alkaline Phosphatase 59 U/L (38-126); Anion Gap 16 mmol/L (8-16); Aspartate Amino Transferase 31 U/L (14-36); Bilirubin,Total 0.9 mg/dL (0.2-1.3); Blood Urea Nitrogen 70 mg/dL (7-17); Calcium 8.4 mg/dL (8.4-10.2); Carbon Dioxide 21 mmol/L (22-30); Chloride 93 mmol/L (98-107); Estimated CRCL calculation 13 ml/min; Estimated Glomerular Filt Rate 12; Glucose 193 mg/dL (65-110); Potassium 5.1 mmol/L (3.4-5.0); Sodium 130 mmol/L (137-145)
[2021-12-14 04:55] LABS: Alveolar/Arterial O2 Gradient 588.9 mmHg; Base Excess ABG -4.6 mEq/l (+/-2.0); Carboxyhemoglobin 0.2 % THb (0-2.0); Fractional Inspired Oxygen 100 %; HCO3 ABG 22.4 mEq/l (22.0-26.0); Methemoglobin ABG 0.2 %THb (0-1.5); Oxygen Content ABG 12.4 %vol (16.0-22.0); Oxygen Saturation ABG 92.4 % (95.0-100.0); Oxyhemoglobin 90.9 % THb (90.0-100.0); PCO2 ABG 50.8 mmHg (35.0-45.0); PO2 ABG 73.3 mmHg (80.0-100.0); PO2 FiO2 Ratio Arterial Blood 0.73 %; Reduced Hemoglobin 8.7 %THb (0-5.0); Total Hemoglobin 9.6 g/dL (12.0-18.0)
[2021-12-14 04:58] LABS: Arterial Blood Gas Ventilator rate 30 /MIN; Device VENTILATOR; Modified Allen's Test Unable to perform; Site Drawn RIGHT RADIAL; pH ABG 7.263 (7.350-7.450)
[2021-12-14 04:59] LABS: Arterial Blood Gas PEEP 16 cmH2O; Arterial Blood Gas Tidal Volume 350 ml; Arterial Blood Gas Vent Mode CMV
[2021-12-14] MEDS: FENTANYL 2,500MCG/NS250ML(*CRX 2,500 MCG/250 ML BAG 12.5 MCG IV CONT (05:30)
[2021-12-14] MEDS: CENTRAL LINE FLUSH 10 ML IV PUSH ×3 (05:32→22:13)
--- NOTE | 2021-12-14 07:53 | PM.PNCARD ---
Progress Note: A&P Assessment and Plan (1) Shock: Code(s): R57.9 - Shock, unspecified Status: Acute Assessment and Plan: Probably due to respiratory failure and sedation with intubation. On and off Levophed drip and on Vasopressin now. Echo 11/27/21 shows normal EF 65-70%, diastolic function indeterminate, mild , consider mod MS. Pleural effusions reaccumulating, kidney function worsening and started hemodialysis on 12/13/20. Hb 8.4, Cr 3.6 today. Recheck echo on 12/08/20 shows EF 65-70%, severe LVH, mild LVOT obstruction with mean gradient of 9 mmHg, significant diastolic dysfunction with E/e' 40, mild RV hypokinesis, severe LAE, mod (AKIKO 1.4 cm2), severe MAC and severe MV calcification, severe MS based on visual estimation and mean gradient of 15 mmHg, plasma processing technician unable to calculate MVA from continuity equation, mild MR, small pericardial effusion. Offered to perform HEIDY to better visualize mitral valve and better characterize mitral stenosis. However, after lengthy discussion with her daughter on 12/10/20 on her status, and she did not want her mother to have the procedure thinking that if she gets transferred to a facility to have MV replacement she would end up having another HEIDY. This may or may not be the case. Discussed with patient's daughter at length and updated her on her status on 12/11/20 that she is a poor prognosis given worsening kidney failure, anemia, shock requiring intermittent vasopressor support, Pneumonia/COPD, severe mitral stenosis. Her daughter remains hopeful that her mother will get better. (2) Aortic stenosis: Code(s): I35.0 - Nonrheumatic aortic (valve) stenosis Status: Acute Assessment and Plan: Moderate. (3) Atrial fibrillation: Qualifiers: Atrial fibrillation type: unspecified Qualified Code(s): I48.91 - Unspecified atrial fibrillation Code(s): I48.91 - Unspecified atrial fibrillation Status: Chronic Assessment and Plan: Persistent atrial fib. Rate controlled. On Amiodarone drip to control HR due to hypotension and unable to use Diltiazem or Metoprolol. Had bronchoscopy and bilateral thoracentesis removing 1 liter from each. Was on Xarelto 15 mg daily given worsening kidney function. She did cardiovert with Amiodarone drip but back in atrial fibrillation. On Amiodarone 200 mg PO BID to attempt to maintain sinus rhythm and if not, then to control HR. Due to having significant mitral stenosis, this is now consider valvular atrial fibrillation, in which case NOAC are not indicated. She would need to be on Lovenox or Warfarin. While in ICU, would change it over to once daily Lovenox given renal function. Discuss with Dr. Graham due to worsening anemia, that we can hold Lovenox in case there is a bleed. Resume Lovenox if Hb stable and no signs of bleed. 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
[2021-12-14] MEDS: SODIUM BICARBONATE 8.4% 50 MEQ/50 ML SYRINGE 100 MEQ IV PUSH ×2 (08:20→16:12)
[2021-12-14] MEDS: polyethylene glycoL 3350 17 GM POWD.PACK FEED TUBE (08:21)
[2021-12-14] MEDS: PANTOPRAZOLE SODIUM IV 40 MG VIAL IV PUSH ×2 (08:22→20:30)
[2021-12-14] MEDS: AMIODARONE HCL 200 MG TABLET PO ×2 (08:22→20:30)
[2021-12-14] MEDS: MINERAL OIL/WHITE PETROLATUM OINTMENT 1 APPLIC EACH EYE ×2 (08:24→20:30)
[2021-12-14 08:30] LABS: Glucose Point of Care 210 mg/dl (65-105)
--- NOTE | 2021-12-14 10:59 | WPDANESPN ---
Anes - Prog Note Post-Op Date/Time: 12/14/21 10:59 Cardiovascular status: normal Respiratory status: normal Airway patency: baseline Mental status: baseline Post-Op hydration status: normal Vital Signs: Last Vital Signs Temp 36.6 C 12/14/21 08:00 Pulse 80 12/14/21 10:26 Resp 30 H 12/14/21 10:00 BP 146/68 H 12/14/21 10:26 Pulse Ox 96 12/14/21 10:00 Pain Score (VAS): 0 I/O: Intake & Output 12/13/21 12/14/21 12/14/21 23:59 07:59 15:59 Intake Total 515 690 Output Total 2030 695 Balance -1515 -5 Laboratory Tests 12/14/21 04:05 12/14/21 04:05 12/06/21 12/13/21 12/13/21 15:00 11:48 15:56 WBC RBC Hgb Hct MCV MCH MCHC RDW Plt Count MPV Puncture Site ABG pH ABG pCO2 ABG pO2 ABG PO2/FiO2 Ratio ABG HCO3 ABG O2 Saturation ABG O2 Content ABG Base Excess A-a Gradient Oxyhemoglobin Carboxyhemoglobin Methemoglobin Reduced Hemoglobin Total Hemoglobin O2 Delivery Device O2 Liters/Min Minute Volume Vent Rate Vent Mode FiO2 Tidal Volume PEEP Peak Inspir Pressure Pressure Support Sodium Potassium Chloride Carbon Dioxide Anion Gap BUN Creatinine Estim Creat Clear Calc Estimated GFR Glucose POC Capillary Glucose 162 H 166 H Calcium Magnesium Total Bilirubin AST ALT Alkaline Phosphatase Total Protein Albumin HSV I DNA PCR Cancelled HSV II DNA PCR Cancelled HSV (PCR) Source Cancelled 12/13/21 12/13/21 12/14/21 20:22 21:21 00:36 WBC RBC Hgb Hct MCV MCH MCHC RDW Plt Count MPV Puncture Site Right radial ABG pH 7.174 L* ABG pCO2 63.0 H* ABG pO2 53.8 L ABG PO2/FiO2 Ratio 0.54 ABG HCO3 22.7 ABG O2 Saturation 78.5 L* ABG O2 Content 11.7 L ABG Base Excess -6.2 A-a Gradient 596.2 Oxyhemoglobin 77.6 L* Carboxyhemoglobin 0.3 Methemoglobin 0.4 Reduced Hemoglobin 21.7 H Total Hemoglobin 10.7 L O2 Delivery Device Ambu bag O2 Liters/Min 15.0 Minute Volume Vent Rate Vent Mode FiO2 100 Tidal Volume PEEP Peak Inspir Pressure Pressure Support Sodium Potassium Chloride Carbon Dioxide Anion Gap BUN Creatinine Estim Creat Clear Calc Estimated GFR Glucose POC Capillary Glucose 190 H 200 H Calcium Magnesium Total Bilirubin AST ALT Alkaline Phosphatase Total Protein Albumin HSV I DNA PCR HSV II DNA PCR HSV (PCR) Source 12/14/21 12/14/21 12/14/21 04:05 04:05 04:23 WBC 10.3 H RBC 2.72 L Hgb 8.4 L Hct 25.7 L MCV 94.5 MCH 30.9 MCHC 32.7 RDW 15.9 H Plt Count 164 MPV 12.0 H Puncture Site Right radial ABG pH 7.263 L* ABG pCO2 50.8 H ABG pO2 73.3 L ABG PO2/FiO2 Ratio 0.73 ABG HCO3 22.4 ABG O2 Saturation 92.4 L ABG O2 Content 12.4 L ABG Base Excess -4.6 A-a Gradient 588.9 Oxyhemoglobin 90.9 Carboxyhemoglobin 0.2 Methemoglobin 0.2 Reduced Hemoglobin 8.7 H Total Hemoglobin 9.6 L O2 Delivery Device Ventilator O2 Liters/Min Not Reportable Minute Volume Not Reportable Vent Rate 30 Vent Mode Cmv FiO2 100 Tidal Volume 350 PEEP 16 Peak Inspir Pressure Not Reportable Pressure Support Not Reportable Sodium 130 L Potassium 5.1 H Chloride 93 L Carbon Dioxide 21 L Anion Gap 16 BUN 70 H D Creatinine 3.60 H Estim Creat Clear Calc 13 Estimated GFR 12 L Glucose 193 H POC Capillary Glucose Calcium 8.4 Magnesium 2.0 Total Bilirubin 0.9 AST 31 ALT 22 Alkaline Phosphatase 59 Total Protein 5.0 L Albumin 3.3 L HSV I DNA PCR HSV II DNA PCR HSV (PCR) Source 12/14/21 08:10 WBC RBC Hgb Hct MCV MCH MCHC RDW Plt Count MPV Pu
[2021-12-14] MEDS: INSULIN ASPART (*BKC) 100 UNITS/ML SUB-Q ×3 (11:25→20:30)
[2021-12-14 11:51] LABS: Glucose Point of Care 221 mg/dl (65-105)
[2021-12-14] MEDS: NOREPINEPHRINE 8 MG/D5W 250 ML 8 MG/250 ML BAG 15 MG IV CONT (12:21)
--- NOTE | 2021-12-14 12:24 | WPDINTPN ---
Progress Note: A&P Assessment and Plan (1) Acute hypoxemic respiratory failure: Code(s): J96.01 - Acute respiratory failure with hypoxia Status: Acute Assessment and Plan: Hypoxic respiratory failure likely related to community-acquired pneumonia, CHF, baseline emphysema, pleural effusions Patient presented the ED on 11/25/2021 with shortness of breath, was on BiPAP and has been declining and requiring significant oxygen support. Failed BiPAP 16/6, 100% FiO2 Intubated patient on 12/01/2021 -continue low tidal volume strategy, peep of14 and 75% FiO2 -12/09 due to significant atelectasis in posterior parts of the lung and effusions with compressive atelectasis, I tried placing patient in prone position but it did not work. Patient had high peak pressures limiting her minute ventilation which led to hypercarbia and acidosis. She required significant amount of sedation to be compliant with ventilation which led to drop in blood pressure requiring vasopressor. No significant improvement in oxygenation seen over multiple hours hence patient was placed back in supine position overnight. -continue bronchodilators - sedated with fentanyl and Versed infusion - COVID-19 negative x2 - 12/05 bronchoscopy was done and BAL collected. Cultures are pending - 12/06 patient underwent right-sided thoracentesis and 1 L fluid was removed - 12/07 patient underwent left-sided thoracentesis and 1 L fluid was removed -pleural fluid was transudate although some of the studies are pending -chest x-ray shows persistent bilateral pleural effusions and infiltrates suggestive of pulmonary edema -ABG reviewed -patient was dialyzed yesterday and will plan to remove more fluid today -see below for treatment of infection -will repeat thoracentesis on the right side -12/[address] IMPRESSION: 1. Bilateral dependent airspace opacities, consistent with atelectasis versus pneumonia. 2. Moderate-sized pleural effusions. 3. Cardiomegaly -12/02/2021: chest abdomen and pelvis showed no pulmonary embolism, moderate-sized bilateral pleural effusion. Mild scattered ground-glass opacities in the lungs, consistent mild pulmonary edema versus pneumonia, moderate emphysema. Gallbladder distention and gallbladder wall thickening, small volume ascites, mild aorto caval lymphadenopathy, likely reactive (2) Shock: Code(s): R57.9 - Shock, unspecified Status: Acute Assessment and Plan: Currently on Levophed Patient has been on and off Levophed this is likely secondary to sedation Will try to decrease sedation on mechanical ventilation and try to wean off Levophed -11/25 blood cultures grew group B Streptococcus. -11/30/2021: Repeat blood cultures negative x2, preliminary results -11/29/2021 urine cultures are negative -continue cefepime (12/01/2021) for 14 days. Vancomycin held as patient's renal function is worsening and cultures have been negative (3) Pneumonia: Qualifiers: Laterality: unspecified laterality Lung location: unspecified part of lung Pneumonia type: due to unspecified organism Qualified Code(s): J18.9 - Pneumonia, unspecified organism Code(s): J18.9 - Pneumonia, unspecified organism Status: Acute Assessment and Plan: Possible community-acquired pneumonia -continue cefepime and vancomycin (12/01/2021) -will continue to monitor chest x-ray and ABGs -SARS-CoV-2 PCR PCR negative x2 -12/03/2021: CTA chest showed no pulmonary embolism, moderate-sized bilateral pleural effusion, mild scattered ground-glass opacities in the lungs, consistent with mild pulmonary edema versus pneumonia. Moderate emphysema -12/[address] IMPRESSION: 1. Bilateral dependent airspace opacities, consistent with atelectasis versus pneumonia. 2. Moderate-sized pleural effusions. 3. 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 I discussed pato
--- NOTE | 2021-12-14 14:13 | P.PNNP_ITS ---
Progress Note: A&P Assessment and Plan (1) DIANA (acute kidney injury): Code(s): N17.9 - Acute kidney failure, unspecified Status: Acute Assessment and Plan: * suspect due to ATN from: * contrast exposure (CT scan head/chest/abdomen/pelvis on 12/02/21) * possible prerenal factors * hemodynamic instability/hypotension * infection (bacteremia) * creatinine continued to decline with no significant response to diuretic therapy * no critical electrolytes at this time * however, volume status/fluid overload continues to be an issue/problem * s/p HD catheter placement on 12/13/21 * HD yesterday and today - push fluid removal as tolerated * follow repeat labs and UOP for potential renal recovery (2) Acute hypoxemic respiratory failure: Code(s): J96.01 - Acute respiratory failure with hypoxia Status: Acute Assessment and Plan: * related to pneumonia, CHF, COPD, and bilateral pleural effusions * intubated since 12/01/21 * COVID-19 negative x 2 * s/p bronchoscopy on 12/05/21 * s/p bilateral thoracentesis (right on 12/06/21, left on 12/07/21 - 1L removed from each side) * still with evidence of pulmonary edema/effusions despite this intervention * follow CXR and imaging * fluid removal with dialysis (3) Congestive heart failure: Code(s): I50.9 - Heart failure, unspecified Status: Acute Assessment and Plan: * likely also playing a role with #2 * repeat echo noted - severe concentric increased left ventricular wall thicknes s. Resting LVOT gradient of peak 20 mmHg and mean 9 mmHg suggests mild obstruction. Moderate aortic stenosis and severe mitral valve stenosis with significant calcification * this probably explains her propensity for pulmonary edema and recurrent pleural effusions and likely poor response to diuretics * unfortunately, transfer for Cardiothoracic Surgery evaluation not possible due to lack of ICU beds at multiple hospitals * Cardiology following (4) Shock: Code(s): R57.9 - Shock, unspecified Status: Acute Assessment and Plan: * on and off Levophed more so due to sedation than infection/sepsis * wean as tolerated * due to positive pressure ventilation following intubation versus sepsis versus sedation * s/p adequate amount of IV fluids * blood cultures (11/25/21) with Group B strep - repeat blood culture negative * urine culture negative * continue antibiotics (5) Pneumonia: Qualifiers: Laterality: unspecified laterality Lung location: unspecified part of lung Pneumonia type: due to unspecified organism Qualified Code(s): J18.9 - Pneumonia, unspecified organism Code(s): J18.9 - Pneumonia, unspecified organism Status: Acute Assessment and Plan: * as suggestive by imaging to date * on antibiotics 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 Subjective Date/ti
--- NOTE | 2021-12-14 14:13 | PM.PNNEP ---
Progress Note: A&P Assessment and Plan (1) DIANA (acute kidney injury): Code(s): N17.9 - Acute kidney failure, unspecified Status: Acute Assessment and Plan: suspect due to ATN from: contrast exposure (CT scan head/chest/abdomen/pelvis on 12/02/21) possible prerenal factors hemodynamic instability/hypotension infection (bacteremia) creatinine continued to decline with no significant response to diuretic therapy no critical electrolytes at this time however, volume status/fluid overload continues to be an issue/problem s/p HD catheter placement on 12/13/21 HD yesterday and today - push fluid removal as tolerated follow repeat labs and UOP for potential renal recovery (2) Acute hypoxemic respiratory failure: Code(s): J96.01 - Acute respiratory failure with hypoxia Status: Acute Assessment and Plan: related to pneumonia, CHF, COPD, and bilateral pleural effusions intubated since 12/01/21 COVID-19 negative x 2 s/p bronchoscopy on 12/05/21 s/p bilateral thoracentesis (right on 12/06/21, left on 12/07/21 - 1L removed from each side) still with evidence of pulmonary edema/effusions despite this intervention follow CXR and imaging fluid removal with dialysis (3) Congestive heart failure: Code(s): I50.9 - Heart failure, unspecified Status: Acute Assessment and Plan: likely also playing a role with #2 repeat echo noted - severe concentric increased left ventricular wall thickness. Resting LVOT gradient of peak 20 mmHg and mean 9 mmHg suggests mild obstruction. Moderate aortic stenosis and severe mitral valve stenosis with significant calcification this probably explains her propensity for pulmonary edema and recurrent pleural effusions and likely poor response to diuretics unfortunately, transfer for Cardiothoracic Surgery evaluation not possible due to lack of ICU beds at multiple hospitals Cardiology following (4) Shock: Code(s): R57.9 - Shock, unspecified Status: Acute Assessment and Plan: on and off Levophed more so due to sedation than infection/sepsis wean as tolerated due to positive pressure ventilation following intubation versus sepsis versus sedation s/p adequate amount of IV fluids blood cultures (11/25/21) with Group B strep - repeat blood culture negative urine culture negative continue antibiotics (5) Pneumonia: Qualifiers: Laterality: unspecified laterality Lung location: unspecified part of lung Pneumonia type: due to unspecified organism Qualified Code(s): J18.9 - Pneumonia, unspecified organism Code(s): J18.9 - Pneumonia, unspecified organism Status: Acute Assessment and Plan: as suggestive by imaging to date on antibiotics 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 Subjective Date/time seen: 12/14/21 14:13 Tolerating dialysis treatment at the time of my visit (seen on HD at ~ 2:00pm); just recent started on pressor therapy prior to dialysis treatment initiation due to systolic BP in the 70s; tolerated HD treatment yesterday following HD catheter placement; remains on full ventilator support. Exam Narrative: General: ill appearing female intubated/sedated but in NAD Heart: tachycardic, normal S1 and S2; no rub Lungs: coarse breath sounds
--- NOTE | 2021-12-14 14:19 | PCNFU ---
Nutrition Follow-Up Complete: Inadequate Oral Intake as related to mechanical ventilation as evidenced by NPO Goal: Meet estimated nutritional needs Pt. is progressing towards goal. No new goal at this time. Pt current nutrition is Vital AF 1.2 at 20 mls per hour over 22 hours per day (goal rate of 55 mls per hour). Last recorded weight is 78.4 kg. Bowel Motility: + BM 12/14/2021 Labs Reviewed: Hgb 8.4, Hct 25.7, Alb 3.3, Na 130, K 5.1, GFR 12, BUN 70, Cr 3.6, Glu 193 Meds Noted: Albuterol, Pacerone, Lovenox, Retacrit, Glucagon, Glucose, Insulin, Atrovent Neb, Versed, Reglan, Levophed, Miralax, Protonix, Senna Skin: No skin break down at this time. WNL. Additional Notes: Patient remains on mechanical ventilation. Feedings were previously held for intolerance and resumed today. Currently on Vital AF 1.2 at 20 mls per hour over 22 hours per day providing 528 calories, 33 grams of protein and 357 mls of water with a 30 ml water flush q4. Pt. started on Reglan to aid in gastric emptying. Slowly increase feeding rate to goal rate of 55 mls per hour over 22 hours per day. Will monitor every Friday and Friday.
[2021-12-14 15:04] LABS: INR 1.6; Prothrombin Time 18.3 Seconds (11.1-14.7)
[2021-12-14] MEDS: ALBUMIN HUMAN 25% 12.5 GM/50ML 50 ML IVPB (15:37)
[2021-12-14 16:27] LABS: Glucose Point of Care 167 mg/dl (65-105)
[2021-12-14] MEDS: SENNA/DOCUSATE SODIUM TABLET 1 TAB FEED TUBE (20:30)
[2021-12-14] MEDS: NOREPINEPHRINE 8 MG/D5W 250 ML 8 MG/250 ML BAG 22.5 MG IV CONT (20:59)
[2021-12-14 21:10] LABS: Glucose Point of Care 219 mg/dl (65-105)
[2021-12-15] VITALS (54 sets, daily range): BP systolic 76–166; BP diastolic 41–95; PULSE 80–113; RESP 28–34; TEMP 13.8–37.1; O2SAT 93–100
[2021-12-15] MEDS: METOCLOPRAMIDE HCL 10 MG/10 ML SOLN UDC FEED TUBE ×4 (00:29→18:00)
[2021-12-15 00:30] LABS: Glucose Point of Care 231 mg/dl (65-105)
[2021-12-15] MEDS: INSULIN ASPART (*BKC) 100 UNITS/ML SUB-Q ×6 (00:55→21:29)
[2021-12-15] MEDS: FENTANYL 2,500MCG/NS250ML(*CRX 2,500 MCG/250 ML BAG 12.5 MCG IV CONT (01:38)
[2021-12-15] MEDS: ALBUTEROL SULFATE NEB 2.5 MG/0.5 ML INH INHALATION ×4 (02:16→20:44)
[2021-12-15] MEDS: IPRATROPIUM BR 0.02% INH SOLN 0.5 MG/2.5 ML VIAL INHALATION ×4 (02:17→20:45)
[2021-12-15 04:13] LABS: Hematocrit 22.1 % (37.0-47.0); Hemoglobin 7.4 g/dL (12.0-15.0); Mean Corpuscular HGB Conc 33.5 g/dl (32-36); Mean Corpuscular Hemoglobin 31.1 pg (26-34); Mean Corpuscular Volume 92.9 fl (80-100); Mean Platelet Volume 11.9 fl (7.4-10.4); Platelet Count Result 107 k/mm3 (150-375); Red Blood Count 2.38 M/mm3 (4.2-5.4); Red Cell Distribution Width 15.2 % (11.5-14.5); White Blood Count 7.4 K/mm3 (4.5-10.0)
[2021-12-15 04:33] LABS: Alanine Aminotransferase 24 U/L (4-35); Albumin Level 2.7 g/dL (3.5-5.1); Alkaline Phosphatase 69 U/L (38-126); Anion Gap 12 mmol/L (8-16); Aspartate Amino Transferase 23 U/L (14-36); Bilirubin,Total 0.6 mg/dL (0.2-1.3); Blood Urea Nitrogen 58 mg/dL (7-17); Calcium 8.3 mg/dL (8.4-10.2); Carbon Dioxide 28 mmol/L (22-30); Chloride 97 mmol/L (98-107); Estimated CRCL calculation 14 ml/min; Estimated Glomerular Filt Rate 14; Glucose 237 mg/dL (65-110); Potassium 3.4 mmol/L (3.4-5.0); Sodium 137 mmol/L (137-145)
[2021-12-15 05:51] LABS: Alveolar/Arterial O2 Gradient 180.4 mmHg; Base Excess ABG 2.1 mEq/l (+/-2.0); Carboxyhemoglobin 0.3 % THb (0-2.0); Fractional Inspired Oxygen 50 %; HCO3 ABG 26.9 mEq/l (22.0-26.0); Methemoglobin ABG 0.2 %THb (0-1.5); Oxygen Content ABG 11.8 %vol (16.0-22.0); Oxygen Saturation ABG 98.6 % (95.0-100.0); Oxyhemoglobin 96.8 % THb (90.0-100.0); PCO2 ABG 43.1 mmHg (35.0-45.0); PO2 ABG 127.6 mmHg (80.0-100.0); PO2 FiO2 Ratio Arterial Blood 2.55 %; Reduced Hemoglobin 2.7 %THb (0-5.0); Total Hemoglobin 8.5 g/dL (12.0-18.0); pH ABG 7.413 (7.350-7.450)
[2021-12-15 05:52] LABS: Device VENTILATOR; Modified Allen's Test Pass; Site Drawn RIGHT RADIAL
[2021-12-15 05:53] LABS: Arterial Blood Gas PEEP 16 cmH2O; Arterial Blood Gas Tidal Volume 350 ml; Arterial Blood Gas Vent Mode CMV; Arterial Blood Gas Ventilator rate 30 /MIN
[2021-12-15] MEDS: CENTRAL LINE FLUSH 10 ML IV PUSH ×3 (06:00→21:27)
[2021-12-15 06:01] LABS: Hepatitis B Core Ab Total Nonreactive (Nonreactive)
[2021-12-15] MEDS: INSULIN GLARGINE (*BKC) 100 UNITS/ML 20 UNITS SUB-Q (08:48)
[2021-12-15] MEDS: POTASSIUM CHLORIDE 20 MEQ PACKET (FOR LIQUID) 40 MEQ FEED TUBE (08:49)
[2021-12-15] MEDS: ENOXAPARIN 80 MG/0.8 ML SYRINGE 70 MG SUB-Q (08:49)
[2021-12-15] MEDS: PANTOPRAZOLE SODIUM IV 40 MG VIAL IV PUSH ×2 (08:50→21:27)
[2021-12-15] MEDS: AMIODARONE HCL 200 MG TABLET PO ×2 (08:50→21:26)
[2021-12-15] MEDS: polyethylene glycoL 3350 17 GM POWD.PACK FEED TUBE (08:50)
[2021-12-15] MEDS: MINERAL OIL/WHITE PETROLATUM OINTMENT 1 APPLIC EACH EYE ×2 (08:51→21:23)
[2021-12-15 09:16] LABS: Glucose Point of Care 237 mg/dl (65-105)
--- NOTE | 2021-12-15 10:31 | WPDINTPN ---
Progress Note: A&P Assessment and Plan (1) Acute hypoxemic respiratory failure: Code(s): J96.01 - Acute respiratory failure with hypoxia Status: Acute Assessment and Plan: Hypoxic respiratory failure likely related to community-acquired pneumonia, CHF, baseline emphysema, pleural effusions Patient presented the ED on 11/25/2021 with shortness of breath, was on BiPAP and has been declining and requiring significant oxygen support. Failed BiPAP 16/6, 100% FiO2 Intubated patient on 12/01/2021 -continue low tidal volume strategy, peep of14 and 75% FiO2 -12/09 due to significant atelectasis in posterior parts of the lung and effusions with compressive atelectasis, I tried placing patient in prone position but it did not work. Patient had high peak pressures limiting her minute ventilation which led to hypercarbia and acidosis. She required significant amount of sedation to be compliant with ventilation which led to drop in blood pressure requiring vasopressor. No significant improvement in oxygenation seen over multiple hours hence patient was placed back in supine position overnight. -continue bronchodilators - sedated with fentanyl and Versed infusion - COVID-19 negative x2 - 12/05 bronchoscopy was done and BAL collected. Cultures are pending - 12/06 patient underwent right-sided thoracentesis and 1 L fluid was removed - 12/07 patient underwent left-sided thoracentesis and 1 L fluid was removed - 12/14 patient underwent repeat right-sided thoracentesis and 1 L fluid was removed -pleural fluid was transudate although some of the studies are pending -chest x-ray shows persistent bilateral pleural effusions and infiltrates suggestive of pulmonary edema -ABG reviewed decrease PEEP to 12 -patient was dialyzed yesterday but patient did not tolerate enough fluid removal due to hypertension. Discussed with nephrology and plan is to dialyzed again today and try to remove more fluid today -see below for treatment of infection -12/[address] IMPRESSION: 1. Bilateral dependent airspace opacities, consistent with atelectasis versus pneumonia. 2. Moderate-sized pleural effusions. 3. Cardiomegaly -12/02/2021: chest abdomen and pelvis showed no pulmonary embolism, moderate-sized bilateral pleural effusion. Mild scattered ground-glass opacities in the lungs, consistent mild pulmonary edema versus pneumonia, moderate emphysema. Gallbladder distention and gallbladder wall thickening, small volume ascites, mild aorto caval lymphadenopathy, likely reactive (2) Shock: Code(s): R57.9 - Shock, unspecified Status: Acute Assessment and Plan: Currently on Levophed and vasopressin -11/25 blood cultures grew group B Streptococcus. -11/30/2021: Repeat blood cultures negative x2, preliminary results -11/29/2021 urine cultures are negative -continue cefepime (12/01/2021) for 14 days. Vancomycin held as patient's renal function is worsening and cultures have been negative (3) Pneumonia: Qualifiers: Laterality: unspecified laterality Lung location: unspecified part of lung Pneumonia type: due to unspecified organism Qualified Code(s): J18.9 - Pneumonia, unspecified organism Code(s): J18.9 - Pneumonia, unspecified organism Status: Acute Assessment and Plan: Possible community-acquired pneumonia -continue cefepime and vancomycin (12/01/2021) -will continue to monitor chest x-ray and ABGs -SARS-CoV-2 PCR PCR negative x2 -12/03/2021: CTA chest showed no pulmonary embolism, moderate-sized bilateral pleural effusion, mild scattered ground-glass opacities in the lungs, consistent with mild pulmonary edema versus pneumonia. Moderate emphysema -12/[address] IMPRESSION: 1. Bilateral dependent airspace opacities, consistent with atelectasis versus pneumonia. 2. Moderate-sized pleural effusions. 3. Cardiomegaly Patient is afebrile and WBC is normal 12/13 Her BAL is growing Brenda and her HSV 1 DNA PCR cam
--- NOTE | 2021-12-15 11:46 | P.PNNP_ITS ---
Progress Note: A&P Assessment and Plan (1) DIANA (acute kidney injury): Code(s): N17.9 - Acute kidney failure, unspecified Status: Acute Assessment and Plan: * suspect due to ATN from: * contrast exposure (CT scan head/chest/abdomen/pelvis on 12/02/21) * possible prerenal factors * hemodynamic instability/hypotension * infection (bacteremia) * creatinine continued to decline * Urine output is minimal. * dialysis attempted yesterday but blood pressure was very low. * no critical electrolytes at this time * Volume overload is the main issue here. * Discussed with Dr. angulo. Since she did not tolerate hemodialysis yesterday will try dry ultrafiltration. (2) Acute hypoxemic respiratory failure: Code(s): J96.01 - Acute respiratory failure with hypoxia Status: Acute Assessment and Plan: * related to pneumonia, CHF, COPD, and bilateral pleural effusions * intubated since 12/01/21 * COVID-19 negative x 2 * s/p bronchoscopy on 12/05/21 * s/p bilateral thoracentesis (right on 12/06/21, left on 12/07/21 - 1L removed from each side) * still with evidence of pulmonary edema/effusions despite this intervention * fluid removal with dialysis . DUF today. (3) Congestive heart failure: Code(s): I50.9 - Heart failure, unspecified Status: Acute Assessment and Plan: * likely also playing a role with #2 * repeat echo noted - severe concentric increased left ventricular wall thickness. Resting LVOT gradient of peak 20 mmHg and mean 9 mmHg suggests mild obstruction. Moderate aortic stenosis and severe mitral valve stenosis with significant calcification * this probably explains her propensity for pulmonary edema and recurrent pleural effusions and likely poor response to diuretics * unfortunately, transfer for Cardiothoracic Surgery evaluation not possible due to lack of ICU beds at multiple hospitals * Cardiology following (4) Shock: Code(s): R57.9 - Shock, unspecified Status: Acute Assessment and Plan: * on and off Levophed more so due to sedation than infection/sepsis * wean as tolerated * due to positive pressure ventilation following intubation versus sepsis versus sedation * s/p adequate amount of IV fluids * blood cultures (11/25/21) with Group B strep - repeat blood culture negative * urine culture negative * continue antibiotics (5) Pneumonia: Qualifiers: Laterality: unspecified laterality Lung location: unspecified part of lung Pneumonia type: due to unspecified organism Qualified Code(s): J18.9 - Pneumonia, unspecified organism Code(s): J18.9 - Pneumonia, unspecified organism Status: Acute Assessment and Plan: * as suggestive by imaging to date * on Cefepime 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 Additional Plan . Subject
--- NOTE | 2021-12-15 11:46 | PM.PNNEP ---
Progress Note: A&P Assessment and Plan (1) DIANA (acute kidney injury): Code(s): N17.9 - Acute kidney failure, unspecified Status: Acute Assessment and Plan: suspect due to ATN from: contrast exposure (CT scan head/chest/abdomen/pelvis on 12/02/21) possible prerenal factors hemodynamic instability/hypotension infection (bacteremia) creatinine continued to decline Urine output is minimal. dialysis attempted yesterday but blood pressure was very low. no critical electrolytes at this time Volume overload is the main issue here. Discussed with Dr. angulo. Since she did not tolerate hemodialysis yesterday will try dry ultrafiltration. (2) Acute hypoxemic respiratory failure: Code(s): J96.01 - Acute respiratory failure with hypoxia Status: Acute Assessment and Plan: related to pneumonia, CHF, COPD, and bilateral pleural effusions intubated since 12/01/21 COVID-19 negative x 2 s/p bronchoscopy on 12/05/21 s/p bilateral thoracentesis (right on 12/06/21, left on 12/07/21 - 1L removed from each side) still with evidence of pulmonary edema/effusions despite this intervention fluid removal with dialysis . DUF today. (3) Congestive heart failure: Code(s): I50.9 - Heart failure, unspecified Status: Acute Assessment and Plan: likely also playing a role with #2 repeat echo noted - severe concentric increased left ventricular wall thickness. Resting LVOT gradient of peak 20 mmHg and mean 9 mmHg suggests mild obstruction. Moderate aortic stenosis and severe mitral valve stenosis with significant calcification this probably explains her propensity for pulmonary edema and recurrent pleural effusions and likely poor response to diuretics unfortunately, transfer for Cardiothoracic Surgery evaluation not possible due to lack of ICU beds at multiple hospitals Cardiology following (4) Shock: Code(s): R57.9 - Shock, unspecified Status: Acute Assessment and Plan: on and off Levophed more so due to sedation than infection/sepsis wean as tolerated due to positive pressure ventilation following intubation versus sepsis versus sedation s/p adequate amount of IV fluids blood cultures (11/25/21) with Group B strep - repeat blood culture negative urine culture negative continue antibiotics (5) Pneumonia: Qualifiers: Laterality: unspecified laterality Lung location: unspecified part of lung Pneumonia type: due to unspecified organism Qualified Code(s): J18.9 - Pneumonia, unspecified organism Code(s): J18.9 - Pneumonia, unspecified organism Status: Acute Assessment and Plan: as suggestive by imaging to date on Cefepime 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 Additional Plan . Subjective Date/time seen: 12/15/21 11:46 Interval history: patient is on the ventilator and sedated. Blood pressures stable on norepi at 8 and vasopressin at 0.04. Exam Narrative: General: ill appearing female intubated/sedated but in NAD Heart: tachycardic, normal S1 and S2; no rub or gallop Lungs: coarse breath sounds throughout; decreased at bases Abdomen: soft, nontender, nondistended, positive bowel sounds Extremities: no cyanosis or clubbing; 1+ edema
[2021-12-15 12:26] LABS: Glucose Point of Care 246 mg/dl (65-105)
[2021-12-15 12:34] LABS: Glucose Point of Care 278 mg/dl (65-105)
[2021-12-15 16:28] LABS: Glucose Point of Care 316 mg/dl (65-105)
[2021-12-15] MEDS: VASOPRESSIN INJ 100 UNITS in DEXTROSE 5% 95 ML IV CONT (18:06)
[2021-12-15] MEDS: NOREPINEPHRINE 8 MG/D5W 250 ML 8 MG/250 ML BAG 15 MG IV CONT (18:25)
[2021-12-15] MEDS: SENNA/DOCUSATE SODIUM TABLET 1 TAB FEED TUBE (21:26)
[2021-12-15 21:54] LABS: Glucose Point of Care 260 mg/dl (65-105)
[2021-12-16] VITALS (45 sets, daily range): BP systolic 67–160; BP diastolic 53–81; PULSE 78–126; RESP 24–41; TEMP 36.2–37.2; O2SAT 88–96
[2021-12-16] MEDS: MIDAZOLAM 100MG/NS 100ML(*CRX) 100 MG/100 ML BAG IV CONT ×2 (00:28→19:56)
[2021-12-16] MEDS: METOCLOPRAMIDE HCL 10 MG/10 ML SOLN UDC FEED TUBE ×5 (00:29→23:54)
[2021-12-16] MEDS: INSULIN ASPART (*BKC) 100 UNITS/ML SUB-Q ×3 (00:33→09:16)
[2021-12-16 00:35] LABS: Glucose Point of Care 263 mg/dl (65-105)
[2021-12-16] MEDS: ALBUTEROL SULFATE NEB 2.5 MG/0.5 ML INH INHALATION ×4 (02:13→21:03)
[2021-12-16] MEDS: IPRATROPIUM BR 0.02% INH SOLN 0.5 MG/2.5 ML VIAL INHALATION ×4 (02:13→21:03)
[2021-12-16] MEDS: NOREPINEPHRINE 8 MG/D5W 250 ML 8 MG/250 ML BAG 18.75 MG IV CONT (03:43)
[2021-12-16 05:16] LABS: Hemoglobin 7.8 g/dL (12.0-15.0); Mean Corpuscular HGB Conc 32.5 g/dl (32-36); Mean Corpuscular Hemoglobin 31.2 pg (26-34); Mean Platelet Volume 12.3 fl (7.4-10.4); Platelet Count Result 110 k/mm3 (150-375); Red Cell Distribution Width 15.8 % (11.5-14.5); White Blood Count 9.7 K/mm3 (4.5-10.0)
[2021-12-16 05:32] LABS: Device VENTILATOR; Modified Allen's Test Pass; Site Drawn RIGHT RADIAL
[2021-12-16 05:35] LABS: Alanine Aminotransferase 35 U/L (4-35); Alkaline Phosphatase 155 U/L (38-126); Anion Gap 13 mmol/L (8-16); Aspartate Amino Transferase 42 U/L (14-36); Bilirubin,Total 0.7 mg/dL (0.2-1.3); Blood Urea Nitrogen 69 mg/dL (7-17); Calcium 8.3 mg/dL (8.4-10.2); Carbon Dioxide 24 mmol/L (22-30); Chloride 97 mmol/L (98-107); Estimated CRCL calculation 15 ml/min; Estimated Glomerular Filt Rate 13; Glucose 229 mg/dL (65-110); Magnesium 2.1 mg/dL (1.6-2.3); Phosphorus 4.4 mg/dL (2.5-4.5); Sodium 134 mmol/L (137-145)
[2021-12-16] MEDS: CENTRAL LINE FLUSH 10 ML IV PUSH ×3 (06:15→20:06)
[2021-12-16 06:17] LABS: Alveolar/Arterial O2 Gradient 173.1 mmHg; Base Excess ABG 0.8 mEq/l (+/-2.0); Carboxyhemoglobin 0.1 % THb (0-2.0); Methemoglobin ABG 0.2 %THb (0-1.5); Oxygen Content ABG 11.6 %vol (16.0-22.0); Oxygen Saturation ABG 99.1 % (95.0-100.0); Oxyhemoglobin 97.9 % THb (90.0-100.0); PCO2 ABG 32.6 mmHg (35.0-45.0); PO2 ABG 146.7 mmHg (80.0-100.0); Total Hemoglobin 8.2 g/dL (12.0-18.0); pH ABG 7.485 (7.350-7.450)
[2021-12-16 06:18] LABS: Fractional Inspired Oxygen 50 %; PO2 FiO2 Ratio Arterial Blood 2.93 %; Reduced Hemoglobin 1.8 %THb (0-5.0)
[2021-12-16] MEDS: MINERAL OIL/WHITE PETROLATUM OINTMENT 1 APPLIC EACH EYE ×2 (08:49→20:03)
[2021-12-16] MEDS: PANTOPRAZOLE SODIUM IV 40 MG VIAL IV PUSH ×2 (08:50→20:03)
[2021-12-16] MEDS: AMIODARONE HCL 200 MG TABLET PO ×2 (08:50→20:06)
[2021-12-16] MEDS: polyethylene glycoL 3350 17 GM POWD.PACK FEED TUBE (08:50)
[2021-12-16] MEDS: ENOXAPARIN 80 MG/0.8 ML SYRINGE 70 MG SUB-Q (08:50)
[2021-12-16] MEDS: INSULIN GLARGINE (*BKC) 100 UNITS/ML 35 UNITS SUB-Q (09:14)
[2021-12-16 09:46] LABS: Glucose Point of Care 247 mg/dl (65-105)
--- NOTE | 2021-12-16 09:59 | P.PNNP_ITS ---
Progress Note: A&P Assessment and Plan (1) DIANA (acute kidney injury): Code(s): N17.9 - Acute kidney failure, unspecified Status: Acute Assessment and Plan: * suspect due to ATN from: * contrast exposure (CT scan head/chest/abdomen/pelvis on 12/02/21) * possible prerenal factors * hemodynamic instability/hypotension * infection (bacteremia) * unfortunately renal function did not return so is currently getting i ntermittent hemodialysis. * Urine output is [id number] per day. * no critical electrolytes at this time * Volume overload is the main issue here. * Will get another dialysis treatment tomorrow. We will need to do regular dialysis as well as remove fluid. Hopefully blood pressure will tolerate this. * Overall prognosis is poor with her multiple organ system issues. (2) Acute hypoxemic respiratory failure: Code(s): J96.01 - Acute respiratory failure with hypoxia Status: Acute Assessment and Plan: * related to pneumonia, CHF, COPD, and bilateral pleural effusions * intubated since 12/01/21 * COVID-19 negative x 2 * s/p bronchoscopy on 12/05/21 * s/p bilateral thoracentesis (right on 12/06/21, left on 12/07/21 - 1L removed from each side) * still with evidence of pulmonary edema/effusions despite this intervention * fluid removal with dialysis . DUF went well yesterday. Will do another dialysis tomorrow (3) Congestive heart failure: Code(s): I50.9 - Heart failure, unspecified Status: Acute Assessment and Plan: * likely also playing a role with #2 * repeat echo noted - severe concentric increased left ventricular wall thickness. Resting LVOT gradient of peak 20 mmHg and mean 9 mmHg suggests mild obstruction. Moderate aortic stenosis and severe mitral valve stenosis with significant calcification * this probably explains her propensity for pulmonary edema and recurrent pleural effusions and likely poor response to diuretics * unfortunately, transfer for Cardiothoracic Surgery evaluation not possible due to lack of ICU beds at multiple hospitals * cardiothoracic surgery also said she is too sick for surgery anyway. * Cardiology following (4) Shock: Code(s): R57.9 - Shock, unspecified Status: Acute Assessment and Plan: * On vasopressin and varying doses of Levophed. * due to positive pressure ventilation following intubation versus sepsis versus sedation * s/p adequate amount of IV fluids * blood cultures (11/25/21) with Group B strep - repeat blood culture negative * urine culture negative * On cefepime and acyclovir. 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 * Cardiology following (7) Diabetes: Code(s): E11.9 - Type 2 d
--- NOTE | 2021-12-16 09:59 | PM.PNNEP ---
Progress Note: A&P Assessment and Plan (1) DIANA (acute kidney injury): Code(s): N17.9 - Acute kidney failure, unspecified Status: Acute Assessment and Plan: suspect due to ATN from: contrast exposure (CT scan head/chest/abdomen/pelvis on 12/02/21) possible prerenal factors hemodynamic instability/hypotension infection (bacteremia) unfortunately renal function did not return so is currently getting intermittent hemodialysis. Urine output is [id number] per day. no critical electrolytes at this time Volume overload is the main issue here. Will get another dialysis treatment tomorrow. We will need to do regular dialysis as well as remove fluid. Hopefully blood pressure will tolerate this. Overall prognosis is poor with her multiple organ system issues. (2) Acute hypoxemic respiratory failure: Code(s): J96.01 - Acute respiratory failure with hypoxia Status: Acute Assessment and Plan: related to pneumonia, CHF, COPD, and bilateral pleural effusions intubated since 12/01/21 COVID-19 negative x 2 s/p bronchoscopy on 12/05/21 s/p bilateral thoracentesis (right on 12/06/21, left on 12/07/21 - 1L removed from each side) still with evidence of pulmonary edema/effusions despite this intervention fluid removal with dialysis . DUF went well yesterday. Will do another dialysis tomorrow (3) Congestive heart failure: Code(s): I50.9 - Heart failure, unspecified Status: Acute Assessment and Plan: likely also playing a role with #2 repeat echo noted - severe concentric increased left ventricular wall thickness. Resting LVOT gradient of peak 20 mmHg and mean 9 mmHg suggests mild obstruction. Moderate aortic stenosis and severe mitral valve stenosis with significant calcification this probably explains her propensity for pulmonary edema and recurrent pleural effusions and likely poor response to diuretics unfortunately, transfer for Cardiothoracic Surgery evaluation not possible due to lack of ICU beds at multiple hospitals cardiothoracic surgery also said she is too sick for surgery anyway. Cardiology following (4) Shock: Code(s): R57.9 - Shock, unspecified Status: Acute Assessment and Plan: On vasopressin and varying doses of Levophed. due to positive pressure ventilation following intubation versus sepsis versus sedation s/p adequate amount of IV fluids blood cultures (11/25/21) with Group B strep - repeat blood culture negative urine culture negative On cefepime and acyclovir. 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 Cardiology following (7) Diabetes: Code(s): E11.9 - Type 2 diabetes mellitus without complications Status: Chronic Assessment and Plan: on Accu-Cheks and sliding-scale insulin (8) Rash: Code(s): R21 - Rash and other nonspecific skin eruption Status: Acute Assessment and Plan: Diffuse macular papular rash. Consider cefepime? Additional Plan . Subjective Date/time seen: 12/16/21 09:59 Interval history: patient is on the ventilator and sedated. Blood pressu
--- NOTE | 2021-12-16 10:24 | PM.PNCARD ---
Progress Note: A&P Assessment and Plan (1) Shock: Code(s): R57.9 - Shock, unspecified Status: Acute Assessment and Plan: Probably due to respiratory failure and sedation with intubation. On and off Levophed drip and on Vasopressin now. Echo 11/27/21 shows normal EF 65-70%, diastolic function indeterminate, mild , consider mod MS. Pleural effusions reaccumulating, kidney function worsening and started hemodialysis on 12/13/20. 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 Offered to perform HEIDY to better visualize mitral valve and better characterize mitral stenosis. However, after lengthy discussion with her daughter on 12/10/20 on her status, and she did not want her mother to have the procedure thinking that if she gets transferred to a facility to have MV replacement she would end up having another HEIDY. This may or may not be the case. Discussed with patient's daughter at length and updated her on her status on several phone calls that she is a poor prognosis given worsening kidney failure, anemia, shock requiring intermittent vasopressor support, Pneumonia/COPD, severe mitral stenosis. Her daughter remains hopeful that her mother will get better. (2) Aortic stenosis: Code(s): I35.0 - Nonrheumatic aortic (valve) stenosis Status: Acute Assessment and Plan: Moderate. (3) Atrial fibrillation: Qualifiers: Atrial fibrillation type: unspecified Qualified Code(s): I48.91 - Unspecified atrial fibrillation Code(s): I48.91 - Unspecified atrial fibrillation Status: Chronic Assessment and Plan: Persistent atrial fib. Rate controlled. On Amiodarone drip to control HR due to hypotension and unable to use Diltiazem or Metoprolol. Had bronchoscopy and bilateral thoracentesis removing 1 liter from each. Was on Xarelto 15 mg daily given worsening kidney function. She did cardiovert with Amiodarone drip but back in atrial fibrillation. On Amiodarone 200 mg PO BID to attempt to maintain sinus rhythm and if not, then to control HR. Due to having significant mitral stenosis, this is now consider valvular atrial fibrillation, in which case NOAC are not indicated. She would need to be on Lovenox or Warfarin. While in ICU, would change it over to once daily Lovenox given renal function. Discuss with Dr. Graham due to worsening anemia, that we can hold Lovenox in case there is a bleed. Resume Lovenox if Hb stable and no signs of bleed. (4) Smoking: Code(s): F17.200 - Nicotine dependence, unspecified, uncomplicated Status: Acute (5) Hyperlipemia: Qualifiers: Hyperlipidemia type: unspecified Qualified Code(s): E78.5 - Hyperlipidemia, unspecified Code(s): E78.5 - Hyperlipidemia, unspecified Status: Acute (6) Hypertension: Qualifiers: Hypertension type: primary hypertension Qualified Code(s): I10 - Essential (primary) hypertension Code(s): I10 - Essential (primary) hypertension Status: Acute (7) Diabetes type 2, controlled: Qualifiers: Diabetes mellitus intermediate accountant insulin use: without retirement use Diabetes mellitus complication status: without complication Qualified Code(s): E11.9 - Type 2 diabetes mellitus without complications Code(s): E11.9 - Type 2 diabetes mellitus without complications Status: Chronic (8) Respiratory failure: Code(s): J96.90 - Respiratory failure, unspecified, unspecified whether with hypoxia or hypercapnia Status: Acute Assessment and Plan: Probably due to COPD/Pneumonia, herpes tracheobronchitis/
--- NOTE | 2021-12-16 11:45 | WPDINTPN ---
Progress Note: A&P Assessment and Plan (1) Acute hypoxemic respiratory failure: Code(s): J96.01 - Acute respiratory failure with hypoxia Status: Acute Assessment and Plan: Hypoxic respiratory failure likely related to community-acquired pneumonia, CHF, baseline emphysema, pleural effusions Patient presented the ED on 11/25/2021 with shortness of breath, was on BiPAP and has been declining and requiring significant oxygen support. Failed BiPAP 16/6, 100% FiO2 Intubated patient on 12/01/2021 -continue low tidal volume strategy, peep of14 and 75% FiO2 -12/09 due to significant atelectasis in posterior parts of the lung and effusions with compressive atelectasis, I tried placing patient in prone position but it did not work. Patient had high peak pressures limiting her minute ventilation which led to hypercarbia and acidosis. She required significant amount of sedation to be compliant with ventilation which led to drop in blood pressure requiring vasopressor. No significant improvement in oxygenation seen over multiple hours hence patient was placed back in supine position overnight. -continue bronchodilators - sedated with fentanyl and Versed infusion - COVID-19 negative x2 - 12/05 bronchoscopy was done and BAL collected. Cultures are pending - 12/06 patient underwent right-sided thoracentesis and 1 L fluid was removed - 12/07 patient underwent left-sided thoracentesis and 1 L fluid was removed - 12/14 patient underwent repeat right-sided thoracentesis and 1 L fluid was removed -pleural fluid was transudate although some of the studies are pending -chest x-ray shows persistent bilateral pleural effusions and infiltrates suggestive of pulmonary edema -ABG reviewed - wean FiO2 - continue dialysis to remove fluid -see below for treatment of infection Patient has been on ventilator for more than 2 weeks now. Will discuss options of tracheostomy with patient's family in case patient does not reaches a weanable point despite hemodialysis over next few days -12/[address] IMPRESSION: 1. Bilateral dependent airspace opacities, consistent with atelectasis versus pneumonia. 2. Moderate-sized pleural effusions. 3. Cardiomegaly -12/02/2021: chest abdomen and pelvis showed no pulmonary embolism, moderate-sized bilateral pleural effusion. Mild scattered ground-glass opacities in the lungs, consistent mild pulmonary edema versus pneumonia, moderate emphysema. Gallbladder distention and gallbladder wall thickening, small volume ascites, mild aorto caval lymphadenopathy, likely reactive (2) Shock: Code(s): R57.9 - Shock, unspecified Status: Acute Assessment and Plan: Currently on Levophed and vasopressin -11/25 blood cultures grew group B Streptococcus. -11/30/2021: Repeat blood cultures negative x2, preliminary results -11/29/2021 urine cultures are negative completed a 14 day course of cefepime (12/01/2021). Vancomycin was discontinued earlier patient's renal function is worsening and cultures have been negative (3) Pneumonia: Qualifiers: Laterality: unspecified laterality Lung location: unspecified part of lung Pneumonia type: due to unspecified organism Qualified Code(s): J18.9 - Pneumonia, unspecified organism Code(s): J18.9 - Pneumonia, unspecified organism Status: Acute Assessment and Plan: Possible community-acquired pneumonia -continue cefepime and vancomycin (12/01/2021) -will continue to monitor chest x-ray and ABGs -SARS-CoV-2 PCR PCR negative x2 -12/03/2021: CTA chest showed no pulmonary embolism, moderate-sized bilateral pleural effusion, mild scattered ground-glass opacities in the lungs, consistent with mild pulmonary edema versus pneumonia. Moderate emphysema -12/[address] IMPRESSION: 1. Bilateral dependent airspace opacities, consistent with atelectasis versus pneumonia. 2. Moderate-sized pleural effusions. 3. Cardiomegaly Patient is afebrile and
[2021-12-16] MEDS: FENTANYL 2,500MCG/NS250ML(*CRX 2,500 MCG/250 ML BAG 7.5 MCG IV CONT (12:11)
[2021-12-16 17:54] LABS: Glucose Point of Care 176 mg/dl (65-105)
[2021-12-16 17:54] LABS: Glucose Point of Care 189 mg/dl (65-105)
[2021-12-16] MEDS: NOREPINEPHRINE 8 MG/D5W 250 ML 8 MG/250 ML BAG 13.13 MG IV CONT (20:00)
[2021-12-16] MEDS: SENNA/DOCUSATE SODIUM TABLET 1 TAB FEED TUBE (20:05)
[2021-12-16 21:20] LABS: Glucose Point of Care 168 mg/dl (65-105)
[2021-12-17] VITALS (52 sets, daily range): BP systolic 75–179; BP diastolic 48–116; PULSE 101–130; RESP 19–39; TEMP 35.5–37.3; O2SAT 87–99
[2021-12-17 00:07] LABS: Glucose Point of Care 184 mg/dl (65-105)
[2021-12-17] MEDS: ALBUTEROL SULFATE NEB 2.5 MG/0.5 ML INH INHALATION ×4 (02:26→20:13)
[2021-12-17] MEDS: IPRATROPIUM BR 0.02% INH SOLN 0.5 MG/2.5 ML VIAL INHALATION ×4 (02:26→20:13)
[2021-12-17 04:37] LABS: Alveolar/Arterial O2 Gradient 448.1 mmHg; Arterial Blood Gas Vent Mode CMV; Arterial Blood Gas Ventilator rate 30 /MIN; Base Excess ABG -0.6 mEq/l (+/-2.0); Carboxyhemoglobin 0.3 % THb (0-2.0); Device VENTILATOR; Fractional Inspired Oxygen 85 %; HCO3 ABG 25.7 mEq/l (22.0-26.0); Methemoglobin ABG 0.4 %THb (0-1.5); Modified Allen's Test Pass; Oxygen Content ABG 12.6 %vol (16.0-22.0); Oxygen Saturation ABG 97.3 % (95.0-100.0); Oxyhemoglobin 95.9 % THb (90.0-100.0); PO2 FiO2 Ratio Arterial Blood 1.24 %; Reduced Hemoglobin 3.4 %THb (0-5.0); Site Drawn RIGHT RADIAL; Total Hemoglobin 9.2 g/dL (12.0-18.0); pH ABG 7.321 (7.350-7.450)
[2021-12-17 04:38] LABS: Arterial Blood Gas PEEP 12 cmH2O; Arterial Blood Gas Tidal Volume 350 ml
[2021-12-17 04:39] LABS: Hematocrit 24.5 % (37.0-47.0); Hemoglobin 7.7 g/dL (12.0-15.0); Mean Corpuscular HGB Conc 31.4 g/dl (32-36); Mean Corpuscular Hemoglobin 30.9 pg (26-34); Mean Corpuscular Volume 98.4 fl (80-100); Mean Platelet Volume 12.4 fl (7.4-10.4); Platelet Count Result 90 k/mm3 (150-375); Red Blood Count 2.49 M/mm3 (4.2-5.4); Red Cell Distribution Width 16.4 % (11.5-14.5); White Blood Count 10.7 K/mm3 (4.5-10.0)
[2021-12-17 04:49] LABS: Alanine Aminotransferase 99 U/L (4-35); Alkaline Phosphatase 275 U/L (38-126); Anion Gap 13 mmol/L (8-16); Aspartate Amino Transferase 118 U/L (14-36); Bilirubin,Total 0.8 mg/dL (0.2-1.3); Blood Urea Nitrogen 79 mg/dL (7-17); Calcium 8.5 mg/dL (8.4-10.2); Carbon Dioxide 25 mmol/L (22-30); Chloride 96 mmol/L (98-107); Estimated CRCL calculation 11 ml/min; Estimated Glomerular Filt Rate 10; Glucose 181 mg/dL (65-110); Potassium 4.5 mmol/L (3.4-5.0); Sodium 134 mmol/L (137-145)
[2021-12-17] MEDS: METOCLOPRAMIDE HCL 10 MG/10 ML SOLN UDC FEED TUBE ×3 (05:27→17:59)
[2021-12-17] MEDS: CENTRAL LINE FLUSH 10 ML IV PUSH ×3 (05:27→20:56)
[2021-12-17] MEDS: VASOPRESSIN INJ 100 UNITS in DEXTROSE 5% 95 ML IV CONT (05:28)
--- NOTE | 2021-12-17 08:08 | PM.PNCARD ---
Progress Note: A&P Assessment and Plan (1) Shock: Code(s): R57.9 - Shock, unspecified Status: Acute Assessment and Plan: Probably due to respiratory failure and sedation with intubation. On and off Levophed drip and on Vasopressin now. Echo 11/27/21 shows normal EF 65-70%, diastolic function indeterminate, mild , consider mod MS. Pleural effusions reaccumulating, worsening anemia, kidney function worsening and started hemodialysis on 12/13/20, transaminitis with AST 118, ALT 99, alk phos 275. 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 Offered to perform HEIDY to better visualize mitral valve and better characterize mitral stenosis. However, after lengthy discussion with her daughter on 12/10/20 on her status, and she did not want her mother to have the procedure thinking that if she gets transferred to a facility to have MV replacement she would end up having another HEIDY. This may or may not be the case. Discussed with patient's daughter at length and updated her on her status on several phone calls that she is a poor prognosis given worsening kidney failure, anemia, shock requiring intermittent vasopressor support, Pneumonia/COPD, severe mitral stenosis. Her daughter remains hopeful that her mother will get better. (2) Aortic stenosis: Code(s): I35.0 - Nonrheumatic aortic (valve) stenosis Status: Acute Assessment and Plan: Moderate. (3) Atrial fibrillation: Qualifiers: Atrial fibrillation type: unspecified Qualified Code(s): I48.91 - Unspecified atrial fibrillation Code(s): I48.91 - Unspecified atrial fibrillation Status: Chronic Assessment and Plan: Persistent atrial fib. Rate controlled. On Amiodarone drip to control HR due to hypotension and unable to use Diltiazem or Metoprolol. Had bronchoscopy and bilateral thoracentesis removing 1 liter from each. Was on Xarelto 15 mg daily given worsening kidney function. She did cardiovert with Amiodarone drip but back in atrial fibrillation. On Amiodarone 200 mg PO BID to attempt to maintain sinus rhythm and if not, then to control HR. Due to having significant mitral stenosis, this is now consider valvular atrial fibrillation, in which case NOAC are not indicated. She would need to be on Lovenox or Warfarin. While in ICU, would change it over to once daily Lovenox given renal function. Discuss with Dr. Graham due to worsening anemia, that we can hold Lovenox in case there is a bleed. Resume Lovenox if Hb stable and no signs of bleed. 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
[2021-12-17 08:13] LABS: Glucose Point of Care 182 mg/dl (65-105)
[2021-12-17] MEDS: INSULIN GLARGINE (*BKC) 100 UNITS/ML 35 UNITS SUB-Q (09:09)
[2021-12-17] MEDS: PANTOPRAZOLE SODIUM IV 40 MG VIAL IV PUSH ×2 (09:11→20:57)
[2021-12-17] MEDS: polyethylene glycoL 3350 17 GM POWD.PACK FEED TUBE (09:11)
[2021-12-17] MEDS: AMIODARONE HCL 200 MG TABLET PO ×2 (09:11→20:57)
[2021-12-17] MEDS: ENOXAPARIN 80 MG/0.8 ML SYRINGE 70 MG SUB-Q (09:12)
[2021-12-17] MEDS: MINERAL OIL/WHITE PETROLATUM OINTMENT 1 APPLIC EACH EYE ×2 (09:12→20:56)
[2021-12-17 09:38] LABS: Arterial Blood Gas PEEP 12 cmH2O; Arterial Blood Gas Tidal Volume 350 ml; Arterial Blood Gas Vent Mode CMV; Arterial Blood Gas Ventilator rate 30 /MIN
--- NOTE | 2021-12-17 10:26 | P.PNNP_ITS ---
Progress Note: A&P Assessment and Plan (1) DIANA (acute kidney injury): Code(s): N17.9 - Acute kidney failure, unspecified Status: Acute Assessment and Plan: * suspect due to ATN from: * contrast exposure (CT scan head/chest/abdomen/pelvis on 12/02/21) * possible prerenal factors * hemodynamic instability/hypotension * infection (bacteremia) * unfortunately renal function did not return so is currently getting i ntermittent hemodialysis. * Urine output is still low * still has some swelling. Chest x-ray still wet. * Will get dialysis today. (2) Acute hypoxemic respiratory failure: Code(s): J96.01 - Acute respiratory failure with hypoxia Status: Acute Assessment and Plan: * related to pneumonia, CHF, COPD, and bilateral pleural effusions * intubated since 12/01/21 * COVID-19 negative x 2 * s/p bronchoscopy on 12/05/21 * s/p bilateral thoracentesis (right on 12/06/21, left on 12/07/21 - 1L removed from each side) * still with evidence of pulmonary edema/effusions despite this intervention * Continue to remove fluid. (3) Congestive heart failure: Code(s): I50.9 - Heart failure, unspecified Status: Acute Assessment and Plan: * likely also playing a role with #2 * repeat echo noted - severe concentric increased left ventricular wall thickness. Continue fluid removal As tolerated. * Cardiology following (4) Shock: Code(s): R57.9 - Shock, unspecified Status: Acute Assessment and Plan: * On vasopressin and varying doses of Levophed. * due to positive pressure ventilation following intubation versus sepsis versus sedation vs valvular heart disease * s/p adequate amount of IV fluids * blood cultures (11/25/21) with Group B strep - repeat blood culture negative * urine culture negative * On acyclovir. (5) Pneumonia: Qualifiers: Laterality: unspecified laterality Lung location: unspecified part of lung Pneumonia type: due to unspecified organism Qualified Code(s): J18.9 - Pneumonia, unspecified organism Code(s): J18.9 - Pneumonia, unspecified organism Status: Acute Assessment and Plan: * as suggestive by imaging to date * off antibacterials. 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 BAL - started on acyclovir * follow CXR and ABG results (6) Atrial fibrillation: Qualifiers: Atrial fibrillation type: unspecified Qualified Code(s): I48.91 - Unspecified atrial fibrillation Code(s): I48.91 - Unspecified atrial fibrillation Status: Chronic Assessment and Plan: * chronic issue * on amiodarone along with anticoagulation * heart rate in the 100 to 120 range * Cardiology following (7) Diabetes: Code(s): E11.9 - Type 2 diabetes mellitus without complications Status: Chronic Assessment and Plan: * on Accu-Cheks and sliding-scale insulin (8) Rash: Code(s): R21 - Rash and other nonspecific skin eruption Status: Acute Assessment and Plan: Diffuse macular papular rash. off cefipime. Additional Plan . Subjective Date/time seen: 12/17/21 10:26 Interval history: patient is on the ventilator and sedated. still on pressors. Exam Narrative: General: ill appearing female intubated/sedated but in NAD Heart: tachycardic, normal S1 and S2; no rub or gallop Lungs: coarse breath sounds throughout; Abdomen: soft, nontender, nondi
--- NOTE | 2021-12-17 10:26 | PM.PNNEP ---
Progress Note: A&P Assessment and Plan (1) DIANA (acute kidney injury): Code(s): N17.9 - Acute kidney failure, unspecified Status: Acute Assessment and Plan: suspect due to ATN from: contrast exposure (CT scan head/chest/abdomen/pelvis on 12/02/21) possible prerenal factors hemodynamic instability/hypotension infection (bacteremia) unfortunately renal function did not return so is currently getting intermittent hemodialysis. Urine output is still low still has some swelling. Chest x-ray still wet. Will get dialysis today. (2) Acute hypoxemic respiratory failure: Code(s): J96.01 - Acute respiratory failure with hypoxia Status: Acute Assessment and Plan: related to pneumonia, CHF, COPD, and bilateral pleural effusions intubated since 12/01/21 COVID-19 negative x 2 s/p bronchoscopy on 12/05/21 s/p bilateral thoracentesis (right on 12/06/21, left on 12/07/21 - 1L removed from each side) still with evidence of pulmonary edema/effusions despite this intervention Continue to remove fluid. (3) Congestive heart failure: Code(s): I50.9 - Heart failure, unspecified Status: Acute Assessment and Plan: likely also playing a role with #2 repeat echo noted - severe concentric increased left ventricular wall thickness. Continue fluid removal As tolerated. Cardiology following (4) Shock: Code(s): R57.9 - Shock, unspecified Status: Acute Assessment and Plan: On vasopressin and varying doses of Levophed. due to positive pressure ventilation following intubation versus sepsis versus sedation vs valvular heart disease s/p adequate amount of IV fluids blood cultures (11/25/21) with Group B strep - repeat blood culture negative urine culture negative On acyclovir. (5) Pneumonia: Qualifiers: Laterality: unspecified laterality Lung location: unspecified part of lung Pneumonia type: due to unspecified organism Qualified Code(s): J18.9 - Pneumonia, unspecified organism Code(s): J18.9 - Pneumonia, unspecified organism Status: Acute Assessment and Plan: as suggestive by imaging to date off antibacterials. 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 BAL - started on acyclovir follow CXR and ABG results (6) Atrial fibrillation: Qualifiers: Atrial fibrillation type: unspecified Qualified Code(s): I48.91 - Unspecified atrial fibrillation Code(s): I48.91 - Unspecified atrial fibrillation Status: Chronic Assessment and Plan: chronic issue on amiodarone along with anticoagulation heart rate in the 100 to 120 range Cardiology following (7) Diabetes: Code(s): E11.9 - Type 2 diabetes mellitus without complications Status: Chronic Assessment and Plan: on Accu-Cheks and sliding-scale insulin (8) Rash: Code(s): R21 - Rash and other nonspecific skin eruption Status: Acute Assessment and Plan: Diffuse macular papular rash. off cefipime. Additional Plan . Subjective Date/time seen: 12/17/21 10:26 Interval history: patient is on the ventilator and sedated. still on pressors. Exam Narrative: General: ill appearing female intubated/sedated but in NAD Heart: tachycardic, normal S1 and S2; no rub or gallop Lungs: coarse breath sounds throughout; Abdomen: soft, nontender, nondistended, positive bowel sounds Extremities: 1+ edema Skin: Diffuse maculopapular rash. Objective Data Vital Signs Vital Signs: Vital Signs - 24 hr 12/16/21 11:47 12/16/21 12:00 12/16/21 12:11 Temperature 36.2 C L Pulse Rate 104 H 111 H 101 H Respiratory Rate 24 H 25 H Blood Pressure 104/59 L Pulse Oximetry 95 90 12/16/21 14:00 12/16/21 14:38 12/16/21 14:41 Temperature Pulse Rate 102 H 94 101 H Respiratory Rate 30 H 33 H Blood Pressure 126/54 L Pulse Oximetry 9
[2021-12-17 10:36] LABS: Band Neutrophils Percent 11 % (0-6); Eosinophils Absolute Manual 0.21 K/mm3 (0.02-0.5); Eosinophils Percent Manual 2 % (0-4); Lymphocytes Absolute Manual 0.32 K/mm3 (1.1-4.5); Lymphocytes Percent Manual 3 % (18-44); Monocytes Percent Manual 1 % (3-9); Neutrophils Absolute Manual 10.05 K/mm3 (1.7-7.2); Neutrophils Percent Manual 83 % (46-73); Total Cells Counted 100
[2021-12-17 10:37] LABS: Nucleated Red Blood Cells 5 %; Platelet Estimate Decreased (Adequate)
[2021-12-17 10:38] LABS: Anisocytosis 2+ (NORMAL)
[2021-12-17 10:40] LABS: Helmet Cells 1+ (NORMAL); Ovalocytes 1+ (NORMAL); Schistocytes 1+ (NORMAL)
[2021-12-17 10:42] LABS: Acanthocytes 3+ (NORMAL)
[2021-12-17] MEDS: NOREPINEPHRINE 8 MG/D5W 250 ML 8 MG/250 ML BAG 26.25 MG IV CONT ×2 (10:42→23:24)
--- NOTE | 2021-12-17 11:27 | PCFNICU ---
ICU Rounding Note: Pt current nutrition is Vital AF 1.2 at 55 mls per hour over 22 hours per day. Last recorded weight is 79 kg. Bowel Motility: + BM 12/17/2021 Labs Reviewed: Hgb 7.7, Hct 24.5, Alb 3.0, Na 134, GFR 10, BUN 79, Cr 4.3, Glu 181 Meds Noted: Pacerone, Albutein, Lovenox, Fentanyl Citrate, Glucagon, Novolog, Lantus, Atrovent neb, Reglan, Versed, Levophed, Protonix, Miralax, Senna Skin: Deep tissue pressure ulcer to coccyx and buttocks maceration. Additional Notes: Patient remains on mechanical vent and tube feedings of Vital AF 1.2 at 55 mls per hour over 22 hours per day. In total providing 1453 calories, 91 grams of protein and 981 mls of water with a 30 ml water flush q4. Feeding is well tolerated per nursing but residuals look to be increasing. Pt. is receiving Reglan. Plan to speak with MD about flushing pt. with Cole BID providing 90 calories and 2.5 grams of protein to aid in wound healing due to new pressure injury. Following daily in ICU rounds. Will monitor every Friday and Friday.
[2021-12-17 12:13] LABS: Glucose Point of Care 200 mg/dl (65-105)
--- NOTE | 2021-12-17 12:22 | WPDINTPN ---
Progress Note: A&P Assessment and Plan (1) Acute hypoxemic respiratory failure: Code(s): J96.01 - Acute respiratory failure with hypoxia Status: Acute Assessment and Plan: Hypoxic respiratory failure likely related to community-acquired pneumonia, CHF, baseline emphysema, pleural effusions Patient presented the ED on 11/25/2021 with shortness of breath, was on BiPAP and has been declining and requiring significant oxygen support. Failed BiPAP /, 100% FiO2 Intubated patient on 12/01/2021 -continue low tidal volume strategy, peep of14 and 75% FiO2 -12/09 due to significant atelectasis in posterior parts of the lung and effusions with compressive atelectasis, I tried placing patient in prone position but it did not work. Patient had high peak pressures limiting her minute ventilation which led to hypercarbia and acidosis. She required significant amount of sedation to be compliant with ventilation which led to drop in blood pressure requiring vasopressor. No significant improvement in oxygenation seen over multiple hours hence patient was placed back in supine position overnight. -continue bronchodilators - sedated with fentanyl and Versed infusion - COVID-19 negative x2 - 12/05 bronchoscopy was done and BAL collected. Cultures are pending - 12/06 patient underwent right-sided thoracentesis and 1 L fluid was removed - 12/07 patient underwent left-sided thoracentesis and 1 L fluid was removed - 12/14 patient underwent repeat right-sided thoracentesis and 1 L fluid was removed -pleural fluid was transudate although some of the studies are pending -chest x-ray IMPRESSION: Persistent bilateral pulmonary infiltrates, stable or minimally improved since 12/16/2021, most suggestive of pulmonary edema. Pneumonia or aspiration are not excluded -ABG reviewed - wean FiO2 - continue dialysis to remove fluid -see below for treatment of infection Patient has been on ventilator for more than 2 weeks now. Will discuss options of tracheostomy with patient's family in case patient does not reaches a weanable point despite hemodialysis over next few days -12/[address] IMPRESSION: 1. Bilateral dependent airspace opacities, consistent with atelectasis versus pneumonia. 2. Moderate-sized pleural effusions. 3. Cardiomegaly -12/02/2021: chest abdomen and pelvis showed no pulmonary embolism, moderate-sized bilateral pleural effusion. Mild scattered ground-glass opacities in the lungs, consistent mild pulmonary edema versus pneumonia, moderate emphysema. Gallbladder distention and gallbladder wall thickening, small volume ascites, mild aorto caval lymphadenopathy, likely reactive (2) Shock: Code(s): R57.9 - Shock, unspecified Status: Acute Assessment and Plan: Currently on Levophed and vasopressin -11/25 blood cultures grew group B Streptococcus. -11/30/2021: Repeat blood cultures negative x2, preliminary results -11/29/2021 urine cultures are negative completed a 14 day course of cefepime (12/01/2021). Vancomycin was discontinued earlier patient's renal function is worsening and cultures have been negative (3) Pneumonia: Qualifiers: Laterality: unspecified laterality Lung location: unspecified part of lung Pneumonia type: due to unspecified organism Qualified Code(s): J18.9 - Pneumonia, unspecified organism Code(s): J18.9 - Pneumonia, unspecified organism Status: Acute Assessment and Plan: Possible community-acquired pneumonia she has completed a 14 day course of cefepime -will continue to monitor chest x-ray and ABGs -SARS-CoV-2 PCR PCR negative x2 -12/03/2021: CTA chest showed no pulmonary embolism, moderate-sized bilateral pleural effusion, mild scattered ground-glass opacities in the lungs, consistent with mild pulmonary edema versus pneumonia. Moderate emphysema -12/[address]
[2021-12-17 13:40] LABS: INR 1.3; Prothrombin Time 16.1 Seconds (11.1-14.7)
[2021-12-17 13:41] LABS: Partial Thromboplastin Time 43.6 SECONDS (22.3-36.8)
[2021-12-17 13:45] LABS: Fibrinogen 451 mg/dl (215-510)
[2021-12-17 13:58] LABS: D Dimer 4.85 ug/mL (<0.48)
--- NOTE | 2021-12-17 14:54 | PM.EVENT ---
Event Note Event Note Event Note: Family Meeting I met with patient's Daughter and ex- in presence of nurse Cherelle and ab initio etl developer Kasi to discuss medical decisions and level of care regarding patient's current condition. Patient is sedated and on mechanical ventilation and is unable to participate. I updated them with patient's current condition including respiratory failure required prolonged mechanical ventilation and not at a point of weaning at this time, severe mitral stenosis and moderate aortic stenosis, shock, pneumonia, COPD, thrombocytopenia. I also discussed our current treatment plan. I also spoke discussed expected prognosis and different potential outcomes. I explained them the patient's hypoxia improved to point she can get a tracheostomy and a feeding tube. Eventually if she becomes hemodynamically stable she will be a candidate to go to long-term acute care hospital for further rehabilitation. She will continue to need dialysis for fluid removal. We discussed options of comfort care, issues of quality of life and code status. She wants to think about these issues before making any further decisions but at this time she has decided that considering her current status, her mom would not want further resuscitation if her heart stops hence she has requested the patient be made DNR but for to continue current medical therapy. I have made pt DNR in chart. Total time spent 32 minutes in advance care planning
[2021-12-17] MEDS: EPOETIN ALFA-EPBX 10,000 UNITS/ML VIAL 10000 UNITS IV PUSH (15:40)
[2021-12-17 15:41] LABS: Glucose Point of Care 127 mg/dl (65-105)
[2021-12-17] MEDS: SODIUM CHLORIDE 0.9% IV 1,000 ML 999 ML IV CONT (15:41)
[2021-12-17] MEDS: MIDAZOLAM 100MG/NS 100ML(*CRX) 100 MG/100 ML BAG IV CONT (18:00)
[2021-12-17] MEDS: NOREPINEPHRINE 8 MG/D5W 250 ML 8 MG/250 ML BAG 37.5 MG IV CONT (18:03)
--- NOTE | 2021-12-17 18:10 | PDONCCN ---
HPI - Date of Consult Date/Time: 12/17/21 18:10 Requesting Physician: Medhat Zapata MD Primary Care Provider: Sami Calderon MD - Consult Narrative Reason for consult: Anemia and thrombocytopenia Narrative: Lauren Lucero is a 71 year old female with history of atrial fibrillation chronic UTI and type 2 diabetes brought into the ER with respiratory compromise with oxygen saturation of 60%. She was initially placed on CPAP. She has been intubated for last 14 days duration. She was diagnosed with community-acquired pneumonia. COVID-19 negative x2. Patient also had bronchoscopy done. CT chest showed bilateral pleural FU She had right and left-sided thoracentesis done. Pleural fluid was transudate. She is also quite hypotensive and requiring 2 pressors. Patient also developed acute renal failure during the hospital stay. Patient had dialysis done on December 14 as well as and December 15. Her labs from today showed hemoglobin of 7.7 [place] [address]. Peripheral smear showed some presence of schistocytes. There is no evidence of bleeding at this time. Labs showed coagulopathy with evidence of DIC with elevated PT and PTT. Fibrinogen was also elevated. Review of Systems - Review of Systems All systems reviewed & are unremarkable except as noted in HPI and bel - Neurologic Reports system reviewed and no additional complaints, except as documented, Denies abnormal speech, Denies abnormal gait, Denies confusion, Denies headache(s), Denies focal weakness, Denies loss of vision, Denies numbness, Denies other visual disturbances, Denies sensory deficit, Denies weakness [facility] Medical History: Medical History (Last Updated 12/16/21 @ 10:02 by Raulito Hammond MD) Afib Anxiety Bronchitis Chronic UTI Colonoscopy refused Depression Diabetes type 2, controlled GERD (gastroesophageal reflux disease) History of Clostridium difficile colitis History of colon cancer History of colorectal cancer History of ETOH abuse History of kidney stones Hypercholesteremia Hypertension Rash Seizures Surgical History: Surgical History (Last Reviewed 12/13/21 @ 09:42 by Jesus Mason MD) History of appendectomy History of colostomy Family History: Family History (Last Reviewed 12/13/21 @ 09:42 by Jesus Mason MD) Mother Family history of cardiovascular disease Father Suicide Cerebrovascular accident Sibling MVA (motor vehicle accident) Other Family history of tuberculosis - Social History Social History: Social History (Last Reviewed 12/13/21 @ 09:42 by Jesus Mason MD) Gender Identity: Gender identity (if verbalized by the patient): Female Alcohol Use: Alcohol intake: former Substance Use: Substance use: never Substance use type: does not use Others: Spiritual care concerns: No Smoking Status: Smoking status: Current every day smoker Tobacco type: cigarettes Smoking Pack-years: Smoking packs per day: 1 Smoking cigarettes per day: 20.0 Years smoked: 50 Smoking pack-years: 50.00 Meds Home Medications Medication Instructions Recorded Confirmed Type metoprolol succinate 50 mg 50 mg PO DAILY #90 tablet 07/23/21 11/26/21 Rx tablet,extended release 24 hr pravastatin 40 mg tablet 40 mg PO DAILY #90 tablet 07/23/21 11/26/21 Rx rivaroxaban 20 mg tablet 20 mg PO QPM #90 tablet 07/23/21 11/26/21 Rx mirtazapine 30 mg tablet 30 mg PO QHS PRN #90 tablet 09/25/21 11/26/21 Rx famotidine 20 mg PO BID 11/26/21 11/26/21 History metformin 1,000 mg PO BID 11/26/21 11/26/21 History diltiazem HCl 300 mg capsule,24 300 mg PO DAILY #90 cap 12/04/21 Rx hr,extended release Allergies Allergy/AdvReac Type Severity Reaction Status Date / Time BREATH RIGHT NASAL STRIPS AdvReac Unknown REDNESS AT Uncoded 11/26/21 02:33 SITE Results - Labs CBC & Chem 7: 12/17/21 04:05 12/17/21 04:05 Labs: Lady
[2021-12-17] MEDS: FENTANYL 2,500MCG/NS250ML(*CRX 2,500 MCG/250 ML BAG 7.5 MCG IV CONT (20:53)
[2021-12-17] MEDS: SENNA/DOCUSATE SODIUM TABLET 1 TAB FEED TUBE (20:57)
[2021-12-17 21:28] LABS: Glucose Point of Care 128 mg/dl (65-105)
[2021-12-17 21:45] LABS: Lactate Dehydrogenase 812 U/L (313-618)
[2021-12-17 22:06] LABS: Iron 42 ug/dL (37-170)
[2021-12-17 22:15] LABS: Percent Iron Saturation 20 % (20-50)
[2021-12-17 22:52] LABS: Folic Acid 13.4 ng/mL (2.76->20)
[2021-12-18] VITALS (43 sets, daily range): BP systolic 83–148; BP diastolic 45–75; PULSE 89–120; RESP 23–33; TEMP 36.2–37.2; O2SAT 93–97
[2021-12-18] MEDS: METOCLOPRAMIDE HCL 10 MG/10 ML SOLN UDC FEED TUBE ×4 (00:44→17:23)
[2021-12-18 00:59] LABS: Glucose Point of Care 156 mg/dl (65-105)
[2021-12-18] MEDS: IPRATROPIUM BR 0.02% INH SOLN 0.5 MG/2.5 ML VIAL INHALATION ×4 (01:38→20:21)
[2021-12-18] MEDS: ALBUTEROL SULFATE NEB 2.5 MG/0.5 ML INH INHALATION ×4 (01:38→20:21)
[2021-12-18 04:26] LABS: Hematocrit 24.5 % (37.0-47.0); Hemoglobin 7.9 g/dL (12.0-15.0); Immature Platelet Fraction Pct 17.2 % (0.9-11.2); Mean Corpuscular HGB Conc 32.2 g/dl (32-36); Mean Corpuscular Volume 99.2 fl (80-100); Mean Platelet Volume 12.9 fl (7.4-10.4); Platelet Count Result 113 k/mm3 (150-375); Red Blood Count 2.47 M/mm3 (4.2-5.4); Red Cell Distribution Width 16.7 % (11.5-14.5); White Blood Count 11.9 K/mm3 (4.5-10.0)
[2021-12-18 04:57] LABS: Alanine Aminotransferase 152 U/L (4-35); Albumin Level 2.9 g/dL (3.5-5.1); Alkaline Phosphatase 357 U/L (38-126); Anion Gap 10 mmol/L (8-16); Aspartate Amino Transferase 134 U/L (14-36); Blood Urea Nitrogen 59 mg/dL (7-17); Calcium 8.3 mg/dL (8.4-10.2); Carbon Dioxide 28 mmol/L (22-30); Chloride 96 mmol/L (98-107); Estimated CRCL calculation 17 ml/min; Estimated Glomerular Filt Rate 15; Glucose 148 mg/dL (65-110); Magnesium 1.9 mg/dL (1.6-2.3); Potassium 4.3 mmol/L (3.4-5.0); Sodium 134 mmol/L (137-145)
[2021-12-18 05:05] LABS: Phosphorus 3.9 mg/dL (2.5-4.5)
[2021-12-18 05:27] LABS: Alveolar/Arterial O2 Gradient 296.8 mmHg; Base Excess ABG -1.8 mEq/l (+/-2.0); Carboxyhemoglobin 0.3 % THb (0-2.0); Device VENTILATOR; Fractional Inspired Oxygen 65 %; HCO3 ABG 25.3 mEq/l (22.0-26.0); Methemoglobin ABG 0.4 %THb (0-1.5); Modified Allen's Test Pass; Oxygen Content ABG 19.8 %vol (16.0-22.0); Oxygen Saturation ABG 97.5 % (95.0-100.0); Oxyhemoglobin 96.5 % THb (90.0-100.0); PCO2 ABG 52.2 mmHg (35.0-45.0); PO2 ABG 109.9 mmHg (80.0-100.0); PO2 FiO2 Ratio Arterial Blood 1.69 %; Reduced Hemoglobin 2.8 %THb (0-5.0); Site Drawn RIGHT RADIAL; Total Hemoglobin 14.5 g/dL (12.0-18.0); pH ABG 7.303 (7.350-7.450)
[2021-12-18 05:28] LABS: Arterial Blood Gas PEEP 12 cmH2O; Arterial Blood Gas Tidal Volume 350 ml; Arterial Blood Gas Vent Mode CMV; Arterial Blood Gas Ventilator rate 30 /MIN
[2021-12-18] MEDS: CENTRAL LINE FLUSH 10 ML IV PUSH ×3 (05:58→21:38)
--- NOTE | 2021-12-18 07:33 | P.PNNP_ITS ---
Progress Note: A&P Assessment and Plan (1) DIANA (acute kidney injury): Code(s): N17.9 - Acute kidney failure, unspecified Status: Acute Assessment and Plan: * suspect due to ATN from: * contrast exposure (CT scan head/chest/abdomen/pelvis on 12/02/21) * possible prerenal factors * hemodynamic instability/hypotension * infection (bacteremia) * Urine output is still low * Will continue dialysis. Next treatment tomorrow. * Overall prognosis is poor (2) Acute hypoxemic respiratory failure: Code(s): J96.01 - Acute respiratory failure with hypoxia Status: Acute Assessment and Plan: * related to pneumonia, CHF, COPD, and bilateral pleural effusions * intubated since 12/01/21 * COVID-19 negative x 2 * s/p bronchoscopy on 12/05/21 * s/p bilateral thoracentesis (right on 12/06/21, left on 12/07/21 - 1L removed from each side) * still with evidence of pulmonary edema/effusions despite this intervention * Continue to remove fluid as tolerated; however the patient is on 2 pressors still.. (3) Congestive heart failure: Code(s): I50.9 - Heart failure, unspecified Status: Acute Assessment and Plan: * likely also playing a role with #2 * repeat echo noted - severe concentric increased left ventricular wall thickness as well as valvular disease. Continue fluid removal As tolerated. * Cardiology following (4) Shock: Code(s): R57.9 - Shock, unspecified Status: Acute Assessment and Plan: * On vasopressin and varying doses of Levophed. Currently 0.04 of the former and 10 of the latter. * due to positive pressure ventilation following intubation versus sepsis versus sedation vs valvular heart disease * s/p adequate amount of IV fluids * blood cultures (11/25/21) with Group B strep - repeat blood culture negative * urine culture negative * On acyclovir. (5) Pneumonia: Qualifiers: Laterality: unspecified laterality Lung location: unspecified part of lung Pneumonia type: due to unspecified organism Qualified Code(s): J18.9 - Pneumonia, unspecified organism Code(s): J18.9 - Pneumonia, unspecified organism Status: Acute Assessment and Plan: * as suggestive by imaging to date * off antibacterials. 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 BAL - started on acyclovir * follow CXR and ABG results (6) Atrial fibrillation: Qualifiers: Atrial fibrillation type: unspecified Qualified Code(s): I48.91 - Unspecified atrial fibrillation Code(s): I48.91 - Unspecified atrial fibrillation Status: Chronic Assessment and Plan: * chronic issue * on amiodarone along with anticoagulation * heart rate in the 100 to 120 range * Cardiology following (7) Diabetes: Code(s): E11.9 - Type 2 diabetes mellitus without complications Status: Chronic Assessment and Plan: * on Accu-Cheks and sliding-scale insulin (8) Rash: Code(s): R21 - Rash and other nonspecific skin eruption Status: Acute Assessment and Plan: Diffuse macular papular rash. off cefipime. Additional Plan . Subjective Date/time seen: 12/18/21 07:33 Interval history: Lauren and is on the ventilator. Unable to give a history. Review of systems unavailable due to ventilator. Exam Narrative: General: ill appearing female intubated/sedated but in NAD Heart: tachycardic, irregular normal S1 and S2; no
--- NOTE | 2021-12-18 07:33 | PM.PNNEP ---
Progress Note: A&P Assessment and Plan (1) DIANA (acute kidney injury): Code(s): N17.9 - Acute kidney failure, unspecified Status: Acute Assessment and Plan: suspect due to ATN from: contrast exposure (CT scan head/chest/abdomen/pelvis on 12/02/21) possible prerenal factors hemodynamic instability/hypotension infection (bacteremia) Urine output is still low Will continue dialysis. Next treatment tomorrow. Overall prognosis is poor (2) Acute hypoxemic respiratory failure: Code(s): J96.01 - Acute respiratory failure with hypoxia Status: Acute Assessment and Plan: related to pneumonia, CHF, COPD, and bilateral pleural effusions intubated since 12/01/21 COVID-19 negative x 2 s/p bronchoscopy on 12/05/21 s/p bilateral thoracentesis (right on 12/06/21, left on 12/07/21 - 1L removed from each side) still with evidence of pulmonary edema/effusions despite this intervention Continue to remove fluid as tolerated; however the patient is on 2 pressors still.. (3) Congestive heart failure: Code(s): I50.9 - Heart failure, unspecified Status: Acute Assessment and Plan: likely also playing a role with #2 repeat echo noted - severe concentric increased left ventricular wall thickness as well as valvular disease. Continue fluid removal As tolerated. Cardiology following (4) Shock: Code(s): R57.9 - Shock, unspecified Status: Acute Assessment and Plan: On vasopressin and varying doses of Levophed. Currently 0.04 of the former and 10 of the latter. due to positive pressure ventilation following intubation versus sepsis versus sedation vs valvular heart disease s/p adequate amount of IV fluids blood cultures (11/25/21) with Group B strep - repeat blood culture negative urine culture negative On acyclovir. (5) Pneumonia: Qualifiers: Laterality: unspecified laterality Lung location: unspecified part of lung Pneumonia type: due to unspecified organism Qualified Code(s): J18.9 - Pneumonia, unspecified organism Code(s): J18.9 - Pneumonia, unspecified organism Status: Acute Assessment and Plan: as suggestive by imaging to date off antibacterials. 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 BAL - started on acyclovir follow CXR and ABG results (6) Atrial fibrillation: Qualifiers: Atrial fibrillation type: unspecified Qualified Code(s): I48.91 - Unspecified atrial fibrillation Code(s): I48.91 - Unspecified atrial fibrillation Status: Chronic Assessment and Plan: chronic issue on amiodarone along with anticoagulation heart rate in the 100 to 120 range Cardiology following (7) Diabetes: Code(s): E11.9 - Type 2 diabetes mellitus without complications Status: Chronic Assessment and Plan: on Accu-Cheks and sliding-scale insulin (8) Rash: Code(s): R21 - Rash and other nonspecific skin eruption Status: Acute Assessment and Plan: Diffuse macular papular rash. off cefipime. Additional Plan . Subjective Date/time seen: 12/18/21 07:33 Interval history: Lauren and is on the ventilator. Unable to give a history. Review of systems unavailable due to ventilator. Exam Narrative: General: ill appearing female intubated/sedated but in NAD Heart: tachycardic, irregular normal S1 and S2; no rub Lungs: coarse breath sounds throughout; Abdomen: Bowel sounds positive. Nontender. Extremities: 1+ edema bilaterally Skin: Diffuse maculopapular rash. Objective Data Vital Signs Vital Signs: Vital Signs - 24 hr 12/17/21 07:50 12/17/21 08:00 12/17/21 08:35 Temperature 36.2 C L Pulse Rate 119 H 111 H 123 H Respiratory Rate 27 H 35 H Blood Pressure 84/48 L 107/49 L Pulse Oximetry 93 12/17/21 08:37 12/17/21 08:42 12/17/21 09:11 Temperature Pulse Rate 125 H
--- NOTE | 2021-12-18 07:53 | PM.PNCARD ---
Progress Note: A&P Assessment and Plan (1) Shock: Code(s): R57.9 - Shock, unspecified Status: Acute Assessment and Plan: Probably due to respiratory failure and sedation with intubation. On and off Levophed drip and on Vasopressin now. Echo 11/27/21 shows normal EF 65-70%, diastolic function indeterminate, mild , consider mod MS. Pleural effusions reaccumulating, worsening anemia, kidney function worsening and started hemodialysis on 12/13/20, elevated LFT, schistocytes on blood smear and workup for DIC. Recheck echo on 12/08/20 shows EF 65-70%, severe LVH, mild LVOT obstruction with mean gradient of 9 mmHg, significant diastolic dysfunction with E/e' 40, mild RV hypokinesis, severe LAE, mod (AKIKO 1.4 cm2), severe MAC and severe MV calcification, severe MS based on visual estimation and mean gradient of 15 mmHg, hemodialysis technician unable to calculate MVA from continuity equation, mild MR, small pericardial effusion. Offered to perform HEIDY to better visualize mitral valve and better characterize mitral stenosis. However, after lengthy discussion with her daughter on 12/10/20 on her status, and she did not want her mother to have the procedure thinking that if she gets transferred to a facility to have MV replacement she would end up having another HEIDY. This may or may not be the case. Discussed with patient's daughter at length and updated her on her status on several phone calls that she is a poor prognosis given worsening kidney failure, anemia, shock requiring intermittent vasopressor support, Pneumonia/COPD, severe mitral stenosis. Her daughter remains hopeful that her mother will get better. (2) Aortic stenosis: Code(s): I35.0 - Nonrheumatic aortic (valve) stenosis Status: Acute Assessment and Plan: Moderate. (3) Atrial fibrillation: Qualifiers: Atrial fibrillation type: unspecified Qualified Code(s): I48.91 - Unspecified atrial fibrillation Code(s): I48.91 - Unspecified atrial fibrillation Status: Chronic Assessment and Plan: Persistent atrial fib. Rate controlled. On Amiodarone drip to control HR due to hypotension and unable to use Diltiazem or Metoprolol. Had bronchoscopy and bilateral thoracentesis removing 1 liter from each. Was on Xarelto 15 mg daily given worsening kidney function. She did cardiovert with Amiodarone drip but back in atrial fibrillation. On Amiodarone 200 mg PO BID to attempt to maintain sinus rhythm and if not, then to control HR. Due to having significant mitral stenosis, this is now consider valvular atrial fibrillation, in which case NOAC are not indicated. She would need to be on Lovenox or Warfarin. While in ICU, would change it over to once daily Lovenox given renal function. Discuss with Dr. Graham due to worsening anemia, that we can hold Lovenox in case there is a bleed. Resume Lovenox if Hb stable and no signs of bleed. LFT elevation possibly due to gallbladder disease. If continues to increase, will hold Amiodarone. (4) Smoking: Code(s): F17.200 - Nicotine dependence, unspecified, uncomplicated Status: Acute (5) Hyperlipemia: Qualifiers: Hyperlipidemia type: unspecified Qualified Code(s): E78.5 - Hyperlipidemia, unspecified Code(s): E78.5 - Hyperlipidemia, unspecified Status: Acute (6) Hypertension: Qualifiers: Hypertension type: primary hypertension Qualified Code(s): I10 - Essential (primary) hypertension Code(s): I10 - Essential (primary) hypertension Status: Acute (7) Diabetes type 2, controlled: Qualifiers: Diabetes mellitus mcfp insulin use: without watermaster use Diabetes mellitus complication status: without complication Qualified Code(s): E11.9 - Type 2 diabetes mellitus without complications Code(s): E11.9 - Type 2 diabetes mellitus without complications Status: Chronic (8) Respiratory failure: Code(s): J96.90 - Respira
[2021-12-18 07:54] LABS: Glucose Point of Care 168 mg/dl (65-105)
[2021-12-18] MEDS: PANTOPRAZOLE SODIUM IV 40 MG VIAL IV PUSH ×2 (08:21→21:38)
[2021-12-18] MEDS: MINERAL OIL/WHITE PETROLATUM OINTMENT 1 APPLIC EACH EYE ×2 (08:21→21:38)
[2021-12-18] MEDS: AMIODARONE HCL 200 MG TABLET PO ×2 (08:21→21:36)
[2021-12-18] MEDS: polyethylene glycoL 3350 17 GM POWD.PACK FEED TUBE (08:22)
[2021-12-18] MEDS: INSULIN GLARGINE (*BKC) 100 UNITS/ML 35 UNITS SUB-Q (08:46)
[2021-12-18 08:50] LABS: Glucose Point of Care 174 mg/dl (65-105)
--- NOTE | 2021-12-18 09:48 | WPDINTPN ---
Progress Note: A&P Assessment and Plan (1) Acute hypoxemic respiratory failure: Code(s): J96.01 - Acute respiratory failure with hypoxia Status: Acute Assessment and Plan: Hypoxic respiratory failure likely related to community-acquired pneumonia, CHF, baseline emphysema, pleural effusions Patient presented the ED on 11/25/2021 with shortness of breath, was on BiPAP and has been declining and requiring significant oxygen support. Failed BiPAP /, 100% FiO2 Intubated patient on 12/01/2021 -continue low tidal volume strategy, peep of14 and 75% FiO2 -12/09 due to significant atelectasis in posterior parts of the lung and effusions with compressive atelectasis, I tried placing patient in prone position but it did not work. Patient had high peak pressures limiting her minute ventilation which led to hypercarbia and acidosis. She required significant amount of sedation to be compliant with ventilation which led to drop in blood pressure requiring vasopressor. No significant improvement in oxygenation seen over multiple hours hence patient was placed back in supine position overnight. -continue bronchodilators - sedated with fentanyl and Versed infusion - COVID-19 negative x2 - 12/05 bronchoscopy was done and BAL collected. Cultures are pending - 12/06 patient underwent right-sided thoracentesis and 1 L fluid was removed - 12/07 patient underwent left-sided thoracentesis and 1 L fluid was removed - 12/14 patient underwent repeat right-sided thoracentesis and 1 L fluid was removed -pleural fluid was transudate although some of the studies are pending -chest x-ray IMPRESSION: Persistent bilateral pulmonary infiltrates, stable or minimally improved since 12/16/2021, most suggestive of pulmonary edema. Pneumonia or aspiration are not excluded -ABG reviewed - wean FiO2 - continue dialysis to remove fluid -see below for treatment of infection Patient has been on ventilator for 18 days now. I have options of tracheostomy with patient's daughter but she has not made any decision yet -12/[address] IMPRESSION: 1. Bilateral dependent airspace opacities, consistent with atelectasis versus pneumonia. 2. Moderate-sized pleural effusions. 3. Cardiomegaly -12/02/2021: chest abdomen and pelvis showed no pulmonary embolism, moderate-sized bilateral pleural effusion. Mild scattered ground-glass opacities in the lungs, consistent mild pulmonary edema versus pneumonia, moderate emphysema. Gallbladder distention and gallbladder wall thickening, small volume ascites, mild aorto caval lymphadenopathy, likely reactive (2) Shock: Code(s): R57.9 - Shock, unspecified Status: Acute Assessment and Plan: Currently on Levophed and vasopressin -11/25 blood cultures grew group B Streptococcus. -11/30/2021: Repeat blood cultures negative x2, preliminary results -11/29/2021 urine cultures are negative completed a 14 day course of cefepime (12/01/2021). Vancomycin was discontinued earlier patient's renal function is worsening and cultures have been negative (3) Pneumonia: Qualifiers: Laterality: unspecified laterality Lung location: unspecified part of lung Pneumonia type: due to unspecified organism Qualified Code(s): J18.9 - Pneumonia, unspecified organism Code(s): J18.9 - Pneumonia, unspecified organism Status: Acute Assessment and Plan: Possible community-acquired pneumonia - she has completed a 14 day course of cefepime -will continue to monitor chest x-ray and ABGs -SARS-CoV-2 PCR PCR negative x2 -12/03/2021: CTA chest showed no pulmonary embolism, moderate-sized bilateral pleural effusion, mild scattered ground-glass opacities in the lungs, consistent with mild pulmonary edema versus pneumonia. Moderate emphysema -12/[address] IMPRESSION: 1. Bilateral dependent airspace opacities, consistent with atelectasis versus pneumonia. 2. Moderate-sized pleural effusions. 3. Cardiomegaly P
--- NOTE | 2021-12-18 11:44 | PCNFU ---
Nutrition Follow-Up Complete: Inadequate Oral Intake as related to mechanical ventilation as evidenced by NPO Goal: Meet estimated nutritional needs Pt. is progressing towards goal. No new goal at this time. Pt current nutrition is Vital AF 1.2 at 55 mls per hour over 22 hours per day. Last recorded weight is 81.5 kg. Bowel Motility: + BM 12/18/2021 Labs Reviewed: Hgb 7.9, Hct 24.5, Alb 2.9, Na 134, GFR 15, BUN 59, Cr 3.10, Glu 148 Meds Noted: Albutein, Pacerone, Lovenox, Retacrit, Glucose, Glucagon, Fentanyl, Novolog, Lantus, Atrovent Neb, Reglan, Versed, Levophed, Protonix, Miralax, Senna, Vasopressin Skin: Deep tissue coccyx pressure ulcer Additional Notes: Patient remains on a mechanical vent and tube feeding of Vital AF 1.2 at 55 mls per hour over 22 hours per day with a 30 ml water flush q4. Fairly tolerating feedings per nursing. In total pt. is receiving 1,452 calories, 91 grams of protein and 981 mls of water. Added protein modular, Cole, BID to aid in wound healing. Pt. is receiving Reglan. Will monitor every Friday and Friday.
[2021-12-18] MEDS: NOREPINEPHRINE 8 MG/D5W 250 ML 8 MG/250 ML BAG 18.75 MG IV CONT (12:21)
[2021-12-18 12:43] LABS: Glucose Point of Care 175 mg/dl (65-105)
[2021-12-18 16:28] LABS: Glucose Point of Care 188 mg/dl (65-105)
[2021-12-18 20:36] LABS: Glucose Point of Care 188 mg/dl (65-105)
[2021-12-18] MEDS: SENNA/DOCUSATE SODIUM TABLET 1 TAB FEED TUBE (21:37)
[2021-12-19] VITALS (53 sets, daily range): BP systolic 59–181; BP diastolic 42–92; PULSE 83–129; RESP 24–36; TEMP 36–37.2; O2SAT 91–96
[2021-12-19] MEDS: METOCLOPRAMIDE HCL 10 MG/10 ML SOLN UDC FEED TUBE ×4 (00:16→17:29)
[2021-12-19 00:17] LABS: Glucose Point of Care 192 mg/dl (65-105)
[2021-12-19] MEDS: MIDAZOLAM 100MG/NS 100ML(*CRX) 100 MG/100 ML BAG IV CONT (01:37)
[2021-12-19] MEDS: VASOPRESSIN INJ 100 UNITS in DEXTROSE 5% 95 ML IV CONT (01:40)
[2021-12-19] MEDS: ALBUTEROL SULFATE NEB 2.5 MG/0.5 ML INH INHALATION ×4 (02:12→19:47)
[2021-12-19] MEDS: IPRATROPIUM BR 0.02% INH SOLN 0.5 MG/2.5 ML VIAL INHALATION ×4 (02:12→19:47)
[2021-12-19] MEDS: NOREPINEPHRINE 8 MG/D5W 250 ML 8 MG/250 ML BAG 15 MG IV CONT (03:00)
[2021-12-19 04:22] LABS: Glucose Point of Care 209 mg/dl (65-105)
[2021-12-19 05:00] LABS: Alveolar/Arterial O2 Gradient 273.1 mmHg; Base Excess ABG -1.3 mEq/l (+/-2.0); Carboxyhemoglobin 0.2 % THb (0-2.0); Fractional Inspired Oxygen 55 %; HCO3 ABG 24.1 mEq/l (22.0-26.0); Methemoglobin ABG 0.2 %THb (0-1.5); Oxygen Content ABG 11.2 %vol (16.0-22.0); Oxygen Saturation ABG 93.6 % (95.0-100.0); Oxyhemoglobin 91.9 % THb (90.0-100.0); PCO2 ABG 43.5 mmHg (35.0-45.0); PO2 ABG 70.7 mmHg (80.0-100.0); PO2 FiO2 Ratio Arterial Blood 1.29 %; Reduced Hemoglobin 7.7 %THb (0-5.0); Total Hemoglobin 8.6 g/dL (12.0-18.0); pH ABG 7.361 (7.350-7.450)
[2021-12-19 05:01] LABS: Arterial Blood Gas PEEP 12 cmH2O; Arterial Blood Gas Vent Mode CMV; Arterial Blood Gas Ventilator rate 30 /MIN; Device VENTILATOR; Modified Allen's Test Pass; Site Drawn RIGHT RADIAL
[2021-12-19 05:02] LABS: Arterial Blood Gas Tidal Volume 350 ml
[2021-12-19] MEDS: FENTANYL 2,500MCG/NS250ML(*CRX 2,500 MCG/250 ML BAG 7.5 MCG IV CONT (06:33)
[2021-12-19 06:41] LABS: Hematocrit 23.6 % (37.0-47.0); Hemoglobin 7.8 g/dL (12.0-15.0); Mean Corpuscular HGB Conc 33.1 g/dl (32-36); Mean Corpuscular Hemoglobin 31.7 pg (26-34); Mean Corpuscular Volume 95.9 fl (80-100); Mean Platelet Volume 12.8 fl (7.4-10.4); Platelet Count Result 117 k/mm3 (150-375); Red Blood Count 2.46 M/mm3 (4.2-5.4); Red Cell Distribution Width 17.2 % (11.5-14.5); White Blood Count 12.6 K/mm3 (4.5-10.0)
[2021-12-19] MEDS: CENTRAL LINE FLUSH 10 ML IV PUSH ×3 (06:48→21:43)
[2021-12-19] MEDS: INSULIN ASPART (*BKC) 100 UNITS/ML SUB-Q ×3 (06:48→17:30)
[2021-12-19 07:00] LABS: Alanine Aminotransferase 111 U/L (4-35); Albumin Level 2.6 g/dL (3.5-5.1); Alkaline Phosphatase 353 U/L (38-126); Anion Gap 13 mmol/L (8-16); Aspartate Amino Transferase 54 U/L (14-36); Bilirubin,Total 0.8 mg/dL (0.2-1.3); Blood Urea Nitrogen 76 mg/dL (7-17); Calcium 8.3 mg/dL (8.4-10.2); Carbon Dioxide 25 mmol/L (22-30); Chloride 93 mmol/L (98-107); Estimated CRCL calculation 14 ml/min; Estimated Glomerular Filt Rate 12; Glucose 199 mg/dL (65-110); Magnesium 1.9 mg/dL (1.6-2.3); Phosphorus 3.9 mg/dL (2.5-4.5); Potassium 4.6 mmol/L (3.4-5.0); Sodium 131 mmol/L (137-145)
--- NOTE | 2021-12-19 07:57 | PM.PNCARD ---
Progress Note: A&P Assessment and Plan (1) Shock: Code(s): R57.9 - Shock, unspecified Status: Acute Assessment and Plan: Probably due to respiratory failure and sedation with intubation. On and off Levophed drip and on Vasopressin now. Echo 11/27/21 shows normal EF 65-70%, diastolic function indeterminate, mild , consider mod MS. Pleural effusions reaccumulating, worsening anemia, kidney function worsening and started hemodialysis on 12/13/20, elevated LFT, schistocytes on blood smear and workup for DIC. Recheck echo on 12/08/20 shows EF 65-70%, severe LVH, mild LVOT obstruction with mean gradient of 9 mmHg, significant diastolic dysfunction with E/e' 40, mild RV hypokinesis, severe LAE, mod (AKIKO 1.4 cm2), severe MAC and severe MV calcification, severe MS based on visual estimation and mean gradient of 15 mmHg, mathematical technician unable to calculate MVA from continuity equation, mild MR, small pericardial effusion. Offered to perform HEIDY to better visualize mitral valve and better characterize mitral stenosis. However, after lengthy discussion with her daughter on 12/10/20 on her status, and she did not want her mother to have the procedure thinking that if she gets transferred to a facility to have MV replacement she would end up having another HEIDY. This may or may not be the case. Discussed with patient's daughter at length and updated her on her status on several phone calls that she is a poor prognosis given worsening kidney failure, anemia, shock requiring intermittent vasopressor support, Pneumonia/COPD, severe mitral stenosis. Her daughter remains hopeful that her mother will get better. Patient's daughter has agreed to change code status to DNR. (2) Aortic stenosis: Code(s): I35.0 - Nonrheumatic aortic (valve) stenosis Status: Acute Assessment and Plan: Moderate. (3) Atrial fibrillation: Qualifiers: Atrial fibrillation type: unspecified Qualified Code(s): I48.91 - Unspecified atrial fibrillation Code(s): I48.91 - Unspecified atrial fibrillation Status: Chronic Assessment and Plan: Persistent atrial fib. Rate controlled. On Amiodarone drip to control HR due to hypotension and unable to use Diltiazem or Metoprolol. Had bronchoscopy and bilateral thoracentesis removing 1 liter from each. Was on Xarelto 15 mg daily given worsening kidney function. She did cardiovert with Amiodarone drip but back in atrial fibrillation. On Amiodarone 200 mg PO BID to attempt to maintain sinus rhythm and if not, then to control HR. Due to having significant mitral stenosis, this is now consider valvular atrial fibrillation, in which case NOAC are not indicated. She would need to be on Lovenox or Warfarin. While in ICU, would change it over to once daily Lovenox given renal function. Discuss with Dr. Graham due to worsening anemia, that we can hold Lovenox is on hold. In addition there is bloody endotracheal suction and thrombocytopenia. LFT elevation possibly due to gallbladder disease. If continues to increase, will hold Amiodarone. LFT is stable and decreased today. (4) Smoking: Code(s): F17.200 - Nicotine dependence, unspecified, uncomplicated Status: Acute (5) Hyperlipemia: Qualifiers: Hyperlipidemia type: unspecified Qualified Code(s): E78.5 - Hyperlipidemia, unspecified Code(s): E78.5 - Hyperlipidemia, unspecified Status: Acute (6) Hypertension: Qualifiers: Hypertension type: primary hypertension Qualified Code(s): I10 - Essential (primary) hypertension Code(s): I10 - Essential (primary) hypertension Status: Acute (7) Diabetes type 2, controlled: Qualifiers: Diabetes mellitus residential insulin use: without watermelon harvesting supervisor use Diabetes mellitus complication status: without complication Qualified Code(s): E11.9 - Type 2 diabetes mellitus without complications Code(s): E11.9 - Type 2 diabetes mellitus with
[2021-12-19 07:59] LABS: Glucose Point of Care 197 mg/dl (65-105)
[2021-12-19] MEDS: MINERAL OIL/WHITE PETROLATUM OINTMENT 1 APPLIC EACH EYE ×2 (08:05→20:21)
[2021-12-19] MEDS: polyethylene glycoL 3350 17 GM POWD.PACK FEED TUBE (08:05)
[2021-12-19] MEDS: PANTOPRAZOLE SODIUM IV 40 MG VIAL IV PUSH ×2 (08:05→20:21)
[2021-12-19] MEDS: AMIODARONE HCL 200 MG TABLET PO ×2 (08:06→20:22)
[2021-12-19] MEDS: INSULIN GLARGINE (*BKC) 100 UNITS/ML 35 UNITS SUB-Q (08:09)
--- NOTE | 2021-12-19 08:21 | P.PNNP_ITS ---
Progress Note: A&P Assessment and Plan (1) DIANA (acute kidney injury): Code(s): N17.9 - Acute kidney failure, unspecified Status: Acute Assessment and Plan: * suspect due to ATN from: * contrast exposure (CT scan head/chest/abdomen/pelvis on 12/02/21) * possible prerenal factors * hemodynamic instability/hypotension * infection (bacteremia) * Urine output is still low * HD due today * Overall prognosis is poor (2) Acute hypoxemic respiratory failure: Code(s): J96.01 - Acute respiratory failure with hypoxia Status: Acute Assessment and Plan: * related to pneumonia, CHF, COPD, and bilateral pleural effusions * intubated since 12/01/21 * COVID-19 negative x 2 * s/p bronchoscopy on 12/05/21 * s/p bilateral thoracentesis (right on 12/06/21, left on 12/07/21 - 1L removed from each side) * still with evidence of pulmonary edema/effusions despite this intervention * Continue to remove fluid as tolerated; however the patient is on 2 pressors still. * Family deciding on whether a trach should be placed. (3) Congestive heart failure: Code(s): I50.9 - Heart failure, unspecified Status: Acute Assessment and Plan: * likely also playing a role with #2 * repeat echo noted - severe concentric increased left ventricular wall thickness as well as valvular disease. Continue fluid removal As tolerated. * Cardiology following (4) Shock: Code(s): R57.9 - Shock, unspecified Status: Acute Assessment and Plan: * Still on 0.04 of vasopressin and 8 of Levophed. * blood cultures (11/25/21) with Group B strep - repeat blood culture negative * urine culture negative * On acyclovir. (5) Pneumonia: Qualifiers: Laterality: unspecified laterality Lung location: unspecified part of lung Pneumonia type: due to unspecified organism Qualified Code(s): J18.9 - Pneumonia, unspecified organism Code(s): J18.9 - Pneumonia, unspecified organism Status: Acute Assessment and Plan: * Finished her course of antibacterials (6) Atrial fibrillation: Qualifiers: Atrial fibrillation type: unspecified Qualified Code(s): I48.91 - Unspecified atrial fibrillation Code(s): I48.91 - Unspecified atrial fibrillation Status: Chronic Assessment and Plan: * chronic issue * on amiodarone along with anticoagulation * heart rate in the 100 to 120 range * Cardiology following (7) Diabetes: Code(s): E11.9 - Type 2 diabetes mellitus without complications Status: Chronic Assessment and Plan: * on Accu-Cheks and sliding-scale insulin (8) Rash: Code(s): R21 - Rash and other nonspecific skin eruption Status: Acute Assessment and Plan: Diffuse macular papular rash. off cefipime. Additional Plan . Subjective Date/time seen: 12/19/21 08:21 Interval history: Lauren is sedated and is on the ventilator. Unable to give a history. Review of systems unavailable due to ventilator. Exam Narrative: General: ill appearing female intubated/sedated but in NAD Heart: tachycardic, irregular normal S1 and S2; no rub or gallop Lungs: coarse breath sounds throughout; Abdomen: Bowel sounds positive. Nontender. Extremities: 1+ edema bilaterally Skin: Rash a little better Objective Data Vital Signs Vital Signs: Vital Signs - 24 hr 12/18/21 08:32 12/18/21 08:33
--- NOTE | 2021-12-19 08:21 | PM.PNNEP ---
Progress Note: A&P Assessment and Plan (1) DIANA (acute kidney injury): Code(s): N17.9 - Acute kidney failure, unspecified Status: Acute Assessment and Plan: suspect due to ATN from: contrast exposure (CT scan head/chest/abdomen/pelvis on 12/02/21) possible prerenal factors hemodynamic instability/hypotension infection (bacteremia) Urine output is still low HD due today Overall prognosis is poor (2) Acute hypoxemic respiratory failure: Code(s): J96.01 - Acute respiratory failure with hypoxia Status: Acute Assessment and Plan: related to pneumonia, CHF, COPD, and bilateral pleural effusions intubated since 12/01/21 COVID-19 negative x 2 s/p bronchoscopy on 12/05/21 s/p bilateral thoracentesis (right on 12/06/21, left on 12/07/21 - 1L removed from each side) still with evidence of pulmonary edema/effusions despite this intervention Continue to remove fluid as tolerated; however the patient is on 2 pressors still. Family deciding on whether a trach should be placed. (3) Congestive heart failure: Code(s): I50.9 - Heart failure, unspecified Status: Acute Assessment and Plan: likely also playing a role with #2 repeat echo noted - severe concentric increased left ventricular wall thickness as well as valvular disease. Continue fluid removal As tolerated. Cardiology following (4) Shock: Code(s): R57.9 - Shock, unspecified Status: Acute Assessment and Plan: Still on 0.04 of vasopressin and 8 of Levophed. blood cultures (11/25/21) with Group B strep - repeat blood culture negative urine culture negative On acyclovir. (5) Pneumonia: Qualifiers: Laterality: unspecified laterality Lung location: unspecified part of lung Pneumonia type: due to unspecified organism Qualified Code(s): J18.9 - Pneumonia, unspecified organism Code(s): J18.9 - Pneumonia, unspecified organism Status: Acute Assessment and Plan: Finished her course of antibacterials (6) Atrial fibrillation: Qualifiers: Atrial fibrillation type: unspecified Qualified Code(s): I48.91 - Unspecified atrial fibrillation Code(s): I48.91 - Unspecified atrial fibrillation Status: Chronic Assessment and Plan: chronic issue on amiodarone along with anticoagulation heart rate in the 100 to 120 range Cardiology following (7) Diabetes: Code(s): E11.9 - Type 2 diabetes mellitus without complications Status: Chronic Assessment and Plan: on Accu-Cheks and sliding-scale insulin (8) Rash: Code(s): R21 - Rash and other nonspecific skin eruption Status: Acute Assessment and Plan: Diffuse macular papular rash. off cefipime. Additional Plan . Subjective Date/time seen: 12/19/21 08:21 Interval history: Lauren is sedated and is on the ventilator. Unable to give a history. Review of systems unavailable due to ventilator. Exam Narrative: General: ill appearing female intubated/sedated but in NAD Heart: tachycardic, irregular normal S1 and S2; no rub or gallop Lungs: coarse breath sounds throughout; Abdomen: Bowel sounds positive. Nontender. Extremities: 1+ edema bilaterally Skin: Rash a little better Objective Data Vital Signs Vital Signs: Vital Signs - 24 hr 12/18/21 08:32 12/18/21 08:33 12/18/21 08:34 Temperature Pulse Rate 120 H 120 H 120 H Respiratory Rate 23 H 23 H Blood Pressure 95/62 L 95/62 L Pulse Oximetry 12/18/21 10:00 12/18/21 10:40 12/18/21 11:59 Temperature Pulse Rate 111 H 110 H 109 H Respiratory Rate 24 H Blood Pressure 96/58 L 101/50 L Pulse Oximetry 93 93 12/18/21 12:00 12/18/21 12:21 12/18/21 13:11 Temperature 37.1 C Pulse Rate 107 H 109 H 112 H Respiratory Rate 30 H 30 H Blood Pressure 101/50 L 101/50 L Pulse Oximetry 94 93 12/18/21 13:19 12/18/21 14:00 12/18/21
--- NOTE | 2021-12-19 11:26 | PCFNICU ---
ICU Rounding Note: Pt current nutrition is Vital AF 1.2 at 55 ml/hr over 22 hours. Last recorded weight is 82.5 kg, up from 64.6 kg on admit. Bowel Motility:+BM reported 12/19 Labs Reviewed:Glu 199, BUN 76, Cr 3.8,GFR 12, Alb 2.6,Hct 23.6, Hgb 7.8 Meds Noted:Albutein, Pacerone, Lovenox, Retacrit, Glucose, Glucagon, Fentanyl, Novolog, Lantus, Atrovent Neb, Reglan, Versed, Levophed, Protonix, Miralax, Senna, Vasopressin Skin: Deep Tissue noted on coccyx Additional Notes: Patient remains on mechanica vent and tube feedings of Vital AR 1.2 at 55 ml/hr and tolerating per nursing. Protein Modular of Cole has been added BID for wound healing. Agree with current diet orders. Following daily in ICU rounds. Will monitor every Friday and Friday.
[2021-12-19 12:17] LABS: Glucose Point of Care 213 mg/dl (65-105)
--- NOTE | 2021-12-19 14:19 | P.PNCROSS_ITS ---
Event Note Event Note Event Note: Family Meeting I met with patient's daughter and ex- again today in presence of inspector health care facilities and patient's nurse to discuss medical decisions and goals of care. We had a long conference 2 days ago seems the patient has not been able to reach any decision. We again met and had a long conference. I again updated patient with patient's current status including mechanical ventilation which has been ongoing for last 19 days, renal failure, shock, antiviral therapy, cardiac status, use of sedative, presence of ET tube and OG tube. I again in he detail explained both options of comfort measures in which patient will palliatively extubated and kept comfortable versus proceeding with continued medical therapy, trach and PEG, continue dialysis and if patient stabilizes eventual transfer to LTAC facility. I answered all her questions. Patient does not appear to be able to make a decision as she keeps on changing her mind from 1 direction to the other. She seems to keep on asking the same questions again and again. She seems to be looking for certainty of particular outcomes which no one can guarantee. At this time she will go back home and again think about it and discuss with her stepdad and other family members before making any decision. Additional time spent 35 minutes in advance care conference
[2021-12-19] MEDS: METOPROLOL TARTRATE INJ 5 MG/5 ML VIAL IV PUSH (14:53)
--- NOTE | 2021-12-19 15:39 | PM.IMPN ---
Progress Note: A&P Assessment and Plan (1) Acute hypoxemic respiratory failure: Code(s): J96.01 - Acute respiratory failure with hypoxia Status: Acute Assessment and Plan: Hypoxic respiratory failure likely related to community-acquired pneumonia, septicemia, CHF, baseline emphysema, pleural effusions and severe valvular disease. Patient presented the ED on 11/25/2021 with shortness of breath and required BiPAP. Did well initially but decompensated once moved to the medical floor requiring intubation on 12/01/21. Concern for possible overdiuresis given the severe valvular disease. She underwent bronchoscopy on 12/05, right-sided thoracentesis with 1 L fluid removed 12/06 and left-sided thoracentesis with 1 L fluid was removed 12/07. Pleural fluid was transudative. Chest CT 12/08 showing bilateral dependent airspace opacities, consistent with atelectasis versus pneumonia and moderate-sized pleural effusions. CXR today reviewed showing no change. Wean MV as able. Appreciate superintendent recreation input. (2) Septic shock: Code(s): A41.9 - Sepsis, unspecified organism; R65.21 - Severe sepsis with septic shock Status: Acute Assessment and Plan: Patient was admitted for possible PNA. BCx collected on admission (11/25) grew Group B Strept. Repeat BCx 11/30 negative. UCx 11/29 negative. BAL positive for fungal Brenda and HSV 1 PCR. Patient has been on and off Levophed felt related to over diuresis and possibly sedation and/or sepsis related. Attempt to decrease sedation on mechanical ventilation and try to wean off Levophed. Completed cefepime and Vancomycin. Pulmonary did recommend Acyclovir given the erythematous bronchial tree (initially held due to the DIANA). Fungal BAL felt to be a contaminant. Continue acyclovir. Wean Levophed adn BLOG WRITER as BP toelrates. (3) Pneumonia: Qualifiers: Laterality: unspecified laterality Lung location: unspecified part of lung Pneumonia type: due to unspecified organism Qualified Code(s): J18.9 - Pneumonia, unspecified organism Code(s): J18.9 - Pneumonia, unspecified organism Status: Acute Assessment and Plan: CXR on admission (11/25) showing moderate amount of bilateral edema and/or pneumonia. No fevers but WBC was 17K. She was started on Rocephin and Doxycycline. Possibly community-acquired pneumonia. She was developed resp distress and was intubated 12/01/21 and abx changed to cefepime and vancomycin. COVID negative x2. As above. (4) DIANA (acute kidney injury): Code(s): N17.9 - Acute kidney failure, unspecified Status: Acute Assessment and Plan: Creatinine normal at baseline. She has developed DIANA and Cr has increased to 4 range. Renal US showing normal kidneys. CT of abdomen 12/02 showing cortical thinning of the kidneys. Patient not responding well to Lasix and the creatinine has increased. She is severely volume overloaded. Patient had tunneled HD catheter placed in the right IJ 12/13/21. Nephrology following and appreciated their input. HD to control fluid status as toelrated. (5) Atrial fibrillation: Qualifiers: Atrial fibrillation type: unspecified Qualified Code(s): I48.91 - Unspecified atrial fibrillation Code(s): I48.91 - Unspecified atrial fibrillation Status: Chronic Assessment and Plan: Patient with history of atrial fibrillation on Xarelto. AFib appears to be chronic. Was on diltiazem and metoprolol but were discontinued due to HoTN. She was started on amiodarone infusion which has been changed to p.o. Xarelto was changed to Lovenox subQ but now held. Echo noted. Continue tele (6) Congestive heart failure: Code(s): I50.9 - Heart failure, unspecified Status: Acute Assessment and Plan: Echo 11/27 EF 65-70%. Repeat Echo 12/08 showing moderate and severe MS. Probably explains the persistent pulmonary edema, recurrent pleural effusions and poor response to diuretics. Cardiology recommend
[2021-12-19 15:46] LABS: Glucose Point of Care 207 mg/dl (65-105)
[2021-12-19] MEDS: NOREPINEPHRINE 8 MG/D5W 250 ML 8 MG/250 ML BAG 28.13 MG IV CONT (18:38)
[2021-12-19 20:13] LABS: Glucose Point of Care 170 mg/dl (65-105)
[2021-12-19] MEDS: SENNA/DOCUSATE SODIUM TABLET 1 TAB FEED TUBE (20:22)
[2021-12-20] VITALS (43 sets, daily range): BP systolic 76–128; BP diastolic 60–97; PULSE 89–136; RESP 20–39; TEMP 36.5–37.1; O2SAT 92–99
[2021-12-20 01:24] LABS: Glucose Point of Care 170 mg/dl (65-105)
[2021-12-20] MEDS: METOCLOPRAMIDE HCL 10 MG/10 ML SOLN UDC FEED TUBE ×4 (02:26→16:41)
[2021-12-20] MEDS: ALBUTEROL SULFATE NEB 2.5 MG/0.5 ML INH INHALATION ×4 (02:31→19:51)
[2021-12-20] MEDS: IPRATROPIUM BR 0.02% INH SOLN 0.5 MG/2.5 ML VIAL INHALATION ×4 (02:31→19:51)
[2021-12-20 04:07] LABS: Glucose Point of Care 164 mg/dl (65-105)
[2021-12-20] MEDS: MIDAZOLAM 100MG/NS 100ML(*CRX) 100 MG/100 ML BAG IV CONT (04:48)
[2021-12-20 04:51] LABS: Alveolar/Arterial O2 Gradient 381.5 mmHg; Base Excess ABG 1.1 mEq/l (+/-2.0); Carboxyhemoglobin 0.3 % THb (0-2.0); Fractional Inspired Oxygen 75 %; HCO3 ABG 26.3 mEq/l (22.0-26.0); Methemoglobin ABG 0.4 %THb (0-1.5); Oxygen Content ABG 12.6 %vol (16.0-22.0); Oxygen Saturation ABG 97.8 % (95.0-100.0); Oxyhemoglobin 96.2 % THb (90.0-100.0); PCO2 ABG 44.5 mmHg (35.0-45.0); PO2 FiO2 Ratio Arterial Blood 1.41 %; Reduced Hemoglobin 3.1 %THb (0-5.0); Total Hemoglobin 9.2 g/dL (12.0-18.0); pH ABG 7.389 (7.350-7.450)
[2021-12-20 04:53] LABS: Arterial Blood Gas PEEP 12 cmH2O; Arterial Blood Gas Vent Mode CMV; Arterial Blood Gas Ventilator rate 30 /MIN; Device VENTILATOR; Site Drawn LEFT BRACHIAL
[2021-12-20 04:54] LABS: Arterial Blood Gas Tidal Volume 350 ml
[2021-12-20] MEDS: NOREPINEPHRINE 8 MG/D5W 250 ML 8 MG/250 ML BAG 22.5 MG IV CONT ×2 (05:27→14:09)
[2021-12-20 05:41] LABS: Hematocrit 25.1 % (37.0-47.0); Hemoglobin 8.1 g/dL (12.0-15.0); Mean Corpuscular HGB Conc 32.3 g/dl (32-36); Mean Corpuscular Hemoglobin 31.2 pg (26-34); Mean Corpuscular Volume 96.5 fl (80-100); Mean Platelet Volume 12.9 fl (7.4-10.4); Platelet Count Result 158 k/mm3 (150-375); Red Cell Distribution Width 17.6 % (11.5-14.5); White Blood Count 13.2 K/mm3 (4.5-10.0)
[2021-12-20 05:47] LABS: Alanine Aminotransferase 72 U/L (4-35); Albumin Level 2.6 g/dL (3.5-5.1); Alkaline Phosphatase 285 U/L (38-126); Anion Gap 11 mmol/L (8-16); Aspartate Amino Transferase 33 U/L (14-36); Bilirubin,Total 0.7 mg/dL (0.2-1.3); Blood Urea Nitrogen 90 mg/dL (7-17); Calcium 8.5 mg/dL (8.4-10.2); Carbon Dioxide 26 mmol/L (22-30); Chloride 92 mmol/L (98-107); Estimated CRCL calculation 15 ml/min; Estimated Glomerular Filt Rate 13; Glucose 166 mg/dL (65-110); Magnesium 1.9 mg/dL (1.6-2.3); Phosphorus 4.4 mg/dL (2.5-4.5); Potassium 4.9 mmol/L (3.4-5.0); Sodium 129 mmol/L (137-145)
[2021-12-20] MEDS: CENTRAL LINE FLUSH 10 ML IV PUSH ×3 (06:06→21:23)
[2021-12-20 07:41] LABS: Glucose Point of Care 229 mg/dl (65-105)
[2021-12-20] MEDS: MIDAZOLAM HCL (*CRX) 2 MG/2 ML VIAL 4 MG (08:07)
[2021-12-20] MEDS: MIDAZOLAM HCL (*CRX) 2 MG/2 ML VIAL (08:24)
[2021-12-20] MEDS: fentaNYL CITRATE INJ (*CRX) 100 MCG/2 ML VIAL (08:24)
[2021-12-20] MEDS: INSULIN ASPART (*BKC) 100 UNITS/ML SUB-Q (08:27)
[2021-12-20] MEDS: INSULIN GLARGINE (*BKC) 100 UNITS/ML 35 UNITS SUB-Q (08:28)
[2021-12-20] MEDS: MINERAL OIL/WHITE PETROLATUM OINTMENT 1 APPLIC EACH EYE ×2 (08:32→20:56)
--- NOTE | 2021-12-20 08:36 | PM.PNCARD ---
Progress Note: A&P Assessment and Plan (1) Shock: Code(s): R57.9 - Shock, unspecified Status: Acute Assessment and Plan: Probably due to respiratory failure and sedation with intubation. On and off Levophed drip and on Vasopressin now. Echo 11/27/21 shows normal EF 65-70%, diastolic function indeterminate, mild , consider mod MS. Pleural effusions reaccumulating, worsening anemia, kidney function worsening and started hemodialysis on 12/13/20, elevated LFT, schistocytes on blood smear and workup for DIC. Recheck echo on 12/08/20 shows EF 65-70%, severe LVH, mild LVOT obstruction with mean gradient of 9 mmHg, significant diastolic dysfunction with E/e' 40, mild RV hypokinesis, severe LAE, mod (AKIKO 1.4 cm2), severe MAC and severe MV calcification, severe MS based on visual estimation and mean gradient of 15 mmHg, seismology technical officer unable to calculate MVA from continuity equation, mild MR, small pericardial effusion. Offered to perform HEIDY to better visualize mitral valve and better characterize mitral stenosis. However, after lengthy discussion with her daughter on 12/10/20 on her status, and she did not want her mother to have the procedure thinking that if she gets transferred to a facility to have MV replacement she would end up having another HEIDY. This may or may not be the case. Discussed with patient's daughter at length and updated her on her status on several phone calls that she is a poor prognosis given worsening kidney failure, anemia, shock requiring intermittent vasopressor support, Pneumonia/COPD, severe mitral stenosis. Her daughter remains hopeful that her mother will get better. Patient's daughter has agreed to change code status to DNR. (2) Aortic stenosis: Code(s): I35.0 - Nonrheumatic aortic (valve) stenosis Status: Acute Assessment and Plan: Moderate. (3) Atrial fibrillation: Qualifiers: Atrial fibrillation type: unspecified Qualified Code(s): I48.91 - Unspecified atrial fibrillation Code(s): I48.91 - Unspecified atrial fibrillation Status: Chronic Assessment and Plan: Persistent atrial fib. Rate controlled. On Amiodarone drip to control HR due to hypotension and unable to use Diltiazem or Metoprolol. Had bronchoscopy and bilateral thoracentesis removing 1 liter from each. Was on Xarelto 15 mg daily given worsening kidney function. She did cardiovert with Amiodarone drip but back in atrial fibrillation. On Amiodarone 200 mg PO BID to attempt to maintain sinus rhythm and if not, then to control HR. Due to having significant mitral stenosis, this is now consider valvular atrial fibrillation, in which case NOAC are not indicated. She would need to be on Lovenox or Warfarin. While in ICU, would change it over to once daily Lovenox given renal function. Discuss with Dr. Graham due to worsening anemia, that we can hold Lovenox is on hold. In addition there is bloody endotracheal suction and thrombocytopenia. LFT elevation possibly due to gallbladder disease. If continues to increase, will hold Amiodarone. LFT is stable and decreased. (4) Smoking: Code(s): F17.200 - Nicotine dependence, unspecified, uncomplicated Status: Acute (5) Hyperlipemia: Qualifiers: Hyperlipidemia type: unspecified Qualified Code(s): E78.5 - Hyperlipidemia, unspecified Code(s): E78.5 - Hyperlipidemia, unspecified Status: Acute (6) Hypertension: Qualifiers: Hypertension type: primary hypertension Qualified Code(s): I10 - Essential (primary) hypertension Code(s): I10 - Essential (primary) hypertension Status: Acute (7) Diabetes type 2, controlled: Qualifiers: Diabetes mellitus supervisor intermediates insulin use: without supervisor intermediates use Diabetes mellitus complication status: without complication Qualified Code(s): E11.9 - Type 2 diabetes mellitus without complications Code(s): E11.9 - Type 2 diabetes mellitus without co
[2021-12-20] MEDS: AMIODARONE HCL 200 MG TABLET PO ×2 (08:37→20:56)
[2021-12-20] MEDS: polyethylene glycoL 3350 17 GM POWD.PACK FEED TUBE (08:38)
[2021-12-20] MEDS: PANTOPRAZOLE SODIUM IV 40 MG VIAL IV PUSH ×2 (08:38→20:56)
[2021-12-20] MEDS: FENTANYL 2,500MCG/NS250ML(*CRX 2,500 MCG/250 ML BAG 15 MCG IV CONT (09:13)
--- NOTE | 2021-12-20 09:42 | P.PNNP_ITS ---
Progress Note: A&P Assessment and Plan (1) DIANA (acute kidney injury): Code(s): N17.9 - Acute kidney failure, unspecified Status: Acute Assessment and Plan: * suspect due to ATN from: * contrast exposure (CT scan head/chest/abdomen/pelvis on 12/02/21) * possible prerenal factors * hemodynamic instability/hypotension * infection (bacteremia) * Urine output is still low * will do another dialysis today. * Overall prognosis is poor (2) Acute hypoxemic respiratory failure: Code(s): J96.01 - Acute respiratory failure with hypoxia Status: Acute Assessment and Plan: * related to pneumonia, CHF, COPD, and bilateral pleural effusions * The patient is not tolerating fluid removal with dialysis. * Family has decided to to a trach. (3) Congestive heart failure: Code(s): I50.9 - Heart failure, unspecified Status: Acute Assessment and Plan: * likely also playing a role with #2 * repeat echo noted - severe concentric increased left ventricular wall thickness as well as valvular disease. Continue fluid removal As tolerated. * Cardiology following (4) Shock: Code(s): R57.9 - Shock, unspecified Status: Acute Assessment and Plan: * Still on 0.04 of vasopressin and 8 of Levophed. * blood cultures (11/25/21) with Group B strep - repeat blood culture negative * urine culture negative * On acyclovir. (5) Pneumonia: Qualifiers: Laterality: unspecified laterality Lung location: unspecified part of lung Pneumonia type: due to unspecified organism Qualified Code(s): J18.9 - Pneumonia, unspecified organism Code(s): J18.9 - Pneumonia, unspecified organism Status: Acute Assessment and Plan: * Finished her course of antibacterials (6) Atrial fibrillation: Qualifiers: Atrial fibrillation type: unspecified Qualified Code(s): I48.91 - Unspecified atrial fibrillation Code(s): I48.91 - Unspecified atrial fibrillation Status: Chronic Assessment and Plan: * chronic issue * on amiodarone along with anticoagulation * heart rate in the 100 to 120 range * Cardiology following (7) Diabetes: Code(s): E11.9 - Type 2 diabetes mellitus without complications Status: Chronic Assessment and Plan: * on Accu-Cheks and sliding-scale insulin (8) Rash: Code(s): R21 - Rash and other nonspecific skin eruption Status: Acute Assessment and Plan: Diffuse macular papular rash. off cefipime. Better Additional Plan . Subjective Date/time seen: 12/20/21 09:42 Interval history: Lauren is sedated and is on the ventilator. Unable to give a history. Review of systems unavailable due to ventilator. Exam Narrative: General: ill appearing female intubated/sedated but in NAD Heart: tachycardic, irregular normal S1 and S2; no rub or gallop Lungs: coarse breath sounds throughout; Abdomen: Bowel sounds positive. Nontender. Extremities: 1+ edema bilaterally Skin: Rash a little better Objective Data Vital Signs Vital Signs: Vital Signs - 24 hr 12/19/21 10:00 12/19/21 11:04 12/19/21 12:00 Temperature 37.0 C Pulse Rate 101 H 103 H 117 H Respiratory Rate 30 H 30 H Blood Pressure 118/63 96/54 L Pulse Oximetry 93 94 93 12/19/21 13:53 12/19/21 14:00 12/19/21
--- NOTE | 2021-12-20 09:42 | PM.PNNEP ---
Progress Note: A&P Assessment and Plan (1) DIANA (acute kidney injury): Code(s): N17.9 - Acute kidney failure, unspecified Status: Acute Assessment and Plan: suspect due to ATN from: contrast exposure (CT scan head/chest/abdomen/pelvis on 12/02/21) possible prerenal factors hemodynamic instability/hypotension infection (bacteremia) Urine output is still low will do another dialysis today. Overall prognosis is poor (2) Acute hypoxemic respiratory failure: Code(s): J96.01 - Acute respiratory failure with hypoxia Status: Acute Assessment and Plan: related to pneumonia, CHF, COPD, and bilateral pleural effusions The patient is not tolerating fluid removal with dialysis. Family has decided to to a trach. (3) Congestive heart failure: Code(s): I50.9 - Heart failure, unspecified Status: Acute Assessment and Plan: likely also playing a role with #2 repeat echo noted - severe concentric increased left ventricular wall thickness as well as valvular disease. Continue fluid removal As tolerated. Cardiology following (4) Shock: Code(s): R57.9 - Shock, unspecified Status: Acute Assessment and Plan: Still on 0.04 of vasopressin and 8 of Levophed. blood cultures (11/25/21) with Group B strep - repeat blood culture negative urine culture negative On acyclovir. (5) Pneumonia: Qualifiers: Laterality: unspecified laterality Lung location: unspecified part of lung Pneumonia type: due to unspecified organism Qualified Code(s): J18.9 - Pneumonia, unspecified organism Code(s): J18.9 - Pneumonia, unspecified organism Status: Acute Assessment and Plan: Finished her course of antibacterials (6) Atrial fibrillation: Qualifiers: Atrial fibrillation type: unspecified Qualified Code(s): I48.91 - Unspecified atrial fibrillation Code(s): I48.91 - Unspecified atrial fibrillation Status: Chronic Assessment and Plan: chronic issue on amiodarone along with anticoagulation heart rate in the 100 to 120 range Cardiology following (7) Diabetes: Code(s): E11.9 - Type 2 diabetes mellitus without complications Status: Chronic Assessment and Plan: on Accu-Cheks and sliding-scale insulin (8) Rash: Code(s): R21 - Rash and other nonspecific skin eruption Status: Acute Assessment and Plan: Diffuse macular papular rash. off cefipime. Better Additional Plan . Subjective Date/time seen: 12/20/21 09:42 Interval history: Lauren is sedated and is on the ventilator. Unable to give a history. Review of systems unavailable due to ventilator. Exam Narrative: General: ill appearing female intubated/sedated but in NAD Heart: tachycardic, irregular normal S1 and S2; no rub or gallop Lungs: coarse breath sounds throughout; Abdomen: Bowel sounds positive. Nontender. Extremities: 1+ edema bilaterally Skin: Rash a little better Objective Data Vital Signs Vital Signs: Vital Signs - 24 hr 12/19/21 10:00 12/19/21 11:04 12/19/21 12:00 Temperature 37.0 C Pulse Rate 101 H 103 H 117 H Respiratory Rate 30 H 30 H Blood Pressure 118/63 96/54 L Pulse Oximetry 93 94 93 12/19/21 13:53 12/19/21 14:00 12/19/21 14:02 Temperature Pulse Rate 111 H 123 H 120 H Respiratory Rate 31 H 30 H 36 H Blood Pressure 106/68 Pulse Oximetry 91 92 12/19/21 14:24 12/19/21 14:25 12/19/21 14:53 Temperature Pulse Rate 128 H 128 H 128 H Respiratory Rate 30 H 30 H 30 H Blood Pressure 94/74 L 94/74 L Pulse Oximetry 12/19/21 14:54 12/19/21 15:45 12/19/21 16:00 Temperature 36.8 C Pulse Rate 128 H 103 H 89 Respiratory Rate 30 H 30 H Blood Pressure 73/59 L 104/76 Pulse Oximetry 93 12/19/21 17:08 12/19/21 17:33 12/19/21 17:34 Temperature Pulse Rate 88 92 98 Respiratory Rate 30 H 30 H B
[2021-12-20 12:11] LABS: Glucose Point of Care 164 mg/dl (65-105)
--- NOTE | 2021-12-20 12:18 | PCFNICU ---
ICU Rounding Note: Pt current nutrition is Vital AF 1.2 at 55 ml/hr over 22 hours Last recorded weight is 86.1 kg, up from 64.6 kg on admit. Bowel Motility:colostomy Labs Reviewed:Glu 166, BUN 90,Na 129, Hct 25.1,Hgb 8.1 Meds Noted:Pacerone, Lantus, Levophed, Miralax, NovoLog, Lantus,Versed, Fentanyl, Senokot, Protonix. Skin: Deep Tissue-Coccyx Additional Notes: Patient remains on tube feedings of Vital AF 1.2 at 55 ml/hr over 22 hours. Free water flush 30 ml q 4 hours. Protein Modulars of Cole BID for wound healing. Agree with diet orders. Following daily in ICU rounds. Will monitor every Friday and Friday.
--- NOTE | 2021-12-20 13:15 | WPDINTPN ---
Progress Note: A&P Assessment and Plan (1) Acute hypoxemic respiratory failure: Code(s): J96.01 - Acute respiratory failure with hypoxia Status: Acute Assessment and Plan: Hypoxic respiratory failure likely related to community-acquired pneumonia, CHF, baseline emphysema, pleural effusions Patient presented the ED on 11/25/2021 with shortness of breath, was on BiPAP and has been declining and requiring significant oxygen support. Failed BiPAP 16/05, 100% FiO2 Intubated patient on 12/01/2021 -continue low tidal volume strategy, peep of 14 and 75% FiO2 -12/09 due to significant atelectasis in posterior parts of the lung and effusions with compressive atelectasis, I tried placing patient in prone position but it did not work. Patient had high peak pressures limiting her minute ventilation which led to hypercarbia and acidosis. She required significant amount of sedation to be compliant with ventilation which led to drop in blood pressure requiring vasopressor. No significant improvement in oxygenation seen over multiple hours hence patient was placed back in supine position overnight. -continue bronchodilators - sedated with fentanyl and Versed infusion - COVID-19 negative x2 - 12/05 bronchoscopy was done and BAL collected. Cultures are pending - 12/06 patient underwent right-sided thoracentesis and 1 L fluid was removed - 12/07 patient underwent left-sided thoracentesis and 1 L fluid was removed - 12/14 patient underwent repeat right-sided thoracentesis and 1 L fluid was removed -pleural fluid was transudate although some of the studies are pending -chest x-ray IMPRESSION: Persistent bilateral pulmonary infiltrates, stable or minimally improved since 12/16/2021, most suggestive of pulmonary edema. Pneumonia or aspiration are not excluded -ABG reviewed - wean FiO2 - continue dialysis to remove fluid -see below for treatment of infection Patient has been on ventilator for 19 days now. I have options of tracheostomy with patient's daughter but she has not made any decision yet. I will consult ENT and GI once confirmed with family -12/[address] IMPRESSION: 1. Bilateral dependent airspace opacities, consistent with atelectasis versus pneumonia. 2. Moderate-sized pleural effusions. 3. Cardiomegaly -12/02/2021: chest abdomen and pelvis showed no pulmonary embolism, moderate-sized bilateral pleural effusion. Mild scattered ground-glass opacities in the lungs, consistent mild pulmonary edema versus pneumonia, moderate emphysema. Gallbladder distention and gallbladder wall thickening, small volume ascites, mild aorto caval lymphadenopathy, likely reactive (2) Shock: Code(s): R57.9 - Shock, unspecified Status: Acute Assessment and Plan: Currently on Levophed and vasopressin -11/25 blood cultures grew group B Streptococcus. -11/30/2021: Repeat blood cultures negative x2, preliminary results -11/29/2021 urine cultures are negative completed a 14 day course of cefepime (12/01/2021). Vancomycin was discontinued earlier patient's renal function is worsening and cultures have been negative (3) Pneumonia: Qualifiers: Laterality: unspecified laterality Lung location: unspecified part of lung Pneumonia type: due to unspecified organism Qualified Code(s): J18.9 - Pneumonia, unspecified organism Code(s): J18.9 - Pneumonia, unspecified organism Status: Acute Assessment and Plan: Possible community-acquired pneumonia - she has completed a 14 day course of cefepime -will continue to monitor chest x-ray and ABGs -SARS-CoV-2 PCR PCR negative x2 -12/03/2021: CTA chest showed no pulmonary embolism, moderate-sized bilateral pleural effusion, mild scattered ground-glass opacities in the lungs, consistent with mild pulmonary edema versus pneumonia. Moderate emphysema -12/[address]
[2021-12-20 13:57] LABS: Heparin Induced Platelet Antib Negative (Negative)
[2021-12-20] MEDS: NOREPINEPHRINE 8 MG/D5W 250 ML 8 MG/250 ML BAG 33.75 MG IV CONT ×2 (14:10→21:43)
[2021-12-20 14:32] LABS: UFH SRA Result Interpretation Negative (Negative)
--- NOTE | 2021-12-20 14:51 | PM.IMPN ---
Progress Note: A&P Assessment and Plan (1) Acute hypoxemic respiratory failure: Code(s): J96.01 - Acute respiratory failure with hypoxia Status: Acute Assessment and Plan: Hypoxic respiratory failure likely related to community-acquired pneumonia, septicemia, CHF, baseline emphysema, pleural effusions and severe valvular disease. Patient presented the ED on 11/25/21 with shortness of breath and required BiPAP. Did well initially but decompensated requiring intubation on 12/01/21. Concern for possible overdiuresis given the severe valvular disease. She underwent bronchoscopy on 12/05, right-sided thoracentesis with 1 L fluid removed 12/06 and left-sided thoracentesis with 1 L fluid was removed 12/07. Pleural fluid was transudative. Chest CT 12/08 showing bilateral dependent airspace opacities, consistent with atelectasis versus pneumonia and moderate-sized pleural effusions. CXR today reviewed showing no change. Wean MV as able. Appreciate vp information technology input. (2) Septic shock: Code(s): A41.9 - Sepsis, unspecified organism; R65.21 - Severe sepsis with septic shock Status: Acute Assessment and Plan: Patient was admitted for possible PNA. BCx collected on admission (11/25) grew Group B Strept. Repeat BCx 11/30 negative. UCx 11/29 negative. BAL positive for fungal Brenda and HSV 1 PCR. Patient has been on and off Levophed felt related to over diuresis and possibly sedation and/or sepsis related. Attempt to decrease sedation on mechanical ventilation and try to wean off Levophed. Completed cefepime and Vancomycin. Pulmonary did recommend Acyclovir given the erythematous bronchial tree (initially held due to the DIANA). Fungal BAL felt to be a contaminant. Continue acyclovir. Curently on 18mcg/min Levophed and TIMBER SUPERVISOR 0.04U/min. Wean Levophed and TIMBER SUPERVISOR as BP tolerated. (3) Pneumonia: Qualifiers: Laterality: unspecified laterality Lung location: unspecified part of lung Pneumonia type: due to unspecified organism Qualified Code(s): J18.9 - Pneumonia, unspecified organism Code(s): J18.9 - Pneumonia, unspecified organism Status: Acute Assessment and Plan: CXR on admission (11/25) showing moderate amount of bilateral edema and/or pneumonia. No fevers but WBC was 17K. She was started on Rocephin and Doxycycline. Possibly community-acquired pneumonia. She was developed resp distress and was intubated 12/01/21 and abx changed to cefepime and vancomycin. COVID negative x2. Off all abx currently. As above. (4) DIANA (acute kidney injury): Code(s): N17.9 - Acute kidney failure, unspecified Status: Acute Assessment and Plan: Creatinine normal at baseline. She has developed DIANA and Cr has increased to 4 range. Renal US showing normal kidneys. CT of abdomen 12/02 showing cortical thinning of the kidneys. Patient not responding well to Lasix and the creatinine has increased related to severe valvular disease. She is severely volume overloaded. Patient had tunneled HD catheter placed in the right IJ 12/13/21. Nephrology following and appreciated their input. HD to control fluid status as BP tolerated. (5) Atrial fibrillation: Qualifiers: Atrial fibrillation type: unspecified Qualified Code(s): I48.91 - Unspecified atrial fibrillation Code(s): I48.91 - Unspecified atrial fibrillation Status: Chronic Assessment and Plan: Patient with history of atrial fibrillation on Xarelto. AFib appears to be chronic. Was on diltiazem and metoprolol but were discontinued due to HoTN. She was started on amiodarone infusion which has been changed to p.o. Xarelto was changed to Lovenox subQ but now held. Echo noted. Continue tele. (6) Congestive heart failure: Code(s): I50.9 - Heart failure, unspecified Status: Acute Assessment and Plan: Echo 11/27 EF 65-70%. Repeat Echo 12/08 showing moderate and severe MS. Probably explains the persistent pulmonary edema, recu
[2021-12-20 16:22] LABS: Glucose Point of Care 139 mg/dl (65-105)
[2021-12-20] MEDS: SENNA/DOCUSATE SODIUM TABLET 1 TAB FEED TUBE (20:56)
[2021-12-20 21:25] LABS: Glucose Point of Care 161 mg/dl (65-105)
[2021-12-20] MEDS: VASOPRESSIN INJ 100 UNITS in DEXTROSE 5% 95 ML IV CONT (21:44)
[2021-12-21] VITALS (68 sets, daily range): BP systolic 64–184; BP diastolic 42–137; PULSE 89–134; RESP 30; TEMP 36.4–37.2; O2SAT 96–99
[2021-12-21 00:11] LABS: Glucose Point of Care 132 mg/dl (65-105)
[2021-12-21] MEDS: ALBUTEROL SULFATE NEB 2.5 MG/0.5 ML INH INHALATION ×4 (02:32→20:57)
[2021-12-21] MEDS: IPRATROPIUM BR 0.02% INH SOLN 0.5 MG/2.5 ML VIAL INHALATION ×4 (02:32→20:57)
[2021-12-21] MEDS: MIDAZOLAM 100MG/NS 100ML(*CRX) 100 MG/100 ML BAG IV CONT (03:48)
[2021-12-21 04:29] LABS: Glucose Point of Care 145 mg/dl (65-105)
[2021-12-21] MEDS: NOREPINEPHRINE 8 MG/D5W 250 ML 8 MG/250 ML BAG 37.5 MG IV CONT (04:42)
[2021-12-21 05:09] LABS: Alveolar/Arterial O2 Gradient 389.8 mmHg; Base Excess ABG -1.9 mEq/l (+/-2.0); Carboxyhemoglobin 0.3 % THb (0-2.0); Fractional Inspired Oxygen 75 %; HCO3 ABG 23.5 mEq/l (22.0-26.0); Methemoglobin ABG 0.3 %THb (0-1.5); Oxygen Content ABG 15.3 %vol (16.0-22.0); Oxygen Saturation ABG 97.3 % (95.0-100.0); Oxyhemoglobin 95.5 % THb (90.0-100.0); PCO2 ABG 42.6 mmHg (35.0-45.0); PO2 ABG 99.7 mmHg (80.0-100.0); PO2 FiO2 Ratio Arterial Blood 1.33 %; Reduced Hemoglobin 3.9 %THb (0-5.0); Total Hemoglobin 11.3 g/dL (12.0-18.0)
[2021-12-21 05:10] LABS: Device VENTILATOR; Modified Allen's Test Pass; Site Drawn LEFT RADIAL
[2021-12-21 05:11] LABS: Arterial Blood Gas PEEP 12 cmH2O; Arterial Blood Gas Tidal Volume 350 ml; Arterial Blood Gas Vent Mode CMV; Arterial Blood Gas Ventilator rate 30 /MIN
[2021-12-21 05:15] LABS: Hematocrit 26.4 % (37.0-47.0); Hemoglobin 8.5 g/dL (12.0-15.0); Mean Corpuscular HGB Conc 32.2 g/dl (32-36); Mean Corpuscular Hemoglobin 31.4 pg (26-34); Mean Corpuscular Volume 97.4 fl (80-100); Mean Platelet Volume 12.8 fl (7.4-10.4); Platelet Count Result 176 k/mm3 (150-375); Red Blood Count 2.71 M/mm3 (4.2-5.4); White Blood Count 15.1 K/mm3 (4.5-10.0)
[2021-12-21] MEDS: CENTRAL LINE FLUSH 10 ML IV PUSH ×3 (05:45→20:09)
[2021-12-21] MEDS: METOCLOPRAMIDE HCL 10 MG/10 ML SOLN UDC FEED TUBE ×2 (05:45)
[2021-12-21 05:47] LABS: Alanine Aminotransferase 49 U/L (4-35); Albumin Level 2.6 g/dL (3.5-5.1); Alkaline Phosphatase 258 U/L (38-126); Anion Gap 16 mmol/L (8-16); Aspartate Amino Transferase 26 U/L (14-36); Bilirubin,Total 0.7 mg/dL (0.2-1.3); Blood Urea Nitrogen 104 mg/dL (7-17); Calcium 8.5 mg/dL (8.4-10.2); Carbon Dioxide 22 mmol/L (22-30); Chloride 89 mmol/L (98-107); Estimated CRCL calculation 13 ml/min; Estimated Glomerular Filt Rate 10; Glucose 156 mg/dL (65-110); Magnesium 2.1 mg/dL (1.6-2.3); Phosphorus 5.9 mg/dL (2.5-4.5); Potassium 5.6 mmol/L (3.4-5.0); Sodium 127 mmol/L (137-145)
[2021-12-21 06:03] LABS: Haptoglobin 248 mg/dL (43-212)
[2021-12-21 08:02] LABS: Glucose Point of Care 171 mg/dl (65-105)
[2021-12-21] MEDS: INSULIN GLARGINE (*BKC) 100 UNITS/ML 35 UNITS SUB-Q (08:08)
[2021-12-21] MEDS: PANTOPRAZOLE SODIUM IV 40 MG VIAL IV PUSH ×2 (08:10→20:09)
[2021-12-21] MEDS: MINERAL OIL/WHITE PETROLATUM OINTMENT 1 APPLIC EACH EYE ×2 (08:10→20:08)
[2021-12-21] MEDS: AMIODARONE HCL 200 MG TABLET PO ×2 (08:10→20:08)
[2021-12-21] MEDS: polyethylene glycoL 3350 17 GM POWD.PACK FEED TUBE (08:10)
[2021-12-21] MEDS: FENTANYL 2,500MCG/NS250ML(*CRX 2,500 MCG/250 ML BAG 10 MCG IV CONT (10:27)
[2021-12-21 11:43] LABS: Glucose Point of Care 162 mg/dl (65-105)
[2021-12-21] MEDS: METOCLOPRAMIDE HCL INJ 10 MG/2 ML VIAL IV PUSH ×2 (11:48→17:00)
[2021-12-21] MEDS: NOREPINEPHRINE 8 MG/D5W 250 ML 8 MG/250 ML BAG 24.38 MG IV CONT (11:48)
--- NOTE | 2021-12-21 13:16 | P.PNINT_ITS ---
Progress Note: A&P Assessment and Plan (1) Acute hypoxemic respiratory failure: Code(s): J96.01 - Acute respiratory failure with hypoxia Status: Acute Assessment and Plan: Hypoxic respiratory failure likely related to community-acquired pneumonia, CHF, baseline emphysema, pleural effusions Patient presented the ED on 11/25/2021 with shortness of breath, was on BiPAP and has been declining and requiring significant oxygen support. Failed BiPAP 16/05, 100% FiO2 Intubated patient on 12/01/2021 -continue low tidal volume strategy, peep of 12 and 75% FiO2 -12/09 due to significant atelectasis in posterior parts of the lung and effusions with compressive atelectasis, I tried placing patient in prone position but it did not work. Patient had high peak pressures limiting her minute ventilation which led to hypercarbia and acidosis. She required significant amount of sedation to be compliant with ventilation which led to drop in blood pressure requiring vasopressor. No significant improvement in oxygenation seen over multiple hours hence patient was placed back in supine position overnight. -continue bronchodilators - sedated with fentanyl and Versed infusion - COVID-19 negative x2 - 12/05 bronchoscopy was done and BAL collected. Cultures are pending - 12/06 patient underwent right-sided thoracentesis and 1 L fluid was removed - 12/07 patient underwent left-sided thoracentesis and 1 L fluid was removed - 12/14 patient underwent repeat right-sided thoracentesis and 1 L fluid was removed -pleural fluid was transudate although some of the studies are pending -chest x-ray IMPRESSION: Persistent bilateral pulmonary infiltrates, stable or minimally improved since 12/16/2021, most suggestive of pulmonary edema. Pneumonia or aspiration are not excluded -ABG reviewed - wean FiO2 - continue dialysis to remove fluid -see below for treatment of infection Patient has been on ventilator for 19 days now. I have options of tracheostomy with patient's daughter but she has not made any decision yet. I will consult ENT and GI once confirmed with family -12/[address] IMPRESSION: 1. Bilateral dependent airspace opacities, consistent with atelectasis versus pneumonia. 2. Moderate-sized pleural effusions. 3. Cardiomegaly -12/02/2021: chest abdomen and pelvis showed no pulmonary embolism, moderate- sized bilateral pleural effusion. Mild scattered ground-glass opacities in the lungs, consistent mild pulmonary edema versus pneumonia, moderate emphysema. Gallbladder distention and gallbladder wall thickening, small volume ascites, mild aorto caval lymphadenopathy, likely reactive (2) Shock: Code(s): R57.9 - Shock, unspecified Status: Acute Assessment and Plan: Currently on Levophed and vasopressin -11/25 blood cultures grew group B Streptococcus. -11/30/2021: Repeat blood cultures negative x2, preliminary results -11/29/2021 urine cultures are negative completed a 14 day course of cefepime (12/01/2021). Vancomycin was discontinued earlier patient's renal function is worsening and cultures have been negative (3) Pneumonia: Qualifiers: Laterality: unspecified laterality Lung location: unspecified part of lung Pneumonia type: due to unspecified organism Qualified Code(s): J18.9 - Pneumonia, unspecified organism Code(s): J18.9 - Pneumonia, unspecified organism Status: Acute Assessment and Plan: Possible community-acquired pneumonia - she has completed a 14 day course of cefepime -will continue to monitor chest x-ray and ABGs -SARS-CoV-2 PCR PCR negative x2 -12/03/2021: CTA chest showed no pulm
--- NOTE | 2021-12-21 13:20 | PM.PNNEP ---
Progress Note: A&P Assessment and Plan (1) DIANA (acute kidney injury): Code(s): N17.9 - Acute kidney failure, unspecified Status: Acute Assessment and Plan: suspect due to ATN from: contrast exposure (CT scan head/chest/abdomen/pelvis on 12/02/21) possible prerenal factors hemodynamic instability/hypotension infection (bacteremia) urine output is still low HD today for fluid removal/electrolytes control/clearance within the limits of her hemodynamics overall prognosis is quite poor (2) Acute hypoxemic respiratory failure: Code(s): J96.01 - Acute respiratory failure with hypoxia Status: Acute Assessment and Plan: related to pneumonia, CHF, COPD, and bilateral pleural effusions not tolerating fluid removal with dialysis despite all interventions remains on mechanical ventilatory support (3) Congestive heart failure: Code(s): I50.9 - Heart failure, unspecified Status: Acute Assessment and Plan: likely also playing a role with #2 repeat echo noted - severe concentric increased left ventricular wall thickness as well as valvular disease. continue fluid removal as tolerated with HD Cardiology following (4) Shock: Code(s): R57.9 - Shock, unspecified Status: Acute Assessment and Plan: still requiring levophed and vasopression blood cultures (11/25/21) with Group B strep - repeat blood culture negative urine culture negative follow trend of hemodynamics (5) Pneumonia: Qualifiers: Laterality: unspecified laterality Lung location: unspecified part of lung Pneumonia type: due to unspecified organism Qualified Code(s): J18.9 - Pneumonia, unspecified organism Code(s): J18.9 - Pneumonia, unspecified organism Status: Acute Assessment and Plan: finished her course of antibiotics (6) Atrial fibrillation: Qualifiers: Atrial fibrillation type: unspecified Qualified Code(s): I48.91 - Unspecified atrial fibrillation Code(s): I48.91 - Unspecified atrial fibrillation Status: Chronic Assessment and Plan: chronic issue on amiodarone along with anticoagulation continue rate control strategy Cardiology following (7) Diabetes: Code(s): E11.9 - Type 2 diabetes mellitus without complications Status: Chronic Assessment and Plan: on Accu-Cheks and sliding-scale insulin Will continue to follow. Subjective Date/time seen: 12/21/21 13:20 Chart reviewed since last seen - assuming care from Dr. Hammond; undergoing dialysis at the time of my visit (seen on HD at ~ 1:05PM); fluctuating hemodynamics/blood pressure already noted with dialysis treatment; remains intubated and sedated; BP being supported by levophed and vasopressin. Exam Narrative: General: ill appearing female intubated/sedated but in NAD Heart: tachycardic, irregular normal S1 and S2; no rub Lungs: coarse breath sounds throughout; decreased at bases Abdomen: soft, nontender, + bowel sounds Extremities: bilaterally 1+ edema noted Skin: resolving rash Objective Data Vital Signs Vital Signs: Vital Signs Temp Pulse Resp BP Pulse Ox 12/21/21 13:03 107 H 117/64 12/21/21 12:33 104 H 127/73 12/21/21 12:04 93 133/58 L 12/21/21 12:00 37.0 C 110 H 30 H 133/58 L 99 12/21/21 11:53 105 H 147/96 H 12/21/21 11:52 105 H 30 H 12/21/21 11:51 105 H 30 H 147/96 H 12/21/21 11:48 105 H 147/96 H 12/21/21 11:42 99 98 12/21/21 11:24 90 30 H 99 12/21/21 10:27 101 H 30 H 12/21/21 10:00 98 30 H 91/64 L 98 12/21/21 09:58 105 H 135/75 12/21/21 08:47 103 H 125/82 12/21/21 08:45 98 132/103 H 12/21/21 08:35 99 98 12/21/21 08:10 123 H 12/21/21 08:00 37.2 C 119 H 30 H 107/66 98 12/21/21 07:45 106 H 146/79 H 12/21/21 07:30 111 H 178/111 H 12/21/21 07:15 101 H 16
--- NOTE | 2021-12-21 13:20 | P.PNNP_ITS ---
Progress Note: A&P Assessment and Plan (1) DIANA (acute kidney injury): Code(s): N17.9 - Acute kidney failure, unspecified Status: Acute Assessment and Plan: * suspect due to ATN from: * contrast exposure (CT scan head/chest/abdomen/pelvis on 12/02/21) * possible prerenal factors * hemodynamic instability/hypotension * infection (bacteremia) * urine output is still low * HD today for fluid removal/electrolytes control/clearance within the limits of her hemodynamics * overall prognosis is quite poor (2) Acute hypoxemic respiratory failure: Code(s): J96.01 - Acute respiratory failure with hypoxia Status: Acute Assessment and Plan: * related to pneumonia, CHF, COPD, and bilateral pleural effusions * not tolerating fluid removal with dialysis despite all interventions * remains on mechanical ventilatory support (3) Congestive heart failure: Code(s): I50.9 - Heart failure, unspecified Status: Acute Assessment and Plan: * likely also playing a role with #2 * repeat echo noted - severe concentric increased left ventricular wall thickness as well as valvular disease. * continue fluid removal as tolerated with HD * Cardiology following (4) Shock: Code(s): R57.9 - Shock, unspecified Status: Acute Assessment and Plan: * still requiring levophed and vasopression * blood cultures (11/25/21) with Group B strep - repeat blood culture negative * urine culture negative * follow trend of hemodynamics (5) Pneumonia: Qualifiers: Laterality: unspecified laterality Lung location: unspecified part of lung Pneumonia type: due to unspecified organism Qualified Code(s): J18.9 - Pneumonia, unspecified organism Code(s): J18.9 - Pneumonia, unspecified organism Status: Acute Assessment and Plan: * finished her course of antibiotics (6) Atrial fibrillation: Qualifiers: Atrial fibrillation type: unspecified Qualified Code(s): I48.91 - Unspecified atrial fibrillation Code(s): I48.91 - Unspecified atrial fibrillation Status: Chronic Assessment and Plan: * chronic issue * on amiodarone along with anticoagulation * continue rate control strategy * Cardiology following (7) Diabetes: Code(s): E11.9 - Type 2 diabetes mellitus without complications Status: Chronic Assessment and Plan: * on Accu-Cheks and sliding-scale insulin Will continue to follow. Subjective Date/time seen: 12/21/21 13:20 Chart reviewed since last seen - assuming care from Dr. Hammond; undergoing dialysis at the time of my visit (seen on HD at ~ 1:05PM); fluctuating hemodynamics/blood pressure already noted with dialysis treatment; remains intubated and sedated; BP being supported by levophed and vasopressin. Exam Narrative: General: ill appearing female intubated/sedated but in NAD Heart: tachycardic, irregular normal S1 and S2; no rub Lungs: coarse breath sounds throughout; decreased at bases Abdomen: soft, nontender, + bowel sounds Extremities: bilaterally 1+ edema noted Skin: resolving rash Objective Data Vital Signs Vital Signs: Vital Signs Temp Pulse Resp BP Pulse Ox 12/21/21 13:03 107 H 117/64 12/21/21 12:33 104 H 127/73 12/21/21 12:04 93 133/58 L 12/21/21 12:00 37.0 C 110 H 30 H 133/58 L 99
--- NOTE | 2021-12-21 13:26 | PCNFU ---
Nutrition Follow-Up Complete: Inadequate Oral Intake as related to mechanical ventilation as evidenced by NPO goal: Meet estimated nutritional needs We will continue current goal. Pt current nutrition is Vital AF 1.2 at 55 ml/hr over 22 hours. Last recorded weight is 85.8 kg, up from 64.6 kg on admit. Bowel Motility:colostomy Labs Reviewed:PO4 5.9,BUN 109, Cr 4.2, Glu 156,Alb 2.6,Na 127 Meds Noted:Fentanyl, Versed, Levophed, Miralalx, Pacerone, Lantus, Pepcid, NovoLog, Atrovent, Senokot, Vancomycin, Reglan. Skin:Deep Tissue-coccyx Additional Notes: Patient remains on mechanical vent and tube feedings of Vital AF 1.2 at 55 ml/hr. Currently on hold, elevated residuals reported. Reglan has been started. Dialysis today. Agree with diet orders which are providing 1452 kcals/91 gms protein/981 ml water. Meeting 100% of caloric and protein needs. 30 ml free water flush q 4 hours. Will monitor in ICU rounds and reassessing every Friday and Friday.
--- NOTE | 2021-12-21 15:07 | PM.IMPN ---
Progress Note: A&P Assessment and Plan (1) Acute hypoxemic respiratory failure: Code(s): J96.01 - Acute respiratory failure with hypoxia Status: Acute Assessment and Plan: Hypoxic respiratory failure likely related to community-acquired pneumonia, septicemia, CHF, baseline emphysema, pleural effusions and severe valvular disease. Patient presented the ED on 11/25/21 with shortness of breath and required BiPAP. Did well initially but decompensated requiring intubation on 12/01/21. Concern for possible overdiuresis given the severe valvular disease. She underwent bronchoscopy on 12/05, right-sided thoracentesis with 1 L fluid removed 12/06 and left-sided thoracentesis with 1 L fluid was removed 12/07. Pleural fluid was transudative. Chest CT 12/08 showing bilateral dependent airspace opacities, consistent with atelectasis versus pneumonia and moderate-sized pleural effusions. CXR today reviewed showing persistent congestive changes. Overall prognosis is extremely poor. Appreciate supervisor show operations input. (2) Septic shock: Code(s): A41.9 - Sepsis, unspecified organism; R65.21 - Severe sepsis with septic shock Status: Acute Assessment and Plan: Patient was admitted for possible PNA. BCx collected on admission (11/25) grew Group B Strept. Repeat BCx 11/30 negative. UCx 11/29 negative. BAL positive for fungal Brenda and HSV 1 PCR. Patient has been on and off Levophed felt related to over diuresis and possibly sedation and/or sepsis related. Attempt to decrease sedation on mechanical ventilation and try to wean off Levophed. Completed cefepime and Vancomycin. Pulmonary did recommend Acyclovir given the erythematous bronchial tree (initially held due to the DIANA). Fungal BAL felt to be a contaminant. WBC higher - continue to follow. BP worsened and levophed added with SMALL ANIMAL VETERINARIAN and now phenylephrine. Wean pressors as BP tolerated. (3) Pneumonia: Qualifiers: Laterality: unspecified laterality Lung location: unspecified part of lung Pneumonia type: due to unspecified organism Qualified Code(s): J18.9 - Pneumonia, unspecified organism Code(s): J18.9 - Pneumonia, unspecified organism Status: Acute Assessment and Plan: CXR on admission (11/25) showing moderate amount of bilateral edema and/or pneumonia. No fevers but WBC was 17K. She was started on Rocephin and Doxycycline. Possibly community-acquired pneumonia. She was developed resp distress and was intubated 12/01/21 and abx changed to cefepime and vancomycin. COVID negative x2. Off all abx currently. As above. (4) DIANA (acute kidney injury): Code(s): N17.9 - Acute kidney failure, unspecified Status: Acute Assessment and Plan: Creatinine normal at baseline. She has developed DIANA and Cr has increased to 4 range. Renal US showing normal kidneys. CT of abdomen 12/02 showing cortical thinning of the kidneys. Patient not responding well to Lasix and the creatinine has increased related to severe valvular disease. She is severely volume overloaded. Patient had tunneled HD catheter placed in the right IJ 12/13/21. Nephrology following and appreciated their input. She has been able to tolerate HD somewhat today. Continue HD to control fluid status as BP tolerated. Potassium should improve with HD. (5) Atrial fibrillation: Qualifiers: Atrial fibrillation type: unspecified Qualified Code(s): I48.91 - Unspecified atrial fibrillation Code(s): I48.91 - Unspecified atrial fibrillation Status: Chronic Assessment and Plan: Patient with history of atrial fibrillation on Xarelto. AFib appears to be chronic. Was on diltiazem and metoprolol but were discontinued due to HoTN. She was started on amiodarone infusion which has been changed to p.o. Xarelto was changed to Lovenox subQ but now held. Echo noted. Continue tele. (6) Congestive heart failure: Code(s): I50.9 - Heart failure, unspecified Status: Acute
[2021-12-21] MEDS: EPOETIN ALFA-EPBX 10,000 UNITS/ML VIAL 10000 UNITS IV PUSH (15:25)
[2021-12-21 16:21] LABS: Glucose Point of Care 123 mg/dl (65-105)
[2021-12-21] MEDS: NOREPINEPHRINE 8 MG/D5W 250 ML 8 MG/250 ML BAG 43.13 MG IV CONT (16:57)
[2021-12-21 20:08] LABS: Glucose Point of Care 124 mg/dl (65-105)
[2021-12-21] MEDS: SENNA/DOCUSATE SODIUM TABLET 1 TAB FEED TUBE (20:09)
[2021-12-22] VITALS (37 sets, daily range): BP systolic 95–148; BP diastolic 48–87; PULSE 81–119; RESP 30–31; TEMP 36.6–37.3; O2SAT 91–100
[2021-12-22 00:50] LABS: Glucose Point of Care 164 mg/dl (65-105)
[2021-12-22] MEDS: METOCLOPRAMIDE HCL INJ 10 MG/2 ML VIAL IV PUSH ×4 (01:00→17:03)
[2021-12-22] MEDS: IPRATROPIUM BR 0.02% INH SOLN 0.5 MG/2.5 ML VIAL INHALATION ×4 (02:39→19:13)
[2021-12-22] MEDS: ALBUTEROL SULFATE NEB 2.5 MG/0.5 ML INH INHALATION ×4 (02:39→19:13)
[2021-12-22 04:35] LABS: Hematocrit 25.3 % (37.0-47.0); Hemoglobin 8.2 g/dL (12.0-15.0); Mean Corpuscular HGB Conc 32.4 g/dl (32-36); Mean Corpuscular Hemoglobin 31.4 pg (26-34); Mean Corpuscular Volume 96.9 fl (80-100); Mean Platelet Volume 12.7 fl (7.4-10.4); Platelet Count Result 177 k/mm3 (150-375); Red Blood Count 2.61 M/mm3 (4.2-5.4); Red Cell Distribution Width 18.7 % (11.5-14.5); White Blood Count 14.8 K/mm3 (4.5-10.0)
[2021-12-22] MEDS: MIDAZOLAM 100MG/NS 100ML(*CRX) 100 MG/100 ML BAG IV CONT (04:37)
[2021-12-22] MEDS: NOREPINEPHRINE 8 MG/D5W 250 ML 8 MG/250 ML BAG 20.63 MG IV CONT (04:38)
[2021-12-22 05:10] LABS: Alanine Aminotransferase 35 U/L (4-35); Albumin Level 2.6 g/dL (3.5-5.1); Alkaline Phosphatase 206 U/L (38-126); Anion Gap 10 mmol/L (8-16); Aspartate Amino Transferase 25 U/L (14-36); Bilirubin,Total 0.6 mg/dL (0.2-1.3); Blood Urea Nitrogen 77 mg/dL (7-17); Calcium 8.3 mg/dL (8.4-10.2); Carbon Dioxide 25 mmol/L (22-30); Chloride 94 mmol/L (98-107); Estimated CRCL calculation 16 ml/min; Estimated Glomerular Filt Rate 14; Glucose 195 mg/dL (65-110); Potassium 4.7 mmol/L (3.4-5.0); Sodium 129 mmol/L (137-145)
[2021-12-22] MEDS: CENTRAL LINE FLUSH 10 ML IV PUSH ×3 (05:22→19:59)
[2021-12-22 07:41] LABS: Glucose Point of Care 196 mg/dl (65-105)
[2021-12-22] MEDS: PANTOPRAZOLE SODIUM IV 40 MG VIAL IV PUSH ×2 (08:23→19:59)
[2021-12-22] MEDS: AMIODARONE HCL 200 MG TABLET PO ×2 (08:23→19:58)
[2021-12-22] MEDS: MINERAL OIL/WHITE PETROLATUM OINTMENT 1 APPLIC EACH EYE ×2 (08:23→19:59)
[2021-12-22] MEDS: polyethylene glycoL 3350 17 GM POWD.PACK FEED TUBE (08:24)
[2021-12-22] MEDS: INSULIN GLARGINE (*BKC) 100 UNITS/ML 35 UNITS SUB-Q (08:40)
[2021-12-22] MEDS: FENTANYL 2,500MCG/NS250ML(*CRX 2,500 MCG/250 ML BAG 10 MCG IV CONT (09:48)
--- NOTE | 2021-12-22 12:07 | PM.PNNEP ---
Progress Note: A&P Assessment and Plan (1) DIANA (acute kidney injury): Code(s): N17.9 - Acute kidney failure, unspecified Status: Acute Assessment and Plan: suspect due to ATN from: contrast exposure (CT scan head/chest/abdomen/pelvis on 12/02/21) possible prerenal factors hemodynamic instability/hypotension infection (bacteremia) urine output is still low HD yesterday for fluid removal/electrolytes control/clearance -- unable to perform ultrafiltration overall prognosis is quite poor (2) Acute hypoxemic respiratory failure: Code(s): J96.01 - Acute respiratory failure with hypoxia Status: Acute Assessment and Plan: related to pneumonia, CHF, COPD, and bilateral pleural effusions not tolerating fluid removal with dialysis despite all interventions remains on mechanical ventilatory support (3) Congestive heart failure: Code(s): I50.9 - Heart failure, unspecified Status: Acute Assessment and Plan: likely also playing a role with #2 repeat echo noted - severe concentric increased left ventricular wall thickness as well as valvular disease. continue fluid removal as tolerated with HD but this has not been successful Cardiology following (4) Shock: Code(s): R57.9 - Shock, unspecified Status: Acute Assessment and Plan: still requiring levophed and vasopression blood cultures (11/25/21) with Group B strep - repeat blood culture negative urine culture negative follow trend of hemodynamics (5) Pneumonia: Qualifiers: Laterality: unspecified laterality Lung location: unspecified part of lung Pneumonia type: due to unspecified organism Qualified Code(s): J18.9 - Pneumonia, unspecified organism Code(s): J18.9 - Pneumonia, unspecified organism Status: Acute Assessment and Plan: finished her course of antibiotics (6) Atrial fibrillation: Qualifiers: Atrial fibrillation type: unspecified Qualified Code(s): I48.91 - Unspecified atrial fibrillation Code(s): I48.91 - Unspecified atrial fibrillation Status: Chronic Assessment and Plan: chronic issue on amiodarone along with anticoagulation continue rate control strategy Cardiology following (7) Diabetes: Code(s): E11.9 - Type 2 diabetes mellitus without complications Status: Chronic Assessment and Plan: on Accu-Cheks and sliding-scale insulin Will continue to follow. Subjective Date/time seen: 12/22/21 12:07 No real significant change noted - remains on full ventilator support while intubated/sedated; still requiring significant vasopressor support with levophed and vasopressin; s/p dialysis yesterday but unable to remove much fluid due to hemodynamic instability; no other issues/events noted overnight or earlier this AM. Exam Narrative: General: ill appearing female intubated/sedated but in NAD Heart: tachycardic, irregular normal S1 and S2; no rub Lungs: coarse breath sounds throughout; decreased at bases Abdomen: soft, nontender, + bowel sounds Extremities: bilaterally 1+ edema noted Skin: resolving rash present Objective Data Vital Signs Vital Signs: Vital Signs Temp Pulse Resp BP Pulse Ox 12/22/21 12:00 36.6 C 81 31 H 123/72 100 12/22/21 11:14 81 30 H 100 12/22/21 10:30 91 99 12/22/21 10:00 89 30 H 147/62 H 99 12/22/21 09:48 96 30 H 12/22/21 08:46 90 30 H 12/22/21 08:33 95 30 H 12/22/21 08:30 95 99 12/22/21 08:23 93 12/22/21 08:00 36.9 C 102 H 30 H 123/59 L 99 12/22/21 07:57 93 30 H 93 12/22/21 05:56 112 H 97 12/22/21 05:49 92 30 H 148/48 H 97 12/22/21 05:48 83 12/22/21 04:00 93 97 12/22/21 03:51 36.9 C 103 H 30 H 105/73 92 12/22/21 02:55 109 H 30 H 12/22/21 02:53 110 H 96 12/22/21 02:39 114 H 30 H 12/22/21 02:00 104 H 30 H
--- NOTE | 2021-12-22 12:07 | P.PNNP_ITS ---
Progress Note: A&P Assessment and Plan (1) DIANA (acute kidney injury): Code(s): N17.9 - Acute kidney failure, unspecified Status: Acute Assessment and Plan: * suspect due to ATN from: * contrast exposure (CT scan head/chest/abdomen/pelvis on 12/02/21) * possible prerenal factors * hemodynamic instability/hypotension * infection (bacteremia) * urine output is still low * HD yesterday for fluid removal/electrolytes control/clearance -- unable to perform ultrafiltration * overall prognosis is quite poor (2) Acute hypoxemic respiratory failure: Code(s): J96.01 - Acute respiratory failure with hypoxia Status: Acute Assessment and Plan: * related to pneumonia, CHF, COPD, and bilateral pleural effusions * not tolerating fluid removal with dialysis despite all interventions * remains on mechanical ventilatory support (3) Congestive heart failure: Code(s): I50.9 - Heart failure, unspecified Status: Acute Assessment and Plan: * likely also playing a role with #2 * repeat echo noted - severe concentric increased left ventricular wall thickness as well as valvular disease. * continue fluid removal as tolerated with HD but this has not been successful * Cardiology following (4) Shock: Code(s): R57.9 - Shock, unspecified Status: Acute Assessment and Plan: * still requiring levophed and vasopression * blood cultures (11/25/21) with Group B strep - repeat blood culture negative * urine culture negative * follow trend of hemodynamics (5) Pneumonia: Qualifiers: Laterality: unspecified laterality Lung location: unspecified part of [place] Pneumonia type: due to unspecified organism Qualified Code(s): J18.9 - Pneumonia, unspecified organism Code(s): J18.9 - Pneumonia, unspecified organism Status: Acute Assessment and Plan: * finished her course of antibiotics (6) Atrial fibrillation: Qualifiers: Atrial fibrillation type: unspecified Qualified Code(s): I48.91 - Unspecified atrial fibrillation Code(s): I48.91 - Unspecified atrial fibrillation Status: Chronic Assessment and Plan: * chronic issue * on amiodarone along with anticoagulation * continue rate control strategy * Cardiology following (7) Diabetes: Code(s): E11.9 - Type 2 diabetes mellitus without complications Status: Chronic Assessment and Plan: * on Accu-Cheks and sliding-scale insulin Will continue to follow. Subjective Date/time seen: 12/22/21 12:07 No real significant change noted - remains on full ventilator support while intubated/sedated; still requiring significant vasopressor support with levophed and vasopressin; s/p dialysis yesterday but unable to remove much fluid due to hemodynamic instability; no other issues/events noted overnight or earlier this AM. Exam Narrative: General: ill appearing female intubated/sedated but in NAD Heart: tachycardic, irregular normal S1 and S2; no rub Lungs: coarse breath sounds throughout; decreased at bases Abdomen: soft, nontender, + bowel sounds Extremities: bilaterally 1+ edema noted Skin: resolving rash present Objective Data Vital Signs Vital Signs: Vital Signs Temp Pulse Resp BP Pulse Ox 12/22/21 12:00 36.6 C 81 31 H 123/72 100 12/22/21 11:14 81 30 H 100 12/22/21 10:30 9
[2021-12-22 12:20] LABS: Glucose Point of Care 200 mg/dl (65-105)
--- NOTE | 2021-12-22 12:33 | WPDINTPN ---
Progress Note: A&P Assessment and Plan (1) Acute hypoxemic respiratory failure: Code(s): J96.01 - Acute respiratory failure with hypoxia Status: Acute Assessment and Plan: Hypoxic respiratory failure likely related to community-acquired pneumonia, CHF, baseline emphysema, pleural effusions Patient presented the ED on 11/25/2021 with shortness of breath, was on BiPAP and has been declining and requiring significant oxygen support. Failed BiPAP 16/, 100% FiO2 Intubated patient on 12/01/2021 - COVID-19 negative x2 - 12/05 bronchoscopy was done and BAL collected. Negative cultures - 12/06 patient underwent right-sided thoracentesis and 1 L fluid was removed - 12/07 patient underwent left-sided thoracentesis and 1 L fluid was removed - 12/14 patient underwent repeat right-sided thoracentesis and 1 L fluid was removed -pleural fluid was transudate although some of the studies are pending 12/22/2021: Patient desaturated in the 80s, FiO2 had to be increased to 100%, peep of 12 - - sedated with fentanyl and Versed infusion -patient got dialyzed on 12/21/2021 with removal of 1500 mL of fluid after which she dropped her blood pressures , with increased to vasopressor requirements -patient's family's is discussing with hospice agency, may withdraw support. -12/[address] IMPRESSION: 1. Bilateral dependent airspace opacities, consistent with atelectasis versus pneumonia. 2. Moderate-sized pleural effusions. 3. Cardiomegaly (2) Shock: Code(s): R57.9 - Shock, unspecified Status: Acute Assessment and Plan: Currently on Levophed and vasopressin -11/25 blood cultures grew group B Streptococcus. -11/30/2021: Repeat blood cultures negative x2, preliminary results -11/29/2021 urine cultures are negative completed a 14 day course of cefepime (12/01/2021). Vancomycin was discontinued earlier patient's renal function is worsening and cultures have been negative (3) Pneumonia: Qualifiers: Laterality: unspecified laterality Lung location: unspecified part of lung Pneumonia type: due to unspecified organism Qualified Code(s): J18.9 - Pneumonia, unspecified organism Code(s): J18.9 - Pneumonia, unspecified organism Status: Acute Assessment and Plan: Possible community-acquired pneumonia - she has completed a 14 day course of cefepime -will continue to monitor chest x-ray and ABGs -SARS-CoV-2 PCR PCR negative x2 -12/03/2021: CTA chest showed no pulmonary embolism, moderate-sized bilateral pleural effusion, mild scattered ground-glass opacities in the lungs, consistent with mild pulmonary edema versus pneumonia. Moderate emphysema -12/[address] IMPRESSION: 1. Bilateral dependent airspace opacities, consistent with atelectasis versus pneumonia. 2. Moderate-sized pleural effusions. 3. 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 I discussed case with Dr. Deluca. 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 Patient has been started on acyclovir (12/13) which will be continued for 10 days (4) DIANA (acute kidney injury): Code(s): N17.9 - Acute kidney failure, unspecified Status: Acute Assessment and Plan: Recent CT of abdomen and renal ultrasound did not show any obstruction or hydronephrosis Patient did not respond to Lasix and the creatinine further increased 12/13 dialysis catheter placed by general surgery and patient received hemodialysis 12/14 dialyzed again but ultrafiltration limited due to drop in blood pressure 12/15 patient was dialyzed on 3 L fluid was removed. 12/17 hemodialysis and 1700 mL fluid was removed 12/19 patient did not tolerate hemodialysis yesterday due to low blood pressure. Ideally patient would benefit from CRRT but we
[2021-12-22] MEDS: VASOPRESSIN INJ 100 UNITS in DEXTROSE 5% 95 ML IV CONT (13:05)
[2021-12-22] MEDS: NOREPINEPHRINE 8 MG/D5W 250 ML 8 MG/250 ML BAG 18.75 MG IV CONT (14:18)
[2021-12-22 16:29] LABS: Glucose Point of Care 176 mg/dl (65-105)
[2021-12-22] MEDS: SENNA/DOCUSATE SODIUM TABLET 1 TAB FEED TUBE (19:58)
[2021-12-22 20:32] LABS: Glucose Point of Care 186 mg/dl (65-105)
[2021-12-23] VITALS (34 sets, daily range): BP systolic 93–157; BP diastolic 45–104; PULSE 86–121; RESP 28–99; TEMP 36.3–36.9; O2SAT 94–100
[2021-12-23] MEDS: METOCLOPRAMIDE HCL INJ 10 MG/2 ML VIAL IV PUSH ×4 (00:42→17:20)
[2021-12-23] MEDS: MIDAZOLAM 100MG/NS 100ML(*CRX) 100 MG/100 ML BAG IV CONT (00:42)
[2021-12-23] MEDS: NOREPINEPHRINE 8 MG/D5W 250 ML 8 MG/250 ML BAG 20.63 MG IV CONT (00:42)
[2021-12-23 01:01] LABS: Glucose Point of Care 191 mg/dl (65-105)
[2021-12-23] MEDS: ALBUTEROL SULFATE NEB 2.5 MG/0.5 ML INH INHALATION ×4 (02:09→20:30)
[2021-12-23] MEDS: IPRATROPIUM BR 0.02% INH SOLN 0.5 MG/2.5 ML VIAL INHALATION ×4 (02:09→20:30)
[2021-12-23 04:57] LABS: Alveolar/Arterial O2 Gradient 598.9 mmHg; Base Excess ABG -1.1 mEq/l (+/-2.0); Carboxyhemoglobin 0.3 % THb (0-2.0); Fractional Inspired Oxygen 100 %; HCO3 ABG 23.7 mEq/l (22.0-26.0); Methemoglobin ABG 0.2 %THb (0-1.5); Oxygen Content ABG 15.5 %vol (16.0-22.0); Oxygen Saturation ABG 94.9 % (95.0-100.0); Oxyhemoglobin 92.4 % THb (90.0-100.0); PCO2 ABG 39.8 mmHg (35.0-45.0); PO2 ABG 74.3 mmHg (80.0-100.0); PO2 FiO2 Ratio Arterial Blood 0.74 %; Reduced Hemoglobin 7.1 %THb (0-5.0); Total Hemoglobin 11.9 g/dL (12.0-18.0); pH ABG 7.392 (7.350-7.450)
[2021-12-23 04:58] LABS: Site Drawn RIGHT RADIAL
[2021-12-23 04:59] LABS: Device VENTILATOR; Modified Allen's Test Pass
[2021-12-23 05:00] LABS: Arterial Blood Gas PEEP 12 cmH2O; Arterial Blood Gas Tidal Volume 350 ml; Arterial Blood Gas Vent Mode CMV; Arterial Blood Gas Ventilator rate 30 /MIN
[2021-12-23 06:13] LABS: Glucose Point of Care 207 mg/dl (65-105)
[2021-12-23] MEDS: INSULIN ASPART (*BKC) 100 UNITS/ML SUB-Q ×2 (06:25→08:17)
[2021-12-23] MEDS: CENTRAL LINE FLUSH 10 ML IV PUSH ×3 (06:25→20:36)
[2021-12-23 07:52] LABS: Glucose Point of Care 224 mg/dl (65-105)
[2021-12-23] MEDS: AMIODARONE HCL 200 MG TABLET PO ×2 (08:15→20:35)
[2021-12-23] MEDS: INSULIN GLARGINE (*BKC) 100 UNITS/ML 35 UNITS SUB-Q (08:17)
[2021-12-23] MEDS: polyethylene glycoL 3350 17 GM POWD.PACK FEED TUBE (08:20)
[2021-12-23] MEDS: MINERAL OIL/WHITE PETROLATUM OINTMENT 1 APPLIC EACH EYE ×2 (08:21→20:35)
[2021-12-23] MEDS: PANTOPRAZOLE SODIUM IV 40 MG VIAL IV PUSH ×2 (08:21→20:34)
[2021-12-23 08:30] LABS: Basophils Absolute Auto 0.1 K/mm3 (0.0-0.1); Basophils Percent Auto 0.4 % (0.2-1.2); Eosinophils Percent Auto 5.4 % (0-4.4); Hematocrit 25.7 % (37.0-47.0); Hemoglobin 8.3 g/dL (12.0-15.0); Immature Granulocyte Absolute 0.32 K/mm3 (0.00-0.031); Immature Granulocyte Percent A 1.8 % (0-0.5); Lymphocytes Percent Auto 14.2 % (18.3-44.2); Mean Corpuscular HGB Conc 32.3 g/dl (32-36); Mean Corpuscular Hemoglobin 31.7 pg (26-34); Mean Corpuscular Volume 98.1 fl (80-100); Mean Platelet Volume 12.3 fl (7.4-10.4); Monocytes Absolute Auto 1.6 K/mm3 (0.1-0.6); Monocytes Percent Auto 8.6 % (2.6-8.5); Neutrophils Absolute Auto 12.7 K/mm3 (1.3-6.7); Neutrophils Percent Auto 69.6 % (45.5-73.1); Nucleated Red Blood Cells Absolute Auto 0.1 K/mm3 (0.0-0.012); Nucleated Red Blood Cells Perc 0.6 % (0.0-0.2); Platelet Count Result 209 k/mm3 (150-375); Red Blood Count 2.62 M/mm3 (4.2-5.4); Red Cell Distribution Width 19.7 % (11.5-14.5); White Blood Count 18.3 K/mm3 (4.5-10.0)
[2021-12-23] MEDS: DORNASE ALFA INH SOLN 1 MG/ML 2.5 ML AMP 2.5 MG INHALATION ×2 (09:10→20:30)
[2021-12-23 09:51] LABS: Alanine Aminotransferase 26 U/L (4-35); Albumin Level 2.6 g/dL (3.5-5.1); Alkaline Phosphatase 171 U/L (38-126); Anion Gap 12 mmol/L (8-16); Aspartate Amino Transferase 20 U/L (14-36); Bilirubin,Total 0.6 mg/dL (0.2-1.3); Blood Urea Nitrogen 88 mg/dL (7-17); Calcium 8.2 mg/dL (8.4-10.2); Carbon Dioxide 23 mmol/L (22-30); Chloride 92 mmol/L (98-107); Estimated CRCL calculation 14 ml/min; Estimated Glomerular Filt Rate 11; Glucose 208 mg/dL (65-110); Magnesium 2.1 mg/dL (1.6-2.3); Phosphorus 6.2 mg/dL (2.5-4.5); Potassium 5.2 mmol/L (3.4-5.0); Sodium 127 mmol/L (137-145)
[2021-12-23] MEDS: FENTANYL 2,500MCG/NS250ML(*CRX 2,500 MCG/250 ML BAG 10 MCG IV CONT (10:12)
--- NOTE | 2021-12-23 11:39 | WPDINTPN ---
Progress Note: A&P Assessment and Plan (1) Acute hypoxemic respiratory failure: Code(s): J96.01 - Acute respiratory failure with hypoxia Status: Acute Assessment and Plan: Hypoxic respiratory failure likely related to community-acquired pneumonia, CHF, baseline emphysema, pleural effusions Patient presented the ED on 11/25/2021 with shortness of breath, was on BiPAP and has been declining and requiring significant oxygen support. Failed BiPAP 16/6, 100% FiO2 Intubated patient on 12/01/2021 - COVID-19 negative x2 - 12/05 bronchoscopy was done and BAL collected. Negative cultures - 12/06 patient underwent right-sided thoracentesis and 1 L fluid was removed - 12/07 patient underwent left-sided thoracentesis and 1 L fluid was removed - 12/14 patient underwent repeat right-sided thoracentesis and 1 L fluid was removed -pleural fluid was transudate although some of the studies are pending 12/23/2021: chest x-ray shows complete opacification of left hemithorax due to left lung atelectasis/consolidation - will start patient on Pulmozyme and Mucomyst inhalation, will place the good lung down to improved V/Q mismatch. Also have ordered vibration/ percussion CPT to be done by respiratory therapist - will repeat chest x-ray this evening - sedated with fentanyl Versed infusion -patient got dialyzed on 12/21/2021 with removal of 1500 mL of fluid after which she dropped her blood pressures , with increased vasopressor requirements -patient's family's is discussing with hospice agency, may withdraw support. -12/[address] IMPRESSION: 1. Bilateral dependent airspace opacities, consistent with atelectasis versus pneumonia. 2. Moderate-sized pleural effusions. 3. Cardiomegaly (2) Shock: Code(s): R57.9 - Shock, unspecified Status: Acute Assessment and Plan: Currently on Levophed and vasopressin -11/25 blood cultures grew group B Streptococcus. -11/30/2021: Repeat blood cultures negative x2, preliminary results -11/29/2021 urine cultures are negative completed a 14 day course of cefepime (12/01/2021). Vancomycin was discontinued earlier patient's renal function is worsening and cultures have been negative (3) Pneumonia: Qualifiers: Laterality: unspecified laterality Lung location: unspecified part of lung Pneumonia type: due to unspecified organism Qualified Code(s): J18.9 - Pneumonia, unspecified organism Code(s): J18.9 - Pneumonia, unspecified organism Status: Acute Assessment and Plan: Possible community-acquired pneumonia - she has completed a 14 day course of cefepime -will continue to monitor chest x-ray and ABGs -SARS-CoV-2 PCR PCR negative x2 -12/03/2021: CTA chest showed no pulmonary embolism, moderate-sized bilateral pleural effusion, mild scattered ground-glass opacities in the lungs, consistent with mild pulmonary edema versus pneumonia. Moderate emphysema -12/[address] IMPRESSION: 1. Bilateral dependent airspace opacities, consistent with atelectasis versus pneumonia. 2. Moderate-sized pleural effusions. 3. 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 I discussed case with Dr. Deluca. 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 Patient has been started on acyclovir (12/13) which will be continued for 10 days (4) DIANA (acute kidney injury): Code(s): N17.9 - Acute kidney failure, unspecified Status: Acute Assessment and Plan: Recent CT of abdomen and renal ultrasound did not show any obstruction or hydronephrosis Patient did not respond to Lasix and the creatinine further increased 12/13 dialysis catheter placed by general surgery and patient received hemodialysis 12/14 dialyzed again but ultrafiltration limited
[2021-12-23 11:55] LABS: Glucose Point of Care 182 mg/dl (65-105)
--- NOTE | 2021-12-23 12:10 | PM.PNNEP ---
Progress Note: A&P Assessment and Plan (1) DIANA (acute kidney injury): Code(s): N17.9 - Acute kidney failure, unspecified Status: Acute Assessment and Plan: suspect due to ATN from: contrast exposure (CT scan head/chest/abdomen/pelvis on 12/02/21) possible prerenal factors hemodynamic instability/hypotension infection (bacteremia) urine output is still low HD on 12/21/21 for fluid removal/electrolytes control/clearance -- unable to perform significant ultrafiltration; removed ~ 1500cc before BP dropped...will hold further HD treatments for now overall prognosis is quite poor (2) Acute hypoxemic respiratory failure: Code(s): J96.01 - Acute respiratory failure with hypoxia Status: Acute Assessment and Plan: related to pneumonia, CHF, COPD, and bilateral pleural effusions not tolerating fluid removal with dialysis despite all interventions remains on mechanical ventilatory support (3) Congestive heart failure: Code(s): I50.9 - Heart failure, unspecified Status: Acute Assessment and Plan: likely also playing a role with #2 repeat echo noted - severe concentric increased left ventricular wall thickness as well as valvular disease. continue fluid removal as tolerated with HD but this has not been successful Cardiology following (4) Shock: Code(s): R57.9 - Shock, unspecified Status: Acute Assessment and Plan: still requiring vasopression; off levophed blood cultures (11/25/21) with Group B strep - repeat blood culture negative urine culture negative follow trend of hemodynamics (5) Pneumonia: Qualifiers: Laterality: unspecified laterality Lung location: unspecified part of lung Pneumonia type: due to unspecified organism Qualified Code(s): J18.9 - Pneumonia, unspecified organism Code(s): J18.9 - Pneumonia, unspecified organism Status: Acute Assessment and Plan: finished her course of antibiotics (6) Atrial fibrillation: Qualifiers: Atrial fibrillation type: unspecified Qualified Code(s): I48.91 - Unspecified atrial fibrillation Code(s): I48.91 - Unspecified atrial fibrillation Status: Chronic Assessment and Plan: chronic issue on amiodarone along with anticoagulation continue rate control strategy Cardiology following (7) Diabetes: Code(s): E11.9 - Type 2 diabetes mellitus without complications Status: Chronic Assessment and Plan: follow Accu-Cheks on sliding-scale insulin Will continue to follow. Subjective Date/time seen: 12/23/21 12:10 Remains on mechanical ventilation and currently intubated/sedated; levophed weaned off but remains on vasopressin; remains oliguric/anuric at this time; CXR findings appear to have worsened as well; no other acute issues/events overnight or earlier this morning. Exam Narrative: General: ill appearing female intubated/sedated but in NAD Heart: tachycardic, irregular normal S1 and S2; no rub Lungs: coarse breath sounds throughout; decreased at bases Abdomen: soft, nontender, + bowel sounds Extremities: bilaterally 1+ edema noted Skin: resolving rash present Objective Data Vital Signs Vital Signs: Vital Signs Temp Pulse Resp BP Pulse Ox 12/23/21 12:00 36.7 C 93 30 H 137/45 L 98 12/23/21 11:30 92 124/104 H 12/23/21 10:12 86 30 H 12/23/21 10:00 95 30 H 123/54 L 99 12/23/21 09:31 103 H 30 H 12/23/21 09:22 102 H 96 12/23/21 09:07 93 30 H 12/23/21 08:15 99 12/23/21 08:00 36.6 C 99 30 H 134/57 L 96 12/23/21 06:00 90 30 H 144/64 H 96 12/23/21 04:40 94 98 12/23/21 04:00 36.9 C 100 30 H 157/64 H 98 12/23/21 02:07 100 99 12/23/21 02:00 98 30 H 139/76 96 12/23/21 00:42 93/56 L 12/23/21 00:00 36.3 C L 121 H 31 H 93/56 L 97 12/22/21 23:35 118 H 100 12/22/21 22:00
--- NOTE | 2021-12-23 12:10 | P.PNNP_ITS ---
Progress Note: A&P Assessment and Plan (1) DIANA (acute kidney injury): Code(s): N17.9 - Acute kidney failure, unspecified Status: Acute Assessment and Plan: * suspect due to ATN from: * contrast exposure (CT scan head/chest/abdomen/pelvis on 12/02/21) * possible prerenal factors * hemodynamic instability/hypotension * infection (bacteremia) * urine output is still low * HD on 12/21/21 for fluid removal/electrolytes control/clearance -- unable to perform significant ultrafiltration; removed ~ 1500cc before BP dropped...will hold further HD treatments for now * overall prognosis is quite poor (2) Acute hypoxemic respiratory failure: Code(s): J96.01 - Acute respiratory failure with hypoxia Status: Acute Assessment and Plan: * related to pneumonia, CHF, COPD, and bilateral pleural effusions * not tolerating fluid removal with dialysis despite all interventions * remains on mechanical ventilatory support (3) Congestive heart failure: Code(s): I50.9 - Heart failure, unspecified Status: Acute Assessment and Plan: * likely also playing a role with #2 * repeat echo noted - severe concentric increased left ventricular wall thickness as well as valvular disease. * continue fluid removal as tolerated with HD but this has not been successful * Cardiology following (4) Shock: Code(s): R57.9 - Shock, unspecified Status: Acute Assessment and Plan: * still requiring vasopression; off levophed * blood cultures (11/25/21) with Group B strep - repeat blood culture negative * urine culture negative * follow trend of hemodynamics (5) Pneumonia: Qualifiers: Laterality: unspecified laterality Lung location: unspecified part of lung Pneumonia type: due to unspecified organism Qualified Code(s): J18.9 - Pneumonia, unspecified organism Code(s): J18.9 - Pneumonia, unspecified organism Status: Acute Assessment and Plan: * finished her course of antibiotics (6) Atrial fibrillation: Qualifiers: Atrial fibrillation type: unspecified Qualified Code(s): I48.91 - Unspecified atrial fibrillation Code(s): I48.91 - Unspecified atrial fibrillation Status: Chronic Assessment and Plan: * chronic issue * on amiodarone along with anticoagulation * continue rate control strategy * Cardiology following (7) Diabetes: Code(s): E11.9 - Type 2 diabetes mellitus without complications Status: Chronic Assessment and Plan: * follow Accu-Cheks * on sliding-scale insulin Will continue to follow. Subjective Date/time seen: 12/23/21 12:10 Remains on mechanical ventilation and currently intubated/sedated; levophed weaned off but remains on vasopressin; remains oliguric/anuric at this time; CXR findings appear to have worsened as well; no other acute issues/events overnight or earlier this morning. Exam Narrative: General: ill appearing female intubated/sedated but in NAD Heart: tachycardic, irregular normal S1 and S2; no rub Lungs: coarse breath sounds throughout; decreased at bases Abdomen: soft, nontender, + bowel sounds Extremities: bilaterally 1+ edema noted Skin: resolving rash present Objective Data Vital Signs Vital Signs: Vital Signs Temp Pulse Resp BP Pulse Ox 12/23/21 12:00 36.7 C 93 30 H 137/45 L 98 12/23/21 11:30 9
[2021-12-23] MEDS: NOREPINEPHRINE 8 MG/D5W 250 ML 8 MG/250 ML BAG 16.88 MG IV CONT (12:33)
[2021-12-23] MEDS: ACETYLCYSTEINE 20% INHAL SOLN 800 MG/4 ML VIAL 200 MG INHALATION ×2 (15:06→20:30)
[2021-12-23 16:18] LABS: Glucose Point of Care 154 mg/dl (65-105)
[2021-12-23] MEDS: SENNA/DOCUSATE SODIUM TABLET 1 TAB FEED TUBE (20:35)
[2021-12-23 22:29] LABS: Glucose Point of Care 171 mg/dl (65-105)
[2021-12-24] VITALS (14 sets, daily range): BP systolic 82–118; BP diastolic 50–78; PULSE 93–113; RESP 30; TEMP 36.5–36.8; O2SAT 92–97
[2021-12-24 00:04] LABS: Glucose Point of Care 162 mg/dl (65-105)
[2021-12-24] MEDS: METOCLOPRAMIDE HCL INJ 10 MG/2 ML VIAL IV PUSH ×3 (00:04→11:39)
[2021-12-24] MEDS: MIDAZOLAM 100MG/NS 100ML(*CRX) 100 MG/100 ML BAG IV CONT (01:47)
[2021-12-24] MEDS: ALBUTEROL SULFATE NEB 2.5 MG/0.5 ML INH INHALATION ×2 (01:55→08:16)
[2021-12-24] MEDS: ACETYLCYSTEINE 20% INHAL SOLN 800 MG/4 ML VIAL 200 MG INHALATION ×2 (01:55→08:16)
[2021-12-24] MEDS: IPRATROPIUM BR 0.02% INH SOLN 0.5 MG/2.5 ML VIAL INHALATION ×2 (01:55→08:16)
[2021-12-24 06:23] LABS: Glucose Point of Care 181 mg/dl (65-105)
--- NOTE | 2021-12-24 06:45 | P.PNNP_ITS ---
Progress Note: A&P Assessment and Plan (1) DIANA (acute kidney injury): Code(s): N17.9 - Acute kidney failure, unspecified Status: Acute Assessment and Plan: * suspect due to ATN from: * contrast exposure (CT scan head/chest/abdomen/pelvis on 12/02/21) * possible prerenal factors * hemodynamic instability/hypotension * infection (bacteremia) * urine output is still minimal * HD on 12/21/21 for fluid removal/electrolytes control/clearance -- unable to perform significant ultrafiltration; removed ~ 1500cc before BP dropped...will hold further HD treatments for now * overall prognosis is quite poor * Dr. Chung discussed with . Hold off on dialysis for today and reassess tomorrow (2) Acute hypoxemic respiratory failure: Code(s): J96.01 - Acute respiratory failure with hypoxia Status: Acute Assessment and Plan: * related to pneumonia, CHF, COPD, and bilateral pleural effusions * not tolerating fluid removal with dialysis despite all interventions * remains on mechanical ventilatory support (3) Congestive heart failure: Code(s): I50.9 - Heart failure, unspecified Status: Acute Assessment and Plan: * likely also playing a role with #2 * repeat echo noted - severe concentric increased left ventricular wall thickness as well as valvular disease. * continue fluid removal as tolerated with HD but this has not been successful * Cardiology following (4) Shock: Code(s): R57.9 - Shock, unspecified Status: Acute Assessment and Plan: * still requiring vasopressin at 0.04 and Levophed at 6 mics. * blood cultures (11/25/21) with Group B strep - repeat blood culture negative * urine culture negative * follow trend of hemodynamics (5) Pneumonia: Qualifiers: Laterality: unspecified laterality Lung location: unspecified part of lung Pneumonia type: due to unspecified organism Qualified Code(s): J18.9 - Pneumonia, unspecified organism Code(s): J18.9 - Pneumonia, unspecified organism Status: Acute Assessment and Plan: * finished her course of antibiotics (6) Atrial fibrillation: Qualifiers: Atrial fibrillation type: unspecified Qualified Code(s): I48.91 - Unspecified atrial fibrillation Code(s): I48.91 - Unspecified atrial fibrillation Status: Chronic Assessment and Plan: * chronic issue * on amiodarone along with anticoagulation * Heart rate 90-111 * Cardiology following (7) Diabetes: Code(s): E11.9 - Type 2 diabetes mellitus without complications Status: Chronic Assessment and Plan: * follow Accu-Cheks * on sliding-scale insulin Will continue to follow. Additional Plan . Subjective Date/time seen: 12/24/21 06:45 Interval history: Patient is on the ventilator. She is sedated. Still on pressors. Blood pressure is 80s to 110s Exam Narrative: General: ill appearing female intubated/sedated but in NAD Heart: tachycardic, irregular normal S1 and S2; no rub or gallop Lungs: coarse breath sounds throughout; decreased at bases more decreased on the left than on the right Abdomen: soft, nontender, + bowel sounds Extremities: 1+ edema bilaterally Skin: resolving rash present Objective Data Vital Signs Vital Signs: Vital Signs - 24 hr 12/23/21 08:00 12/23/21 08:15 12/23/21 09:07 Temperature 36.6 C Pu
--- NOTE | 2021-12-24 06:45 | PM.PNNEP ---
Progress Note: A&P Assessment and Plan (1) DIANA (acute kidney injury): Code(s): N17.9 - Acute kidney failure, unspecified Status: Acute Assessment and Plan: suspect due to ATN from: contrast exposure (CT scan head/chest/abdomen/pelvis on 12/02/21) possible prerenal factors hemodynamic instability/hypotension infection (bacteremia) urine output is still minimal HD on 12/21/21 for fluid removal/electrolytes control/clearance -- unable to perform significant ultrafiltration; removed ~ 1500cc before BP dropped...will hold further HD treatments for now overall prognosis is quite poor Dr. Chung discussed with . Hold off on dialysis for today and reassess tomorrow (2) Acute hypoxemic respiratory failure: Code(s): J96.01 - Acute respiratory failure with hypoxia Status: Acute Assessment and Plan: related to pneumonia, CHF, COPD, and bilateral pleural effusions not tolerating fluid removal with dialysis despite all interventions remains on mechanical ventilatory support (3) Congestive heart failure: Code(s): I50.9 - Heart failure, unspecified Status: Acute Assessment and Plan: likely also playing a role with #2 repeat echo noted - severe concentric increased left ventricular wall thickness as well as valvular disease. continue fluid removal as tolerated with HD but this has not been successful Cardiology following (4) Shock: Code(s): R57.9 - Shock, unspecified Status: Acute Assessment and Plan: still requiring vasopressin at 0.04 and Levophed at 6 mics. blood cultures (11/25/21) with Group B strep - repeat blood culture negative urine culture negative follow trend of hemodynamics (5) Pneumonia: Qualifiers: Laterality: unspecified laterality Lung location: unspecified part of lung Pneumonia type: due to unspecified organism Qualified Code(s): J18.9 - Pneumonia, unspecified organism Code(s): J18.9 - Pneumonia, unspecified organism Status: Acute Assessment and Plan: finished her course of antibiotics (6) Atrial fibrillation: Qualifiers: Atrial fibrillation type: unspecified Qualified Code(s): I48.91 - Unspecified atrial fibrillation Code(s): I48.91 - Unspecified atrial fibrillation Status: Chronic Assessment and Plan: chronic issue on amiodarone along with anticoagulation Heart rate 90-111 Cardiology following (7) Diabetes: Code(s): E11.9 - Type 2 diabetes mellitus without complications Status: Chronic Assessment and Plan: follow Accu-Cheks on sliding-scale insulin Will continue to follow. Additional Plan . Subjective Date/time seen: 12/24/21 06:45 Interval history: Patient is on the ventilator. She is sedated. Still on pressors. Blood pressure is 80s to 110s Exam Narrative: General: ill appearing female intubated/sedated but in NAD Heart: tachycardic, irregular normal S1 and S2; no rub or gallop Lungs: coarse breath sounds throughout; decreased at bases more decreased on the left than on the right Abdomen: soft, nontender, + bowel sounds Extremities: 1+ edema bilaterally Skin: resolving rash present Objective Data Vital Signs Vital Signs: Vital Signs - 24 hr 12/23/21 08:00 12/23/21 08:15 12/23/21 09:07 Temperature 36.6 C Pulse Rate 99 99 93 Respiratory Rate 30 H 30 H Blood Pressure 134/57 L Pulse Oximetry 96 12/23/21 09:22 12/23/21 09:31 12/23/21 10:00 Temperature Pulse Rate 102 H 103 H 95 Respiratory Rate 30 H 30 H Blood Pressure 123/54 L Pulse Oximetry 96 99 12/23/21 10:12 12/23/21 11:30 12/23/21 12:00 Temperature 36.7 C Pulse Rate 86 92 93 Respiratory Rate 30 H 30 H Blood Pressure 124/104 H 137/45 L Pulse Oximetry 98 12/23/21 12:26 12/23/21 12:33 12/23/21 14:00 Temperature Pulse Rate 89 92 91 Respiratory Rate 28 H B
[2021-12-24] MEDS: CENTRAL LINE FLUSH 10 ML IV PUSH (07:43)
[2021-12-24] MEDS: DORNASE ALFA INH SOLN 1 MG/ML 2.5 ML AMP 2.5 MG INHALATION (08:18)
[2021-12-24] MEDS: INSULIN GLARGINE (*BKC) 100 UNITS/ML 35 UNITS SUB-Q (08:33)
[2021-12-24] MEDS: MINERAL OIL/WHITE PETROLATUM OINTMENT 1 APPLIC EACH EYE (08:34)
[2021-12-24] MEDS: polyethylene glycoL 3350 17 GM POWD.PACK FEED TUBE (08:34)
[2021-12-24] MEDS: PANTOPRAZOLE SODIUM IV 40 MG VIAL IV PUSH (08:35)
[2021-12-24] MEDS: AMIODARONE HCL 200 MG TABLET PO (08:35)
[2021-12-24] MEDS: VASOPRESSIN INJ 100 UNITS in DEXTROSE 5% 95 ML IV CONT (11:04)
[2021-12-24] MEDS: INSULIN ASPART (*BKC) 100 UNITS/ML SUB-Q (11:38)
[2021-12-24 11:46] LABS: Glucose Point of Care 226 mg/dl (65-105)
--- NOTE | 2021-12-24 12:23 | PCFNICU ---
ICU Rounding Note: Pt current nutrition is Vital AF 1.2 at 40 ml/hr over 22 hours. Last recorded weight is 84.3 kg, up from 64.6 kg on admit. Bowel Motility: colostomy Labs Reviewed:PO4 6.2,Glu 208,GFR 11, BUN 88, Cr 3.9,Alb 2.6,Hct 25.7,Hgb 8.3 Meds Noted:Fentanyl, Reglan, Versed, Senokot, NovoLog, Lantus, Pacerone, Protonix, Levophed, Atrovent Skin: Deep tissue-coccyx Additional Notes: Patient remains on mechanical vent and tube feedings of Vital AF 1.2 at 40 ml/hr, goal rate 55 ml/hr. 30 ml free water flush q 4 hours. Protein Modular of Cole BID for wound healing providing an additional 90 kcals and 2.5 gms protein. Agree with diet orders. Following daily in ICU rounds. Will monitor every Friday and Friday.
--- NOTE | 2021-12-24 13:48 | P.PNINT_ITS ---
Progress Note: A&P Assessment and Plan (1) Acute hypoxemic respiratory failure: Code(s): J96.01 - Acute respiratory failure with hypoxia Status: Acute Assessment and Plan: Hypoxic respiratory failure likely related to community-acquired pneumonia, CHF, baseline emphysema, pleural effusions Patient presented the ED on 11/25/2021 with shortness of breath, was on BiPAP and has been declining and requiring significant oxygen support. Failed BiPAP 16/6, 100% FiO2 Intubated patient on 12/01/2021 FAMILY HAS DECIDED TO WITHDRAW SUPPORT TODAY 12/24/2021 - COVID-19 negative x2 - 12/05 bronchoscopy was done and BAL collected. Negative cultures - 12/06 patient underwent right-sided thoracentesis and 1 L fluid was removed - 12/07 patient underwent left-sided thoracentesis and 1 L fluid was removed - 12/14 patient underwent repeat right-sided thoracentesis and 1 L fluid was removed -pleural fluid was transudate although some of the studies are pending 12/23/2021: chest x-ray shows complete opacification of left hemithorax due to left lung atelectasis/consolidation - will start patient on Pulmozyme and Mucomyst inhalation, will place the good lung down to improved V/Q mismatch. Also have ordered vibration/ percussion CPT to be done by respiratory therapist - will repeat chest x-ray this evening - sedated with fentanyl Versed infusion -patient got dialyzed on 12/21/2021 with removal of 1500 mL of fluid after which she dropped her blood pressures , with increased vasopressor requirements -patient's family's is discussing with hospice agency, may withdraw support. -12/[address] IMPRESSION: 1. Bilateral dependent airspace opacities, consistent with atelectasis versus pneumonia. 2. Moderate-sized pleural effusions. 3. Cardiomegaly (2) Shock: Code(s): R57.9 - Shock, unspecified Status: Acute Assessment and Plan: Currently on Levophed and vasopressin -11/25 blood cultures grew group B Streptococcus. -11/30/2021: Repeat blood cultures negative x2, preliminary results -11/29/2021 urine cultures are negative completed a 14 day course of cefepime (12/01/2021). Vancomycin was discontinued earlier patient's renal function is worsening and cultures have been negative (3) Pneumonia: Qualifiers: Laterality: unspecified laterality Lung location: unspecified part of lung Pneumonia type: due to unspecified organism Qualified Code(s): J18.9 - Pneumonia, unspecified organism Code(s): J18.9 - Pneumonia, unspecified organism Status: Acute Assessment and Plan: Possible community-acquired pneumonia - she has completed a 14 day course of cefepime -will continue to monitor chest x-ray and ABGs -SARS-CoV-2 PCR PCR negative x2 -12/03/2021: CTA chest showed no pulmonary embolism, moderate-sized bilateral pleural effusion, mild scattered ground-glass opacities in the lungs, consistent with mild pulmonary edema versus pneumonia. Moderate emphysema -12/[address] IMPRESSION: 1. Bilateral dependent airspace opacities, consistent with atelectasis versus pneumonia. 2. Moderate-sized pleural effusions. 3. 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 I discussed case with Dr. Deluca. 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 Patient has been started on acyclovir (12/13) which will be continued for 10 days (4) DIANA (acute kidney injury):
--- NOTE | 2022-01-21 13:24 | PM.DDS ---
Discharge Summary Date and Time Date of : 12/24/21 Time of : 13:12 Probable Cause of Probable Cause of : Cardiopulmonary arrest -respiratory failure secondary to bacteria pneumonia, viral pneumonia -acute kidney injury requiring dialysis Summary Hospital Course: 71 year old female with past medical history atrial fibrillation, anxiety, COPD, chronic UTI, depression, diabetes type 2, GERD, history of colon cancer, history of alcohol abuse, is history of kidney stones, hypercholesterolemia, essential hypertension, history of seizures a history of C diff colitis presented the ED on 11/25/2020 when with complains of shortness of breath and difficulty breathing for the last 2 days prior to admission. EMS was called and patient was found to be saturating in the 60s, was placed on CPAP t and was transferred to the ER. Patient continues to be a heavy smoker and smokes every day according to the ER records. Patient was placed on BiPAP in the ER with improvement in O2 sats. Chest x-ray showed significant infiltrates in the right middle lobe, patient was started on ceftriaxone and doxycycline. Echocardiogram on 11/27/2021 showed LV chamber to be normal in size, systolic function was 65-70%. Moderately increased LV wall thickness. Left atrial chamber dimension is severely enlarged. Mild aortic valve stenosis, moderate aortic valve calcification, mild mitral valve regurgitation. Patient was in AFib RVR, started on metoprolol and Xarelto for anticoagulation. SARS-CoV-2 PCR was negative on 11/25/2021. Patient is being treated for group B bacteremia along with Gram-negative bacteremia on blood cultures drawn on 11/25/2021. Repeat blood cultures on 11/30/2021 are negative so far, urine cultures 11/29/2021 is negative. Patient's oxygen requirements increased overnight, this morning she has been on BiPAP 16/6, rate of 12 and 100% FiO2. Patient's O2 sats have been in the upper 70s to mid 80s. Hospitalist did discuss with the daughter was agreeable for intubation at this time. I went and evaluated the patient in the intermediate Unit, patient was pretty obtunded and not responding. I decided to intubate her and place her on mechanical ventilation. I also placed a left IJ central line as patient was drop in blood pressures in the 60s systolic. Intubation and central line were uneventful. During the course of hospital stay patient developed bacterial, viral pneumonia, acute kidney injury requiring dialysis. Patient also underwent bronchoscopy on 12/05/21, thoracentesis on 12/06, 12/07 and 12/14. Patient was also in septic shock and was on Levophed and vasopressin and antibiotics. SARS-CoV-2 PCR was negative x2. During the course of the hospital stay patient also was anemic requiring blood transfusions. Chemoprophylaxis was discontinued due to thrombocytopenia and bloody endotracheal suctioning. Patient also had episodes of atrial fibrillation RVR and was treated with amiodarone infusion and switched to p.o. amiodarone. On 12/24/2021 discussed with family who made her comfort measures and withdrawal of support. Patient on 12/24/2021 at 1:12 p.m. Additional Data Confirmation of as documented by pronouncing clinician: Pupillary Reflex, Palpable Pulses, Response to Stimuli, Heart Tones and Breath Sounds Name of Provider Notified: Dr. Howard Time Provider Notified: 13:12 Provider Requests Autopsy: No Family Requests Autopsy: No Aviation Technician Notified: Yes Date [facility] Notified of : 12/24/21 Time [facility] Notified of : 13:26
== END 2021-12-24 13:12 | disposition expired | DRG 207 ==
LOC: ANHED 23:40 → ANHIMU 11-26 02:48 → ANH2MED 11-30 14:48 → ANHICU 12-04 11:52 → ANH2MED 12-25 11:42 → ANHICU 12-25 11:42 → ANHIMU 12-25 11:42
PROVIDERS: Family Medicine; Internal Medicine; Internal Medicine Hematology & Oncology; Internal Medicine Nephrology; Internal Medicine Pulmonary Disease; Surgery; Admitting Provider Internal Medicine; Emergency Provider Emergency Medicine; PCP Family Medicine; Visit Provider Student in an Organized Health Care Education/Training Program
PROC: 0BJ08ZZ Inspection of Tracheobronchial Tree, Via Natural or Artificial Opening Endoscopic (ICD-10-PCS; CPT 31622; principal; 2021-12-05 13:30)
PROC: 0JH63XZ Insertion of Tunneled Vascular Access Device into Chest Subcutaneous Tissue and Fascia, Percutaneous Approach (ICD-10-PCS; CPT 36908; principal; 2021-12-13 10:00)
DX: J15.3 Pneumonia due to streptococcus, group B (principal); J96.01 Acute respiratory failure with hypoxia; I21.A1 Myocardial infarction type 2; A41.9 Sepsis, unspecified organism; R65.21 Severe sepsis with septic shock; N17.0 Acute kidney failure with tubular necrosis; D65 Disseminated intravascular coagulation [defibrination syndrome]; I50.31 Acute diastolic (congestive) heart failure; N39.0 Urinary tract infection, site not specified; J90 Pleural effusion, not elsewhere classified; I48.20 Chronic atrial fibrillation, unspecified; J15.6 Pneumonia due to other Gram-negative bacteria; Z66 Do not resuscitate; I11.0 Hypertensive heart disease with heart failure; Z23 Encounter for immunization; Z20.822 Contact with and (suspected) exposure to COVID-19; F17.210 Nicotine dependence, cigarettes, uncomplicated; F32.A Depression, unspecified; E11.9 Type 2 diabetes mellitus without complications; K21.9 Gastro-esophageal reflux disease without esophagitis; Z85.038 Personal history of other malignant neoplasm of large intestine; E78.00 Pure hypercholesterolemia, unspecified; R56.9 Unspecified convulsions; F41.1 Generalized anxiety disorder; Z93.3 Colostomy status; F10.11 Alcohol abuse, in remission; I95.2 Hypotension due to drugs; T50.2X5A Adverse effect of carbonic-anhydrase inhibitors, benzothiadiazides and other diuretics, initial encounter; Y92.230 Patient room in hospital as the place of occurrence of the external cause; I35.0 Nonrheumatic aortic (valve) stenosis; E11.65 Type 2 diabetes mellitus with hyperglycemia; B96.89 Other specified bacterial agents as the cause of diseases classified elsewhere; D64.9 Anemia, unspecified; E87.8 Other disorders of electrolyte and fluid balance, not elsewhere classified; R21 Rash and other nonspecific skin eruption; I99.8 Other disorder of circulatory system; J20.8 Acute bronchitis due to other specified organisms; J43.2 Centrilobular emphysema
CPT/HCPCS: 31500; 32555; 36415; 36430; 36600; 70470; 70488; 71045; 71250; 71275; 74177; 76775; 77001; 80048; 80053; 80202; 81001; 82375; 82550; 82570; 82607; 82728; 82746; 82805; 82945; 82947; 82948; 83010; 83050; 83540; 83550; 83605; 83615; 83735; 83880; 83986; 84100; 84145; 84155; 84157; 84484; 85025; 85027; 85055; 85380; 85384; 85610; 85730; 85999; 86022; 86140; 86704; 86706; 86850; 86880; 86900; 86901; 86920; 87015; 87040; 87070; 87075; 87077; 87086; 87102; 87106; 87116; 87186; 87205; 87206; 87340; 87529; 87804; 88104; 88108; 88305; 88312; 89051; 93005; 93306; 93926; 94002; 94003; 94640; 94669; 96365; 96375; 99285; A9270; C1750; C1751; C9113; C9803; G0257; J0133; J0171; J0282; J0456; J0692; J0696; J1644; J1650; J1815; J1940; J2060; J2250; J2370; J2765; J2997; J3010; J3370; J3475; J3480; J7030; J7040; J7050; J7060; J7120; P9016; P9047; Q5105; Q9967; U0003; U0005